=== PATIENT | female | born 1975 | race Hispanic/Latino ===

== ENCOUNTER 2017-01-22 11:58 | Inpatient (IN) | payer MEDICARE ==
[2017-01-22] MEDS ORDERED: ATROVENT IH ONE ×2 (12:15→12:20)
[2017-01-22] MEDS ORDERED: PROVENTIL IH ONE ×2 (12:15→12:20)
[2017-01-22] MEDS ORDERED: MAGNESIUM SULFATE 2GM/50ML 2 GM/50 ML BAG IV ONE ×2 (12:20→17:23)
[2017-01-22] MEDS ORDERED: NACL 0.9% 1000 ML 1,000 ML IV ONE ×3 (12:20→14:39)
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
[2017-01-22] MEDS ORDERED: ADRENALINE P/F SUB-Q ONE (12:29)
[2017-01-22] MEDS ORDERED: VASELINE LIP THERAPY TP PRN (12:47)
[2017-01-22] MEDS ORDERED: ZEMURON IV ONE ×2 (12:47→20:09)
[2017-01-22] MEDS ORDERED: KETALAR IV ONE ×3 (12:47→16:15)
[2017-01-22] MEDS ORDERED: SUBLIMAZE IV ONE (12:47)
[2017-01-22 13:00] LABS: Hematocrit 41.9 % (30.3-42.9); Hemoglobin 13.8 gm/dl (10.1-14.3); Mean Corpuscular HGB Conc 33 % (30-34); Mean Corpuscular Hemoglobin 31 pg (28-32); Mean Corpuscular Volume 93 fl (79-97); Platelet Count 370 K/mm3 (140-440); Red Blood Count 4.51 M/mm3 (3.65-5.03); Red Cell Distribution Width 13.5 % (13.2-15.2); White Blood Count 15.5 K/mm3 (4.5-11.0)
[2017-01-22] MEDS: fentaNYL DRIP Premix 2,000 MCG/100 ML BAG IV SCH ×2 (13:05→21:39)
[2017-01-22 13:09] LABS: INR 0.9 (0.87-1.13)
[2017-01-22] MEDS: DIPRIVAN 10 MG/ML 1,000 MG/100 ML BOTTLE IV SCH ×2 (13:10→23:10)
[2017-01-22 13:17] LABS: Urine Drugs of Abuse Note Disclamer
[2017-01-22 13:26] LABS: Alanine Aminotransferase 20 units/L (7-56); Albumin 4.1 g/dL (3.9-5); Albumin/Globulin Ratio 1.3 %; Alkaline Phosphatase 67 units/L (35-129); Bilirubin,Total < 0.2 mg/dL (0.1-1.2); Total Protein 7.2 g/dL (6.3-8.2)
[2017-01-22 13:26] LABS: Bilirubin,Urine NEG (Negative); Blood,Urine MOD (Negative); Ketones,Urine NEG (Negative); Leukocyte Esterase,Urine NEG (Negative); Nitrite,Urine NEG (Negative); Protein,Urine <15 mg/dL mg/dL (Negative); Urobilinogen,Urine < 2.0 mg/dL (<2.0); WBC,Urine < 1.0 /HPF (0.0-6.0)
[2017-01-22 13:27] LABS: Anion Gap 23 mmol/L; Blood Urea Nitrogen 6 mg/dL (7-17); Calcium 9.2 mg/dL (8.4-10.2); Carbon Dioxide 19 mmol/L (22-30); Chloride 103.8 mmol/L (98-107); Glucose 94 mg/dL (65-100); Potassium 3.3 mmol/L (3.6-5.0); Sodium 142 mmol/L (137-145)
[2017-01-22 13:28] LABS: Bilirubin,Direct < 0.2 mg/dL (0-0.2)
--- NOTE | 2017-01-22 13:59 | XRay Report ---
AP CHEST :01/22/17 12:57 CLINICAL: Post intubation. COMPARISON:None. FINDINGS: An endotracheal tube is in satisfactory position. Normal heart and pulmonary vessels. No pneumothorax. IMPRESSION: Satisfactory position of the endotracheal tube.No CHF or pneumonia.
[2017-01-22] MEDS ORDERED: KCL 10MEQ/100ML 10 MEQ/100 ML BAG IV SCH (14:00)
[2017-01-22 14:30] LABS: ISTAT Base Excess 1; ISTAT HCO3 26.8; ISTAT PCO2 51.4 (35-45); ISTAT PH 7.325 (7.35-7.45); ISTAT PO2 203 (80-105); ISTAT SO2 100; ISTAT TCO2 28
[2017-01-22 14:46] LABS: Basophils % (Manual) 0 % (0.0-1.8); Blastocytes % (Manual) 0 %
[2017-01-22 14:47] LABS: Diff Status Complete; RBC Morphology Normal
--- NOTE | 2017-01-22 14:48 | Admit Criteria Form ---
Admission Criteria Documentation: RESPIRATORY FAILURE GRG Clinical Indications for Admission to Inpatient Care (Place 'X' for any and all applicable criteria): Hospital admission is needed for appropriate care of the patient because of acute respiratory failure or insufficiency as indicated by ANY ONE of the following(1)(2)(3)(4)(5)(6)(7)(8): [ ]I. Mechanical ventilation needed (acute invasive or noninvasive) [X ]II. Severe ventilation deficit as indicated by ANY ONE of the following (9 ) [ ]a) Respiratory acidosis (pH less than 7.32 and partial pressure of carbon dioxide greater than 40 mm Hg (5.3 kPa)) [X ]b) Partial pressure of carbon dioxide greater than 44 mm Hg (5.9 kPa) (new) [ ]c) Airflow measurements less than 25% of predicted (eg, peak expiratory flow rate less than 100 L/minute) [ ]d) Forced vital capacity less than 15 mL/kg of ideal body weight, or 50% decrease in vital capacity from baseline [ ]III. Noncardiac pulmonary edema not resolving with rapid emergency treatment (8) [ ]IV. Severe respiratory distress as indicated by ANY ONE of the following: [ ]a) Severe tachypnea (respiratory rate greater than 30, greater than 45 for 6-month-old, greater than 60 for ) [ ]b) Severe hypoxemia (partial pressure of oxygen less than 50 mm Hg ( 6.7 kPa) on greater than 50% oxygen or partial pressure of oxygen to FIO2 ratio less than 200) [ ]c) Mental status deterioration from respiratory disease [ ]V. Airway obstruction or inadequate protection [A](10)(11) The original [employer] content created by [employer] has been revised. The portions of the content which have been revised are identified through the use of italic text or in bold, and [employer] has neither reviewed nor approved the modified material. All other unmodified content is copyright [employer]. Please see references footnoted in the original [employer] edition 2016 Admission Criteria Met: Yes
[2017-01-22] MEDS ORDERED: XYLOCAINE 1%/ EPI 1:100,000 INFILTRATI ONE (14:49)
[2017-01-22] MEDS ORDERED: LEVOPHED DRIP 4 MG/NS 250 ML 4 MG/250 ML BAG IV ONE (14:55)
[2017-01-22] MEDS ORDERED: XYLOCAINE 1%/ EPI 1:100,000 INFILTRATI NR (15:00)
[2017-01-22] MEDS ORDERED: KETALAR IV STA (15:01)
[2017-01-22] MEDS ORDERED: NACL 0.9% 1000 ML 1,000 ML ONE ×2 (15:54→17:23)
[2017-01-22] MEDS: LEVOPHED DRIP 4 MG/NS 250 ML 4 MG/250 ML BAG IV SCH (16:00)
[2017-01-22] MEDS ORDERED: DULCOLAX PR PRN ×2 (16:39→16:42)
[2017-01-22] MEDS ORDERED: ZOFRAN IV PRN (16:39)
[2017-01-22] MEDS ORDERED: MILK OF MAGNESIA PO PRN ×2 (16:39→16:42)
[2017-01-22] MEDS ORDERED: DILAUDID IV PRN (16:39)
--- NOTE | 2017-01-22 16:39 | History and Physical Report ---
History of Present Illness Date of examination: 01/22/17 Date of admission: 01/22/17 14:57 Chief complaint: Increasing shortness of breath for 1 day. History of present illness: History of present illness: 41-year-old female brought in for increasing shortness of breath. Patient does one lifetime intubation. Patient does history of severe asthma. Has been having wheezing cough shortness of breath and chest pain for 1 day. Was exposed to smoke yesterday. And patient thinks that the smoke initiated her asthma. No fever no chills. Patient feels that she is for 8 months but the test in the ER was negative. On arrival to the emergency room the patient was hypoxic tachycardic tachypneic with severe wheezing and and markedly distressed. No fever no chills. No recent long travel. Past History Past Medical History: other (as well as seizure disorder. Social history) Social history: smoking (former smoker.). denies: alcohol abuse Family history: hypertension Medications and Allergies Allergies Allergy/AdvReac Type Severity Reaction Status Date / Time morphine Allergy Angioedema Verified 08/04/15 15:17 Penicillins Allergy Angioedema Verified 08/04/15 15:17 shellfish derived Allergy Angioedema Verified 08/04/15 15:17 Home Medications Medication Instructions Recorded Confirmed Last Taken Type ALBUTEROL Inhaler [ProAir HFA 2 puff IH QID PRN #1 inhalation 08/24/15 Unknown Rx Inhaler] predniSONE [Deltasone] 40 mg PO QDAY #8 tab 08/24/15 Unknown Rx Active Meds: Active Medications Hydrophilic Ointment (Vaseline Lip Therapy) 1 applic TP Q2HR PRN PRN Reason: Dry Lips Fentanyl Citrate (Fentanyl Drip Premix) 2,000 mcg in 100 mls @ 3.062 mls/hr IV TITR STEFANIE; 1 MCG/KG/HR PRN Reason: Protocol Propofol (Diprivan 10 Mg/Ml) 1,000 mg in 100 mls @ 1.837 mls/hr IV TITR STEFANIE; 5 MCG/KG/MIN PRN Reason: Protocol Potassium Chloride (Kcl 10meq/100ml) 10 meq in 100 mls @ 100 mls/hr IV Q1H STEFANIE Stop: 01/22/17 17:59 Norepinephrine (Levophed Drip 4 Mg/Ns 250 Ml) 4 mg in 250 mls @ 7.5 mls/hr IV TITR STEFANIE; 2 MCG/MIN PRN Reason: Protocol Multi-Ingred Cream/Lotion/Oil/Oint (Artificial Tears Ophth Oint) 1 applic OU Q4HR PRN PRN Reason: Dry Eye(s) Review of Systems All systems: negative Constitutional: other (HEENT no sore throat no postnasal drip. Neck no neck stiffness or neck pain. Respiratory system no severe wheezing tachypnea and tachycardia present. Cough productive of mucoid sputum present. Cardiovascular system mild chest pain present. The increasing wheezing present. No diaphoresis no palpitations. GI no nausea no vomiting or diarrhea. Gentamicin resistant no dysuria no flank pain. Muscular skeletal system no joint pains. This [employer]PER[employer] no syncope no seizures. Skin no rashes. Endocrine no polyuria or polyphagia call or in the heart and heart intolerance. Psychiatric no depression or anxiety. Lymphatic and immunologic no easy bruising or bleeding. The 14 point review of systems on other than severe wheezing and tachypnea review of systems essentially negative.) Respiratory: cough with sputum, shortness of breath, wheezing Exam - Physical Exam Narrative exam: Well-developed well-nourished female intubated in the emergency room - Constitutional Vitals: Temp Pulse Resp BP Pulse Ox 77 16 67/28 98 01/22/17 14:21 01/22/17 13:06 01/22/17 14:21 01/22/17 14:21 General appearance: Present: no acute distress, severe distress, well-nourished - EENT Eyes: Present: PERRL ENT: hearing intact, clear oral mucosa - Neck Neck: Present: supple, normal ROM - Respiratory Respiratory effort: normal Respiratory: bilateral: rhonchi, wheezing - Cardiovascular Heart rate: 80 Rhythm: regular Heart Sounds: Present: S1 & S2. Absent: rub, click - Extremities Extremities: pulses symmetrical, No edema Peripheral Pulses: within normal limits - Abdominal General gastrointestinal: Present: soft, non-tender, non-distended, normal bowel sounds Female genitourinary: Present: normal - Integumentary Integumentary: Present: clear, warm, dry - Musculoskeletal Musculoskeletal: gait normal, strength equal bilaterally - Psychiatric Psychiatric: appropriate mood/affect, intact judgment & insight - Neurologic Neurologic: CNII-XII intact, moves all extremities - Allied Health Allied health notes reviewed: nursing, case management Results - Labs CBC & Chem 7: 01/22/17 12:52 01/22/17 12:52 Labs: Laboratory Last Values WBC 15.5 K/mm3 (4.5-11.0) H 01/22/17 12:52 RBC 4.51 M/mm3 (3.65-5.03) 01/22/17 12:52 Hgb 13.8 gm/dl (10.1-14.3) 01/22/17 12:52 Hct 41.9 % (30.3-42.9) 01/22/17 12:52 MCV 93 fl (79-97) 01/22/17 12:52 MCH 31 pg (28-32) 01/22/17 12:52 MCHC 33 % (30-34) 01/22/17 12:52 RDW 13.5 % (13.2-15.2) 01/22/17 12:52 Plt Count 370 K/mm3 (140-440) 01/22/17 12:52 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 01/22/17 12:52 Add Manual Diff Complete 01/22/17 12:52 Total Counted 100 01/22/17 12:52 Seg Neuts % (Manual) 64.0 % (40.0-70.0) 01/22/17 12:52 Band Neutrophils % 1.0 % 01/22/17 12:52 Lymphocytes % (Manual) 24.0 % (13.4-35.0) 01/22/17 12:52 Reactive Lymphs % (Man) 0 % 01/22/17 12:52 Monocytes % (Manual) 7.0 % (0.0-7.3) 01/22/17 12:52 Eosinophils % (Manual) 4.0 % (0.0-4.3) 01/22/17 12:52 Basophils % (Manual) 0 % (0.0-1.8) 01/22/17 12:52 Metamyelocytes % 0 % 01/22/17 12:52 Myelocytes % 0 % 01/22/17 12:52 Promyelocytes % 0 % 01/22/17 12:52 Blast Cells % 0 % 01/22/17 12:52 Nucleated RBC % Not Reportable 01/22/17 12:52 Seg Neutrophils # Man 9.9 K/mm3 (1.8-7.7) H 01/22/17 12:52 Band Neutrophils # 0.2 K/mm3 01/22/17 12:52 Lymphocytes # (Manual) 3.7 K/mm3 (1.2-5.4) 01/22/17 12:52 Abs React Lymphs (Man) 0.0 K/mm3 01/22/17 12:52 Monocytes # (Manual) 1.1 K/mm3 (0.0-0.8) H 01/22/17 12:52 Eosinophils # (Manual) 0.6 K/mm3 (0.0-0.4) H 01/22/17 12:52 Basophils # (Manual) 0.0 K/mm3 (0.0-0.1) 01/22/17 12:52 Metamyelocytes # 0.0 K/mm3 01/22/17 12:52 Myelocytes # 0.0 K/mm3 01/22/17 12:52 Promyelocytes # 0.0 K/mm3 01/22/17 12:52 Blast Cells # 0.0 K/mm3 01/22/17 12:52 WBC Morphology Not Reportable 01/22/17 12:52 Hypersegmented Neuts Not Reportable 01/22/17 12:52 Hyposegmented Neuts Not Reportable 01/22/17 12:52 Hypogranular Neuts Not Reportable 01/22/17 12:52 Smudge Cells Not Reportable 01/22/17 12:52 Toxic Granulation Not Reportable 01/22/17 12:52 Toxic Vacuolation Not Reportable 01/22/17 12:52 Dohle Bodies Not Reportable 01/22/17 12:52 Pelger-Huet Anomaly Not Reportable 01/22/17 12:52 Roderick Rods Not Reportable 01/22/17 12:52 Platelet Estimate Not Reportable 01/22/17 12:52 Clumped Platelets Not Reportable 01/22/17 12:52 Plt Clumps, EDTA Not Reportable 01/22/17 12:52 Large Platelets Not Reportable 01/22/17 12:52 Giant Platelets Not Reportable 01/22/17 12:52 Platelet Satelliting Not Reportable 01/22/17 12:52 Plt Morphology Comment Not Reportable 01/22/17 12:52 RBC Morphology Normal 01/22/17 12:52 Dimorphic RBCs Not Reportable 01/22/17 12:52 Polychromasia Not Reportable 01/22/17 12:52 Hypochromasia Not Reportable 01/22/17 12:52 Poikilocytosis Not Reportable 01/22/17 12:52 Anisocytosis Not Reportable 01/22/17 12:52 Microcytosis Not Reportable 01/22/17 12:52 Macrocytosis Not Reportable 01/22/17 12:52 Spherocytes Not Reportable 01/22/17 12:52 Pappenheimer Bodies Not Reportable 01/22/17 12:52 Sickle Cells Not Reportable 01/22/17 12:52 Target Cells Not Reportable 01/22/17 12:52 Tear Drop Cells Not Reportable 01/22/17 12:52 Ovalocytes Not Reportable 01/22/17 12:52 Helmet Cells Not Reportable 01/22/17 12:52 Fermin-Marion Bodies Not Reportable 01/22/17 12:52 Ray Rings Not Reportable 01/22/17 12:52 Proctor Cells Not Reportable 01/22/17 12:52 Bite Cells Not Reportable 01/22/17 12:52 Crenated Cell Not Reportable 01/22/17 12:52 Elliptocytes Not Reportable 01/22/17 12:52 Acanthocytes (Spur) Not Reportable 01/22/17 12:52 Rouleaux Not Reportable 01/22/17 12:52 Hemoglobin C Crystals Not Reportable 01/22/17 12:52 Schistocytes Not Reportable 01/22/17 12:52 Malaria parasites Not Reportable 01/22/17 12:52 Ravin Bodies Not Reportable 01/22/17 12:52 Hem Pathologist Commnt No 01/22/17 12:52 PT 12.0 Sec. (12.2-14.9) L 01/22/17 12:52 INR 0.90 (0.87-1.13) 01/22/17 12:52 D-Dimer 162.42 ng/mlDDU (0-234) 01/22/17 12:52 POC ABG pH 7.325 (7.35-7.45) L 01/22/17 13:50 POC ABG pCO2 51.4 (35-45) H 01/22/17 13:50 POC ABG pO2 203 (80-105) H 01/22/17 13:50 POC ABG HCO3 26.8 01/22/17 13:50 POC ABG Total CO2 28 01/22/17 13:50 POC ABG O2 Sat 100 01/22/17 13:50 POC ABG Base Excess 1 01/22/17 13:50 FiO2 60 % 01/22/17 13:50 Sodium 142 mmol/L (137-145) 01/22/17 12:52 Potassium 3.3 mmol/L (3.6-5.0) L 01/22/17 12:52 Chloride 103.8 mmol/L (98-107) 01/22/17 12:52 Carbon Dioxide 19 mmol/L (22-30) L 01/22/17 12:52 Anion Gap 23 mmol/L 01/22/17 12:52 BUN 6 mg/dL (7-17) L 01/22/17 12:52 Creatinine 0.5 mg/dL (0.7-1.2) L 01/22/17 12:52 Estimated GFR > 60 ml/min 01/22/17 12:52 BUN/Creatinine Ratio 12.00 % 01/22/17 12:52 Glucose 94 mg/dL (65-100) 01/22/17 12:52 Calcium 9.2 mg/dL (8.4-10.2) 01/22/17 12:52 Magnesium 1.9 mg/dL (1.7-2.3) 01/22/17 14:40 Total Bilirubin < 0.2 mg/dL (0.1-1.2) 01/22/17 12:52 Direct Bilirubin < 0.2 mg/dL (0-0.2) 01/22/17 12:52 Indirect Bilirubin 0.0 mg/dL 01/22/17 12:52 AST 22 units/L (5-40) 01/22/17 12:52 ALT 20 units/L (7-56) 01/22/17 12:52 Alkaline Phosphatase 67 units/L (35-129) 01/22/17 12:52 Troponin T < 0.010 ng/mL (0.00-0.029) 01/22/17 12:52 NT-Pro-B Natriuret Pep 100.8 pg/mL (0-450) 01/22/17 12:52 Total Protein 7.2 g/dL (6.3-8.2) 01/22/17 12:52 Albumin 4.1 g/dL (3.9-5) 01/22/17 12:52 Albumin/Globulin Ratio 1.3 % 01/22/17 12:52 HCG, Quant < 2 mIU/mL (0-4) 01/22/17 12:52 Urine Color Colorless (Yellow) 01/22/17 Unknown Urine Turbidity Clear (Clear) 01/22/17 Unknown Urine pH 6.0 (5.0-7.0) 01/22/17 Unknown Ur Specific Laverne 1.002 (1.003-1.030) L 01/22/17 Unknown Urine Protein <15 mg/dl mg/dL (Negative) 01/22/17 Unknown Urine Glucose (UA) Neg mg/dL (Negative) 01/22/17 Unknown Urine Ketones Neg mg/dL (Negative) 01/22/17 Unknown Urine Blood Mod (Negative) 01/22/17 Unknown Urine Nitrite Neg (Negative) 01/22/17 Unknown Urine Bilirubin Neg (Negative) 01/22/17 Unknown Urine Urobilinogen < 2.0 mg/dL (<2.0) 01/22/17 Unknown Ur Leukocyte Esterase Neg (Negative) 01/22/17 Unknown Urine WBC (Auto) < 1.0 /HPF (0.0-6.0) 01/22/17 Unknown Urine RBC (Auto) 1.0 /HPF (0.0-6.0) 01/22/17 Unknown U Epithel Cells (Auto) < 1.0 /HPF (0-13.0) 01/22/17 Unknown Urine Opiates Screen Presumptive negative 01/22/17 Unknown Urine Methadone Screen Presumptive negative 01/22/17 Unknown Ur Barbiturates Screen Presumptive negative 01/22/17 Unknown Ur Phencyclidine Scrn Presumptive negative 01/22/17 Unknown Ur Amphetamines Screen Presumptive negative 01/22/17 Unknown U Benzodiazepines Scrn Presumptive negative 01/22/17 Unknown Urine Cocaine Screen Presumptive negative 01/22/17 Unknown U Marijuana (THC) Screen Presumptive negative 01/22/17 Unknown Drugs of Abuse Note Disclamer 01/22/17 Unknown Short CBC 01/22/17 Range/Units 12:52 WBC 15.5 H (4.5-11.0) K/mm3 Hgb 13.8 (10.1-14.3) gm/dl Hct 41.9 (30.3-42.9) % Plt Count 370 (140-440) K/mm3 [facility] 01/22/17 12:52 Sodium 142 Potassium 3.3 L Chloride 103.8 Carbon Dioxide 19 L BUN 6 L Creatinine 0.5 L Glucose 94 Calcium 9.2 Cardiac Enzymes 01/22/17 Range/Units 12:52 Troponin T < 0.010 (0.00-0.029) ng/mL Liver Function 01/22/17 Range/Units 12:52 Total Bilirubin < 0.2 (0.1-1.2) mg/dL Direct Bilirubin < 0.2 (0-0.2) mg/dL AST 22 (5-40) units/L ALT 20 (7-56) units/L Alkaline Phosphatase 67 (35-129) units/L Albumin 4.1 (3.9-5) g/dL Urine 01/22/17 Range/Units Unknown Urine Color Colorless (Yellow) Urine pH 6.0 (5.0-7.0) Ur Specific Laverne 1.002 L (1.003-1.030) Urine Protein <15 mg/dl (Negative) mg/dL Urine Glucose (UA) Neg (Negative) mg/dL Short CBC 01/22/17 Range/Units 12:52 WBC 15.5 H (4.5-11.0) K/mm3 Hgb 13.8 (10.1-14.3) gm/dl Hct 41.9 (30.3-42.9) % Plt Count 370 (140-440) K/mm3 [facility] 01/22/17 12:52 Sodium 142 Potassium 3.3 L Chloride 103.8 Carbon Dioxide 19 L BUN 6 L Creatinine 0.5 L Glucose 94 Calcium 9.2 Cardiac Enzymes 01/22/17 Range/Units 12:52 Troponin T < 0.010 (0.00-0.029) ng/mL Liver Function 01/22/17 Range/Units 12:52 Total Bilirubin < 0.2 (0.1-1.2) mg/dL Direct Bilirubin < 0.2 (0-0.2) mg/dL AST 22 (5-40) units/L ALT 20 (7-56) units/L Alkaline Phosphatase 67 (35-129) units/L Albumin 4.1 (3.9-5) g/dL Urine 01/22/17 Range/Units Unknown Urine Color Colorless (Yellow) Urine pH 6.0 (5.0-7.0) Ur Specific Laverne 1.002 L (1.003-1.030) Urine Protein <15 mg/dl (Negative) mg/dL Urine Glucose (UA) Neg (Negative) mg/dL - Imaging and Cardiology EKG: report reviewed (EKG normal sinus rhythm with no ST-T wave changes.) Chest x-ray: report reviewed (no infiltrates. No acute findings.) Assessment and Plan Assessment and plan: 1.Acute respiratory failure: Patient was hypoxic on arrival to the emergency room. Because of tachypnea and severe hypoxia patient was intubated in the emergency room by Dr. Ivanna mckeon. 2. Acute asthma exacerbation: Patient to be started on albuterol nebulizer treatments every 6 hours [id number] and every 3 when necessary. Patient also started on steroids and IV Levaquin 750 mg every 24. Critical care and pulmonary consult requested by Dr. Gerber 3. Seizure disorder: Patient to be initiated on gabapentin which is her home medicine. #4 4. ruled out. 5. DVT prophylaxis: Lovenox 40 mg subcutaneous daily started. 6. Hypokalemia supplemented. Critical care statement: The high probability of a clinically significant or life-threatening deterioration of the cardiopulmonary system required my full and direct attention, intervention and personal management. This time the aggravated critical care time was 40 minutes. This time is in addition to time spent performing reported procedures but includes the following: Data review and interpretation Patient assessment and monitoring of vital signs Documentation Medication orders and management. Advance Directives: Yes (Full code) VTE prophylaxis?: Chemical Plan of care discussed with patient/family: Yes - Patient Problems (1) Acute respiratory failure Current Visit: Yes Status: Acute Qualifiers: Respiratory failure complication: hypoxia Qualified Code(s): J96.01 - Acute respiratory failure with hypoxia
[2017-01-22] MEDS ORDERED: SODIUM BICARBONATE FEEDTUBE PRN (16:42)
[2017-01-22] MEDS ORDERED: PANCREAZE DR 10,500 UNIT FEEDTUBE PRN (16:42)
[2017-01-22] MEDS ORDERED: SIMPLE SYRUP FEEDTUBE PRN ×2 (16:42)
[2017-01-22] MEDS ORDERED: ALUM-MAG HYDROX-SIMETH 200-200-20MG/5ML PO PRN (16:42)
[2017-01-22] MEDS ORDERED: ADRENALIN ONE (17:23)
[2017-01-22] MEDS ORDERED: NACL 0.9% 1000 ML 2,000 ML ONE (17:30)
[2017-01-22] MEDS ORDERED: DIPRIVAN IV ONE (17:32)
[2017-01-22] MEDS ORDERED: KCL 10MEQ/100ML 10 MEQ/100 ML BAG IV ONE (17:33)
--- NOTE | 2017-01-22 17:52 | Emergency Department Report ---
Blank Doc - Documentation Documentation: PROCEDURE NOTE: DELAYED SEQUENCE INTUBATION Indication: Acute hypoxia and altered mental status. pt was uncooperative, confused and combative at time of assessment Supervising Physician: Dr. Cardona Clinical APC: LANA Sifuentes Witnesses: ED Nursing staff and RT at bedside The patient was lying in the supine position, neck flexed backward with towels underneath neck. Preoxygenation via nasal cannula to max flow, nonrebreather mask and then bag valve mask was provided for aminimum of 3 minutes. The patient had continuous cardiac as well as pulse oximetry monitoring during the procedure. Delayed sequence induction was provided by administration of 300 mg of Ketamine and paralysis was acheived [id number] of Roccuronium. Glidoscope with curved blade laryngoscope used for visualization of voal cords, 7.5mm ET tube tube was visualized advancing between the cords to a level of 23_cm at the lips. The sylette was then removed and discarded. Tube placement was also noted by fogging in the tube, equal and bilateral breath sounds on ausculatation, no sounds over the epigastrium, and end-tidal colorimetric monitoring. The cuff was then inflated with 10ccs of air and the tube secured using a ET tube face moore. A good pulse oximetry wave form was seen on the monitor throughout the procedure, o2 sat 100%. A portable chest x-ray has been ordered for confirmation of placement.
[2017-01-22] MEDS ORDERED: PROVENTIL IH PRN (18:23)
[2017-01-22] MEDS: PROVENTIL IH SCH (19:32)
[2017-01-22] MEDS: KCL 10MEQ/100ML 10 MEQ/100 ML BAG IV SCH ×3 (21:05→23:16)
[2017-01-22] MEDS: PEPCID IV SCH (21:29)
[2017-01-22] MEDS: D5NS 1,000 ML IV SCH (21:57)
[2017-01-23] MEDS: KCL 10MEQ/100ML 10 MEQ/100 ML BAG IV SCH (01:24)
[2017-01-23] MEDS: LEVOPHED DRIP 4 MG/NS 250 ML 4 MG/250 ML BAG IV SCH ×2 (01:25→22:28)
[2017-01-23] MEDS: PROVENTIL IH SCH ×4 (01:38→20:14)
[2017-01-23] MEDS: DIPRIVAN 10 MG/ML 1,000 MG/100 ML BOTTLE IV SCH ×7 (01:59→23:57)
[2017-01-23 03:55] LABS: Hematocrit 35.8 % (30.3-42.9); Hemoglobin 11.8 gm/dl (10.1-14.3); Mean Corpuscular HGB Conc 33 % (30-34); Mean Corpuscular Hemoglobin 31 pg (28-32); Mean Corpuscular Volume 92 fl (79-97); Platelet Count 327 K/mm3 (140-440); Red Blood Count 3.87 M/mm3 (3.65-5.03); Red Cell Distribution Width 13.6 % (13.2-15.2); White Blood Count 16.5 K/mm3 (4.5-11.0)
[2017-01-23 04:13] LABS: ISTAT Base Excess -6; ISTAT HCO3 20.2; ISTAT PCO2 41.8 (35-45); ISTAT PH 7.293 (7.35-7.45); ISTAT PO2 89 (80-105); ISTAT SO2 96; ISTAT TCO2 21
[2017-01-23 04:16] LABS: Alanine Aminotransferase 93 units/L (7-56); Albumin 3.2 g/dL (3.9-5); Albumin/Globulin Ratio 1.2 %; Alkaline Phosphatase 72 units/L (35-129); Anion Gap 18 mmol/L; Bilirubin,Total 0.4 mg/dL (0.1-1.2); Blood Urea Nitrogen 7 mg/dL (7-17); Calcium 7.6 mg/dL (8.4-10.2); Carbon Dioxide 19 mmol/L (22-30); Chloride 108.6 mmol/L (98-107); Glucose 216 mg/dL (65-100); Sodium 141 mmol/L (137-145); Total Protein 5.9 g/dL (6.3-8.2)
[2017-01-23 05:22] LABS: Potassium 4.6 mmol/L (3.6-5.0)
[2017-01-23] MEDS: fentaNYL DRIP Premix 2,000 MCG/100 ML BAG IV SCH ×3 (05:39→23:59)
[2017-01-23 07:15] LABS: Basophils % (Manual) 0 % (0.0-1.8); Blastocytes % (Manual) 0 %; Diff Status Complete; Eosinophils % (Manual) 0 % (0.0-4.3); RBC Morphology Normal
--- NOTE | 2017-01-23 08:30 | Progress Note ---
Assessment and Plan Assessment and plan: --Acute hypoxic respiratory failure Secondary to bronchial asthma exacerbation, continue ventilatory support Nebulizers, IV steroids, IV antibiotics --Acute exacerbation of bronchial asthma Ventilatory support, nebulizers, steroids, IV antibiotics and supportive care Pulmonary following --Hypotension/septic Shock Continue Levophed, IV fluids, IV antibiotics --Hypokalemia Replenish per protocol and monitor levels --Mild hypoalbuminemia/protein calorie malnutrition Nutrition supplements and supportive care --DVT prophylaxis with Lovenox Closely monitor the patient and adjust the management as needed Patient's condition treatment plan discussed in detail with the patient's nurse Consults and recommendations noted Critical care time 31 minutes The high probability of a clinically significant or life-threatening deterioration of the cardiopulmonary system required my full and direct attention, intervention and personal management. This includes Data review and interpretation Patient assessment and monitoring of vital signs Documentation and Medication orders and management. History Interval history: Recent seen and evaluated this morning in ICU medical records reviewed Admitted with acute respiratory failure secondary to bronchial asthma exacerbation,: Intubated on ventilatory support Patient is noncommunicative, sedated not in acute distress No new events reported by the nursing staff Hospitalist Physical - Constitutional Vitals: Temp Pulse Resp BP Pulse Ox 96.8 F L 65 18 137/62 96 01/23/17 03:58 01/23/17 06:00 01/23/17 06:00 01/23/17 06:00 01/23/17 06:00 General appearance: Present: no acute distress, well-nourished, other (orally intubated and on vent) - EENT Eyes: Present: PERRL, EOM intact - Neck Neck: Present: supple, normal ROM - Respiratory Respiratory effort: normal Respiratory: bilateral: diminished, rhonchi ( occasional), wheezing - Cardiovascular Rhythm: regular Heart Sounds: Present: S1 & S2 - Extremities Extremities: no ischemia, pulses intact, pulses symmetrical - Abdominal General gastrointestinal: soft, non-tender, non-distended, normal bowel sounds - Integumentary Integumentary: Present: clear, warm - Psychiatric Psychiatric: other (intubated and sedated) - Neurologic Neurologic: other (intubated and sedated) Results - Labs CBC & Chem 7: 01/23/17 03:40 01/23/17 03:40 Labs: Laboratory Last Values WBC 16.5 K/mm3 (4.5-11.0) H 01/23/17 03:40 RBC 3.87 M/mm3 (3.65-5.03) 01/23/17 03:40 Hgb 11.8 gm/dl (10.1-14.3) 01/23/17 03:40 Hct 35.8 % (30.3-42.9) D 01/23/17 03:40 MCV 92 fl (79-97) 01/23/17 03:40 MCH 31 pg (28-32) 01/23/17 03:40 MCHC 33 % (30-34) 01/23/17 03:40 RDW 13.6 % (13.2-15.2) 01/23/17 03:40 Plt Count 327 K/mm3 (140-440) 01/23/17 03:40 Lymph # Property Inspector 01/22/17 12:52 Add Manual Diff Complete 01/23/17 03:40 Total Counted 100 01/23/17 03:40 Seg Neutrophils % Property Inspector 01/23/17 03:40 Seg Neuts % (Manual) 95.0 % (40.0-70.0) H 01/23/17 03:40 Band Neutrophils % 0 % 01/23/17 03:40 Lymphocytes % (Manual) 4.0 % (13.4-35.0) L 01/23/17 03:40 Reactive Lymphs % (Man) 0 % 01/23/17 03:40 Monocytes % (Manual) 1.0 % (0.0-7.3) 01/23/17 03:40 Eosinophils % (Manual) 0 % (0.0-4.3) 01/23/17 03:40 Basophils % (Manual) 0 % (0.0-1.8) 01/23/17 03:40 Metamyelocytes % 0 % 01/23/17 03:40 Myelocytes % 0 % 01/23/17 03:40 Promyelocytes % 0 % 01/23/17 03:40 Blast Cells % 0 % 01/23/17 03:40 Nucleated RBC % Not Reportable 01/23/17 03:40 Seg Neutrophils # Man 15.7 K/mm3 (1.8-7.7) H 01/23/17 03:40 Band Neutrophils # 0.0 K/mm3 01/23/17 03:40 Lymphocytes # (Manual) 0.7 K/mm3 (1.2-5.4) L 01/23/17 03:40 Abs React Lymphs (Man) 0.0 K/mm3 01/23/17 03:40 Monocytes # (Manual) 0.2 K/mm3 (0.0-0.8) 01/23/17 03:40 Eosinophils # (Manual) 0.0 K/mm3 (0.0-0.4) 01/23/17 03:40 Basophils # (Manual) 0.0 K/mm3 (0.0-0.1) 01/23/17 03:40 Metamyelocytes # 0.0 K/mm3 01/23/17 03:40 Myelocytes # 0.0 K/mm3 01/23/17 03:40 Promyelocytes # 0.0 K/mm3 01/23/17 03:40 Blast Cells # 0.0 K/mm3 01/23/17 03:40 WBC Morphology Not Reportable 01/23/17 03:40 Hypersegmented Neuts Not Reportable 01/23/17 03:40 Hyposegmented Neuts Not Reportable 01/23/17 03:40 Hypogranular Neuts Not Reportable 01/23/17 03:40 Smudge Cells Not Reportable 01/23/17 03:40 Toxic Granulation Not Reportable 01/23/17 03:40 Toxic Vacuolation Not Reportable 01/23/17 03:40 Dohle Bodies Not Reportable 01/23/17 03:40 Pelger-Huet Anomaly Not Reportable 01/23/17 03:40 Roderick Rods Not Reportable 01/23/17 03:40 Platelet Estimate Appears normal 01/23/17 03:40 Clumped Platelets Not Reportable 01/23/17 03:40 Plt Clumps, EDTA Not Reportable 01/23/17 03:40 Large Platelets Not Reportable 01/23/17 03:40 Giant Platelets Not Reportable 01/23/17 03:40 Platelet Satelliting Not Reportable 01/23/17 03:40 Plt Morphology Comment Not Reportable 01/23/17 03:40 RBC Morphology Normal 01/23/17 03:40 Dimorphic RBCs Not Reportable 01/23/17 03:40 Polychromasia Not Reportable 01/23/17 03:40 Hypochromasia Not Reportable 01/23/17 03:40 Poikilocytosis Not Reportable 01/23/17 03:40 Anisocytosis Not Reportable 01/23/17 03:40 Microcytosis Not Reportable 01/23/17 03:40 Macrocytosis Not Reportable 01/23/17 03:40 Spherocytes Not Reportable 01/23/17 03:40 Pappenheimer Bodies Not Reportable 01/23/17 03:40 Sickle Cells Not Reportable 01/23/17 03:40 Target Cells Not Reportable 01/23/17 03:40 Tear Drop Cells Not Reportable 01/23/17 03:40 Ovalocytes Not Reportable 01/23/17 03:40 Helmet Cells Not Reportable 01/23/17 03:40 [place] Bodies Not Reportable 01/23/17 03:40 Dixie Rings Not Reportable 01/23/17 03:40 Juliana Cells Not Reportable 01/23/17 03:40 Bite Cells Not Reportable 01/23/17 03:40 Crenated Cell Not Reportable 01/23/17 03:40 Elliptocytes Not Reportable 01/23/17 03:40 Acanthocytes (Spur) Not Reportable 01/23/17 03:40 Rouleaux Not Reportable 01/23/17 03:40 Hemoglobin C Crystals Not Reportable 01/23/17 03:40 Schistocytes Not Reportable 01/23/17 03:40 Malaria parasites Not Reportable 01/23/17 03:40 Ravin Bodies Not Reportable 01/23/17 03:40 Hem Pathologist Commnt No 01/23/17 03:40 PT 12.0 Sec. (12.2-14.9) L 01/22/17 12:52 INR 0.90 (0.87-1.13) 01/22/17 12:52 D-Dimer 162.42 ng/mlDDU (0-234) 01/22/17 12:52 POC ABG pH 7.293 (7.35-7.45) L 01/23/17 03:32 POC ABG pCO2 41.8 (35-45) 01/23/17 03:32 POC ABG pO2 89 (80-105) 01/23/17 03:32 POC ABG HCO3 20.2 01/23/17 03:32 POC ABG Total CO2 21 01/23/17 03:32 POC ABG O2 Sat 96 01/23/17 03:32 POC ABG Base Excess -6 01/23/17 03:32 FiO2 30 % 01/23/17 03:32 Sodium 141 mmol/L (137-145) 01/23/17 03:40 Potassium 4.6 mmol/L (3.6-5.0) D 01/23/17 03:40 Chloride 108.6 mmol/L (98-107) H 01/23/17 03:40 Carbon Dioxide 19 mmol/L (22-30) L 01/23/17 03:40 Anion Gap 18 mmol/L 01/23/17 03:40 BUN 7 mg/dL (7-17) 01/23/17 03:40 Creatinine 0.5 mg/dL (0.7-1.2) L 01/23/17 03:40 Estimated GFR > 60 ml/min 01/23/17 03:40 BUN/Creatinine Ratio 14.00 % 01/23/17 03:40 Glucose 216 mg/dL (65-100) H 01/23/17 03:40 Calcium 7.6 mg/dL (8.4-10.2) L D 01/23/17 03:40 Magnesium 1.9 mg/dL (1.7-2.3) 01/22/17 14:40 Total Bilirubin 0.4 mg/dL (0.1-1.2) 01/23/17 03:40 Direct Bilirubin < 0.2 mg/dL (0-0.2) 01/22/17 12:52 Indirect Bilirubin 0.0 mg/dL 01/22/17 12:52 AST 98 units/L (5-40) H 01/23/17 03:40 ALT 93 units/L (7-56) H 01/23/17 03:40 Alkaline Phosphatase 72 units/L (35-129) 01/23/17 03:40 Troponin T < 0.010 ng/mL (0.00-0.029) 01/22/17 12:52 NT-Pro-B Natriuret Pep 100.8 pg/mL (0-450) 01/22/17 12:52 Total Protein 5.9 g/dL (6.3-8.2) L 01/23/17 03:40 Albumin 3.2 g/dL (3.9-5) L 01/23/17 03:40 Albumin/Globulin Ratio 1.2 % 01/23/17 03:40 HCG, Quant < 2 mIU/mL (0-4) 01/22/17 12:52 Urine Color Colorless (Yellow) 01/22/17 Unknown Urine Turbidity Clear (Clear) 01/22/17 Unknown Urine pH 6.0 (5.0-7.0) 01/22/17 Unknown Ur Specific [place] 1.002 (1.003-1.030) L 01/22/17 Unknown Urine Protein <15 mg/dl mg/dL (Negative) 01/22/17 Unknown Urine Glucose (UA) Neg mg/dL (Negative) 01/22/17 Unknown Urine Ketones Neg mg/dL (Negative) 01/22/17 Unknown Urine Blood Mod (Negative) 01/22/17 Unknown Urine Nitrite Neg (Negative) 01/22/17 Unknown Urine Bilirubin Neg (Negative) 01/22/17 Unknown Urine Urobilinogen < 2.0 mg/dL (<2.0) 01/22/17 Unknown Ur Leukocyte Esterase Neg (Negative) 01/22/17 Unknown Urine WBC (Auto) < 1.0 /HPF (0.0-6.0) 01/22/17 Unknown Urine RBC (Auto) 1.0 /HPF (0.0-6.0) 01/22/17 Unknown U Epithel Cells (Auto) < 1.0 /HPF (0-13.0) 01/22/17 Unknown Urine Opiates Screen Presumptive negative 01/22/17 Unknown Urine Methadone Screen Presumptive negative 01/22/17 Unknown Ur Barbiturates Screen Presumptive negative 01/22/17 Unknown Ur Phencyclidine Scrn Presumptive negative 01/22/17 Unknown Ur Amphetamines Screen Presumptive negative 01/22/17 Unknown U Benzodiazepines Scrn Presumptive negative 01/22/17 Unknown Urine Cocaine Screen Presumptive negative 01/22/17 Unknown U Marijuana (THC) Screen Presumptive negative 01/22/17 Unknown Drugs of Abuse Note Disclamer 01/22/17 Unknown
--- NOTE | 2017-01-23 08:52 | XRay Report ---
AP chest x-ray. Findings: The heart and lungs reveal no acute findings or interval changes. The endotracheal tube is in satisfactory position. A left jugular central line terminates in the upper SVC, and there is no evidence of pneumothorax. Impression: No acute findings.
--- NOTE | 2017-01-23 08:53 | XRay Report ---
AP chest x-ray. Findings: The heart and lungs with no acute findings or interval changes. The left support tubes are unchanged in position.
[2017-01-23] MEDS: LOVENOX SUB-Q SCH (09:15)
[2017-01-23] MEDS: PEPCID IV SCH ×2 (09:15→22:16)
[2017-01-23] MEDS ORDERED: PANCREAZE DR 10,500 UNIT FEEDTUBE PRN (09:59)
[2017-01-23] MEDS ORDERED: SIMPLE SYRUP FEEDTUBE PRN ×2 (09:59)
[2017-01-23] MEDS ORDERED: SODIUM BICARBONATE FEEDTUBE PRN (09:59)
[2017-01-23] MEDS: D5NS 1,000 ML IV SCH ×2 (11:06→14:17)
--- NOTE | 2017-01-23 11:35 | Consultation ---
History of Present Illness Consult date: 01/23/17 Requesting physician: ELLA DAVIS Reason for consult: other (Acute Hypoxemic Respiratory failure) History of present illness: PULMONARY CONSULT NOTE (Full note dictated [id number]) please see dictated notes for full details Past History Past Medical History: other (as well as seizure disorder. Social history) Social history: smoking (former smoker.). denies: alcohol abuse Family history: hypertension Medications and Allergies Allergies Allergy/AdvReac Type Severity Reaction Status Date / Time morphine Allergy Angioedema Verified 08/04/15 15:17 Penicillins Allergy Angioedema Verified 08/04/15 15:17 shellfish derived Allergy Angioedema Verified 08/04/15 15:17 Home Medications Medication Instructions Recorded Confirmed Last Taken Type ALBUTEROL Inhaler [ProAir HFA 2 puff IH QID PRN #1 inhalation 08/24/15 Unknown Rx Inhaler] predniSONE [Deltasone] 40 mg PO QDAY #8 tab 08/24/15 Unknown Rx Active Meds: Active Medications Acetaminophen (Tylenol) 650 mg PO Q4H PRN PRN Reason: Pain MILD(1-3)/Fever >100.5/ARMENDARIZ Al Hydrox/Mg Hydrox/Simethicone (Alum-Mag Hydrox-Simeth [id number]/5ml) 30 ml PO Q4H PRN PRN Reason: Indigestion Albuterol (Proventil) 2.5 mg IH Q6HRT [facility] Last Admin: 01/23/17 09:15 Dose: 2.5 mg Albuterol (Proventil) 2.5 mg IH Q2H PRN PRN Reason: Shortness Of Breath Lipase/Protease/Amylase ([place]redoug Dickens 10,500 Unit) 1 each FEEDTUBE PRN PRN PRN Reason: For Clogged Feeding Tube Lipase/Protease/Amylase (Grayson Dickens 10,500 Unit) 1 each FEEDTUBE PRN PRN PRN Reason: For Clogged Feeding Tube Bisacodyl (Dulcolax) 10 mg GA QDAY PRN PRN Reason: constipation unrelieved by MOM Enoxaparin Sodium (Lovenox) 40 mg SUB-Q QDAY [facility] Last Admin: 01/23/17 09:15 Dose: 40 mg Famotidine (Pepcid) 20 mg IV BID [facility] Last Admin: 01/23/17 09:15 Dose: 20 mg Hydromorphone HCl (Dilaudid) 0.5 mg IV Q3H PRN PRN Reason: Pain , Severe (7-10) Hydrophilic Ointment (Vaseline Lip Therapy) 1 applic TP Q2HR PRN PRN Reason: Dry Lips Fentanyl Citrate (Fentanyl Drip Premix) 2,000 mcg in 100 mls @ 3.062 mls/hr IV TITR STEFANIE; 1 MCG/KG/HR PRN Reason: Protocol Last Admin: 01/23/17 05:39 Dose: 1 mcg/kg/hr, 3.062 mls/hr Propofol (Diprivan 10 Mg/Ml) 1,000 mg in 100 mls @ 1.837 mls/hr IV TITR STEFANIE; 5 MCG/KG/MIN PRN Reason: Protocol Last Admin: 01/23/17 08:57 Dose: 50 mcg/kg/min, 18.371 mls/hr Norepinephrine (Levophed Drip 4 Mg/Ns 250 Ml) 4 mg in 250 mls @ 7.5 mls/hr IV TITR STEFANIE; 2 MCG/MIN PRN Reason: Protocol Last Admin: 01/23/17 01:25 Dose: 20 mcg/min, 75 mls/hr Dextrose/Sodium Chloride (D5ns) 1,000 mls @ 75 mls/hr IV DIRECT STEFANIE Last Admin: 01/23/17 11:06 Dose: 75 mls/hr Levofloxacin/Dextrose (Levaquin 750mg/150ml) 750 mg in 150 mls @ 100 mls/hr IV Q24H STEFANIE PRN Reason: Protocol Magnesium Hydroxide (Milk Of Magnesia) 30 ml PO Q4H PRN PRN Reason: Constipation Methylprednisolone Sodium Succinate (Solu-Medrol) 60 mg IV Q8HR STEFANIE Last Admin: 01/23/17 06:19 Dose: 60 mg Multi-Ingred Cream/Lotion/Oil/Oint (Artificial Tears Ophth Oint) 1 applic OU Q4HR PRN PRN Reason: Dry Eye(s) Ondansetron HCl (Zofran) 4 mg IV Q8H PRN PRN Reason: N/V unrelieved by Reglan Simple Syrup (Simple Syrup) 15 ml FEEDTUBE PRN PRN PRN Reason: Hypoglycemia Simple Syrup (Simple Syrup) 30 ml FEEDTUBE PRN PRN PRN Reason: Hypoglycemia Simple Syrup (Simple Syrup) 15 ml FEEDTUBE PRN PRN PRN Reason: Hypoglycemia Simple Syrup (Simple Syrup) 30 ml FEEDTUBE PRN PRN PRN Reason: Hypoglycemia Sodium Bicarbonate (Sodium Bicarbonate) 325 mg FEEDTUBE PRN PRN PRN Reason: For Clogged Feeding Tube Sodium Bicarbonate (Sodium Bicarbonate) 325 mg FEEDTUBE PRN PRN PRN Reason: For Clogged Feeding Tube Physical Examination Vital signs: Vital Signs Pulse Resp BP Pulse Ox 124 H 30 H 134/74 93 01/22/17 12:08 01/22/17 12:08 01/22/17 12:08 01/22/17 12:08 Results - Laboratory Findings CBC and BMP: 01/23/17 03:40 01/23/17 03:40 ABG POC ABG pH 7.293 (7.35-7.45) L 01/23/17 03:32 POC ABG pCO2 41.8 (35-45) 01/23/17 03:32 POC ABG pO2 89 (80-105) 01/23/17 03:32 POC ABG HCO3 20.2 01/23/17 03:32 POC ABG Total CO2 21 01/23/17 03:32 POC ABG O2 Sat 96 01/23/17 03:32 PT/INR, D-dimer PT 12.0 Sec. (12.2-14.9) L 01/22/17 12:52 INR 0.90 (0.87-1.13) 01/22/17 12:52 D-Dimer 162.42 ng/mlDDU (0-234) 01/22/17 12:52 Abnormal lab findings: Abnormal Labs 01/22/17 01/23/17 01/23/17 Unknown 03:32 03:40 WBC 16.5 H Seg Neuts % (Manual) 95.0 H Lymphocytes % (Manual) 4.0 L Seg Neutrophils # Man 15.7 H Lymphocytes # (Manual) 0.7 L POC ABG pH 7.293 L Chloride Carbon Dioxide Creatinine Glucose Calcium AST ALT Total Protein Albumin Ur Specific [place] 1.002 L 01/23/17 03:40 WBC Seg Neuts % (Manual) Lymphocytes % (Manual) Seg Neutrophils # Man Lymphocytes # (Manual) POC ABG pH Chloride 108.6 H Carbon Dioxide 19 L Creatinine 0.5 L Glucose 216 H Calcium 7.6 L D AST 98 H ALT 93 H Total Protein 5.9 L Albumin 3.2 L Ur Specific [place]
[2017-01-23] MEDS ORDERED: HALDOL IM PRN (13:54)
[2017-01-23] MEDS: ARTIFICIAL TEARS OPHTH OINT OU PRN (14:25)
[2017-01-23 15:08] LABS: ISTAT Base Excess -2; ISTAT HCO3 23.4; ISTAT PH 7.386 (7.35-7.45); ISTAT PO2 77 (80-105); ISTAT SO2 95; ISTAT TCO2 25
[2017-01-23 15:14] LABS: C-Reactive Protein 0.3 mg/dL (0.00-1.30); Phosphorous 3.4 mg/dL (2.5-4.5)
--- NOTE | 2017-01-23 15:43 | XRay Report ---
SUPINE KUB: History: Nasogastric tube placement. The abdominal gas pattern is unremarkable. No masses or organomegaly is identified and there is no gross evidence of free air or fluid. No significant soft tissue calcifications are noted. The nasogastric tube terminates in the antrum of the stomach. IMPRESSION: Normal study.
[2017-01-23] MEDS: LEVAQUIN 750MG/150ML 750 MG/150 ML BAG IV SCH (22:26)
[2017-01-24] MEDS: D5NS 1,000 ML IV SCH (00:01)
--- NOTE | 2017-01-24 02:16 | Consultation ---
CONSULTING PHYSICIAN: Kip Cardona MD, Emergency Room physician. REASON FOR CONSULTATION: Acute respiratory failure, ventilator weaning, altered mental status. CHIEF COMPLAINT AND HISTORY OF PRESENT ILLNESS: The patient is a 41-year-old female with past medical history according to her significant for diagnosis of asthma as well as seizure disorder. She reported initially that she was about 8 months, although she did no look it in the Emergency Room and had been getting a care at [facility]. She presented to the ER, wheezing with cough and shortness of breath and chest pain. She reported she was at day before the fumes instigated her asthma. In the ER, she was indeed as described. She was also tachycardic and tachypneic with marked distress. She was treated aggressively; however, she did not respond, she was put on BiPAP. She did not respond. She became agitated and combative and a result of that, she was intubated for airway protection. She was sent up to the Critical Care Unit where I stopped by to see her. When I stopped by to see her, she was sedated, during and earlier sedation holiday she became very agitated and had to be put back down again. I do not have any history of emesis or overt aspiration, but there was none since she has been in the hospital with regards to her tobacco use/abuse history, she described herself as a former smoker, unable to quantify. That really is as much of the history of presentation as I have. PAST MEDICAL HISTORY: Asthma and questionable history of seizures. PAST SURGICAL HISTORY: Has had an appendectomy, partial uterine ablation, and right arm surgery x 9 as well as left arm x 1. MEDICATIONS: She was on at the time I stopped by to see her, according to the medication administration record, included the following: She had Tylenol 650 mg p.o. q.4h. p.r.n. All p.o. meds via the feeding tube. Albuterol treatments p.r.n. as well as albuterol schedule 2.5 mg inhaled q. 6h., Lovenox 40 mg subcutaneous daily, Pepcid 20 mg IV b.i.d., fentanyl drip was going at 4 mcg per kilogram per minute. She had Levaquin, going at 750 mg IV daily. Solu-Medrol 60 mg IV q.8h., p.r.n. milk of magnesia, Levophed drip was going about 3 mcg per minute, Zofran 4 mg IV q. 8h. p.r.n., propofol drip was going I think about 10 mcg per kilogram per minute. ALLERGIES: To morphine, to penicillins, to shellfish, to rice product, nature of this allergy is unknown. DIET: Thin lady, acute weight loss or gain history is unknown. FAMILY AND SOCIAL HISTORY: Apparently, lives in the community. She states she is a former smoker. Alcohol, tobacco, or illicit drug use or abuse history, otherwise unknown. REVIEW OF SYSTEMS: Unobtainable secondary to the patient's medical and mental condition since she has been here, no gross hematochezia or melena, no gross hematuria, no witnessed seizures, no hematemesis, no bloody tracheal secretions. PHYSICAL EXAMINATION: VITAL SIGNS: At presentation in the Emergency Room, review of the vital signs shows that she was afebrile, the first temperature I see here was 97.5 with a pulse of 66, respiratory rate of 18, and blood pressure 127/56. Oxygen sats were 98%, inspired oxygen concentration was not recorded. She is currently on the mechanical ventilator, tidal volumes 500, rate of 18, PEEP of 5. HEAD, EYES, EARS, NOSE, AND THROAT: Pupils are about 1-2 mm, sluggishly reactive to light. Extraocular muscle movements could not be assessed. Endotracheal tube is in place, taped at the lips around 23-24 cm. Grossly, there are no palpable lymph nodes in the supraclavicular or submandibular lymph node chains. Left IJ central line is in place. LUNGS: Auscultation of both lung rasheed really unremarkable. Lungs are clear, slightly diminished left lower lobe air entry. HEART: Heart sounds 1 and 2 are heard. They were regular in rate and rhythm at time of my evaluation. ABDOMEN: Soft, flat. Bowel sounds are positive, nontender. EXTREMITIES: Without overt digital clubbing, cyanosis, or pedal edema. NEUROLOGIC: The exam was grossly nonfocal at presentation; however, she is sedated now. LABORATORY DATA: From my review are as follows: White cell count 15,500 at presentation with a hemoglobin of 13.8, hematocrit of 41.9, and platelet count of 370. INR 0.90. D-dimer within normal limits. Arterial blood gas at presentation showed a pH of 7.33, pCO2 of 51, pO2 of 203 at 60% FIO2. Vent settings were not reported. Current ABG this morning showed a pH of 7.29, pCO2 of 42, pO2 of 89. Serum sodium was 142 at admission with potassium of 3.3, chloride was 104, bicarbonate was 19, BUN was 6, creatinine was 0.5, glucose was 94. Cardiac enzymes within normal limits. Liver function test within normal limits. The urine screen was negative. Urinalysis was done, nitrites and leukocyte esterase negative, it was essentially bland. Urine drug screen was negative. Arterial blood gas today shows a pH of 7.29, pCO2 of 42, and a pO2 of 89 and that was on the above-mentioned settings but this is on 30% FiO2. Radiographic studies have been reviewed. I have also reviewed the radiologist's interpretation, I should see the most recent chest x-ray shows the endotracheal tube in place, tip at the level of the aortic knob. Left IJ central line tip appears to be in the SVC/brachiocephalic junction. No gross pneumothorax. No gross bony fracture. No cardiomegaly. ASSESSMENT AND PLAN: We have a young lady in with asthma exacerbation, agitated, intubated, and hopefully we should be able to get her off the mechanical ventilator, I note the arterial blood gas. From a respiratory standpoint, I will go ahead and reduce sedation and repeat the arterial blood gas and see if she can tolerate spontaneous breathing trials at this time. Bronchodilators will be continued as ordered actually. Aspiration precautions and other ventilator bundles will be instituted and hopefully, we can get her to a point where we can begin weaning her and she might be on all or nothing extubation, but I will try and see if she can be sedated with dispersing agent. From a cardiovascular standpoint, acute coronary syndrome workup is unremarkable. Blood pressure is fine. We will follow her clinically. From a GI and nutritional standpoint, enteral nutrition will be the feeding modality of choice. She is appropriately on GI prophylaxis. We will follow clinically. From a renal standpoint, no major electrolyte abnormalities. I note the serum bicarbonate at 19. I will get a lactic acid level now. Again after reviewing the repeat ABG, a decision will be made on whether we should do some bicarbonate supplementation. 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 I will start on some Seroquel and see if we can wean off the sedative medications overall ventilator weaning. Exam was grossly nonfocal. No acute indication for neuro imaging. We will follow her clinically otherwise. From an infectious disease standpoint, cultures no growth to date. We will continue the Levaquin empirically for now, I note the leukocytosis. We will go ahead and also get a CRP level, especially with her being on systemic steroids. Anti-infectives will ultimately be deescalated based on results of clinical and microbiologic data. From a general and hospital healthcare maintenance standpoint, she is on GI and DVT prophylaxis. Flu and pneumonia vaccination will be per protocol. Thank you very much for the consult Dr. Cardona, Dr. Joseph. We will follow along and make further recommendations as picture progresses/becomes clearer. At this point, I have spent about 30-35 minutes of critical care time without overlap and excluding any procedural time that may be necessary. She is critically ill on life-sustaining interventions including mechanical ventilatory support at risk for further deterioration including . JOB# [id number] GRIFFIN/BRIAN
[2017-01-24] MEDS: PROVENTIL IH SCH ×4 (02:26→20:08)
[2017-01-24 05:20] LABS: ISTAT Base Excess -2; ISTAT HCO3 23.2; ISTAT PCO2 38.4 (35-45); ISTAT PH 7.388 (7.35-7.45); ISTAT PO2 106 (80-105); ISTAT SO2 98; ISTAT TCO2 24
[2017-01-24] MEDS: DIPRIVAN 10 MG/ML 1,000 MG/100 ML BOTTLE IV SCH ×4 (05:55→23:43)
[2017-01-24 06:34] LABS: Hematocrit 34.7 % (30.3-42.9); Hemoglobin 11.2 gm/dl (10.1-14.3); Mean Corpuscular HGB Conc 32 % (30-34); Mean Corpuscular Hemoglobin 30 pg (28-32); Mean Corpuscular Volume 93 fl (79-97); Platelet Count 242 K/mm3 (140-440); Red Blood Count 3.73 M/mm3 (3.65-5.03); Red Cell Distribution Width 13.8 % (13.2-15.2)
[2017-01-24 06:40] LABS: White Blood Count 25.7 K/mm3 (4.5-11.0)
[2017-01-24 06:56] LABS: Anion Gap 15 mmol/L; Blood Urea Nitrogen 7 mg/dL (7-17); Calcium 7.9 mg/dL (8.4-10.2); Carbon Dioxide 24 mmol/L (22-30); Chloride 107.5 mmol/L (98-107); Glucose 165 mg/dL (65-100); Magnesium 2.1 mg/dL (1.7-2.3); Potassium 4.1 mmol/L (3.6-5.0); Sodium 142 mmol/L (137-145)
--- NOTE | 2017-01-24 07:44 | Progress Note ---
Assessment and Plan Assessment and plan: --Acute hypoxemic respiratory failure Requiring intubation and mechanical ventilation Continue nebulizers, IV steroids IV antibiotics, inhalation steroids wean as tolerated and extubate Pulmonary following --Acute exacerbation of bronchial asthma Ventilatory support, nebulizers, steroids, antibiotics Supportive care --Leukocytosis Multifactorial Probably secondary to steroid use, acute bronchitis Patient is already getting antibiotics [facility] --Lactic acidosis Secondary to sepsis secondary to acute bronchitis Continue antibiotics supportive care IV fluids --Hypotension/septic shock Requiring Levophed, titrating DC Supportive care with IV fluids --DVT prophylaxis with Lovenox Closely monitor the patient and adjust the management as needed Plan of care discussed with the patient's nurse , try to contact family and discuss with them Medical records reviewed Chest x-ray reviewed Critical care time 31 minutes History Interval history: Patient seen and evaluated medical records reviewed Patient remains intubated on ventilatory support, on Levophed Patient is agitated trying to pull off everything, sedation was adjusted On ventilatory support, not in acute distress Hospitalist Physical - Constitutional Vitals: Temp Pulse Resp BP Pulse Ox 97.4 F L 57 L 18 130/80 100 01/24/17 07:00 01/24/17 07:31 01/24/17 07:30 01/24/17 07:31 01/24/17 07:31 General appearance: Present: no acute distress, well-nourished, other (orally intubated and on vent) - EENT Eyes: Present: PERRL, EOM intact - Neck Neck: Present: supple, normal ROM - Respiratory Respiratory effort: normal Respiratory: bilateral: diminished, negative: rales, rhonchi, wheezing - Cardiovascular Rhythm: regular Heart Sounds: Present: S1 & S2 - Extremities Extremities: no ischemia, pulses intact, pulses symmetrical Peripheral Pulses: within normal limits - Abdominal General gastrointestinal: soft, non-tender, non-distended, normal bowel sounds - Integumentary Integumentary: Present: clear, warm - Psychiatric Psychiatric: other (intubated and sedated) - Neurologic Neurologic: other (intubated and sedated) Results - Labs CBC & Chem 7: 01/24/17 06:00 01/24/17 06:00 Labs: Laboratory Last Values WBC 25.7 K/mm3 (4.5-11.0) H 01/24/17 06:00 RBC 3.73 M/mm3 (3.65-5.03) 01/24/17 06:00 Hgb 11.2 gm/dl (10.1-14.3) 01/24/17 06:00 Hct 34.7 % (30.3-42.9) 01/24/17 06:00 MCV 93 fl (79-97) 01/24/17 06:00 MCH 30 pg (28-32) 01/24/17 06:00 MCHC 32 % (30-34) 01/24/17 06:00 RDW 13.8 % (13.2-15.2) 01/24/17 06:00 Plt Count 242 K/mm3 (140-440) 01/24/17 06:00 Lymph # Keyboard [employer] As[employer]er 01/22/17 12:52 Add Manual Diff Complete 01/23/17 03:40 Total Counted 100 01/23/17 03:40 Seg Neutrophils % [employer] 01/24/17 06:00 Seg Neuts % (Manual) 95.0 % (40.0-70.0) H 01/23/17 03:40 Band Neutrophils % 0 % 01/23/17 03:40 Lymphocytes % (Manual) 4.0 % (13.4-35.0) L 01/23/17 03:40 Reactive Lymphs % (Man) 0 % 01/23/17 03:40 Monocytes % (Manual) 1.0 % (0.0-7.3) 01/23/17 03:40 Eosinophils % (Manual) 0 % (0.0-4.3) 01/23/17 03:40 Basophils % (Manual) 0 % (0.0-1.8) 01/23/17 03:40 Metamyelocytes % 0 % 01/23/17 03:40 Myelocytes % 0 % 01/23/17 03:40 Promyelocytes % 0 % 01/23/17 03:40 Blast Cells % 0 % 01/23/17 03:40 Nucleated RBC % Not Reportable 01/23/17 03:40 Seg Neutrophils # Man 15.7 K/mm3 (1.8-7.7) H 01/23/17 03:40 Band Neutrophils # 0.0 K/mm3 01/23/17 03:40 Lymphocytes # (Manual) 0.7 K/mm3 (1.2-5.4) L 01/23/17 03:40 Abs React Lymphs (Man) 0.0 K/mm3 01/23/17 03:40 Monocytes # (Manual) 0.2 K/mm3 (0.0-0.8) 01/23/17 03:40 Eosinophils # (Manual) 0.0 K/mm3 (0.0-0.4) 01/23/17 03:40 Basophils # (Manual) 0.0 K/mm3 (0.0-0.1) 01/23/17 03:40 Metamyelocytes # 0.0 K/mm3 01/23/17 03:40 Myelocytes # 0.0 K/mm3 01/23/17 03:40 Promyelocytes # 0.0 K/mm3 01/23/17 03:40 Blast Cells # 0.0 K/mm3 01/23/17 03:40 WBC Morphology Not Reportable 01/23/17 03:40 Hypersegmented Neuts Not Reportable 01/23/17 03:40 Hyposegmented Neuts Not Reportable 01/23/17 03:40 Hypogranular Neuts Not Reportable 01/23/17 03:40 Smudge Cells Not Reportable 01/23/17 03:40 Toxic Granulation Not Reportable 01/23/17 03:40 Toxic Vacuolation Not Reportable 01/23/17 03:40 Dohle Bodies Not Reportable 01/23/17 03:40 Pelger-Huet Anomaly Not Reportable 01/23/17 03:40 Roderick Rods Not Reportable 01/23/17 03:40 Platelet Estimate Appears normal 01/23/17 03:40 Clumped Platelets Not Reportable 01/23/17 03:40 Plt Clumps, EDTA Not Reportable 01/23/17 03:40 Large Platelets Not Reportable 01/23/17 03:40 Giant Platelets Not Reportable 01/23/17 03:40 Platelet Satelliting Not Reportable 01/23/17 03:40 Plt Morphology Comment Not Reportable 01/23/17 03:40 RBC Morphology Normal 01/23/17 03:40 Dimorphic RBCs Not Reportable 01/23/17 03:40 Polychromasia Not Reportable 01/23/17 03:40 Hypochromasia Not Reportable 01/23/17 03:40 Poikilocytosis Not Reportable 01/23/17 03:40 Anisocytosis Not Reportable 01/23/17 03:40 Microcytosis Not Reportable 01/23/17 03:40 Macrocytosis Not Reportable 01/23/17 03:40 Spherocytes Not Reportable 01/23/17 03:40 Pappenheimer Bodies Not Reportable 01/23/17 03:40 Sickle Cells Not Reportable 01/23/17 03:40 Target Cells Not Reportable 01/23/17 03:40 Tear Drop Cells Not Reportable 01/23/17 03:40 Ovalocytes Not Reportable 01/23/17 03:40 Helmet Cells Not Reportable 01/23/17 03:40 [place] Bodies Not Reportable 01/23/17 03:40 [place] Rings Not Reportable 01/23/17 03:40 [place] Cells Not Reportable 01/23/17 03:40 Bite Cells Not Reportable 01/23/17 03:40 Crenated Cell Not Reportable 01/23/17 03:40 Elliptocytes Not Reportable 01/23/17 03:40 Acanthocytes (Spur) Not Reportable 01/23/17 03:40 Rouleaux Not Reportable 01/23/17 03:40 Hemoglobin C Crystals Not Reportable 01/23/17 03:40 Schistocytes Not Reportable 01/23/17 03:40 Malaria parasites Not Reportable 01/23/17 03:40 [place] Bodies Not Reportable 01/23/17 03:40 Hem Pathologist Commnt No 01/23/17 03:40 PT 12.0 Sec. (12.2-14.9) L 01/22/17 12:52 INR 0.90 (0.87-1.13) 01/22/17 12:52 D-Dimer 162.42 ng/mlDDU (0-234) 01/22/17 12:52 POC ABG pH 7.388 (7.35-7.45) 01/24/17 04:39 POC ABG pCO2 38.4 (35-45) 01/24/17 04:39 POC ABG pO2 106 (80-105) H 01/24/17 04:39 POC ABG HCO3 23.2 01/24/17 04:39 POC ABG Total CO2 24 01/24/17 04:39 POC ABG O2 Sat 98 01/24/17 04:39 POC ABG Base Excess -2 01/24/17 04:39 FiO2 30 % 01/24/17 04:39 Sodium 142 mmol/L (137-145) 01/24/17 06:00 Potassium 4.1 mmol/L (3.6-5.0) 01/24/17 06:00 Chloride 107.5 mmol/L (98-107) H 01/24/17 06:00 Carbon Dioxide 24 mmol/L (22-30) 01/24/17 06:00 Anion Gap 15 mmol/L 01/24/17 06:00 BUN 7 mg/dL (7-17) 01/24/17 06:00 Creatinine 0.4 mg/dL (0.7-1.2) L 01/24/17 06:00 Estimated GFR > 60 ml/min 01/24/17 06:00 BUN/Creatinine Ratio 17.50 % 01/24/17 06:00 Glucose 165 mg/dL (65-100) H 01/24/17 06:00 POC Glucose 189 (70-105) H 01/24/17 00:07 Lactic Acid 3.3 mmol/L (0.7-2.0) H* 01/23/17 20:48 Calcium 7.9 mg/dL (8.4-10.2) L 01/24/17 06:00 Phosphorus 3.4 mg/dL (2.5-4.5) 01/23/17 03:40 Magnesium 2.1 mg/dL (1.7-2.3) 01/24/17 06:00 Total Bilirubin 0.4 mg/dL (0.1-1.2) 01/23/17 03:40 Direct Bilirubin < 0.2 mg/dL (0-0.2) 01/22/17 12:52 Indirect Bilirubin 0.0 mg/dL 01/22/17 12:52 AST 98 units/L (5-40) H 01/23/17 03:40 ALT 93 units/L (7-56) H 01/23/17 03:40 Alkaline Phosphatase 72 units/L (35-129) 01/23/17 03:40 Troponin T < 0.010 ng/mL (0.00-0.029) 01/22/17 12:52 C-Reactive Protein 0.30 mg/dL (0.00-1.30) 01/23/17 03:40 NT-Pro-B Natriuret Pep 100.8 pg/mL (0-450) 01/22/17 12:52 Total Protein 5.9 g/dL (6.3-8.2) L 01/23/17 03:40 Albumin 3.2 g/dL (3.9-5) L 01/23/17 03:40 Albumin/Globulin Ratio 1.2 % 01/23/17 03:40 HCG, Quant < 2 mIU/mL (0-4) 01/22/17 12:52 Urine Color Colorless (Yellow) 01/22/17 Unknown Urine Turbidity Clear (Clear) 01/22/17 Unknown Urine pH 6.0 (5.0-7.0) 01/22/17 Unknown Ur Specific [place] 1.002 (1.003-1.030) L 01/22/17 Unknown Urine Protein <15 mg/dl mg/dL (Negative) 01/22/17 Unknown Urine Glucose (UA) Neg mg/dL (Negative) 01/22/17 Unknown Urine Ketones Neg mg/dL (Negative) 01/22/17 Unknown Urine Blood Mod (Negative) 01/22/17 Unknown Urine Nitrite Neg (Negative) 01/22/17 Unknown Urine Bilirubin Neg (Negative) 01/22/17 Unknown Urine Urobilinogen < 2.0 mg/dL (<2.0) 01/22/17 Unknown Ur Leukocyte Esterase Neg (Negative) 01/22/17 Unknown Urine WBC (Auto) < 1.0 /HPF (0.0-6.0) 01/22/17 Unknown Urine RBC (Auto) 1.0 /HPF (0.0-6.0) 01/22/17 Unknown U Epithel Cells (Auto) < 1.0 /HPF (0-13.0) 01/22/17 Unknown Urine Opiates Screen Presumptive negative 01/22/17 Unknown Urine Methadone Screen Presumptive negative 01/22/17 Unknown Ur Barbiturates Screen Presumptive negative 01/22/17 Unknown Ur Phencyclidine Scrn Presumptive negative 01/22/17 Unknown Ur Amphetamines Screen Presumptive negative 01/22/17 Unknown U Benzodiazepines Scrn Presumptive negative 01/22/17 Unknown Urine Cocaine Screen Presumptive negative 01/22/17 Unknown U Marijuana (THC) Screen Presumptive negative 01/22/17 Unknown Drugs of Abuse Note Disclamer 01/22/17 Unknown
[2017-01-24 07:58] LABS: Basophils % (Manual) 0 % (0.0-1.8); Blastocytes % (Manual) 0 %; Eosinophils % (Manual) 0 % (0.0-4.3)
[2017-01-24 07:59] LABS: Anisocytosis 1+; Diff Status Complete; Ovalocytes 1+
[2017-01-24] MEDS ORDERED: NACL 0.9% 1000 ML 1,000 ML IV SCH (08:00)
--- NOTE | 2017-01-24 08:59 | XRay Report ---
PORTABLE CHEST INDICATION: Followup respiratory failure. COMPARISON: Yesterday. FINDINGS: Portable, frontal chest radiograph, 2:15 AM, 01/24/2017 demonstrates a new esophagogastric tube extending beyond the GE junction and the inferior radiographic margin. Endotracheal tube tip at or just above the carmina. Stable left IJ catheter tip also projects about the level of the carmina. Various extrinsic artifacts. Normal cardiomediastinal silhouette. Clear lungs. Intact bones. CONCLUSION: No acute chest process with interval Dobbhoff tube placement, as described. Endotracheal tube may be retracted by approximately 2 cm for more optimal placement, if so warranted. Thank you for the opportunity to participate in this patient's care.
--- NOTE | 2017-01-24 10:51 | Progress Note ---
Assessment and Plan - Patient Problems (1) Altered mental status Current Visit: Yes Status: Acute Qualifiers: Altered mental status type: A Coma depth: C Coma timing: C Plan to address problem: - suspect element of withdrawal - added librium - increased seroquel to 300mg bid - rate limiting factor to extubation at this point - non-focal examination so far (2) Acute respiratory failure Current Visit: Yes Status: Acute Qualifiers: Respiratory failure complication: hypoxia Qualified Code(s): J96.01 - Acute respiratory failure with hypoxia Plan to address problem: - continue bronchodilators and pulmonary toilet - continue aspiration precautions / VAP bundles - weaning trials hindered by sedation issues - wean oxygen for sats > 94% at this point (3) Leucocytosis Current Visit: Yes Status: Acute Qualifiers: Leukocytosis type: L Plan to address problem: - suspect steroid leucocytosis - CRP unremarkable - will draw blood cultures but will not escalate AB's yet - repeat AM lactate level - follow clinically (4) Discharge planning issues Current Visit: Yes Status: Acute Plan to address problem: - she remains critically ill on life sustaining interventions including MVS and at risk for further deterioration including ...34' CCT Subjective Date of service: 01/24/17 Principal diagnosis: Acute Hypoxemic Respiratory Failure Interval history: Seen and examined at bedside; 24 hour events reviewed; nursing and respiratory care staff consulted; no adverse overnight events reported to me; remaisn very agitated during sedation vacation and not re-directable; otherwise doing well; no emesis or overt aspiration and no gross bleeding; no seizures Objective Vital Signs - 12hr 01/23/17 01/23/17 01/23/17 22:51 23:00 23:11 Temperature Pulse Rate 71 72 76 Pulse Rate [ Anterior Bilateral Throughout] Pulse Rate [ From Monitor] Respiratory 18 18 18 Rate Respiratory Rate [Anterior Bilateral Throughout] Blood Pressure 107/64 109/64 109/64 O2 Sat by Pulse 97 97 98 Oximetry 01/23/17 01/23/17 01/23/17 23:21 23:30 23:41 Temperature Pulse Rate 76 75 72 Pulse Rate [ Anterior Bilateral Throughout] Pulse Rate [ From Monitor] Respiratory 18 18 18 Rate Respiratory Rate [Anterior Bilateral Throughout] Blood Pressure 107/60 108/63 108/63 O2 Sat by Pulse 97 97 98 Oximetry 01/23/17 01/23/17 01/23/17 23:45 23:51 23:57 Temperature Pulse Rate 70 74 Pulse Rate [ Anterior Bilateral Throughout] Pulse Rate [ From Monitor] Respiratory 18 18 Rate Respiratory Rate [Anterior Bilateral Throughout] Blood Pressure 111/67 111/67 O2 Sat by Pulse 98 98 Oximetry 01/24/17 01/24/17 01/24/17 00:00 00:11 00:21 Temperature 97.5 F L Pulse Rate 68 69 67 Pulse Rate [ Anterior Bilateral Throughout] Pulse Rate [ 67 From Monitor] Respiratory 18 18 18 Rate Respiratory Rate [Anterior Bilateral Throughout] Blood Pressure 111/66 111/66 113/68 O2 Sat by Pulse 98 98 98 Oximetry 01/24/17 01/24/17 01/24/17 00:27 00:30 00:41 Temperature Pulse Rate 67 68 Pulse Rate [ Anterior Bilateral Throughout] Pulse Rate [ From Monitor] Respiratory 18 18 18 Rate Respiratory Rate [Anterior Bilateral Throughout] Blood Pressure 115/69 115/69 O2 Sat by Pulse 98 98 Oximetry 01/24/17 01/24/17 01/24/17 00:51 01:00 01:11 Temperature Pulse Rate 67 65 65 Pulse Rate [ Anterior Bilateral Throughout] Pulse Rate [ From Monitor] Respiratory 18 18 18 Rate Respiratory Rate [Anterior Bilateral Throughout] Blood Pressure 110/70 116/71 116/71 O2 Sat by Pulse 98 98 98 Oximetry 01/24/17 01/24/17 01/24/17 01:14 01:21 01:30 Temperature 97.5 F L Pulse Rate 66 65 Pulse Rate [ Anterior Bilateral Throughout] Pulse Rate [ From Monitor] Respiratory 18 18 Rate Respiratory Rate [Anterior Bilateral Throughout] Blood Pressure 118/69 119/71 O2 Sat by Pulse 98 98 Oximetry 01/24/17 01/24/17 01/24/17 01:41 01:51 02:00 Temperature Pulse Rate 64 64 64 Pulse Rate [ Anterior Bilateral Throughout] Pulse Rate [ From Monitor] Respiratory 18 18 18 Rate Respiratory Rate [Anterior Bilateral Throughout] Blood Pressure 118/69 118/71 121/74 O2 Sat by Pulse 98 98 98 Oximetry 01/24/17 01/24/17 01/24/17 02:11 02:21 02:26 Temperature Pulse Rate 63 63 Pulse Rate [ 62 Anterior Bilateral Throughout] Pulse Rate [ From Monitor] Respiratory 18 18 Rate Respiratory 18 Rate [Anterior Bilateral Throughout] Blood Pressure 121/74 115/83 O2 Sat by Pulse 98 98 Oximetry 01/24/17 01/24/17 01/24/17 02:30 02:37 02:41 Temperature Pulse Rate 63 61 Pulse Rate [ 61 Anterior Bilateral Throughout] Pulse Rate [ From Monitor] Respiratory 18 18 Rate Respiratory 18 Rate [Anterior Bilateral Throughout] Blood Pressure 119/75 119/75 O2 Sat by Pulse 98 98 Oximetry 01/24/17 01/24/17 01/24/17 02:51 03:00 03:11 Temperature Pulse Rate 61 60 74 Pulse Rate [ Anterior Bilateral Throughout] Pulse Rate [ From Monitor] Respiratory 18 16 Rate Respiratory Rate [Anterior Bilateral Throughout] Blood Pressure 115/75 120/79 120/79 O2 Sat by Pulse 98 99 96 Oximetry 01/24/17 01/24/17 01/24/17 03:21 03:30 03:41 Temperature Pulse Rate 55 L 59 L 61 Pulse Rate [ Anterior Bilateral Throughout] Pulse Rate [ From Monitor] Respiratory 18 18 18 Rate Respiratory Rate [Anterior Bilateral Throughout] Blood Pressure 115/74 121/78 121/78 O2 Sat by Pulse 100 100 99 Oximetry 01/24/17 01/24/17 01/24/17 03:51 04:00 04:11 Temperature 97.5 F L Pulse Rate 59 L 59 L 60 Pulse Rate [ Anterior Bilateral Throughout] Pulse Rate [ 58 L From Monitor] Respiratory 18 18 18 Rate Respiratory Rate [Anterior Bilateral Throughout] Blood Pressure 121/76 120/77 120/77 O2 Sat by Pulse 99 99 99 Oximetry 01/24/17 01/24/17 01/24/17 04:21 04:30 04:39 Temperature Pulse Rate 59 L 57 L 60 Pulse Rate [ Anterior Bilateral Throughout] Pulse Rate [ From Monitor] Respiratory 18 18 Rate Respiratory Rate [Anterior Bilateral Throughout] Blood Pressure 121/76 115/72 121/76 O2 Sat by Pulse 99 99 99 Oximetry 01/24/17 01/24/17 01/24/17 04:41 04:50 04:55 Temperature 97.4 F L Pulse Rate 59 L 59 L Pulse Rate [ Anterior Bilateral Throughout] Pulse Rate [ From Monitor] Respiratory 18 18 Rate Respiratory Rate [Anterior Bilateral Throughout] Blood Pressure 122/78 123/76 O2 Sat by Pulse 99 99 Oximetry 01/24/17 01/24/17 01/24/17 05:00 05:10 05:20 Temperature Pulse Rate 58 L 59 L 60 Pulse Rate [ Anterior Bilateral Throughout] Pulse Rate [ From Monitor] Respiratory 18 18 18 Rate Respiratory Rate [Anterior Bilateral Throughout] Blood Pressure 123/76 121/76 O2 Sat by Pulse 99 99 99 Oximetry 01/24/17 01/24/17 01/24/17 05:30 05:40 05:50 Temperature Pulse Rate 59 L 59 L 60 Pulse Rate [ Anterior Bilateral Throughout] Pulse Rate [ From Monitor] Respiratory 18 18 18 Rate Respiratory Rate [Anterior Bilateral Throughout] Blood Pressure 120/78 120/78 123/76 O2 Sat by Pulse 99 99 99 Oximetry 01/24/17 01/24/17 01/24/17 05:55 06:00 06:10 Temperature Pulse Rate 51 L 58 L Pulse Rate [ Anterior Bilateral Throughout] Pulse Rate [ From Monitor] Respiratory 18 18 18 Rate Respiratory Rate [Anterior Bilateral Throughout] Blood Pressure 109/61 109/61 O2 Sat by Pulse 99 100 Oximetry 01/24/17 01/24/17 01/24/17 06:20 06:30 06:40 Temperature Pulse Rate 58 L 58 L 61 Pulse Rate [ Anterior Bilateral Throughout] Pulse Rate [ From Monitor] Respiratory 18 18 18 Rate Respiratory Rate [Anterior Bilateral Throughout] Blood Pressure 120/77 124/77 124/77 O2 Sat by Pulse 100 100 100 Oximetry 01/24/17 01/24/17 01/24/17 06:50 07:00 07:10 Temperature 97.4 F L Pulse Rate 57 L 59 L 57 L Pulse Rate [ Anterior Bilateral Throughout] Pulse Rate [ From Monitor] Respiratory 18 18 18 Rate Respiratory Rate [Anterior Bilateral Throughout] Blood Pressure 117/77 124/80 124/80 O2 Sat by Pulse 100 100 100 Oximetry 01/24/17 01/24/17 01/24/17 07:20 07:30 07:31 Temperature Pulse Rate 58 L 57 L 57 L Pulse Rate [ 57 L Anterior Bilateral Throughout] Pulse Rate [ From Monitor] Respiratory 18 18 Rate Respiratory 18 Rate [Anterior Bilateral Throughout] Blood Pressure 127/80 130/80 130/80 O2 Sat by Pulse 100 100 100 Oximetry 01/24/17 01/24/17 01/24/17 07:40 07:50 08:00 Temperature 97.4 F L Pulse Rate 63 71 66 Pulse Rate [ Anterior Bilateral Throughout] Pulse Rate [ From Monitor] Respiratory 18 17 18 Rate Respiratory Rate [Anterior Bilateral Throughout] Blood Pressure 130/80 115/70 117/70 O2 Sat by Pulse 100 99 99 Oximetry Constitutional: no acute distress, other (sedated) Eyes: non-icteric ENT: oropharynx moist Neck: supple, no lymphadenopathy Effort: mildly labored Ascultation: Bilateral: rales (scant in bases) Cardiovascular: regular rate and rhythm Gastrointestinal: normoactive bowel sounds, soft, non-tender, non-distended Integumentary: normal Extremities: no cyanosis, no edema, pink and warm, pulses normal, no ischemia or petechiae Neurologic: unable to assess, other (sedated) Psychiatric: other (sedated) CBC and BMP: 01/24/17 06:00 01/24/17 06:00 ABG, PT/INR, D-dimer: ABG POC ABG pH 7.388 (7.35-7.45) 01/24/17 04:39 POC ABG pCO2 38.4 (35-45) 01/24/17 04:39 POC ABG pO2 106 (80-105) H 01/24/17 04:39 POC ABG HCO3 23.2 01/24/17 04:39 POC ABG Total CO2 24 01/24/17 04:39 POC ABG O2 Sat 98 01/24/17 04:39 PT/INR, D-dimer PT 12.0 Sec. (12.2-14.9) L 01/22/17 12:52 INR 0.90 (0.87-1.13) 01/22/17 12:52 D-Dimer 162.42 ng/mlDDU (0-234) 01/22/17 12:52 Abnormal lab findings: Abnormal Labs 01/22/17 01/23/17 01/23/17 Unknown 03:32 03:40 WBC 16.5 H Seg Neuts % (Manual) 95.0 H Lymphocytes % (Manual) 4.0 L Seg Neutrophils # Man 15.7 H Lymphocytes # (Manual) 0.7 L POC ABG pH 7.293 L POC ABG pO2 Chloride Carbon Dioxide Creatinine Glucose POC Glucose Lactic Acid Calcium AST ALT Total Protein Albumin Ur Specific [place] 1.002 L 01/23/17 01/23/17 01/23/17 03:40 13:41 20:48 WBC Seg Neuts % (Manual) Lymphocytes % (Manual) Seg Neutrophils # Man Lymphocytes # (Manual) POC ABG pH POC ABG pO2 77 L Chloride 108.6 H Carbon Dioxide 19 L Creatinine 0.5 L Glucose 216 H POC Glucose Lactic Acid 3.3 H* Calcium 7.6 L D AST 98 H ALT 93 H Total Protein 5.9 L Albumin 3.2 L Ur Specific [place] 01/24/17 01/24/17 01/24/17 00:07 04:39 06:00 WBC 25.7 H Seg Neuts % (Manual) 99.0 H Lymphocytes % (Manual) 0 L Seg Neutrophils # Man 25.4 H Lymphocytes # (Manual) 0.0 L POC ABG pH POC ABG pO2 106 H Chloride Carbon Dioxide Creatinine Glucose POC Glucose 189 H Lactic Acid Calcium AST ALT Total Protein Albumin Ur Specific [place] 01/24/17 06:00 WBC Seg Neuts % (Manual) Lymphocytes % (Manual) Seg Neutrophils # Man Lymphocytes # (Manual) POC ABG pH POC ABG pO2 Chloride 107.5 H Carbon Dioxide Creatinine 0.4 L Glucose 165 H POC Glucose Lactic Acid Calcium 7.9 L AST ALT Total Protein Albumin Ur Specific [place]
[2017-01-24] MEDS: PEPCID PO SCH ×2 (11:09→23:41)
[2017-01-24] MEDS: LOVENOX SUB-Q SCH (11:16)
[2017-01-24] MEDS: fentaNYL DRIP Premix 2,000 MCG/100 ML BAG IV SCH ×2 (12:47→22:40)
[2017-01-24] MEDS: LIBRIUM PO SCH ×2 (13:03→23:40)
[2017-01-24 17:08] LABS: ISTAT Base Excess -1; ISTAT HCO3 23.4; ISTAT PCO2 37.2 (35-45); ISTAT PH 7.407 (7.35-7.45); ISTAT PO2 83 (80-105); ISTAT SO2 96; ISTAT TCO2 25
[2017-01-24] MEDS: HALDOL IV PRN (18:07)
[2017-01-24] MEDS: LEVAQUIN 750MG/150ML 750 MG/150 ML BAG IV SCH ×2 (20:42→20:46)
[2017-01-25] MEDS: PROVENTIL IH SCH ×4 (02:53→22:36)
[2017-01-25] MEDS: HALDOL IV PRN (05:15)
[2017-01-25 05:29] LABS: ISTAT Base Excess -3; ISTAT HCO3 22.4; ISTAT PCO2 42.1 (35-45); ISTAT PH 7.333 (7.35-7.45); ISTAT PO2 104 (80-105); ISTAT SO2 98; ISTAT TCO2 24
[2017-01-25] MEDS: LIBRIUM PO SCH ×3 (06:18→22:07)
[2017-01-25 07:10] LABS: Hematocrit TNR % (30.3-42.9); Hemoglobin TNR gm/dl (10.1-14.3); Mean Corpuscular HGB Conc TNR % (30-34); Mean Corpuscular Hemoglobin TNR pg (28-32); Mean Corpuscular Volume TNR fl (79-97); Red Blood Count TNR M/mm3 (3.65-5.03); Red Cell Distribution Width TNR % (13.2-15.2); White Blood Count TNR K/mm3 (4.5-11.0)
[2017-01-25 07:11] LABS: Platelet Count TNR K/mm3 (140-440)
[2017-01-25 07:12] LABS: Diff Status Complete
[2017-01-25 07:13] LABS: Blood Urea Nitrogen 9 mg/dL (7-17); Carbon Dioxide 17 mmol/L (22-30); Chloride 116.5 mmol/L (98-107); Glucose 117 mg/dL (65-100); Magnesium 1.7 mg/dL (1.7-2.3); Phosphorous 1.5 mg/dL (2.5-4.5); Sodium 144 mmol/L (137-145)
[2017-01-25 07:29] LABS: Calcium 5.7 mg/dL (8.4-10.2)
[2017-01-25 07:30] LABS: Anion Gap 13 mmol/L; Potassium 2.8 mmol/L (3.6-5.0)
[2017-01-25 07:55] LABS: Hematocrit 32.1 % (30.3-42.9); Hemoglobin 10.5 gm/dl (10.1-14.3); Mean Corpuscular HGB Conc 33 % (30-34); Mean Corpuscular Hemoglobin 31 pg (28-32); Mean Corpuscular Volume 94 fl (79-97); Platelet Count 244 K/mm3 (140-440); Red Blood Count 3.41 M/mm3 (3.65-5.03)
[2017-01-25 08:00] LABS: White Blood Count 21.2 K/mm3 (4.5-11.0)
[2017-01-25] MEDS ORDERED: MAGNESIUM SULFATE 4GM/100ML 4 GM/100 ML BAG IV ONE (08:00)
[2017-01-25 08:30] LABS: Blood Urea Nitrogen 12 mg/dL (7-17); Calcium 7.9 mg/dL (8.4-10.2); Carbon Dioxide 24 mmol/L (22-30); Chloride 105.8 mmol/L (98-107); Glucose 141 mg/dL (65-100); Potassium 3.5 mmol/L (3.6-5.0); Sodium 139 mmol/L (137-145)
[2017-01-25 08:32] LABS: Anion Gap 13 mmol/L
--- NOTE | 2017-01-25 08:35 | Progress Note ---
Assessment and Plan Assessment and plan: --Acute hypoxemic respiratory failure Continue mechanical ventilation ventilation nebulizers, IV steroids IV antibiotics, inhalation steroids wean as tolerated and extubate Pulmonary following --Acute exacerbation of bronchial asthma Ventilatory support, nebulizers, steroids, antibiotics Supportive care --Hypokalemia /hypophosphatemia /hypocalcemia replace per protocol and monitor levels --Leukocytosis Trending down, secondary to sepsis --Lactic acidosis Secondary to sepsis secondary to acute bronchitis Continue antibiotics supportive care IV fluids, cultures negative to date --Hypotension/septic shock Off Levophed, closely monitor --DVT prophylaxis with Lovenox Wean as tolerated and extubate Pulmonary consultation recommendations noted and appreciated Plan of care discussed with the patient's nurse The high probability of a clinically significant, sudden or life threatening deterioration of the [respiratory, immunologic] system(s) required my full and direct attention, intervention and personal management. The aggregate critical care time was [31] minutes. This time is in addition to time spent performing reported procedures but includes the following: [x] Data Review and interpretation [x] Patient assessment and monitoring of vital signs [x] Documentation [x] Medication orders and management History Interval history: Patient seen and evaluated medical records reviewed No new events reported by the nursing staff Patient remains intubated on ventilatory support Agitated, nurse reported that sedation was decreased Off Levophed, blood pressures in the lower range Hospitalist Physical - Constitutional Vitals: Temp Pulse Resp BP Pulse Ox 94.0 F L 74 18 97/56 96 01/25/17 04:00 01/25/17 07:30 01/25/17 07:30 01/25/17 07:30 01/25/17 07:30 General appearance: Present: no acute distress, well-nourished, other (orally intubated and on vent) - EENT Eyes: Present: PERRL, EOM intact - Neck Neck: Present: supple, normal ROM - Respiratory Respiratory effort: normal Respiratory: bilateral: diminished, rhonchi - Cardiovascular Rhythm: regular Heart Sounds: Present: S1 & S2 - Extremities Extremities: no ischemia, pulses intact, pulses symmetrical Peripheral Pulses: within normal limits - Abdominal General gastrointestinal: soft, non-tender, non-distended, normal bowel sounds - Integumentary Integumentary: Present: clear, warm - Psychiatric Psychiatric: other (intubated and sedated) - Neurologic Neurologic: other (intubated and sedated) Results - Labs CBC & Chem 7: 01/25/17 07:22 01/25/17 07:31 Labs: Laboratory Last Values WBC 21.2 K/mm3 (4.5-11.0) H 01/25/17 07:22 RBC 3.41 M/mm3 (3.65-5.03) L 01/25/17 07:22 Hgb 10.5 gm/dl (10.1-14.3) 01/25/17 07:22 Hct 32.1 % (30.3-42.9) 01/25/17 07:22 MCV 94 fl (79-97) 01/25/17 07:22 MCH 31 pg (28-32) 01/25/17 07:22 MCHC 33 % (30-34) 01/25/17 07:22 RDW 14.0 % (13.2-15.2) 01/25/17 07:22 Plt Count 244 K/mm3 (140-440) 01/25/17 07:22 Lymph # Resistance [place] 01/22/17 12:52 Add Manual Diff Complete 01/25/17 06:48 Total Counted 100 01/24/17 06:00 Seg Neutrophils % Resistance [place] 01/25/17 07:22 Seg Neuts % (Manual) 99.0 % (40.0-70.0) H 01/24/17 06:00 Band Neutrophils % 0 % 01/24/17 06:00 Lymphocytes % (Manual) 0 % (13.4-35.0) L 01/24/17 06:00 Reactive Lymphs % (Man) 0 % 01/24/17 06:00 Monocytes % (Manual) 1.0 % (0.0-7.3) 01/24/17 06:00 Eosinophils % (Manual) 0 % (0.0-4.3) 01/24/17 06:00 Basophils % (Manual) 0 % (0.0-1.8) 01/24/17 06:00 Metamyelocytes % 0 % 01/24/17 06:00 Myelocytes % 0 % 01/24/17 06:00 Promyelocytes % 0 % 01/24/17 06:00 Blast Cells % 0 % 01/24/17 06:00 Nucleated RBC % Not Reportable 01/25/17 06:48 Seg Neutrophils # Man 25.4 K/mm3 (1.8-7.7) H 01/24/17 06:00 Band Neutrophils # 0.0 K/mm3 01/24/17 06:00 Lymphocytes # (Manual) 0.0 K/mm3 (1.2-5.4) L 01/24/17 06:00 Abs React Lymphs (Man) 0.0 K/mm3 01/24/17 06:00 Monocytes # (Manual) 0.3 K/mm3 (0.0-0.8) 01/24/17 06:00 Eosinophils # (Manual) 0.0 K/mm3 (0.0-0.4) 01/24/17 06:00 Basophils # (Manual) 0.0 K/mm3 (0.0-0.1) 01/24/17 06:00 Metamyelocytes # 0.0 K/mm3 01/24/17 06:00 Myelocytes # 0.0 K/mm3 01/24/17 06:00 Promyelocytes # 0.0 K/mm3 01/24/17 06:00 Blast Cells # 0.0 K/mm3 01/24/17 06:00 WBC Morphology Not Reportable 01/25/17 06:48 Hypersegmented Neuts Not Reportable 01/25/17 06:48 Hyposegmented Neuts Not Reportable 01/25/17 06:48 Hypogranular Neuts Not Reportable 01/25/17 06:48 Smudge Cells Not Reportable 01/25/17 06:48 Toxic Granulation Not Reportable 01/25/17 06:48 Toxic Vacuolation Not Reportable 01/25/17 06:48 Dohle Bodies Not Reportable 01/25/17 06:48 Pelger-Huet Anomaly Not Reportable 01/25/17 06:48 Roderick Rods Not Reportable 01/25/17 06:48 Platelet Estimate Not Reportable 01/25/17 06:48 Clumped Platelets Not Reportable 01/25/17 06:48 Plt Clumps, EDTA Not Reportable 01/25/17 06:48 Large Platelets Not Reportable 01/25/17 06:48 Giant Platelets Not Reportable 01/25/17 06:48 Platelet Satelliting Not Reportable 01/25/17 06:48 Plt Morphology Comment Not Reportable 01/25/17 06:48 RBC Morphology Not Reportable 01/25/17 06:48 Dimorphic RBCs Not Reportable 01/25/17 06:48 Polychromasia Not Reportable 01/25/17 06:48 Hypochromasia Not Reportable 01/25/17 06:48 Poikilocytosis Not Reportable 01/25/17 06:48 Anisocytosis Not Reportable 01/25/17 06:48 Microcytosis Not Reportable 01/25/17 06:48 Macrocytosis Not Reportable 01/25/17 06:48 Spherocytes Not Reportable 01/25/17 06:48 Pappenheimer Bodies Not Reportable 01/25/17 06:48 Sickle Cells Not Reportable 01/25/17 06:48 Target Cells Not Reportable 01/25/17 06:48 Tear Drop Cells Not Reportable 01/25/17 06:48 Ovalocytes Not Reportable 01/25/17 06:48 Helmet Cells Not Reportable 01/25/17 06:48 Fermin-Willow Bodies Not Reportable 01/25/17 06:48 Manlius Rings Not Reportable 01/25/17 06:48 Juliana Cells Not Reportable 01/25/17 06:48 Bite Cells Not Reportable 01/25/17 06:48 Crenated Cell Not Reportable 01/25/17 06:48 Elliptocytes Not Reportable 01/25/17 06:48 Acanthocytes (Spur) Not Reportable 01/25/17 06:48 Rouleaux Not Reportable 01/25/17 06:48 Hemoglobin C Crystals Not Reportable 01/25/17 06:48 Schistocytes Not Reportable 01/25/17 06:48 Malaria parasites Not Reportable 01/25/17 06:48 Ravin Bodies Not Reportable 01/25/17 06:48 Hem Pathologist Commnt No 01/25/17 06:48 PT 12.0 Sec. (12.2-14.9) L 01/22/17 12:52 INR 0.90 (0.87-1.13) 01/22/17 12:52 D-Dimer 162.42 ng/mlDDU (0-234) 01/22/17 12:52 POC ABG pH 7.333 (7.35-7.45) L 01/25/17 04:46 POC ABG pCO2 42.1 (35-45) 01/25/17 04:46 POC ABG pO2 104 (80-105) 01/25/17 04:46 POC ABG HCO3 22.4 01/25/17 04:46 POC ABG Total CO2 24 01/25/17 04:46 POC ABG O2 Sat 98 01/25/17 04:46 POC ABG Base Excess -3 01/25/17 04:46 FiO2 30 % 01/25/17 04:46 Sodium 139 mmol/L (137-145) 01/25/17 07:31 Potassium 3.5 mmol/L (3.6-5.0) L D 01/25/17 07:31 Chloride 105.8 mmol/L (98-107) 01/25/17 07:31 Carbon Dioxide 24 mmol/L (22-30) D 01/25/17 07:31 Anion Gap 13 mmol/L 01/25/17 07:31 BUN 12 mg/dL (7-17) 01/25/17 07:31 Creatinine 0.3 mg/dL (0.7-1.2) L 01/25/17 07:31 Estimated GFR > 60 ml/min 01/25/17 07:31 BUN/Creatinine Ratio 40.00 % 01/25/17 07:31 Glucose 141 mg/dL (65-100) H 01/25/17 07:31 POC Glucose 189 (70-105) H 01/24/17 00:07 Lactic Acid 1.8 mmol/L (0.7-2.0) 01/25/17 07:28 Calcium 7.9 mg/dL (8.4-10.2) L D 01/25/17 07:31 Phosphorus 1.5 mg/dL (2.5-4.5) L 01/25/17 06:48 Magnesium 1.7 mg/dL (1.7-2.3) 01/25/17 06:48 Total Bilirubin 0.4 mg/dL (0.1-1.2) 01/23/17 03:40 Direct Bilirubin < 0.2 mg/dL (0-0.2) 01/22/17 12:52 Indirect Bilirubin 0.0 mg/dL 01/22/17 12:52 AST 98 units/L (5-40) H 01/23/17 03:40 ALT 93 units/L (7-56) H 01/23/17 03:40 Alkaline Phosphatase 72 units/L (35-129) 01/23/17 03:40 Troponin T < 0.010 ng/mL (0.00-0.029) 01/22/17 12:52 C-Reactive Protein 0.30 mg/dL (0.00-1.30) 01/23/17 03:40 NT-Pro-B Natriuret Pep 100.8 pg/mL (0-450) 01/22/17 12:52 Total Protein 5.9 g/dL (6.3-8.2) L 01/23/17 03:40 Albumin 3.2 g/dL (3.9-5) L 01/23/17 03:40 Albumin/Globulin Ratio 1.2 % 01/23/17 03:40 HCG, Quant < 2 mIU/mL (0-4) 01/22/17 12:52 Urine Color Colorless (Yellow) 01/22/17 Unknown Urine Turbidity Clear (Clear) 01/22/17 Unknown Urine pH 6.0 (5.0-7.0) 01/22/17 Unknown Ur Specific [place] 1.002 (1.003-1.030) L 01/22/17 Unknown Urine Protein <15 mg/dl mg/dL (Negative) 01/22/17 Unknown Urine Glucose (UA) Neg mg/dL (Negative) 01/22/17 Unknown Urine Ketones Neg mg/dL (Negative) 01/22/17 Unknown Urine Blood Mod (Negative) 01/22/17 Unknown Urine Nitrite Neg (Negative) 01/22/17 Unknown Urine Bilirubin Neg (Negative) 01/22/17 Unknown Urine Urobilinogen < 2.0 mg/dL (<2.0) 01/22/17 Unknown Ur Leukocyte Esterase Neg (Negative) 01/22/17 Unknown Urine WBC (Auto) < 1.0 /HPF (0.0-6.0) 01/22/17 Unknown Urine RBC (Auto) 1.0 /HPF (0.0-6.0) 01/22/17 Unknown U Epithel Cells (Auto) < 1.0 /HPF (0-13.0) 01/22/17 Unknown Urine Opiates Screen Presumptive negative 01/22/17 Unknown Urine Methadone Screen Presumptive negative 01/22/17 Unknown Ur Barbiturates Screen Presumptive negative 01/22/17 Unknown Ur Phencyclidine Scrn Presumptive negative 01/22/17 Unknown Ur Amphetamines Screen Presumptive negative 01/22/17 Unknown U Benzodiazepines Scrn Presumptive negative 01/22/17 Unknown Urine Cocaine Screen Presumptive negative 01/22/17 Unknown U Marijuana (THC) Screen Presumptive negative 01/22/17 Unknown Drugs of Abuse Note Disclamer 01/22/17 Unknown
[2017-01-25 08:36] LABS: Basophils % (Manual) 0 % (0.0-1.8); Blastocytes % (Manual) 0 %; Eosinophils % (Manual) 0 % (0.0-4.3)
[2017-01-25 08:37] LABS: Diff Status Complete; RBC Morphology Normal
--- NOTE | 2017-01-25 09:06 | XRay Report ---
Portable chest: Endotracheal and nasogastric tubes are in good positions. There is a left jugular central venous line with the tip just proximal to the SVC. The lungs are clear. The mediastinal contour is unremarkable. The findings are generally unchanged compared to January 24. Impression: No interval findings.
[2017-01-25] MEDS: fentaNYL DRIP Premix 2,000 MCG/100 ML BAG IV SCH (10:48)
[2017-01-25] MEDS: PEPCID PO SCH ×2 (10:50→22:09)
[2017-01-25] MEDS: KPHOS 30 MMOL in NACL 0.9% 500 ML 500 ML IV SCH ×2 (10:50→14:33)
--- NOTE | 2017-01-25 11:15 | Progress Note ---
Assessment and Plan - Patient Problems (1) Altered mental status Current Visit: Yes Status: Acute Qualifiers: Altered mental status type: A Coma depth: C Coma timing: C Plan to address problem: - still suspect element of withdrawal - uptitrate librium - continue seroquel at 300mg bid - rate limiting factor to extubation at this point - non-focal examination so far (2) Acute respiratory failure Current Visit: Yes Status: Acute Qualifiers: Respiratory failure complication: hypoxia Qualified Code(s): J96.01 - Acute respiratory failure with hypoxia Plan to address problem: - continue bronchodilators and pulmonary toilet - continue aspiration precautions / VAP bundles - weaning trials hindered by sedation issues - wean oxygen for sats > 94% at this point - pull ETT 2cm to 24cm at the lips (3) Leucocytosis Current Visit: Yes Status: Acute Qualifiers: Leukocytosis type: L Plan to address problem: - suspect steroid leucocytosis - CRP unremarkable - will draw blood cultures but will not escalate AB's yet - WBC down - lactate WNL - follow clinically (4) Discharge planning issues Current Visit: Yes Status: Acute Plan to address problem: - she remains critically ill on life sustaining interventions including MVS and at risk for further deterioration including ...32' CCT Subjective Date of service: 01/25/17 Principal diagnosis: Acute Hypoxemic Respiratory Failure Interval history: Seen and examined at bedside; 24 hour events reviewed; nursing and respiratory care staff consulted; no adverse overnight events reported to me; remains on MVS ; requiring significant sedation still; no emesis or overt aspiration but not tolerating sedation vacations Objective Vital Signs - 12hr 01/24/17 01/24/17 01/24/17 23:20 23:30 23:40 Temperature Pulse Rate 68 68 69 Pulse Rate [ Anterior Bilateral Throughout] Pulse Rate [ From Monitor] Respiratory 18 18 18 Rate Respiratory Rate [Anterior Bilateral Throughout] Blood Pressure 99/60 103/65 103/65 O2 Sat by Pulse 99 98 99 Oximetry 01/24/17 01/24/17 01/24/17 23:43 23:50 23:58 Temperature Pulse Rate 57 L 67 Pulse Rate [ Anterior Bilateral Throughout] Pulse Rate [ From Monitor] Respiratory 18 18 18 Rate Respiratory Rate [Anterior Bilateral Throughout] Blood Pressure 103/65 96/55 O2 Sat by Pulse 98 99 Oximetry 01/25/17 01/25/17 01/25/17 00:00 00:04 00:10 Temperature 97.0 F L Pulse Rate 66 65 68 Pulse Rate [ Anterior Bilateral Throughout] Pulse Rate [ 67 From Monitor] Respiratory 18 18 18 Rate Respiratory Rate [Anterior Bilateral Throughout] Blood Pressure 104/64 103/65 104/64 O2 Sat by Pulse 99 99 98 Oximetry 01/25/17 01/25/17 01/25/17 00:20 00:30 00:40 Temperature Pulse Rate 72 72 76 Pulse Rate [ Anterior Bilateral Throughout] Pulse Rate [ From Monitor] Respiratory 18 18 18 Rate Respiratory Rate [Anterior Bilateral Throughout] Blood Pressure 104/64 88/50 88/50 O2 Sat by Pulse 97 96 97 Oximetry 01/25/17 01/25/17 01/25/17 00:50 01:00 01:10 Temperature Pulse Rate 68 67 68 Pulse Rate [ Anterior Bilateral Throughout] Pulse Rate [ From Monitor] Respiratory 18 18 18 Rate Respiratory Rate [Anterior Bilateral Throughout] Blood Pressure 88/50 95/59 95/59 O2 Sat by Pulse 97 94 97 Oximetry 01/25/17 01/25/17 01/25/17 01:20 01:30 01:40 Temperature Pulse Rate 65 65 65 Pulse Rate [ Anterior Bilateral Throughout] Pulse Rate [ From Monitor] Respiratory 18 18 18 Rate Respiratory Rate [Anterior Bilateral Throughout] Blood Pressure 95/59 105/66 105/66 O2 Sat by Pulse 97 95 97 Oximetry 01/25/17 01/25/17 01/25/17 01:50 02:00 02:10 Temperature Pulse Rate 65 57 L 58 L Pulse Rate [ Anterior Bilateral Throughout] Pulse Rate [ From Monitor] Respiratory 18 18 18 Rate Respiratory Rate [Anterior Bilateral Throughout] Blood Pressure 105/66 103/62 103/62 O2 Sat by Pulse 97 97 98 Oximetry 01/25/17 01/25/17 01/25/17 02:20 02:30 02:40 Temperature Pulse Rate 59 L 56 L 61 Pulse Rate [ Anterior Bilateral Throughout] Pulse Rate [ From Monitor] Respiratory 18 18 18 Rate Respiratory Rate [Anterior Bilateral Throughout] Blood Pressure 103/62 113/63 113/63 O2 Sat by Pulse 98 95 98 Oximetry 01/25/17 01/25/17 01/25/17 02:50 02:53 03:00 Temperature Pulse Rate 58 L 68 Pulse Rate [ 60 Anterior Bilateral Throughout] Pulse Rate [ From Monitor] Respiratory 18 18 Rate Respiratory 18 Rate [Anterior Bilateral Throughout] Blood Pressure 113/63 104/65 O2 Sat by Pulse 98 95 Oximetry 01/25/17 01/25/17 01/25/17 03:03 03:10 03:20 Temperature Pulse Rate 68 61 Pulse Rate [ 71 Anterior Bilateral Throughout] Pulse Rate [ From Monitor] Respiratory 18 18 Rate Respiratory 18 Rate [Anterior Bilateral Throughout] Blood Pressure 104/65 104/65 O2 Sat by Pulse 97 97 Oximetry 01/25/17 01/25/17 01/25/17 03:30 03:40 03:50 Temperature Pulse Rate 62 62 59 L Pulse Rate [ Anterior Bilateral Throughout] Pulse Rate [ From Monitor] Respiratory 18 18 18 Rate Respiratory Rate [Anterior Bilateral Throughout] Blood Pressure 116/68 116/68 116/68 O2 Sat by Pulse 95 97 97 Oximetry 01/25/17 01/25/17 01/25/17 04:00 04:10 04:20 Temperature 94.0 F L Pulse Rate 56 L 53 L 94 H Pulse Rate [ Anterior Bilateral Throughout] Pulse Rate [ 69 From Monitor] Respiratory 18 18 21 Rate Respiratory Rate [Anterior Bilateral Throughout] Blood Pressure 116/67 116/67 116/67 O2 Sat by Pulse 96 98 Oximetry 01/25/17 01/25/17 01/25/17 04:30 04:40 04:46 Temperature Pulse Rate 62 62 62 Pulse Rate [ Anterior Bilateral Throughout] Pulse Rate [ From Monitor] Respiratory 18 14 Rate Respiratory Rate [Anterior Bilateral Throughout] Blood Pressure 101/56 101/56 101/56 O2 Sat by Pulse 99 100 99 Oximetry 01/25/17 01/25/17 01/25/17 04:50 05:00 05:10 Temperature Pulse Rate 60 101 H 63 Pulse Rate [ Anterior Bilateral Throughout] Pulse Rate [ From Monitor] Respiratory 17 20 17 Rate Respiratory Rate [Anterior Bilateral Throughout] Blood Pressure 101/56 101/56 121/73 O2 Sat by Pulse 99 95 100 Oximetry 01/25/17 01/25/17 01/25/17 05:20 05:29 05:30 Temperature Pulse Rate 59 L 63 Pulse Rate [ Anterior Bilateral Throughout] Pulse Rate [ From Monitor] Respiratory 16 18 18 Rate Respiratory Rate [Anterior Bilateral Throughout] Blood Pressure 121/73 98/60 O2 Sat by Pulse 99 98 99 Oximetry 01/25/17 01/25/17 01/25/17 05:40 05:50 06:00 Temperature Pulse Rate 62 60 62 Pulse Rate [ Anterior Bilateral Throughout] Pulse Rate [ From Monitor] Respiratory 18 18 18 Rate Respiratory Rate [Anterior Bilateral Throughout] Blood Pressure 98/60 98/60 94/58 O2 Sat by Pulse 98 97 Oximetry 01/25/17 01/25/17 01/25/17 06:10 06:20 06:30 Temperature Pulse Rate 64 61 54 L Pulse Rate [ Anterior Bilateral Throughout] Pulse Rate [ From Monitor] Respiratory 18 18 18 Rate Respiratory Rate [Anterior Bilateral Throughout] Blood Pressure 94/58 94/58 95/56 O2 Sat by Pulse 96 96 96 Oximetry 01/25/17 01/25/17 01/25/17 06:40 06:50 07:00 Temperature Pulse Rate 57 L 64 67 Pulse Rate [ Anterior Bilateral Throughout] Pulse Rate [ From Monitor] Respiratory 18 18 18 Rate Respiratory Rate [Anterior Bilateral Throughout] Blood Pressure 95/56 95/56 101/63 O2 Sat by Pulse 97 98 Oximetry 01/25/17 01/25/17 01/25/17 07:10 07:20 07:30 Temperature Pulse Rate 71 74 74 Pulse Rate [ Anterior Bilateral Throughout] Pulse Rate [ From Monitor] Respiratory 18 18 18 Rate Respiratory Rate [Anterior Bilateral Throughout] Blood Pressure 101/63 101/63 97/56 O2 Sat by Pulse 97 96 96 Oximetry 01/25/17 01/25/17 08:00 09:34 Temperature 98 F Pulse Rate 82 Pulse Rate [ Anterior Bilateral Throughout] Pulse Rate [ From Monitor] Respiratory Rate Respiratory Rate [Anterior Bilateral Throughout] Blood Pressure 94/51 O2 Sat by Pulse 97 Oximetry Constitutional: no acute distress, other (sedated) Eyes: non-icteric ENT: oropharynx moist Neck: supple, no lymphadenopathy Effort: mildly labored Ascultation: Bilateral: rales (scant in bases) Cardiovascular: regular rate and rhythm Gastrointestinal: normoactive bowel sounds, soft, non-tender, non-distended Integumentary: normal Extremities: no cyanosis, no edema, pink and warm, pulses normal, no ischemia or petechiae Neurologic: unable to assess, other (sedated) Psychiatric: other (sedated) CBC and BMP: 01/25/17 07:22 01/25/17 07:31 ABG, PT/INR, D-dimer: ABG POC ABG pH 7.333 (7.35-7.45) L 01/25/17 04:46 POC ABG pCO2 42.1 (35-45) 01/25/17 04:46 POC ABG pO2 104 (80-105) 01/25/17 04:46 POC ABG HCO3 22.4 01/25/17 04:46 POC ABG Total CO2 24 01/25/17 04:46 POC ABG O2 Sat 98 01/25/17 04:46 PT/INR, D-dimer PT 12.0 Sec. (12.2-14.9) L 01/22/17 12:52 INR 0.90 (0.87-1.13) 01/22/17 12:52 D-Dimer 162.42 ng/mlDDU (0-234) 01/22/17 12:52 Abnormal lab findings: Abnormal Labs 01/22/17 01/23/17 01/23/17 Unknown 03:32 03:40 WBC 16.5 H RBC Seg Neuts % (Manual) 95.0 H Lymphocytes % (Manual) 4.0 L Seg Neutrophils # Man 15.7 H Lymphocytes # (Manual) 0.7 L POC ABG pH 7.293 L POC ABG pO2 Potassium Chloride Carbon Dioxide Creatinine Glucose POC Glucose Lactic Acid Calcium Phosphorus AST ALT Total Protein Albumin Ur Specific [place] 1.002 L 01/23/17 01/23/17 01/23/17 03:40 13:41 20:48 WBC RBC Seg Neuts % (Manual) Lymphocytes % (Manual) Seg Neutrophils # Man Lymphocytes # (Manual) POC ABG pH POC ABG pO2 77 L Potassium Chloride 108.6 H Carbon Dioxide 19 L Creatinine 0.5 L Glucose 216 H POC Glucose Lactic Acid 3.3 H* Calcium 7.6 L D Phosphorus AST 98 H ALT 93 H Total Protein 5.9 L Albumin 3.2 L Ur Specific [place] 01/24/17 01/24/17 01/24/17 00:07 04:39 06:00 WBC 25.7 H RBC Seg Neuts % (Manual) 99.0 H Lymphocytes % (Manual) 0 L Seg Neutrophils # Man 25.4 H Lymphocytes # (Manual) 0.0 L POC ABG pH POC ABG pO2 106 H Potassium Chloride Carbon Dioxide Creatinine Glucose POC Glucose 189 H Lactic Acid Calcium Phosphorus AST ALT Total Protein Albumin Ur Specific [place] 01/24/17 01/24/17 01/25/17 06:00 13:22 04:46 WBC RBC Seg Neuts % (Manual) Lymphocytes % (Manual) Seg Neutrophils # Man Lymphocytes # (Manual) POC ABG pH 7.333 L POC ABG pO2 Potassium Chloride 107.5 H Carbon Dioxide Creatinine 0.4 L Glucose 165 H POC Glucose Lactic Acid 2.6 H* Calcium 7.9 L Phosphorus AST ALT Total Protein Albumin Ur Specific [place] 01/25/17 01/25/17 01/25/17 06:48 07:22 07:31 WBC 21.2 H RBC 3.41 L Seg Neuts % (Manual) 84.0 H Lymphocytes % (Manual) 6.0 L Seg Neutrophils # Man 17.8 H Lymphocytes # (Manual) POC ABG pH POC ABG pO2 Potassium 2.8 L* D 3.5 L D Chloride 116.5 H Carbon Dioxide 17 L D Creatinine 0.2 L 0.3 L Glucose 117 H 141 H POC Glucose Lactic Acid Calcium 5.7 L* D 7.9 L D Phosphorus 1.5 L AST ALT Total Protein Albumin Ur Specific [place] Chest x-ray: image reviewed (ETT low)
[2017-01-25] MEDS: LOVENOX SUB-Q SCH (12:15)
[2017-01-25] MEDS: DIPRIVAN 10 MG/ML 1,000 MG/100 ML BOTTLE IV SCH ×2 (16:31→22:32)
[2017-01-26 01:07] LABS: ISTAT Base Excess 0; ISTAT HCO3 23.6; ISTAT PCO2 30.4 (35-45); ISTAT PH 7.499 (7.35-7.45); ISTAT PO2 96 (80-105); ISTAT SO2 98; ISTAT TCO2 25
[2017-01-26] MEDS: PROVENTIL IH SCH ×4 (02:19→19:46)
[2017-01-26 05:06] LABS: Anion Gap 16 mmol/L; Blood Urea Nitrogen 11 mg/dL (7-17); Calcium 7.4 mg/dL (8.4-10.2); Carbon Dioxide 24 mmol/L (22-30); Chloride 106.3 mmol/L (98-107); Glucose 132 mg/dL (65-100); Magnesium 2.3 mg/dL (1.7-2.3); Phosphorous 3.3 mg/dL (2.5-4.5); Sodium 142 mmol/L (137-145)
[2017-01-26 05:07] LABS: Basophils % (Auto) 0.1 % (0.0-1.8); Hematocrit 29.9 % (30.3-42.9); Hemoglobin 9.9 gm/dl (10.1-14.3); Mean Corpuscular HGB Conc 33 % (30-34); Mean Corpuscular Hemoglobin 31 pg (28-32); Mean Corpuscular Volume 93 fl (79-97); Platelet Count 230 K/mm3 (140-440); Red Blood Count 3.23 M/mm3 (3.65-5.03); Red Cell Distribution Width 13.6 % (13.2-15.2); White Blood Count 15.2 K/mm3 (4.5-11.0)
[2017-01-26 05:41] LABS: ISTAT Base Excess 1; ISTAT HCO3 25.1; ISTAT PH 7.464 (7.35-7.45); ISTAT PO2 138 (80-105); ISTAT SO2 99; ISTAT TCO2 26
[2017-01-26] MEDS: LIBRIUM PO SCH ×3 (06:23→22:57)
[2017-01-26] MEDS: ARTIFICIAL TEARS OPHTH OINT OU PRN (06:26)
[2017-01-26] MEDS ORDERED: ATIVAN IV PRN (08:01)
--- NOTE | 2017-01-26 08:01 | Progress Note ---
Assessment and Plan Assessment and plan: --possible alcohol withdrawal Ativan as needed,[facility] protocol add thiamin and folic acid --Acute hypoxemic respiratory failure Continue mechanical ventilation ventilation nebulizers, IV steroids IV antibiotics, inhalation steroids wean as tolerated and extubate Pulmonary following --Acute exacerbation of bronchial asthma Ventilatory support, nebulizers, steroids, antibiotics Supportive care --Hypokalemia /hypophosphatemia /hypocalcemia replace per protocol and monitor levels --Leukocytosis Trending down, secondary to sepsis --Lactic acidosis lactic acid levels within normal limits Secondary to sepsis secondary to acute bronchitis --Hypotension/septic shock Off Levophed, closely monitor --DVT prophylaxis with Lovenox Wean as tolerated and extubate Pulmonary consultation recommendations noted and appreciated Plan of care discussed with the patient's nurse The high probability of a clinically significant, sudden or life threatening deterioration of the [respiratory] system required my full and direct attention , intervention and personal management. The aggregate critical care time was [32 ] minutes. This time is in addition to time spent performing reported procedures but includes the following: [x] Data Review and interpretation [x] Patient assessment and monitoring of vital signs [x] Documentation [x] Medication orders and management History Interval history: Patient seen and evaluated medical records reviewed Nurse reports that patient is agitated at times, possible alcohol withdrawal symptoms And evaluated the patient patient is comfortable orally intubated on ventilatory support and sedated Vital signs reviewed Hospitalist Physical - Constitutional Vitals: Temp Pulse Resp BP Pulse Ox 99.2 F 74 25 H 117/69 98 01/26/17 07:48 01/26/17 07:20 01/26/17 07:20 01/26/17 07:20 01/26/17 07:20 General appearance: Present: no acute distress, well-nourished, other (orally intubated and on vent) - EENT Eyes: Present: PERRL, EOM intact - Neck Neck: Present: supple, normal ROM - Respiratory Respiratory: bilateral: diminished, rhonchi (ocassional) - Cardiovascular Rhythm: regular Heart Sounds: Present: S1 & S2 - Extremities Extremities: no ischemia, pulses intact, pulses symmetrical - Abdominal General gastrointestinal: soft, non-tender, non-distended - Integumentary Integumentary: Present: clear, warm - Psychiatric Psychiatric: other (sedated ,on vent) - Neurologic Neurologic: other (intubated and sedated) Results - Labs CBC & Chem 7: 01/26/17 04:00 01/26/17 04:00 Labs: Laboratory Last Values WBC 15.2 K/mm3 (4.5-11.0) H 01/26/17 04:00 RBC 3.23 M/mm3 (3.65-5.03) L 01/26/17 04:00 Hgb 9.9 gm/dl (10.1-14.3) L 01/26/17 04:00 Hct 29.9 % (30.3-42.9) L 01/26/17 04:00 MCV 93 fl (79-97) 01/26/17 04:00 MCH 31 pg (28-32) 01/26/17 04:00 MCHC 33 % (30-34) 01/26/17 04:00 RDW 13.6 % (13.2-15.2) 01/26/17 04:00 Plt Count 230 K/mm3 (140-440) 01/26/17 04:00 Lymph % (Auto) 4.7 % (13.4-35.0) L 01/26/17 04:00 Desha % (Auto) 5.2 % (0.0-7.3) 01/26/17 04:00 Eos % (Auto) 0.0 % (0.0-4.3) 01/26/17 04:00 Baso % (Auto) 0.1 % (0.0-1.8) 01/26/17 04:00 Lymph # 0.7 K/mm3 (1.2-5.4) L 01/26/17 04:00 Desha # 0.8 K/mm3 (0.0-0.8) 01/26/17 04:00 Eos # 0.0 K/mm3 (0.0-0.4) 01/26/17 04:00 Baso # 0.0 K/mm3 (0.0-0.1) 01/26/17 04:00 Add Manual Diff Complete 01/25/17 07:22 Total Counted 100 01/25/17 07:22 Seg Neutrophils % 90.0 % (40.0-70.0) H 01/26/17 04:00 Seg Neuts % (Manual) 84.0 % (40.0-70.0) H 01/25/17 07:22 Band Neutrophils % 6.0 % 01/25/17 07:22 Lymphocytes % (Manual) 6.0 % (13.4-35.0) L 01/25/17 07:22 Reactive Lymphs % (Man) 0 % 01/25/17 07:22 Monocytes % (Manual) 4.0 % (0.0-7.3) 01/25/17 07:22 Eosinophils % (Manual) 0 % (0.0-4.3) 01/25/17 07:22 Basophils % (Manual) 0 % (0.0-1.8) 01/25/17 07:22 Metamyelocytes % 0 % 01/25/17 07:22 Myelocytes % 0 % 01/25/17 07:22 Promyelocytes % 0 % 01/25/17 07:22 Blast Cells % 0 % 01/25/17 07:22 Nucleated RBC % Not Reportable 01/25/17 07:22 Seg Neutrophils # 13.6 K/mm3 (1.8-7.7) H 01/26/17 04:00 Seg Neutrophils # Man 17.8 K/mm3 (1.8-7.7) H 01/25/17 07:22 Band Neutrophils # 1.3 K/mm3 01/25/17 07:22 Lymphocytes # (Manual) 1.3 K/mm3 (1.2-5.4) 01/25/17 07:22 Abs React Lymphs (Man) 0.0 K/mm3 01/25/17 07:22 Monocytes # (Manual) 0.8 K/mm3 (0.0-0.8) 01/25/17 07:22 Eosinophils # (Manual) 0.0 K/mm3 (0.0-0.4) 01/25/17 07:22 Basophils # (Manual) 0.0 K/mm3 (0.0-0.1) 01/25/17 07:22 Metamyelocytes # 0.0 K/mm3 01/25/17 07:22 Myelocytes # 0.0 K/mm3 01/25/17 07:22 Promyelocytes # 0.0 K/mm3 01/25/17 07:22 Blast Cells # 0.0 K/mm3 01/25/17 07:22 WBC Morphology Not Reportable 01/25/17 07:22 Hypersegmented Neuts Not Reportable 01/25/17 07:22 Hyposegmented Neuts Not Reportable 01/25/17 07:22 Hypogranular Neuts Not Reportable 01/25/17 07:22 Smudge Cells Not Reportable 01/25/17 07:22 Toxic Granulation Not Reportable 01/25/17 07:22 Toxic Vacuolation Not Reportable 01/25/17 07:22 Dohle Bodies Not Reportable 01/25/17 07:22 Pelger-Huet Anomaly Not Reportable 01/25/17 07:22 Roderick Rods Not Reportable 01/25/17 07:22 Platelet Estimate Not Reportable 01/25/17 07:22 Clumped Platelets Not Reportable 01/25/17 07:22 Plt Clumps, EDTA Not Reportable 01/25/17 07:22 Large Platelets Not Reportable 01/25/17 07:22 Giant Platelets Not Reportable 01/25/17 07:22 Platelet Satelliting Not Reportable 01/25/17 07:22 Plt Morphology Comment Not Reportable 01/25/17 07:22 RBC Morphology Normal 01/25/17 07:22 Dimorphic RBCs Not Reportable 01/25/17 07:22 Polychromasia Not Reportable 01/25/17 07:22 Hypochromasia Not Reportable 01/25/17 07:22 Poikilocytosis Not Reportable 01/25/17 07:22 Anisocytosis Not Reportable 01/25/17 07:22 Microcytosis Not Reportable 01/25/17 07:22 Macrocytosis Not Reportable 01/25/17 07:22 Spherocytes Not Reportable 01/25/17 07:22 Pappenheimer Bodies Not Reportable 01/25/17 07:22 Sickle Cells Not Reportable 01/25/17 07:22 Target Cells Not Reportable 01/25/17 07:22 Tear Drop Cells Not Reportable 01/25/17 07:22 Ovalocytes Not Reportable 01/25/17 07:22 Helmet Cells Not Reportable 01/25/17 07:22 [place] Bodies Not Reportable 01/25/17 07:22 [place] Rings Not Reportable 01/25/17 07:22 [place] Cells Not Reportable 01/25/17 07:22 Bite Cells Not Reportable 01/25/17 07:22 Crenated Cell Not Reportable 01/25/17 07:22 Elliptocytes Not Reportable 01/25/17 07:22 Acanthocytes (Spur) Not Reportable 01/25/17 07:22 Rouleaux Not Reportable 01/25/17 07:22 Hemoglobin C Crystals Not Reportable 01/25/17 07:22 Schistocytes Not Reportable 01/25/17 07:22 Malaria parasites Not Reportable 01/25/17 07:22 Ravin Bodies Not Reportable 01/25/17 07:22 Hem Pathologist Commnt No 01/25/17 07:22 PT 12.0 Sec. (12.2-14.9) L 01/22/17 12:52 INR 0.90 (0.87-1.13) 01/22/17 12:52 D-Dimer 162.42 ng/mlDDU (0-234) 01/22/17 12:52 POC ABG pH 7.464 (7.35-7.45) H 01/26/17 05:12 POC ABG pCO2 35.0 (35-45) 01/26/17 05:12 POC ABG pO2 138 (80-105) H 01/26/17 05:12 POC ABG HCO3 25.1 01/26/17 05:12 POC ABG Total CO2 26 01/26/17 05:12 POC ABG O2 Sat 99 01/26/17 05:12 POC ABG Base Excess 1 01/26/17 05:12 FiO2 35 % 01/26/17 05:12 Sodium 142 mmol/L (137-145) 01/26/17 04:00 Potassium 4.0 mmol/L (3.6-5.0) 01/26/17 04:00 Chloride 106.3 mmol/L (98-107) 01/26/17 04:00 Carbon Dioxide 24 mmol/L (22-30) 01/26/17 04:00 Anion Gap 16 mmol/L 01/26/17 04:00 BUN 11 mg/dL (7-17) 01/26/17 04:00 Creatinine 0.4 mg/dL (0.7-1.2) L 01/26/17 04:00 Estimated GFR > 60 ml/min 01/26/17 04:00 BUN/Creatinine Ratio 27.50 % 01/26/17 04:00 Glucose 132 mg/dL (65-100) H 01/26/17 04:00 POC Glucose 189 (70-105) H 01/24/17 00:07 Lactic Acid 1.8 mmol/L (0.7-2.0) 01/25/17 07:28 Calcium 7.4 mg/dL (8.4-10.2) L 01/26/17 04:00 Phosphorus 3.3 mg/dL (2.5-4.5) D 01/26/17 04:00 Magnesium 2.3 mg/dL (1.7-2.3) 01/26/17 04:00 Total Bilirubin 0.4 mg/dL (0.1-1.2) 01/23/17 03:40 Direct Bilirubin < 0.2 mg/dL (0-0.2) 01/22/17 12:52 Indirect Bilirubin 0.0 mg/dL 01/22/17 12:52 AST 98 units/L (5-40) H 01/23/17 03:40 ALT 93 units/L (7-56) H 01/23/17 03:40 Alkaline Phosphatase 72 units/L (35-129) 01/23/17 03:40 Troponin T < 0.010 ng/mL (0.00-0.029) 01/22/17 12:52 C-Reactive Protein 0.30 mg/dL (0.00-1.30) 01/23/17 03:40 NT-Pro-B Natriuret Pep 100.8 pg/mL (0-450) 01/22/17 12:52 Total Protein 5.9 g/dL (6.3-8.2) L 01/23/17 03:40 Albumin 3.2 g/dL (3.9-5) L 01/23/17 03:40 Albumin/Globulin Ratio 1.2 % 01/23/17 03:40 HCG, Quant < 2 mIU/mL (0-4) 01/22/17 12:52 Urine Color Colorless (Yellow) 01/22/17 Unknown Urine Turbidity Clear (Clear) 01/22/17 Unknown Urine pH 6.0 (5.0-7.0) 01/22/17 Unknown Ur Specific [place] 1.002 (1.003-1.030) L 01/22/17 Unknown Urine Protein <15 mg/dl mg/dL (Negative) 01/22/17 Unknown Urine Glucose (UA) Neg mg/dL (Negative) 01/22/17 Unknown Urine Ketones Neg mg/dL (Negative) 01/22/17 Unknown Urine Blood Mod (Negative) 01/22/17 Unknown Urine Nitrite Neg (Negative) 01/22/17 Unknown Urine Bilirubin Neg (Negative) 01/22/17 Unknown Urine Urobilinogen < 2.0 mg/dL (<2.0) 01/22/17 Unknown Ur Leukocyte Esterase Neg (Negative) 01/22/17 Unknown Urine WBC (Auto) < 1.0 /HPF (0.0-6.0) 01/22/17 Unknown Urine RBC (Auto) 1.0 /HPF (0.0-6.0) 01/22/17 Unknown U Epithel Cells (Auto) < 1.0 /HPF (0-13.0) 01/22/17 Unknown Urine Opiates Screen Presumptive negative 01/22/17 Unknown Urine Methadone Screen Presumptive negative 01/22/17 Unknown Ur Barbiturates Screen Presumptive negative 01/22/17 Unknown Ur Phencyclidine Scrn Presumptive negative 01/22/17 Unknown Ur Amphetamines Screen Presumptive negative 01/22/17 Unknown U Benzodiazepines Scrn Presumptive negative 01/22/17 Unknown Urine Cocaine Screen Presumptive negative 01/22/17 Unknown U Marijuana (THC) Screen Presumptive negative 01/22/17 Unknown Drugs of Abuse Note Disclamer 01/22/17 Unknown
--- NOTE | 2017-01-26 08:56 | XRay Report ---
CHEST 1 VIEW INDICATION: Respiratory failure. COMPARISON: Yesterday. FINDINGS: Portable, frontal chest radiograph, 2:05 AM, 01/26/2017 reveals stable cardiomediastinal silhouette, supporting devices, appearance of the lungs and osseous structures, providing for the difference in technique. CONCLUSION: No significant interval change. Thank you for the opportunity to participate in this patient's care.
[2017-01-26] MEDS: LEVAQUIN 750MG/150ML 750 MG/150 ML BAG IV SCH (10:05)
--- NOTE | 2017-01-26 10:05 | Progress Note ---
Assessment and Plan - Patient Problems (1) Altered mental status Current Visit: Yes Status: Acute Qualifiers: Altered mental status type: A Coma depth: C Coma timing: C Plan to address problem: - still suspect element of withdrawal - uptitrate librium further - continue seroquel at 300mg bid - adding neurontin (home med) - rate limiting factor to extubation at this point (2) Acute respiratory failure Current Visit: Yes Status: Acute Qualifiers: Respiratory failure complication: hypoxia Qualified Code(s): J96.01 - Acute respiratory failure with hypoxia Plan to address problem: - continue bronchodilators and pulmonary toilet - continue aspiration precautions / VAP bundles - weaning trials hindered by sedation issues - wean oxygen for sats > 94% at this point - pulled ETT 2cm to 24cm at the lips - as above otherwise (3) Leucocytosis Current Visit: Yes Status: Acute Qualifiers: Leukocytosis type: L Plan to address problem: - resolved - cultures NGTD - following clinically (4) Discharge planning issues Current Visit: Yes Status: Acute Plan to address problem: (4) Discharge planning issues Current Visit: Yes Status: Acute Plan to address problem: - she remains critically ill on life sustaining interventions including MVS and at risk for further deterioration including - care plan discussed with son also at bedside ...34' CCT Subjective Date of service: 01/26/17 Principal diagnosis: Acute Hypoxemic Respiratory Failure Interval history: Seen and examined at bedside; 24 hour events reviewed; nursing and respiratory care staff consulted; no adverse overnight events reported to me; remains very agitated during sedation holidays despite p.o. seroquel and librium; son visited ; no emesis or overt aspiration Objective Vital Signs - 12hr 01/25/17 01/25/17 01/25/17 22:10 22:20 22:30 Temperature Pulse Rate 78 75 76 Pulse Rate [ Anterior Bilateral Throughout] Respiratory 25 H 25 H 25 H Rate Respiratory Rate [Anterior Bilateral Throughout] Blood Pressure 120/63 120/63 105/59 O2 Sat by Pulse 95 94 93 Oximetry 01/25/17 01/25/17 01/25/17 22:32 22:37 22:38 Temperature Pulse Rate 88 Pulse Rate [ 77 Anterior Bilateral Throughout] Respiratory 25 H Rate Respiratory 25 H Rate [Anterior Bilateral Throughout] Blood Pressure 105/59 O2 Sat by Pulse 95 Oximetry 01/25/17 01/25/1701/25/17 22:40 22:50 23:00 Temperature Pulse Rate 95 H 91 H 92 H Pulse Rate [ 90 Anterior Bilateral Throughout] Respiratory 19 25 H 25 H Rate Respiratory 25 H Rate [Anterior Bilateral Throughout] Blood Pressure 105/59 102/57 104/52 O2 Sat by Pulse 91 96 94 Oximetry 01/25/17 01/25/17 01/25/17 23:10 23:20 23:30 Temperature Pulse Rate 90 92 H 93 H Pulse Rate [ Anterior Bilateral Throughout] Respiratory 25 H 25 H 25 H Rate Respiratory Rate [Anterior Bilateral Throughout] Blood Pressure 104/52 98/54 100/60 O2 Sat by Pulse 97 97 96 Oximetry 01/25/17 01/25/17 01/26/17 23:40 23:50 00:00 Temperature 99.6 F Pulse Rate 93 H 92 H 90 Pulse Rate [ Anterior Bilateral Throughout] Respiratory 25 H 25 H 25 H Rate Respiratory Rate [Anterior Bilateral Throughout] Blood Pressure 100/60 118/71 126/72 O2 Sat by Pulse 97 97 96 Oximetry 01/26/17 01/26/17 01/26/17 00:10 00:20 00:30 Temperature Pulse Rate 94 H 92 H 92 H Pulse Rate [ Anterior Bilateral Throughout] Respiratory 25 H 25 H 25 H Rate Respiratory Rate [Anterior Bilateral Throughout] Blood Pressure 126/72 119/67 114/67 O2 Sat by Pulse 98 97 96 Oximetry 01/26/17 01/26/17 01/26/17 00:40 00:50 01:00 Temperature Pulse Rate 98 H 93 H 91 H Pulse Rate [ Anterior Bilateral Throughout] Respiratory 25 H 25 H 25 H Rate Respiratory Rate [Anterior Bilateral Throughout] Blood Pressure 114/67 114/67 114/75 O2 Sat by Pulse 97 97 97 Oximetry 01/26/17 01/26/17 01/26/17 01:10 01:20 01:30 Temperature Pulse Rate 95 H 99 H 97 H Pulse Rate [ Anterior Bilateral Throughout] Respiratory 25 H 25 H 25 H Rate Respiratory Rate [Anterior Bilateral Throughout] Blood Pressure 120/72 132/74 132/73 O2 Sat by Pulse 97 97 95 Oximetry 01/26/17 01/26/17 01/26/17 01:40 01:50 02:00 Temperature Pulse Rate 95 H 95 H 90 Pulse Rate [ Anterior Bilateral Throughout] Respiratory 25 H 25 H 25 H Rate Respiratory Rate [Anterior Bilateral Throughout] Blood Pressure 132/73 126/74 124/70 O2 Sat by Pulse 97 97 95 Oximetry 01/26/17 01/26/17 01/26/17 02:10 02:19 02:20 Temperature Pulse Rate 89 91 H Pulse Rate [ 88 Anterior Bilateral Throughout] Respiratory 25 H 25 H Rate Respiratory 22 Rate [Anterior Bilateral Throughout] Blood Pressure 117/68 135/64 O2 Sat by Pulse 95 97 Oximetry 01/26/17 01/26/17 01/26/17 02:30 02:31 02:40 Temperature Pulse Rate 95 H 98 H Pulse Rate [ 93 H Anterior Bilateral Throughout] Respiratory 25 H 25 H Rate Respiratory 24 Rate [Anterior Bilateral Throughout] Blood Pressure 112/66 112/66 O2 Sat by Pulse 94 97 Oximetry 01/26/17 01/26/17 01/26/17 02:50 03:00 03:10 Temperature Pulse Rate 98 H 96 H 95 H Pulse Rate [ Anterior Bilateral Throughout] Respiratory 23 25 H 25 H Rate Respiratory Rate [Anterior Bilateral Throughout] Blood Pressure 120/60 118/60 118/60 O2 Sat by Pulse 97 93 97 Oximetry 01/26/17 01/26/17 01/26/17 03:20 03:30 03:40 Temperature Pulse Rate 94 H 93 H 95 H Pulse Rate [ Anterior Bilateral Throughout] Respiratory 25 H 25 H 23 Rate Respiratory Rate [Anterior Bilateral Throughout] Blood Pressure 114/61 120/63 120/63 O2 Sat by Pulse 97 94 97 Oximetry 01/26/17 01/26/17 01/26/17 03:50 04:00 04:10 Temperature 99.4 F Pulse Rate 93 H 91 H 89 Pulse Rate [ Anterior Bilateral Throughout] Respiratory 24 23 25 H Rate Respiratory Rate [Anterior Bilateral Throughout] Blood Pressure 113/65 106/65 106/65 O2 Sat by Pulse 97 94 98 Oximetry 01/26/17 01/26/17 01/26/17 04:20 04:27 04:30 Temperature Pulse Rate 92 H 92 H 90 Pulse Rate [ Anterior Bilateral Throughout] Respiratory 23 25 H Rate Respiratory Rate [Anterior Bilateral Throughout] Blood Pressure 119/67 119/67 121/60 O2 Sat by Pulse 98 98 95 Oximetry 01/26/17 01/26/17 01/26/17 04:40 04:50 05:00 Temperature Pulse Rate 92 H 86 87 Pulse Rate [ Anterior Bilateral Throughout] Respiratory 25 H 25 H 25 H Rate Respiratory Rate [Anterior Bilateral Throughout] Blood Pressure 121/60 110/62 115/64 O2 Sat by Pulse 98 98 94 Oximetry 01/26/17 01/26/17 01/26/17 05:10 05:20 05:30 Temperature Pulse Rate 84 84 88 Pulse Rate [ Anterior Bilateral Throughout] Respiratory 25 H 25 H 24 Rate Respiratory Rate [Anterior Bilateral Throughout] Blood Pressure 115/64 124/62 126/85 O2 Sat by Pulse 98 98 96 Oximetry 01/26/17 01/26/17 01/26/17 05:40 05:50 06:00 Temperature Pulse Rate 114 H 91 H 90 Pulse Rate [ Anterior Bilateral Throughout] Respiratory 22 14 25 H Rate Respiratory Rate [Anterior Bilateral Throughout] Blood Pressure 126/85 131/86 120/69 O2 Sat by Pulse 92 97 96 Oximetry 01/26/17 01/26/17 01/26/17 06:10 06:20 06:30 Temperature Pulse Rate 84 118 H 84 Pulse Rate [ Anterior Bilateral Throughout] Respiratory 25 H 19 25 H Rate Respiratory Rate [Anterior Bilateral Throughout] Blood Pressure 120/69 123/66 116/63 O2 Sat by Pulse 98 93 93 Oximetry 01/26/17 01/26/17 01/26/17 06:40 06:50 06:54 Temperature Pulse Rate 79 77 Pulse Rate [ Anterior Bilateral Throughout] Respiratory 25 H 25 H 25 H Rate Respiratory Rate [Anterior Bilateral Throughout] Blood Pressure 116/63 118/62 O2 Sat by Pulse 98 98 99 Oximetry 01/26/17 01/26/17 01/26/17 07:00 07:10 07:20 Temperature Pulse Rate 77 78 74 Pulse Rate [ Anterior Bilateral Throughout] Respiratory 25 H 25 H 25 H Rate Respiratory Rate [Anterior Bilateral Throughout] Blood Pressure 116/64 116/64 117/69 O2 Sat by Pulse 95 98 98 Oximetry 01/26/17 01/26/17 01/26/17 07:30 07:40 07:48 Temperature 99.2 F Pulse Rate 71 71 Pulse Rate [ Anterior Bilateral Throughout] Respiratory 25 H 25 H Rate Respiratory Rate [Anterior Bilateral Throughout] Blood Pressure 119/65 119/65 O2 Sat by Pulse 97 98 97 Oximetry 01/26/17 01/26/17 01/26/17 07:50 08:00 08:10 Temperature Pulse Rate 71 68 70 Pulse Rate [ Anterior Bilateral Throughout] Respiratory 25 H 25 H 25 H Rate Respiratory Rate [Anterior Bilateral Throughout] Blood Pressure 120/72 126/75 126/75 O2 Sat by Pulse 98 97 97 Oximetry 01/26/17 01/26/17 01/26/17 08:20 08:29 08:30 Temperature Pulse Rate 68 69 68 Pulse Rate [ Anterior Bilateral Throughout] Respiratory 25 H 25 H Rate Respiratory Rate [Anterior Bilateral Throughout] Blood Pressure 127/74 127/74 127/75 O2 Sat by Pulse 99 98 98 Oximetry 01/26/17 01/26/17 01/26/17 08:35 08:40 08:43 Temperature Pulse Rate 69 Pulse Rate [ 69 70 Anterior Bilateral Throughout] Respiratory 25 H Rate Respiratory 25 H 25 H Rate [Anterior Bilateral Throughout] Blood Pressure 127/75 O2 Sat by Pulse 97 Oximetry 01/26/17 01/26/17 01/26/17 08:50 09:00 09:10 Temperature Pulse Rate 70 70 68 Pulse Rate [ Anterior Bilateral Throughout] Respiratory 24 25 H 25 H Rate Respiratory Rate [Anterior Bilateral Throughout] Blood Pressure 133/77 134/77 134/77 O2 Sat by Pulse 100 98 99 Oximetry 01/26/17 01/26/17 01/26/17 09:20 09:30 09:40 Temperature Pulse Rate 67 68 88 Pulse Rate [ Anterior Bilateral Throughout] Respiratory 25 H 25 H 12 Rate Respiratory Rate [Anterior Bilateral Throughout] Blood Pressure 128/74 122/75 122/75 O2 Sat by Pulse 99 98 97 Oximetry 01/26/17 09:50 Temperature Pulse Rate 72 Pulse Rate [ Anterior Bilateral Throughout] Respiratory 25 H Rate Respiratory Rate [Anterior Bilateral Throughout] Blood Pressure 117/81 O2 Sat by Pulse 97 Oximetry Constitutional: no acute distress, other (sedated) Eyes: non-icteric ENT: oropharynx moist Neck: supple, no lymphadenopathy Effort: mildly labored Ascultation: Bilateral: rales (scant in bases) Cardiovascular: regular rate and rhythm Gastrointestinal: normoactive bowel sounds, soft, non-tender, non-distended Integumentary: normal Extremities: no cyanosis, no edema, pink and warm, pulses normal, no ischemia or petechiae Neurologic: unable to assess, other (sedated) Psychiatric: other (sedated) CBC and BMP: 01/27/17 04:00 01/27/17 04:00 ABG, PT/INR, D-dimer: ABG POC ABG pH 7.464 (7.35-7.45) H 01/26/17 05:12 POC ABG pCO2 35.0 (35-45) 01/26/17 05:12 POC ABG pO2 138 (80-105) H 01/26/17 05:12 POC ABG HCO3 25.1 01/26/17 05:12 POC ABG Total CO2 26 01/26/17 05:12 POC ABG O2 Sat 99 01/26/17 05:12 PT/INR, D-dimer PT 12.0 Sec. (12.2-14.9) L 01/22/17 12:52 INR 0.90 (0.87-1.13) 01/22/17 12:52 D-Dimer 162.42 ng/mlDDU (0-234) 01/22/17 12:52 Abnormal lab findings: Abnormal Labs 01/22/17 01/23/17 01/23/17 Unknown 03:32 03:40 WBC 16.5 H RBC Hgb Hct Lymph % (Auto) Lymph # Seg Neutrophils % Seg Neuts % (Manual) 95.0 H Lymphocytes % (Manual) 4.0 L Seg Neutrophils # Seg Neutrophils # Man 15.7 H Lymphocytes # (Manual) 0.7 L POC ABG pH 7.293 L POC ABG pCO2 POC ABG pO2 Potassium Chloride Carbon Dioxide Creatinine Glucose POC Glucose Lactic Acid Calcium Phosphorus AST ALT Total Protein Albumin Ur Specific [place] 1.002 L 01/23/17 01/23/17 01/23/17 03:40 13:41 20:48 WBC RBC Hgb Hct Lymph % (Auto) Lymph # Seg Neutrophils % Seg Neuts % (Manual) Lymphocytes % (Manual) Seg Neutrophils # Seg Neutrophils # Man Lymphocytes # (Manual) POC ABG pH POC ABG pCO2 POC ABG pO2 77 L Potassium Chloride 108.6 H Carbon Dioxide 19 L Creatinine 0.5 L Glucose 216 H POC Glucose Lactic Acid 3.3 H* Calcium 7.6 L D Phosphorus AST 98 H ALT 93 H Total Protein 5.9 L Albumin 3.2 L Ur Specific [place] 01/24/17 01/24/17 01/24/17 00:07 04:39 06:00 WBC 25.7 H RBC Hgb Hct Lymph % (Auto) Lymph # Seg Neutrophils % Seg Neuts % (Manual) 99.0 H Lymphocytes % (Manual) 0 L Seg Neutrophils # Seg Neutrophils # Man 25.4 H Lymphocytes # (Manual) 0.0 L POC ABG pH POC ABG pCO2 POC ABG pO2 106 H Potassium Chloride Carbon Dioxide Creatinine Glucose POC Glucose 189 H Lactic Acid Calcium Phosphorus AST ALT Total Protein Albumin Ur Specific [place] 01/24/17 01/24/17 01/25/17 06:00 13:22 04:46 WBC RBC Hgb Hct Lymph % (Auto) Lymph # Seg Neutrophils % Seg Neuts % (Manual) Lymphocytes % (Manual) Seg Neutrophils # Seg Neutrophils # Man Lymphocytes # (Manual) POC ABG pH 7.333 L POC ABG pCO2 POC ABG pO2 Potassium Chloride 107.5 H Carbon Dioxide Creatinine 0.4 L Glucose 165 H POC Glucose Lactic Acid 2.6 H* Calcium 7.9 L Phosphorus AST ALT Total Protein Albumin Ur Specific [place] 01/25/17 01/25/17 01/25/17 06:48 07:22 07:31 WBC 21.2 H RBC 3.41 L Hgb Hct Lymph % (Auto) Lymph # Seg Neutrophils % Seg Neuts % (Manual) 84.0 H Lymphocytes % (Manual) 6.0 L Seg Neutrophils # Seg Neutrophils # Man 17.8 H Lymphocytes # (Manual) POC ABG pH POC ABG pCO2 POC ABG pO2 Potassium 2.8 L* D 3.5 L D Chloride 116.5 H Carbon Dioxide 17 L D Creatinine 0.2 L 0.3 L Glucose 117 H 141 H POC Glucose Lactic Acid Calcium 5.7 L* D 7.9 L D Phosphorus 1.5 L AST ALT Total Protein Albumin Ur Specific [place] 01/26/17 01/26/17 01/26/17 00:23 04:00 04:00 WBC 15.2 H RBC 3.23 L Hgb 9.9 L Hct 29.9 L Lymph % (Auto) 4.7 L Lymph # 0.7 L Seg Neutrophils % 90.0 H Seg Neuts % (Manual) Lymphocytes % (Manual) Seg Neutrophils # 13.6 H Seg Neutrophils # Man Lymphocytes # (Manual) POC ABG pH 7.499 H POC ABG pCO2 30.4 L POC ABG pO2 Potassium Chloride Carbon Dioxide Creatinine 0.4 L Glucose 132 H POC Glucose Lactic Acid Calcium 7.4 L Phosphorus AST ALT Total Protein Albumin Ur Specific [place] 01/26/17 05:12 WBC RBC Hgb Hct Lymph % (Auto) Lymph # Seg Neutrophils % Seg Neuts % (Manual) Lymphocytes % (Manual) Seg Neutrophils # Seg Neutrophils # Man Lymphocytes # (Manual) POC ABG pH 7.464 H POC ABG pCO2 POC ABG pO2 138 H Potassium Chloride Carbon Dioxide Creatinine Glucose POC Glucose Lactic Acid Calcium Phosphorus AST ALT Total Protein Albumin Ur Specific [place] Chest x-ray: image reviewed
[2017-01-26] MEDS ORDERED: TRANSDERM-SCOP TD ONE (12:00)
[2017-01-26] MEDS: DIPRIVAN 10 MG/ML 1,000 MG/100 ML BOTTLE IV SCH ×2 (12:02→22:59)
[2017-01-26] MEDS: FOLVITE PO SCH (12:07)
[2017-01-26] MEDS: PEPCID PO SCH ×2 (12:07→22:58)
[2017-01-26] MEDS: VITAMIN B-1 PO SCH (12:14)
[2017-01-26] MEDS: NEURONTIN PO SCH ×3 (12:14→23:59)
[2017-01-26] MEDS: LOVENOX SUB-Q SCH (12:17)
[2017-01-26] MEDS: ATIVAN IV PRN (14:06)
[2017-01-26] MEDS: HALDOL IV PRN (14:33)
[2017-01-26] MEDS: fentaNYL DRIP Premix 2,000 MCG/100 ML BAG IV SCH (17:00)
[2017-01-26] MEDS: ROBINUL PO SCH ×2 (18:26→23:57)
[2017-01-27] MEDS: PROVENTIL IH SCH ×4 (02:19→19:51)
[2017-01-27 05:02] LABS: Basophils % (Auto) 0.2 % (0.0-1.8); Eosinophils % (Auto) 0.2 % (0.0-4.3); Hematocrit 30.3 % (30.3-42.9); Mean Corpuscular HGB Conc 33 % (30-34); Mean Corpuscular Hemoglobin 30 pg (28-32); Mean Corpuscular Volume 92 fl (79-97); Platelet Count 214 K/mm3 (140-440); Red Cell Distribution Width 13.4 % (13.2-15.2); White Blood Count 9.4 K/mm3 (4.5-11.0)
[2017-01-27 05:15] LABS: Anion Gap 15 mmol/L; BUN/Creatinine Ratio 33.33; Blood Urea Nitrogen 10 mg/dL (7-17); Calcium 7.1 mg/dL (8.4-10.2); Carbon Dioxide 22 mmol/L (22-30); Chloride 107.4 mmol/L (98-107); Glucose 138 mg/dL (65-100); Magnesium 1.8 mg/dL (1.7-2.3); Potassium 3.5 mmol/L (3.6-5.0); Sodium 141 mmol/L (137-145)
[2017-01-27 05:45] LABS: ISTAT Base Excess 2; ISTAT HCO3 26.7; ISTAT PCO2 43.5 (35-45); ISTAT PH 7.397 (7.35-7.45); ISTAT PO2 88 (80-105); ISTAT SO2 97; ISTAT TCO2 28
[2017-01-27] MEDS: LIBRIUM PO SCH ×4 (05:58→22:55)
[2017-01-27] MEDS: DIPRIVAN 10 MG/ML 1,000 MG/100 ML BOTTLE IV SCH ×2 (07:01→18:47)
--- NOTE | 2017-01-27 08:00 | XRay Report ---
Single view chest: Compared to 01/26/17. History: Followup of respiratory failure. Findings: Normal cardiomediastinal silhouette. Trachea is midline. Stable support system. No consolidation, no pleural effusion. Impression: No acute cardiopulmonary findings
[2017-01-27] MEDS: fentaNYL DRIP Premix 2,000 MCG/100 ML BAG IV SCH ×2 (08:17→22:51)
[2017-01-27] MEDS ORDERED: MAGNESIUM SULFATE 2GM/50ML 2 GM/50 ML BAG IV ONE (09:00)
[2017-01-27] MEDS ORDERED: POTASSIUM CHLORIDE FEEDTUBE ONE (09:00)
--- NOTE | 2017-01-27 09:04 | Progress Note ---
Assessment and Plan Assessment and plan: --Acute hypoxemic respiratory failure Continue mechanical ventilation ventilation nebulizers, IV steroids IV antibiotics, inhalation steroids wean as tolerated and extubate Pulmonary following --Acute exacerbation of bronchial asthma Ventilatory support, nebulizers, steroids, antibiotics Supportive care --Hypokalemia /hypophosphatemia /hypocalcemia replace per protocol and monitor levels --Leukocytosis Trending down, secondary to sepsis --Lactic acidosis lactic acid levels within normal limits Secondary to sepsis secondary to acute bronchitis --Hypotension/septic shock Off Levophed, closely monitor --DVT prophylaxis with Lovenox Wean as tolerated and extubate Pulmonary consultation recommendations noted and appreciated Plan of care discussed with the patient's nurse The high probability of a clinically significant, sudden or life threatening deterioration of the [respiratory] system required my full and direct attention , intervention and personal management. The aggregate critical care time was [31 ] minutes. This time is in addition to time spent performing reported procedures but includes the following: [x] Data Review and interpretation [x] Patient assessment and monitoring of vital signs [x] Documentation [x] Medication orders and management History Interval history: patient seen and evaluated Hospitalist Physical - Constitutional Vitals: Temp Pulse Resp BP Pulse Ox 97.7 F 71 18 114/61 98 01/27/17 08:00 01/27/17 08:00 01/27/17 08:00 01/27/17 08:00 01/27/17 08:00 General appearance: Present: no acute distress, well-nourished, other (orally intubated and on vent) - EENT Eyes: Present: PERRL, EOM intact - Neck Neck: Present: supple, normal ROM - Respiratory Respiratory effort: normal Respiratory: bilateral: diminished, rhonchi ( occasional) - Cardiovascular Rhythm: regular Heart Sounds: Present: S1 & S2 - Extremities Extremities: no ischemia, pulses intact, pulses symmetrical - Abdominal General gastrointestinal: soft, non-tender, non-distended, normal bowel sounds - Integumentary Integumentary: Present: clear, warm - Psychiatric Psychiatric: other ( intubated and sedated) - Neurologic Neurologic: other (intubated) Results - Labs CBC & Chem 7: 01/27/17 04:00 01/27/17 04:00 Labs: Laboratory Last Values WBC 9.4 K/mm3 (4.5-11.0) 01/27/17 04:00 RBC 3.30 M/mm3 (3.65-5.03) L 01/27/17 04:00 Hgb 10.0 gm/dl (10.1-14.3) L 01/27/17 04:00 Hct 30.3 % (30.3-42.9) 01/27/17 04:00 MCV 92 fl (79-97) 01/27/17 04:00 MCH 30 pg (28-32) 01/27/17 04:00 MCHC 33 % (30-34) 01/27/17 04:00 RDW 13.4 % (13.2-15.2) 01/27/17 04:00 Plt Count 214 K/mm3 (140-440) 01/27/17 04:00 Lymph % (Auto) 6.0 % (13.4-35.0) L 01/27/17 04:00 [place] % (Auto) 4.2 % (0.0-7.3) 01/27/17 04:00 Eos % (Auto) 0.2 % (0.0-4.3) 01/27/17 04:00 Baso % (Auto) 0.2 % (0.0-1.8) 01/27/17 04:00 Lymph # 0.6 K/mm3 (1.2-5.4) L 01/27/17 04:00 [place] # 0.4 K/mm3 (0.0-0.8) 01/27/17 04:00 Eos # 0.0 K/mm3 (0.0-0.4) 01/27/17 04:00 Baso # 0.0 K/mm3 (0.0-0.1) 01/27/17 04:00 Add Manual Diff Complete 01/25/17 07:22 Total Counted 100 01/25/17 07:22 Seg Neutrophils % 89.4 % (40.0-70.0) H 01/27/17 04:00 Seg Neuts % (Manual) 84.0 % (40.0-70.0) H 01/25/17 07:22 Band Neutrophils % 6.0 % 01/25/17 07:22 Lymphocytes % (Manual) 6.0 % (13.4-35.0) L 01/25/17 07:22 Reactive Lymphs % (Man) 0 % 01/25/17 07:22 Monocytes % (Manual) 4.0 % (0.0-7.3) 01/25/17 07:22 Eosinophils % (Manual) 0 % (0.0-4.3) 01/25/17 07:22 Basophils % (Manual) 0 % (0.0-1.8) 01/25/17 07:22 Metamyelocytes % 0 % 01/25/17 07:22 Myelocytes % 0 % 01/25/17 07:22 Promyelocytes % 0 % 01/25/17 07:22 Blast Cells % 0 % 01/25/17 07:22 Nucleated RBC % Not Reportable 01/25/17 07:22 Seg Neutrophils # 8.4 K/mm3 (1.8-7.7) H 01/27/17 04:00 Seg Neutrophils # Man 17.8 K/mm3 (1.8-7.7) H 01/25/17 07:22 Band Neutrophils # 1.3 K/mm3 01/25/17 07:22 Lymphocytes # (Manual) 1.3 K/mm3 (1.2-5.4) 01/25/17 07:22 Abs React Lymphs (Man) 0.0 K/mm3 01/25/17 07:22 Monocytes # (Manual) 0.8 K/mm3 (0.0-0.8) 01/25/17 07:22 Eosinophils # (Manual) 0.0 K/mm3 (0.0-0.4) 01/25/17 07:22 Basophils # (Manual) 0.0 K/mm3 (0.0-0.1) 01/25/17 07:22 Metamyelocytes # 0.0 K/mm3 01/25/17 07:22 Myelocytes # 0.0 K/mm3 01/25/17 07:22 Promyelocytes # 0.0 K/mm3 01/25/17 07:22 Blast Cells # 0.0 K/mm3 01/25/17 07:22 WBC Morphology Not Reportable 01/25/17 07:22 Hypersegmented Neuts Not Reportable 01/25/17 07:22 Hyposegmented Neuts Not Reportable 01/25/17 07:22 Hypogranular Neuts Not Reportable 01/25/17 07:22 Smudge Cells Not Reportable 01/25/17 07:22 Toxic Granulation Not Reportable 01/25/17 07:22 Toxic Vacuolation Not Reportable 01/25/17 07:22 Dohle Bodies Not Reportable 01/25/17 07:22 Pelger-Huet Anomaly Not Reportable 01/25/17 07:22 Roderick Rods Not Reportable 01/25/17 07:22 Platelet Estimate Not Reportable 01/25/17 07:22 Clumped Platelets Not Reportable 01/25/17 07:22 Plt Clumps, EDTA Not Reportable 01/25/17 07:22 Large Platelets Not Reportable 01/25/17 07:22 Giant Platelets Not Reportable 01/25/17 07:22 Platelet Satelliting Not Reportable 01/25/17 07:22 Plt Morphology Comment Not Reportable 01/25/17 07:22 RBC Morphology Normal 01/25/17 07:22 Dimorphic RBCs Not Reportable 01/25/17 07:22 Polychromasia Not Reportable 01/25/17 07:22 Hypochromasia Not Reportable 01/25/17 07:22 Poikilocytosis Not Reportable 01/25/17 07:22 Anisocytosis Not Reportable 01/25/17 07:22 Microcytosis Not Reportable 01/25/17 07:22 Macrocytosis Not Reportable 01/25/17 07:22 Spherocytes Not Reportable 01/25/17 07:22 Pappenheimer Bodies Not Reportable 01/25/17 07:22 Sickle Cells Not Reportable 01/25/17 07:22 Target Cells Not Reportable 01/25/17 07:22 Tear Drop Cells Not Reportable 01/25/17 07:22 Ovalocytes Not Reportable 01/25/17 07:22 Helmet Cells Not Reportable 01/25/17 07:22 [place] Bodies Not Reportable 01/25/17 07:22 [place] Rings Not Reportable 01/25/17 07:22 [place] Cells Not Reportable 01/25/17 07:22 Bite Cells Not Reportable 01/25/17 07:22 Crenated Cell Not Reportable 01/25/17 07:22 Elliptocytes Not Reportable 01/25/17 07:22 Acanthocytes (Spur) Not Reportable 01/25/17 07:22 Rouleaux Not Reportable 01/25/17 07:22 Hemoglobin C Crystals Not Reportable 01/25/17 07:22 Schistocytes Not Reportable 01/25/17 07:22 Malaria parasites Not Reportable 01/25/17 07:22 [place] Bodies Not Reportable 01/25/17 07:22 Hem Pathologist Commnt No 01/25/17 07:22 PT 12.0 Sec. (12.2-14.9) L 01/22/17 12:52 INR 0.90 (0.87-1.13) 01/22/17 12:52 D-Dimer 162.42 ng/mlDDU (0-234) 01/22/17 12:52 POC ABG pH 7.397 (7.35-7.45) 01/27/17 04:57 POC ABG pCO2 43.5 (35-45) 01/27/17 04:57 POC ABG pO2 88 (80-105) 01/27/17 04:57 POC ABG HCO3 26.7 01/27/17 04:57 POC ABG Total CO2 28 01/27/17 04:57 POC ABG O2 Sat 97 01/27/17 04:57 POC ABG Base Excess 2 01/27/17 04:57 FiO2 30 % 01/27/17 04:57 Sodium 141 mmol/L (137-145) 01/27/17 04:00 Potassium 3.5 mmol/L (3.6-5.0) L 01/27/17 04:00 Chloride 107.4 mmol/L (98-107) H 01/27/17 04:00 Carbon Dioxide 22 mmol/L (22-30) 01/27/17 04:00 Anion Gap 15 mmol/L 01/27/17 04:00 BUN 10 mg/dL (7-17) 01/27/17 04:00 Creatinine 0.3 mg/dL (0.7-1.2) L 01/27/17 04:00 Estimated GFR > 60 ml/min 01/27/17 04:00 BUN/Creatinine Ratio 33.33 % 01/27/17 04:00 Glucose 138 mg/dL (65-100) H 01/27/17 04:00 POC Glucose 189 (70-105) H 01/24/17 00:07 Lactic Acid 1.8 mmol/L (0.7-2.0) 01/25/17 07:28 Calcium 7.1 mg/dL (8.4-10.2) L 01/27/17 04:00 Phosphorus 3.0 mg/dL (2.5-4.5) 01/27/17 04:00 Magnesium 1.8 mg/dL (1.7-2.3) 01/27/17 04:00 Total Bilirubin 0.4 mg/dL (0.1-1.2) 01/23/17 03:40 Direct Bilirubin < 0.2 mg/dL (0-0.2) 01/22/17 12:52 Indirect Bilirubin 0.0 mg/dL 01/22/17 12:52 AST 98 units/L (5-40) H 01/23/17 03:40 ALT 93 units/L (7-56) H 01/23/17 03:40 Alkaline Phosphatase 72 units/L (35-129) 01/23/17 03:40 Troponin T < 0.010 ng/mL (0.00-0.029) 01/22/17 12:52 C-Reactive Protein 0.30 mg/dL (0.00-1.30) 01/23/17 03:40 NT-Pro-B Natriuret Pep 100.8 pg/mL (0-450) 01/22/17 12:52 Total Protein 5.9 g/dL (6.3-8.2) L 01/23/17 03:40 Albumin 3.2 g/dL (3.9-5) L 01/23/17 03:40 Albumin/Globulin Ratio 1.2 % 01/23/17 03:40 HCG, Quant < 2 mIU/mL (0-4) 01/22/17 12:52 Urine Color Colorless (Yellow) 01/22/17 Unknown Urine Turbidity Clear (Clear) 01/22/17 Unknown Urine pH 6.0 (5.0-7.0) 01/22/17 Unknown Ur Specific [place] 1.002 (1.003-1.030) L 01/22/17 Unknown Urine Protein <15 mg/dl mg/dL (Negative) 01/22/17 Unknown Urine Glucose (UA) Neg mg/dL (Negative) 01/22/17 Unknown Urine Ketones Neg mg/dL (Negative) 01/22/17 Unknown Urine Blood Mod (Negative) 01/22/17 Unknown Urine Nitrite Neg (Negative) 01/22/17 Unknown Urine Bilirubin Neg (Negative) 01/22/17 Unknown Urine Urobilinogen < 2.0 mg/dL (<2.0) 01/22/17 Unknown Ur Leukocyte Esterase Neg (Negative) 01/22/17 Unknown Urine WBC (Auto) < 1.0 /HPF (0.0-6.0) 01/22/17 Unknown Urine RBC (Auto) 1.0 /HPF (0.0-6.0) 01/22/17 Unknown U Epithel Cells (Auto) < 1.0 /HPF (0-13.0) 01/22/17 Unknown Urine Opiates Screen Presumptive negative 01/22/17 Unknown Urine Methadone Screen Presumptive negative 01/22/17 Unknown Ur Barbiturates Screen Presumptive negative 01/22/17 Unknown Ur Phencyclidine Scrn Presumptive negative 01/22/17 Unknown Ur Amphetamines Screen Presumptive negative 01/22/17 Unknown U Benzodiazepines Scrn Presumptive negative 01/22/17 Unknown Urine Cocaine Screen Presumptive negative 01/22/17 Unknown U Marijuana (THC) Screen Presumptive negative 01/22/17 Unknown Drugs of Abuse Note Disclamer 01/22/17 Unknown
[2017-01-27] MEDS: LOVENOX SUB-Q SCH (09:27)
[2017-01-27] MEDS: PEPCID PO SCH ×2 (09:28→22:56)
[2017-01-27] MEDS: VITAMIN B-1 PO SCH (09:28)
[2017-01-27] MEDS: FOLVITE PO SCH (09:28)
--- NOTE | 2017-01-27 11:11 | Progress Note ---
Assessment and Plan - Patient Problems (1) Altered mental status Current Visit: Yes Status: Acute Qualifiers: Altered mental status type: A Coma depth: C Coma timing: C Plan to address problem: - still suspect element of withdrawal - uptitrate librium further - continue seroquel at 300mg bid - continue neurontin (home med) - uptitrate fentanyl and wean off propofol so can tolerate PSV trials better - still rate limiting factor to extubation at this point (2) Acute respiratory failure Current Visit: Yes Status: Acute Qualifiers: Respiratory failure complication: hypoxia Qualified Code(s): J96.01 - Acute respiratory failure with hypoxia Plan to address problem: - continuing bronchodilators and pulmonary toilet - continue aspiration precautions / VAP bundles - weaning trials hindered by sedation issues - wean oxygen for sats > 94% at this point - pulled ETT 2cm to 24cm at the lips - as above otherwise (3) Leucocytosis Current Visit: Yes Status: Acute Qualifiers: Leukocytosis type: L Plan to address problem: - resolved - cultures NGTD - following clinically (4) Discharge planning issues Current Visit: Yes Status: Acute Plan to address problem: - she remains critically ill on life sustaining interventions including MVS and at risk for further deterioration including - care plan discussed with son who just walked in, also at bedside ...32' CCT Subjective Date of service: 01/27/17 Principal diagnosis: Acute Hypoxemic Respiratory Failure Interval history: Seen and examined at bedside; 24 hour events reviewed; nursing and respiratory care staff consulted; no adverse overnight events reported to me; still with significant agitation during sedation holiday but able to wean propofol down to 20mics/kg/min so far Objective Vital Signs - 12hr 01/26/17 01/26/17 01/26/17 23:20 23:30 23:40 Temperature Pulse Rate 67 66 67 Pulse Rate [ Anterior Bilateral Throughout] Respiratory 18 18 18 Rate Respiratory Rate [Anterior Bilateral Throughout] Blood Pressure 108/68 107/66 107/66 O2 Sat by Pulse 100 100 100 Oximetry 01/26/17 01/27/17 01/27/17 23:50 00:00 00:10 Temperature 98.2 F Pulse Rate 67 69 64 Pulse Rate [ Anterior Bilateral Throughout] Respiratory 18 18 18 Rate Respiratory Rate [Anterior Bilateral Throughout] Blood Pressure 107/66 99/59 99/59 O2 Sat by Pulse 100 99 Oximetry 01/27/17 01/27/17 01/27/17 00:17 00:20 00:30 Temperature Pulse Rate 65 66 69 Pulse Rate [ Anterior Bilateral Throughout] Respiratory 18 18 Rate Respiratory Rate [Anterior Bilateral Throughout] Blood Pressure 99/59 99/59 99/59 O2 Sat by Pulse 100 99 97 Oximetry 01/27/17 01/27/17 01/27/17 00:40 00:50 01:00 Temperature Pulse Rate 68 69 64 Pulse Rate [ Anterior Bilateral Throughout] Respiratory 18 18 18 Rate Respiratory Rate [Anterior Bilateral Throughout] Blood Pressure 99/59 99/59 99/59 O2 Sat by Pulse 97 96 96 Oximetry 01/27/17 01/27/17 01/27/17 01:10 01:20 01:30 Temperature Pulse Rate 66 63 67 Pulse Rate [ Anterior Bilateral Throughout] Respiratory 18 18 18 Rate Respiratory Rate [Anterior Bilateral Throughout] Blood Pressure 99/59 99/59 99/59 O2 Sat by Pulse 95 96 96 Oximetry 01/27/17 01/27/17 01/27/17 01:40 01:50 02:00 Temperature Pulse Rate 65 71 71 Pulse Rate [ Anterior Bilateral Throughout] Respiratory 18 18 18 Rate Respiratory Rate [Anterior Bilateral Throughout] Blood Pressure 99/59 99/59 99/59 O2 Sat by Pulse 96 97 97 Oximetry 01/27/17 01/27/17 01/27/17 02:10 02:20 02:30 Temperature Pulse Rate 72 67 62 Pulse Rate [ 70 62 Anterior Bilateral Throughout] Respiratory 18 17 18 Rate Respiratory 18 18 Rate [Anterior Bilateral Throughout] Blood Pressure 99/59 99/59 99/59 O2 Sat by Pulse 97 97 98 Oximetry 01/27/17 01/27/17 01/27/17 02:40 02:50 03:00 Temperature Pulse Rate 59 L 60 59 L Pulse Rate [ Anterior Bilateral Throughout] Respiratory 18 18 18 Rate Respiratory Rate [Anterior Bilateral Throughout] Blood Pressure 99/59 99/59 99/59 O2 Sat by Pulse 98 98 98 Oximetry 01/27/17 01/27/17 01/27/17 03:10 03:20 03:30 Temperature Pulse Rate 61 63 65 Pulse Rate [ Anterior Bilateral Throughout] Respiratory 18 18 18 Rate Respiratory Rate [Anterior Bilateral Throughout] Blood Pressure 99/59 99/59 99/59 O2 Sat by Pulse 97 98 97 Oximetry 01/27/17 01/27/17 01/27/17 03:40 03:50 04:00 Temperature 97.5 F L Pulse Rate 64 63 63 Pulse Rate [ Anterior Bilateral Throughout] Respiratory 18 18 18 Rate Respiratory Rate [Anterior Bilateral Throughout] Blood Pressure 99/59 99/59 99/59 O2 Sat by Pulse 97 98 98 Oximetry 01/27/17 01/27/17 01/27/17 04:10 04:20 04:30 Temperature Pulse Rate 61 61 61 Pulse Rate [ Anterior Bilateral Throughout] Respiratory 18 18 18 Rate Respiratory Rate [Anterior Bilateral Throughout] Blood Pressure 99/59 99/59 99/59 O2 Sat by Pulse 98 99 100 Oximetry 01/27/17 01/27/17 01/27/17 04:40 04:47 04:50 Temperature Pulse Rate 60 59 L 67 Pulse Rate [ Anterior Bilateral Throughout] Respiratory 18 18 Rate Respiratory Rate [Anterior Bilateral Throughout] Blood Pressure 99/59 99/59 O2 Sat by Pulse 100 100 100 Oximetry 01/27/17 01/27/17 01/27/17 05:00 05:10 05:20 Temperature Pulse Rate 59 L 55 L 87 Pulse Rate [ Anterior Bilateral Throughout] Respiratory 18 18 19 Rate Respiratory Rate [Anterior Bilateral Throughout] Blood Pressure 99/59 99/59 99/59 O2 Sat by Pulse 99 100 96 Oximetry 01/27/17 01/27/17 01/27/17 05:30 05:40 05:45 Temperature Pulse Rate 62 60 Pulse Rate [ Anterior Bilateral Throughout] Respiratory 18 18 Rate Respiratory Rate [Anterior Bilateral Throughout] Blood Pressure 99/59 99/59 O2 Sat by Pulse 98 99 99 Oximetry 01/27/17 01/27/17 01/27/17 05:50 06:00 06:10 Temperature Pulse Rate 62 72 64 Pulse Rate [ Anterior Bilateral Throughout] Respiratory 18 18 18 Rate Respiratory Rate [Anterior Bilateral Throughout] Blood Pressure 101/63 108/58 108/58 O2 Sat by Pulse 99 100 99 Oximetry 01/27/17 01/27/17 01/27/17 06:20 06:30 06:40 Temperature Pulse Rate 79 Pulse Rate [ Anterior Bilateral Throughout] Respiratory 13 Rate Respiratory Rate [Anterior Bilateral Throughout] Blood Pressure 128/80 161/98 161/98 O2 Sat by Pulse 99 94 99 Oximetry 01/27/17 01/27/17 01/27/17 06:50 07:00 07:01 Temperature Pulse Rate 80 72 Pulse Rate [ Anterior Bilateral Throughout] Respiratory 18 18 18 Rate Respiratory Rate [Anterior Bilateral Throughout] Blood Pressure 106/60 115/65 O2 Sat by Pulse 98 95 Oximetry 01/27/17 01/27/17 01/27/17 07:10 07:20 07:30 Temperature Pulse Rate 66 68 68 Pulse Rate [ Anterior Bilateral Throughout] Respiratory 18 18 18 Rate Respiratory Rate [Anterior Bilateral Throughout] Blood Pressure 115/65 115/65 106/56 O2 Sat by Pulse 98 98 96 Oximetry 01/27/17 01/27/17 01/27/17 07:40 07:50 08:00 Temperature 97.7 F Pulse Rate 64 69 71 Pulse Rate [ Anterior Bilateral Throughout] Respiratory 17 18 18 Rate Respiratory Rate [Anterior Bilateral Throughout] Blood Pressure 106/56 106/56 114/61 O2 Sat by Pulse 98 97 98 Oximetry 01/27/17 01/27/17 01/27/17 08:10 08:20 08:30 Temperature Pulse Rate 63 68 62 Pulse Rate [ Anterior Bilateral Throughout] Respiratory 18 18 18 Rate Respiratory Rate [Anterior Bilateral Throughout] Blood Pressure 106/56 106/56 109/64 O2 Sat by Pulse 98 99 100 Oximetry 01/27/17 01/27/17 01/27/17 08:40 08:50 09:00 Temperature Pulse Rate 63 68 100 H Pulse Rate [ Anterior Bilateral Throughout] Respiratory 18 18 17 Rate Respiratory Rate [Anterior Bilateral Throughout] Blood Pressure 114/61 114/61 115/85 O2 Sat by Pulse 100 99 94 Oximetry 01/27/17 01/27/17 01/27/17 09:10 09:13 09:20 Temperature Pulse Rate 76 80 Pulse Rate [ 74 Anterior Bilateral Throughout] Respiratory 18 18 Rate Respiratory 18 Rate [Anterior Bilateral Throughout] Blood Pressure 115/85 115/85 O2 Sat by Pulse 99 98 Oximetry 01/27/17 09:30 Temperature Pulse Rate 73 Pulse Rate [ 91 H Anterior Bilateral Throughout] Respiratory 18 Rate Respiratory 26 H Rate [Anterior Bilateral Throughout] Blood Pressure 123/68 O2 Sat by Pulse 100 Oximetry Constitutional: no acute distress, other (sedated) Eyes: non-icteric ENT: oropharynx moist Neck: supple, no lymphadenopathy Effort: mildly labored Ascultation: Bilateral: rales (scant in bases) Cardiovascular: regular rate and rhythm Gastrointestinal: normoactive bowel sounds, soft, non-tender, non-distended Integumentary: normal Extremities: no cyanosis, no edema, pink and warm, pulses normal, no ischemia or petechiae Neurologic: unable to assess, other (sedated) Psychiatric: other (sedated) CBC and BMP: 01/27/17 04:00 01/27/17 04:00 ABG, PT/INR, D-dimer: ABG POC ABG pH 7.397 (7.35-7.45) 01/27/17 04:57 POC ABG pCO2 43.5 (35-45) 01/27/17 04:57 POC ABG pO2 88 (80-105) 01/27/17 04:57 POC ABG HCO3 26.7 01/27/17 04:57 POC ABG Total CO2 28 01/27/17 04:57 POC ABG O2 Sat 97 01/27/17 04:57 PT/INR, D-dimer PT 12.0 Sec. (12.2-14.9) L 01/22/17 12:52 INR 0.90 (0.87-1.13) 01/22/17 12:52 D-Dimer 162.42 ng/mlDDU (0-234) 01/22/17 12:52 Abnormal lab findings: Abnormal Labs 01/22/17 01/23/17 01/23/17 Unknown 03:32 03:40 WBC 16.5 H RBC Hgb Hct Lymph % (Auto) Lymph # Seg Neutrophils % Seg Neuts % (Manual) 95.0 H Lymphocytes % (Manual) 4.0 L Seg Neutrophils # Seg Neutrophils # Man 15.7 H Lymphocytes # (Manual) 0.7 L POC ABG pH 7.293 L POC ABG pCO2 POC ABG pO2 Potassium Chloride Carbon Dioxide Creatinine Glucose POC Glucose Lactic Acid Calcium Phosphorus AST ALT Total Protein Albumin Ur Specific [place] 1.002 L 01/23/17 01/23/17 01/23/17 03:40 13:41 20:48 WBC RBC Hgb Hct Lymph % (Auto) Lymph # Seg Neutrophils % Seg Neuts % (Manual) Lymphocytes % (Manual) Seg Neutrophils # Seg Neutrophils # Man Lymphocytes # (Manual) POC ABG pH POC ABG pCO2 POC ABG pO2 77 L Potassium Chloride 108.6 H Carbon Dioxide 19 L Creatinine 0.5 L Glucose 216 H POC Glucose Lactic Acid 3.3 H* Calcium 7.6 L D Phosphorus AST 98 H ALT 93 H Total Protein 5.9 L Albumin 3.2 L Ur Specific [place] 01/24/17 01/24/17 01/24/17 00:07 04:39 06:00 WBC 25.7 H RBC Hgb Hct Lymph % (Auto) Lymph # Seg Neutrophils % Seg Neuts % (Manual) 99.0 H Lymphocytes % (Manual) 0 L Seg Neutrophils # Seg Neutrophils # Man 25.4 H Lymphocytes # (Manual) 0.0 L POC ABG pH POC ABG pCO2 POC ABG pO2 106 H Potassium Chloride Carbon Dioxide Creatinine Glucose POC Glucose 189 H Lactic Acid Calcium Phosphorus AST ALT Total Protein Albumin Ur Specific [place] 01/24/17 01/24/17 01/25/17 06:00 13:22 04:46 WBC RBC Hgb Hct Lymph % (Auto) Lymph # Seg Neutrophils % Seg Neuts % (Manual) Lymphocytes % (Manual) Seg Neutrophils # Seg Neutrophils # Man Lymphocytes # (Manual) POC ABG pH 7.333 L POC ABG pCO2 POC ABG pO2 Potassium Chloride 107.5 H Carbon Dioxide Creatinine 0.4 L Glucose 165 H POC Glucose Lactic Acid 2.6 H* Calcium 7.9 L Phosphorus AST ALT Total Protein Albumin Ur Specific [place] 01/25/17 01/25/17 01/25/17 06:48 07:22 07:31 WBC 21.2 H RBC 3.41 L Hgb Hct Lymph % (Auto) Lymph # Seg Neutrophils % Seg Neuts % (Manual) 84.0 H Lymphocytes % (Manual) 6.0 L Seg Neutrophils # Seg Neutrophils # Man 17.8 H Lymphocytes # (Manual) POC ABG pH POC ABG pCO2 POC ABG pO2 Potassium 2.8 L* D 3.5 L D Chloride 116.5 H Carbon Dioxide 17 L D Creatinine 0.2 L 0.3 L Glucose 117 H 141 H POC Glucose Lactic Acid Calcium 5.7 L* D 7.9 L D Phosphorus 1.5 L AST ALT Total Protein Albumin Ur Specific [place] 01/26/17 01/26/17 01/26/17 00:23 04:00 04:00 WBC 15.2 H RBC 3.23 L Hgb 9.9 L Hct 29.9 L Lymph % (Auto) 4.7 L Lymph # 0.7 L Seg Neutrophils % 90.0 H Seg Neuts % (Manual) Lymphocytes % (Manual) Seg Neutrophils # 13.6 H Seg Neutrophils # Man Lymphocytes # (Manual) POC ABG pH 7.499 H POC ABG pCO2 30.4 L POC ABG pO2 Potassium Chloride Carbon Dioxide Creatinine 0.4 L Glucose 132 H POC Glucose Lactic Acid Calcium 7.4 L Phosphorus AST ALT Total Protein Albumin Ur Specific [place] 01/26/17 01/27/17 01/27/17 05:12 04:00 04:00 WBC RBC 3.30 L Hgb 10.0 L Hct Lymph % (Auto) 6.0 L Lymph # 0.6 L Seg Neutrophils % 89.4 H Seg Neuts % (Manual) Lymphocytes % (Manual) Seg Neutrophils # 8.4 H Seg Neutrophils # Man Lymphocytes # (Manual) POC ABG pH 7.464 H POC ABG pCO2 POC ABG pO2 138 H Potassium 3.5 L Chloride 107.4 H Carbon Dioxide Creatinine 0.3 L Glucose 138 H POC Glucose Lactic Acid Calcium 7.1 L Phosphorus AST ALT Total Protein Albumin Ur Specific [place]
[2017-01-27] MEDS: NEURONTIN PO SCH ×2 (14:02→23:01)
[2017-01-27] MEDS: HALDOL IV PRN (14:42)
[2017-01-27 15:02] LABS: ISTAT Base Excess 3; ISTAT HCO3 27.7; ISTAT PH 7.427 (7.35-7.45); ISTAT PO2 89 (80-105); ISTAT SO2 97; ISTAT TCO2 29
[2017-01-27] MEDS: ATIVAN IV PRN ×2 (15:03→22:57)
[2017-01-27] MEDS: ROBINUL PO SCH ×2 (17:16→22:56)
[2017-01-28] MEDS: PROVENTIL IH SCH ×4 (01:33→20:45)
[2017-01-28 04:58] LABS: ISTAT Base Excess 3; ISTAT HCO3 27.5; ISTAT PH 7.425 (7.35-7.45); ISTAT PO2 105 (80-105); ISTAT SO2 98; ISTAT TCO2 29
[2017-01-28] MEDS: NEURONTIN PO SCH ×4 (06:38→21:28)
[2017-01-28] MEDS: LIBRIUM PO SCH ×3 (06:38→21:29)
[2017-01-28] MEDS: ROBINUL PO SCH ×4 (06:38→22:06)
[2017-01-28 07:07] LABS: Anion Gap TNR mmol/L; BUN/Creatinine Ratio TNR; Blood Urea Nitrogen TNR mg/dL (7-17); Carbon Dioxide TNR mmol/L (22-30); Chloride TNR mmol/L (98-107); Potassium TNR mmol/L (3.6-5.0); Sodium TNR mmol/L (137-145)
[2017-01-28 07:08] LABS: Calcium TNR mg/dL (8.4-10.2); Glucose TNR mg/dL (65-100)
[2017-01-28 08:02] LABS: Hematocrit TNR % (30.3-42.9); Hemoglobin TNR gm/dl (10.1-14.3); Mean Corpuscular Hemoglobin TNR pg (28-32); Mean Corpuscular Volume TNR fl (79-97); Red Blood Count TNR M/mm3 (3.65-5.03); White Blood Count TNR K/mm3 (4.5-11.0)
[2017-01-28 08:03] LABS: Basophils % (Auto) TNR % (0.0-1.8); Diff Status TNR; Eosinophils % (Auto) TNR % (0.0-4.3); Mean Corpuscular HGB Conc TNR % (30-34); Mean Platelet Volume TNR fl (6-12); Platelet Count TNR K/mm3 (140-440); Red Cell Distribution Width TNR % (13.2-15.2)
[2017-01-28 08:35] LABS: Hematocrit 33.2 % (30.3-42.9); Hemoglobin 11.2 gm/dl (10.1-14.3); Mean Corpuscular HGB Conc 34 % (30-34); Mean Corpuscular Hemoglobin 30 pg (28-32); Mean Corpuscular Volume 90 fl (79-97); Platelet Count 268 K/mm3 (140-440); Red Blood Count 3.68 M/mm3 (3.65-5.03); Red Cell Distribution Width 12.9 % (13.2-15.2); White Blood Count 12.3 K/mm3 (4.5-11.0)
[2017-01-28 08:47] LABS: Anion Gap 17 mmol/L; BUN/Creatinine Ratio 43.33; Blood Urea Nitrogen 13 mg/dL (7-17); Calcium 8.6 mg/dL (8.4-10.2); Carbon Dioxide 24 mmol/L (22-30); Chloride 99.4 mmol/L (98-107); Glucose 146 mg/dL (65-100); Potassium 4.5 mmol/L (3.6-5.0); Sodium 136 mmol/L (137-145)
--- NOTE | 2017-01-28 09:34 | XRay Report ---
Single view chest: Compared to 01/27/17. History: Followup of respiratory failure. Findings Normal cardiomediastinal silhouette. Trachea is midline. Stable support system. No acute consolidation, pneumothorax or pleural effusion. Impression: No significant interval change.
[2017-01-28] MEDS: LOVENOX SUB-Q SCH (09:59)
[2017-01-28] MEDS: VITAMIN B-1 PO SCH (10:00)
[2017-01-28] MEDS: FOLVITE PO SCH (10:00)
[2017-01-28] MEDS: PEPCID PO SCH ×2 (10:00→22:06)
[2017-01-28] MEDS: fentaNYL DRIP Premix 2,000 MCG/100 ML BAG IV SCH (10:12)
--- NOTE | 2017-01-28 11:29 | Progress Note ---
Assessment and Plan Assessment and plan: --Acute hypoxemic respiratory failure On vent, wean as tolerated and extubate nebulizers, IV steroids IV antibiotics, inhalation steroids Pulmonary following --Acute exacerbation of bronchial asthma Ventilatory support, nebulizers, steroids, antibiotics Supportive care --Leukocytosis Trending down, secondary to sepsis --Lactic acidosis lactic acid levels within normal limits Secondary to sepsis secondary to acute bronchitis --s/p hypotension, off Levophed --DVT prophylaxis with Lovenox Wean as tolerated and extubate Plan of care discussed with the patient's nurse Consults and recommendations noted and appreciated History Interval history: Patient Seen and evaluated this morning in her room medical records reviewed Remains intubated on ventilatory support and sedated No new events reported by the nursing staff Vital signs reviewed stable Hospitalist Physical - Constitutional Vitals: Temp Pulse Resp BP Pulse Ox 98.8 F 69 18 101/59 100 01/28/17 07:00 01/28/17 10:45 01/28/17 10:30 01/28/17 10:30 01/28/17 10:30 General appearance: Present: no acute distress, well-nourished, other (orally intubated and on vent) - EENT Eyes: Present: PERRL, EOM intact - Neck Neck: Present: supple, normal ROM - Respiratory Respiratory effort: normal Respiratory: bilateral: diminished, negative: rales, rhonchi - Cardiovascular Rhythm: regular Heart Sounds: Present: S1 & S2 - Extremities Extremities: no ischemia, pulses intact, pulses symmetrical - Abdominal General gastrointestinal: soft, non-tender, non-distended, normal bowel sounds - Integumentary Integumentary: Present: clear, warm - Psychiatric Psychiatric: other (sedated) - Neurologic Neurologic: other (sedated) Results - Labs CBC & Chem 7: 01/28/17 07:48 01/28/17 07:48 Labs: Laboratory Last Values WBC 12.3 K/mm3 (4.5-11.0) H 01/28/17 07:48 RBC 3.68 M/mm3 (3.65-5.03) 01/28/17 07:48 Hgb 11.2 gm/dl (10.1-14.3) 01/28/17 07:48 Hct 33.2 % (30.3-42.9) 01/28/17 07:48 MCV 90 fl (79-97) 01/28/17 07:48 MCH 30 pg (28-32) 01/28/17 07:48 MCHC 34 % (30-34) 01/28/17 07:48 RDW 12.9 % (13.2-15.2) L 01/28/17 07:48 Plt Count 268 K/mm3 (140-440) 01/28/17 07:48 Lymph % (Auto) TNR 01/28/17 05:50 [place] % (Auto) TNR 01/28/17 05:50 Eos % (Auto) TNR 01/28/17 05:50 Baso % (Auto) TNR 01/28/17 05:50 Lymph # TNR 01/28/17 05:50 [place] # TNR 01/28/17 05:50 Eos # TNR 01/28/17 05:50 Baso # TNR 01/28/17 05:50 Add Manual Diff TNR 01/28/17 05:50 Total Counted 100 01/25/17 07:22 Seg Neutrophils % TNR 01/28/17 05:50 Seg Neuts % (Manual) 84.0 % (40.0-70.0) H 01/25/17 07:22 Band Neutrophils % 6.0 % 01/25/17 07:22 Lymphocytes % (Manual) 6.0 % (13.4-35.0) L 01/25/17 07:22 Reactive Lymphs % (Man) 0 % 01/25/17 07:22 Monocytes % (Manual) 4.0 % (0.0-7.3) 01/25/17 07:22 Eosinophils % (Manual) 0 % (0.0-4.3) 01/25/17 07:22 Basophils % (Manual) 0 % (0.0-1.8) 01/25/17 07:22 Metamyelocytes % 0 % 01/25/17 07:22 Myelocytes % 0 % 01/25/17 07:22 Promyelocytes % 0 % 01/25/17 07:22 Blast Cells % 0 % 01/25/17 07:22 Nucleated RBC % Not Reportable 01/25/17 07:22 Seg Neutrophils # TNR 01/28/17 05:50 Seg Neutrophils # Man 17.8 K/mm3 (1.8-7.7) H 01/25/17 07:22 Band Neutrophils # 1.3 K/mm3 01/25/17 07:22 Lymphocytes # (Manual) 1.3 K/mm3 (1.2-5.4) 01/25/17 07:22 Abs React Lymphs (Man) 0.0 K/mm3 01/25/17 07:22 Monocytes # (Manual) 0.8 K/mm3 (0.0-0.8) 01/25/17 07:22 Eosinophils # (Manual) 0.0 K/mm3 (0.0-0.4) 01/25/17 07:22 Basophils # (Manual) 0.0 K/mm3 (0.0-0.1) 01/25/17 07:22 Metamyelocytes # 0.0 K/mm3 01/25/17 07:22 Myelocytes # 0.0 K/mm3 01/25/17 07:22 Promyelocytes # 0.0 K/mm3 01/25/17 07:22 Blast Cells # 0.0 K/mm3 01/25/17 07:22 WBC Morphology Not Reportable 01/25/17 07:22 Hypersegmented Neuts Not Reportable 01/25/17 07:22 Hyposegmented Neuts Not Reportable 01/25/17 07:22 Hypogranular Neuts Not Reportable 01/25/17 07:22 Smudge Cells Not Reportable 01/25/17 07:22 Toxic Granulation Not Reportable 01/25/17 07:22 Toxic Vacuolation Not Reportable 01/25/17 07:22 Dohle Bodies Not Reportable 01/25/17 07:22 Pelger-Huet Anomaly Not Reportable 01/25/17 07:22 Roderick Rods Not Reportable 01/25/17 07:22 Platelet Estimate Not Reportable 01/25/17 07:22 Clumped Platelets Not Reportable 01/25/17 07:22 Plt Clumps, EDTA Not Reportable 01/25/17 07:22 Large Platelets Not Reportable 01/25/17 07:22 Giant Platelets Not Reportable 01/25/17 07:22 Platelet Satelliting Not Reportable 01/25/17 07:22 Plt Morphology Comment Not Reportable 01/25/17 07:22 RBC Morphology Normal 01/25/17 07:22 Dimorphic RBCs Not Reportable 01/25/17 07:22 Polychromasia Not Reportable 01/25/17 07:22 Hypochromasia Not Reportable 01/25/17 07:22 Poikilocytosis Not Reportable 01/25/17 07:22 Anisocytosis Not Reportable 01/25/17 07:22 Microcytosis Not Reportable 01/25/17 07:22 Macrocytosis Not Reportable 01/25/17 07:22 Spherocytes Not Reportable 01/25/17 07:22 Pappenheimer Bodies Not Reportable 01/25/17 07:22 Sickle Cells Not Reportable 01/25/17 07:22 Target Cells Not Reportable 01/25/17 07:22 Tear Drop Cells Not Reportable 01/25/17 07:22 Ovalocytes Not Reportable 01/25/17 07:22 Helmet Cells Not Reportable 01/25/17 07:22 [place] Bodies Not Reportable 01/25/17 07:22 [place] Rings Not Reportable 01/25/17 07:22 [place] Cells Not Reportable 01/25/17 07:22 Bite Cells Not Reportable 01/25/17 07:22 Crenated Cell Not Reportable 01/25/17 07:22 Elliptocytes Not Reportable 01/25/17 07:22 Acanthocytes (Spur) Not Reportable 01/25/17 07:22 Rouleaux Not Reportable 01/25/17 07:22 Hemoglobin C Crystals Not Reportable 01/25/17 07:22 Schistocytes Not Reportable 01/25/17 07:22 Malaria parasites Not Reportable 01/25/17 07:22 [place] Bodies Not Reportable 01/25/17 07:22 Hem Pathologist Commnt No 01/25/17 07:22 PT 12.0 Sec. (12.2-14.9) L 01/22/17 12:52 INR 0.90 (0.87-1.13) 01/22/17 12:52 D-Dimer 162.42 ng/mlDDU (0-234) 01/22/17 12:52 POC ABG pH 7.425 (7.35-7.45) 01/28/17 04:28 POC ABG pCO2 42.0 (35-45) 01/28/17 04:28 POC ABG pO2 105 (80-105) 01/28/17 04:28 POC ABG HCO3 27.5 01/28/17 04:28 POC ABG Total CO2 29 01/28/17 04:28 POC ABG O2 Sat 98 01/28/17 04:28 POC ABG Base Excess 3 01/28/17 04:28 FiO2 30 % 01/28/17 04:28 Sodium 136 mmol/L (137-145) L 01/28/17 07:48 Potassium 4.5 mmol/L (3.6-5.0) D 01/28/17 07:48 Chloride 99.4 mmol/L (98-107) 01/28/17 07:48 Carbon Dioxide 24 mmol/L (22-30) 01/28/17 07:48 Anion Gap 17 mmol/L 01/28/17 07:48 BUN 13 mg/dL (7-17) 01/28/17 07:48 Creatinine 0.3 mg/dL (0.7-1.2) L 01/28/17 07:48 Estimated GFR > 60 ml/min 01/28/17 07:48 BUN/Creatinine Ratio 43.33 % 01/28/17 07:48 Glucose 146 mg/dL (65-100) H 01/28/17 07:48 POC Glucose 189 (70-105) H 01/24/17 00:07 Lactic Acid 1.8 mmol/L (0.7-2.0) 01/25/17 07:28 Calcium 8.6 mg/dL (8.4-10.2) D 01/28/17 07:48 Phosphorus 3.0 mg/dL (2.5-4.5) 01/27/17 04:00 Magnesium 1.8 mg/dL (1.7-2.3) 01/27/17 04:00 Total Bilirubin 0.4 mg/dL (0.1-1.2) 01/23/17 03:40 Direct Bilirubin < 0.2 mg/dL (0-0.2) 01/22/17 12:52 Indirect Bilirubin 0.0 mg/dL 01/22/17 12:52 AST 98 units/L (5-40) H 01/23/17 03:40 ALT 93 units/L (7-56) H 01/23/17 03:40 Alkaline Phosphatase 72 units/L (35-129) 01/23/17 03:40 Troponin T < 0.010 ng/mL (0.00-0.029) 01/22/17 12:52 C-Reactive Protein 0.30 mg/dL (0.00-1.30) 01/23/17 03:40 NT-Pro-B Natriuret Pep 100.8 pg/mL (0-450) 01/22/17 12:52 Total Protein 5.9 g/dL (6.3-8.2) L 01/23/17 03:40 Albumin 3.2 g/dL (3.9-5) L 01/23/17 03:40 Albumin/Globulin Ratio 1.2 % 01/23/17 03:40 HCG, Quant < 2 mIU/mL (0-4) 01/22/17 12:52 Urine Color Colorless (Yellow) 01/22/17 Unknown Urine Turbidity Clear (Clear) 01/22/17 Unknown Urine pH 6.0 (5.0-7.0) 01/22/17 Unknown Ur Specific [place] 1.002 (1.003-1.030) L 01/22/17 Unknown Urine Protein <15 mg/dl mg/dL (Negative) 01/22/17 Unknown Urine Glucose (UA) Neg mg/dL (Negative) 01/22/17 Unknown Urine Ketones Neg mg/dL (Negative) 01/22/17 Unknown Urine Blood Mod (Negative) 01/22/17 Unknown Urine Nitrite Neg (Negative) 01/22/17 Unknown Urine Bilirubin Neg (Negative) 01/22/17 Unknown Urine Urobilinogen < 2.0 mg/dL (<2.0) 01/22/17 Unknown Ur Leukocyte Esterase Neg (Negative) 01/22/17 Unknown Urine WBC (Auto) < 1.0 /HPF (0.0-6.0) 01/22/17 Unknown Urine RBC (Auto) 1.0 /HPF (0.0-6.0) 01/22/17 Unknown U Epithel Cells (Auto) < 1.0 /HPF (0-13.0) 01/22/17 Unknown Urine Opiates Screen Presumptive negative 01/22/17 Unknown Urine Methadone Screen Presumptive negative 01/22/17 Unknown Ur Barbiturates Screen Presumptive negative 01/22/17 Unknown Ur Phencyclidine Scrn Presumptive negative 01/22/17 Unknown Ur Amphetamines Screen Presumptive negative 01/22/17 Unknown U Benzodiazepines Scrn Presumptive negative 01/22/17 Unknown Urine Cocaine Screen Presumptive negative 01/22/17 Unknown U Marijuana (THC) Screen Presumptive negative 01/22/17 Unknown Drugs of Abuse Note Disclamer 01/22/17 Unknown
--- NOTE | 2017-01-28 12:40 | Progress Note ---
Assessment and Plan Patient presently sedated.Patient agitating off the sedation. Patient presently on assist control rate 18, tidal volume 450, FIO2 30%,PEEP 5 and O2 satuaration 100%. I spent critical care time of 45 minutes on this patient review the history, Examining the patient, review xray, labwork, talking to the nurses,respiratory therapy and work out plan of treatment. - Patient Problems (1) Acute respiratory failure Current Visit: Yes Status: Acute Qualifiers: Respiratory failure complication: hypoxia Qualified Code(s): J96.01 - Acute respiratory failure with hypoxia Plan to address problem: Patient is on Assist control rate 18, tidal volume 450, FIO2 30%,PEEP 5. Albuterol aerosol treatments q 6 hours. Continue I/V solumedral Continue S/C Lovenox. Continue Famotadine. (2) Altered mental status Current Visit: Yes Status: Acute Qualifiers: Altered mental status type: A Coma depth: C Coma timing: C Plan to address problem: Management as per primary care. Patient sedated at this time. (3) Status asthmaticus Current Visit: Yes Status: Acute Qualifiers: Asthma severity: A Plan to address problem: Patient intubated and placed on mechanical ventilation Albuterol aerosol treatments Continue I/V solumedral. Subjective Date of service: 01/28/17 Principal diagnosis: Acute Hypoxemic Respiratory Failure Interval history: Patient presently sedated.Patient agitating off the sedation. Patient presently on assist control rate 18, tidal volume 450, FIO2 30%,PEEP 5 and O2 satuaration 100%. Objective Vital Signs - 12hr 01/28/17 01/28/17 01/28/17 01:00 01:30 01:33 Temperature Pulse Rate 77 66 Pulse Rate [ 66 Anterior Bilateral Throughout] Pulse Rate [ From Monitor] Respiratory 18 18 Rate Respiratory 18 Rate [Anterior Bilateral Throughout] Blood Pressure 92/43 107/67 O2 Sat by Pulse 98 98 Oximetry 01/28/17 01/28/17 01/28/17 02:00 02:30 02:48 Temperature Pulse Rate 68 69 Pulse Rate [ 68 Anterior Bilateral Throughout] Pulse Rate [ From Monitor] Respiratory 18 18 Rate Respiratory 18 Rate [Anterior Bilateral Throughout] Blood Pressure 106/63 102/62 O2 Sat by Pulse 99 98 Oximetry 01/28/17 01/28/17 01/28/17 03:00 03:30 03:59 Temperature Pulse Rate 62 65 65 Pulse Rate [ Anterior Bilateral Throughout] Pulse Rate [ From Monitor] Respiratory 18 18 Rate Respiratory Rate [Anterior Bilateral Throughout] Blood Pressure 98/64 102/63 102/63 O2 Sat by Pulse 100 100 99 Oximetry 01/28/17 01/28/17 01/28/17 04:00 04:30 05:00 Temperature 97.7 F Pulse Rate 64 67 62 Pulse Rate [ Anterior Bilateral Throughout] Pulse Rate [ From Monitor] Respiratory 18 18 18 Rate Respiratory Rate [Anterior Bilateral Throughout] Blood Pressure 97/59 97/61 98/58 O2 Sat by Pulse 99 98 Oximetry 01/28/17 01/28/17 01/28/17 05:30 06:00 06:30 Temperature Pulse Rate 68 73 64 Pulse Rate [ Anterior Bilateral Throughout] Pulse Rate [ From Monitor] Respiratory 18 18 18 Rate Respiratory Rate [Anterior Bilateral Throughout] Blood Pressure 113/69 120/72 116/70 O2 Sat by Pulse 98 96 97 Oximetry 01/28/17 01/28/17 01/28/17 07:00 07:15 07:30 Temperature 98.8 F Pulse Rate 65 61 Pulse Rate [ Anterior Bilateral Throughout] Pulse Rate [ 61 From Monitor] Respiratory 18 18 18 Rate Respiratory Rate [Anterior Bilateral Throughout] Blood Pressure 110/70 105/64 O2 Sat by Pulse 100 100 Oximetry 01/28/17 01/28/17 01/28/17 08:00 08:10 08:30 Temperature Pulse Rate 64 61 Pulse Rate [ 63 68 Anterior Bilateral Throughout] Pulse Rate [ From Monitor] Respiratory 18 18 Rate Respiratory 18 23 Rate [Anterior Bilateral Throughout] Blood Pressure 102/62 101/59 O2 Sat by Pulse 100 100 Oximetry 01/28/17 01/28/17 01/28/17 09:00 09:30 10:00 Temperature Pulse Rate 70 74 67 Pulse Rate [ Anterior Bilateral Throughout] Pulse Rate [ From Monitor] Respiratory 18 18 18 Rate Respiratory Rate [Anterior Bilateral Throughout] Blood Pressure 98/54 102/54 101/55 O2 Sat by Pulse 100 100 100 Oximetry 01/28/17 01/28/17 10:30 10:45 Temperature Pulse Rate 67 69 Pulse Rate [ Anterior Bilateral Throughout] Pulse Rate [ From Monitor] Respiratory 18 Rate Respiratory Rate [Anterior Bilateral Throughout] Blood Pressure 101/59 O2 Sat by Pulse 100 Oximetry Constitutional: no acute distress, other ( sedated and on mechanical ventilation.) Eyes: non-icteric ENT: oropharynx moist Neck: supple, no lymphadenopathy Effort: mildly labored Ascultation: Bilateral: rales (scant in bases) Cardiovascular: regular rate and rhythm Gastrointestinal: normoactive bowel sounds, soft, non-tender, non-distended Integumentary: normal Extremities: no cyanosis, no edema, pink and warm, pulses normal, no ischemia or petechiae Neurologic: unable to assess, other (sedated) Psychiatric: other (sedated) CBC and BMP: 01/29/17 06:31 01/28/17 07:48 ABG, PT/INR, D-dimer: ABG POC ABG pH 7.425 (7.35-7.45) 01/28/17 04:28 POC ABG pCO2 42.0 (35-45) 01/28/17 04:28 POC ABG pO2 105 (80-105) 01/28/17 04:28 POC ABG HCO3 27.5 01/28/17 04:28 POC ABG Total CO2 29 01/28/17 04:28 POC ABG O2 Sat 98 01/28/17 04:28 PT/INR, D-dimer PT 12.0 Sec. (12.2-14.9) L 01/22/17 12:52 INR 0.90 (0.87-1.13) 01/22/17 12:52 D-Dimer 162.42 ng/mlDDU (0-234) 01/22/17 12:52 Abnormal lab findings: Abnormal Labs 01/22/17 01/23/17 01/23/17 Unknown 03:32 03:40 WBC 16.5 H RBC Hgb Hct RDW Lymph % (Auto) Lymph # Seg Neutrophils % Seg Neuts % (Manual) 95.0 H Lymphocytes % (Manual) 4.0 L Seg Neutrophils # Seg Neutrophils # Man 15.7 H Lymphocytes # (Manual) 0.7 L POC ABG pH 7.293 L POC ABG pCO2 POC ABG pO2 Sodium Potassium Chloride Carbon Dioxide Creatinine Glucose POC Glucose Lactic Acid Calcium Phosphorus AST ALT Total Protein Albumin Ur Specific [place] 1.002 L 01/23/17 01/23/17 01/23/17 03:40 13:41 20:48 WBC RBC Hgb Hct RDW Lymph % (Auto) Lymph # Seg Neutrophils % Seg Neuts % (Manual) Lymphocytes % (Manual) Seg Neutrophils # Seg Neutrophils # Man Lymphocytes # (Manual) POC ABG pH POC ABG pCO2 POC ABG pO2 77 L Sodium Potassium Chloride 108.6 H Carbon Dioxide 19 L Creatinine 0.5 L Glucose 216 H POC Glucose Lactic Acid 3.3 H* Calcium 7.6 L D Phosphorus AST 98 H ALT 93 H Total Protein 5.9 L Albumin 3.2 L Ur Specific [place] 01/24/17 01/24/17 01/24/17 00:07 04:39 06:00 WBC 25.7 H RBC Hgb Hct RDW Lymph % (Auto) Lymph # Seg Neutrophils % Seg Neuts % (Manual) 99.0 H Lymphocytes % (Manual) 0 L Seg Neutrophils # Seg Neutrophils # Man 25.4 H Lymphocytes # (Manual) 0.0 L POC ABG pH POC ABG pCO2 POC ABG pO2 106 H Sodium Potassium Chloride Carbon Dioxide Creatinine Glucose POC Glucose 189 H Lactic Acid Calcium Phosphorus AST ALT Total Protein Albumin Ur Specific [place] 01/24/17 01/24/17 01/25/17 06:00 13:22 04:46 WBC RBC Hgb Hct RDW Lymph % (Auto) Lymph # Seg Neutrophils % Seg Neuts % (Manual) Lymphocytes % (Manual) Seg Neutrophils # Seg Neutrophils # Man Lymphocytes # (Manual) POC ABG pH 7.333 L POC ABG pCO2 POC ABG pO2 Sodium Potassium Chloride 107.5 H Carbon Dioxide Creatinine 0.4 L Glucose 165 H POC Glucose Lactic Acid 2.6 H* Calcium 7.9 L Phosphorus AST ALT Total Protein Albumin Ur Specific [place] 01/25/17 01/25/17 01/25/17 06:48 07:22 07:31 WBC 21.2 H RBC 3.41 L Hgb Hct RDW Lymph % (Auto) Lymph # Seg Neutrophils % Seg Neuts % (Manual) 84.0 H Lymphocytes % (Manual) 6.0 L Seg Neutrophils # Seg Neutrophils # Man 17.8 H Lymphocytes # (Manual) POC ABG pH POC ABG pCO2 POC ABG pO2 Sodium Potassium 2.8 L* D 3.5 L D Chloride 116.5 H Carbon Dioxide 17 L D Creatinine 0.2 L 0.3 L Glucose 117 H 141 H POC Glucose Lactic Acid Calcium 5.7 L* D 7.9 L D Phosphorus 1.5 L AST ALT Total Protein Albumin Ur Specific [place] 01/26/17 01/26/17 01/26/17 00:23 04:00 04:00 WBC 15.2 H RBC 3.23 L Hgb 9.9 L Hct 29.9 L RDW Lymph % (Auto) 4.7 L Lymph # 0.7 L Seg Neutrophils % 90.0 H Seg Neuts % (Manual) Lymphocytes % (Manual) Seg Neutrophils # 13.6 H Seg Neutrophils # Man Lymphocytes # (Manual) POC ABG pH 7.499 H POC ABG pCO2 30.4 L POC ABG pO2 Sodium Potassium Chloride Carbon Dioxide Creatinine 0.4 L Glucose 132 H POC Glucose Lactic Acid Calcium 7.4 L Phosphorus AST ALT Total Protein Albumin Ur Specific [place] 01/26/17 01/27/17 01/27/17 05:12 04:00 04:00 WBC RBC 3.30 L Hgb 10.0 L Hct RDW Lymph % (Auto) 6.0 L Lymph # 0.6 L Seg Neutrophils % 89.4 H Seg Neuts % (Manual) Lymphocytes % (Manual) Seg Neutrophils # 8.4 H Seg Neutrophils # Man Lymphocytes # (Manual) POC ABG pH 7.464 H POC ABG pCO2 POC ABG pO2 138 H Sodium Potassium 3.5 L Chloride 107.4 H Carbon Dioxide Creatinine 0.3 L Glucose 138 H POC Glucose Lactic Acid Calcium 7.1 L Phosphorus AST ALT Total Protein Albumin Ur Specific [place] 01/28/17 01/28/17 07:48 07:48 WBC 12.3 H RBC Hgb Hct RDW 12.9 L Lymph % (Auto) Lymph # Seg Neutrophils % Seg Neuts % (Manual) Lymphocytes % (Manual) Seg Neutrophils # Seg Neutrophils # Man Lymphocytes # (Manual) POC ABG pH POC ABG pCO2 POC ABG pO2 Sodium 136 L Potassium Chloride Carbon Dioxide Creatinine 0.3 L Glucose 146 H POC Glucose Lactic Acid Calcium Phosphorus AST ALT Total Protein Albumin Ur Specific [place] Chest x-ray: report reviewed (No acute infiltrates, ET tube in place.), image reviewed
[2017-01-28] MEDS: ATIVAN IV PRN ×2 (17:02→20:09)
[2017-01-28] MEDS: HALDOL IV PRN (21:33)
[2017-01-29] MEDS: PROVENTIL IH SCH ×4 (01:44→19:30)
[2017-01-29] MEDS: ATIVAN IV PRN (02:24)
[2017-01-29] MEDS: fentaNYL DRIP Premix 2,000 MCG/100 ML BAG IV SCH ×2 (02:37→18:42)
[2017-01-29] MEDS: HALDOL IV PRN (04:16)
[2017-01-29] MEDS: DIPRIVAN 10 MG/ML 1,000 MG/100 ML BOTTLE IV SCH (04:27)
[2017-01-29 05:08] LABS: ISTAT Base Excess 8; ISTAT HCO3 31.3; ISTAT PCO2 43.2 (35-45); ISTAT PH 7.468 (7.35-7.45); ISTAT PO2 124 (80-105); ISTAT SO2 99; ISTAT TCO2 33
[2017-01-29] MEDS: ROBINUL PO SCH ×3 (07:00→22:08)
[2017-01-29] MEDS: LIBRIUM PO SCH ×3 (07:00→21:48)
[2017-01-29] MEDS: NEURONTIN PO SCH ×3 (07:00→21:50)
[2017-01-29 07:13] LABS: Basophils % (Auto) 0.4 % (0.0-1.8); Hematocrit 35.8 % (30.3-42.9); Hemoglobin 11.5 gm/dl (10.1-14.3); Mean Corpuscular HGB Conc 32 % (30-34); Mean Corpuscular Hemoglobin 30 pg (28-32); Mean Corpuscular Volume 92 fl (79-97); Platelet Count 323 K/mm3 (140-440); Red Blood Count 3.89 M/mm3 (3.65-5.03); White Blood Count 18.8 K/mm3 (4.5-11.0)
[2017-01-29] MEDS: FOLVITE PO SCH (09:37)
[2017-01-29] MEDS: LOVENOX SUB-Q SCH (09:37)
[2017-01-29] MEDS: VITAMIN B-1 PO SCH (09:38)
[2017-01-29] MEDS: PEPCID PO SCH ×2 (09:38→21:49)
--- NOTE | 2017-01-29 10:48 | XRay Report ---
Single view chest: Compared to 01/28/17. History: Followup respiratory failure. Findings: Normal cardiomediastinal silhouette. Trachea is midline. Tip of endotracheal tube and NG tube in normal position. Tip of left central line unchanged. No consolidation or pleural effusion. Impression: Stable support system. No acute lung changes.
--- NOTE | 2017-01-29 13:48 | Progress Note ---
Assessment and Plan Patient presently sedated.Patient again agitating off the sedation.Not tolerating weaning from ventilator. Patient presently on assist control rate 18 , tidal volume 450, FIO2 30%,PEEP 5 and O2 satuaration 100%. I spent critical care time of 45 minutes on this patient review the history, Examining the patient, review xray, labwork, talking to the nurses,respiratory therapy and work out plan of treatment. - Patient Problems (1) Acute respiratory failure Current Visit: Yes Status: Acute Qualifiers: Respiratory failure complication: hypoxia Qualified Code(s): J96.01 - Acute respiratory failure with hypoxia Plan to address problem: Patient is on Assist control rate 18, tidal volume 450, FIO2 30%,PEEP 5. Albuterol aerosol treatments q 6 hours. Continue I/V solumedral Continue S/C Lovenox. Continue Famotadine. (2) Altered mental status Current Visit: Yes Status: Acute Qualifiers: Altered mental status type: A Coma depth: C Coma timing: C Plan to address problem: Management as per primary care. Patient sedated at this time. (3) Status asthmaticus Current Visit: Yes Status: Acute Qualifiers: Asthma severity: A Plan to address problem: Patient intubated and placed on mechanical ventilation Albuterol aerosol treatments Continue I/V solumedral. Subjective Date of service: 01/29/17 Principal diagnosis: Acute Hypoxemic Respiratory Failure Interval history: Patient presently sedated.Patient again agitating off the sedation.Not tolerating weaning from ventilator. Patient presently on assist control rate 18 , tidal volume 450, FIO2 30%,PEEP 5 and O2 satuaration 100%. Objective Vital Signs - 12hr 01/29/17 01/29/17 01/29/17 01:45 02:00 02:31 Temperature Pulse Rate 100 H 98 H Pulse Rate [ 108 H 110 H Anterior Bilateral Throughout] Pulse Rate [ From Monitor] Respiratory 18 17 Rate Respiratory 22 22 Rate [Anterior Bilateral Throughout] Respiratory Rate [ Generalized] Blood Pressure 110/62 128/68 O2 Sat by Pulse 96 95 Oximetry 01/29/17 01/29/17 01/29/17 03:00 03:30 03:53 Temperature 98.9 F Pulse Rate 97 H 96 H Pulse Rate [ Anterior Bilateral Throughout] Pulse Rate [ From Monitor] Respiratory 17 18 Rate Respiratory Rate [Anterior Bilateral Throughout] Respiratory Rate [ Generalized] Blood Pressure 107/63 112/67 O2 Sat by Pulse Oximetry 01/29/17 01/29/17 01/29/17 03:56 04:00 04:27 Temperature Pulse Rate 108 H 91 H Pulse Rate [ Anterior Bilateral Throughout] Pulse Rate [ From Monitor] Respiratory 18 18 Rate Respiratory Rate [Anterior Bilateral Throughout] Respiratory Rate [ Generalized] Blood Pressure 112/67 117/65 O2 Sat by Pulse 100 99 Oximetry 01/29/17 01/29/17 01/29/17 04:30 04:41 05:00 Temperature Pulse Rate 88 84 Pulse Rate [ Anterior Bilateral Throughout] Pulse Rate [ 87 From Monitor] Respiratory 18 19 17 Rate Respiratory Rate [Anterior Bilateral Throughout] Respiratory Rate [ Generalized] Blood Pressure 110/65 112/65 O2 Sat by Pulse 98 Oximetry 01/29/17 01/29/17 01/29/17 05:11 05:30 06:01 Temperature Pulse Rate 76 Pulse Rate [ Anterior Bilateral Throughout] Pulse Rate [ From Monitor] Respiratory 18 Rate Respiratory Rate [Anterior Bilateral Throughout] Respiratory 18 Rate [ Generalized] Blood Pressure 103/53 136/92 O2 Sat by Pulse 94 90 Oximetry 01/29/17 01/29/17 01/29/17 06:30 07:00 07:30 Temperature 98.6 F Pulse Rate 92 H 73 79 Pulse Rate [ Anterior Bilateral Throughout] Pulse Rate [ 73 From Monitor] Respiratory 20 18 18 Rate Respiratory Rate [Anterior Bilateral Throughout] Respiratory Rate [ Generalized] Blood Pressure 123/79 106/61 110/68 O2 Sat by Pulse 98 95 98 Oximetry 01/29/17 01/29/17 01/29/17 08:00 08:10 08:30 Temperature Pulse Rate 77 67 Pulse Rate [ 72 75 Anterior Bilateral Throughout] Pulse Rate [ From Monitor] Respiratory 18 17 Rate Respiratory 18 18 Rate [Anterior Bilateral Throughout] Respiratory Rate [ Generalized] Blood Pressure 101/62 102/61 O2 Sat by Pulse 97 Oximetry 01/29/17 01/29/17 01/29/17 09:00 09:30 10:00 Temperature Pulse Rate 68 65 78 Pulse Rate [ Anterior Bilateral Throughout] Pulse Rate [ From Monitor] Respiratory 18 18 18 Rate Respiratory Rate [Anterior Bilateral Throughout] Respiratory Rate [ Generalized] Blood Pressure 94/57 92/54 103/60 O2 Sat by Pulse 98 96 Oximetry 01/29/17 01/29/17 01/29/17 10:30 10:55 11:00 Temperature Pulse Rate 81 81 79 Pulse Rate [ Anterior Bilateral Throughout] Pulse Rate [ From Monitor] Respiratory 18 18 Rate Respiratory Rate [Anterior Bilateral Throughout] Respiratory Rate [ Generalized] Blood Pressure 106/64 110/66 O2 Sat by Pulse Oximetry 01/29/17 01/29/17 11:30 12:05 Temperature 99.4 F Pulse Rate 82 77 Pulse Rate [ Anterior Bilateral Throughout] Pulse Rate [ From Monitor] Respiratory 18 Rate Respiratory Rate [Anterior Bilateral Throughout] Respiratory Rate [ Generalized] Blood Pressure 108/66 112/68 O2 Sat by Pulse 98 Oximetry Constitutional: no acute distress, other ( sedated and on mechanical ventilation.) Eyes: non-icteric ENT: oropharynx moist Neck: supple, no lymphadenopathy Effort: mildly labored Ascultation: Bilateral: rales (scant in bases) Cardiovascular: regular rate and rhythm Gastrointestinal: normoactive bowel sounds, soft, non-tender, non-distended Integumentary: normal Extremities: no cyanosis, no edema, pink and warm, pulses normal, no ischemia or petechiae Neurologic: unable to assess, other (sedated) Psychiatric: other (sedated) CBC and BMP: 01/29/17 06:31 01/28/17 07:48 ABG, PT/INR, D-dimer: ABG POC ABG pH 7.468 (7.35-7.45) H 01/29/17 03:56 POC ABG pCO2 43.2 (35-45) 01/29/17 03:56 POC ABG pO2 124 (80-105) H 01/29/17 03:56 POC ABG HCO3 31.3 01/29/17 03:56 POC ABG Total CO2 33 01/29/17 03:56 POC ABG O2 Sat 99 01/29/17 03:56 PT/INR, D-dimer PT 12.0 Sec. (12.2-14.9) L 01/22/17 12:52 INR 0.90 (0.87-1.13) 01/22/17 12:52 D-Dimer 162.42 ng/mlDDU (0-234) 01/22/17 12:52 Abnormal lab findings: Abnormal Labs 01/22/17 01/23/17 01/23/17 Unknown 03:32 03:40 WBC 16.5 H RBC Hgb Hct RDW Lymph % (Auto) Lymph # [place] # Seg Neutrophils % Seg Neuts % (Manual) 95.0 H Lymphocytes % (Manual) 4.0 L Seg Neutrophils # Seg Neutrophils # Man 15.7 H Lymphocytes # (Manual) 0.7 L POC ABG pH 7.293 L POC ABG pCO2 POC ABG pO2 Sodium Potassium Chloride Carbon Dioxide Creatinine Glucose POC Glucose Lactic Acid Calcium Phosphorus AST ALT Total Protein Albumin Triglycerides Ur Specific [place] 1.002 L 01/23/17 01/23/17 01/23/17 03:40 13:41 20:48 WBC RBC Hgb Hct RDW Lymph % (Auto) Lymph # [place] # Seg Neutrophils % Seg Neuts % (Manual) Lymphocytes % (Manual) Seg Neutrophils # Seg Neutrophils # Man Lymphocytes # (Manual) POC ABG pH POC ABG pCO2 POC ABG pO2 77 L Sodium Potassium Chloride 108.6 H Carbon Dioxide 19 L Creatinine 0.5 L Glucose 216 H POC Glucose Lactic Acid 3.3 H* Calcium 7.6 L D Phosphorus AST 98 H ALT 93 H Total Protein 5.9 L Albumin 3.2 L Triglycerides Ur Specific [place] 01/24/17 01/24/17 01/24/17 00:07 04:39 06:00 WBC 25.7 H RBC Hgb Hct RDW Lymph % (Auto) Lymph # [place] # Seg Neutrophils % Seg Neuts % (Manual) 99.0 H Lymphocytes % (Manual) 0 L Seg Neutrophils # Seg Neutrophils # Man 25.4 H Lymphocytes # (Manual) 0.0 L POC ABG pH POC ABG pCO2 POC ABG pO2 106 H Sodium Potassium Chloride Carbon Dioxide Creatinine Glucose POC Glucose 189 H Lactic Acid Calcium Phosphorus AST ALT Total Protein Albumin Triglycerides Ur Specific [place] 01/24/17 01/24/17 01/25/17 06:00 13:22 04:46 WBC RBC Hgb Hct RDW Lymph % (Auto) Lymph # [place] # Seg Neutrophils % Seg Neuts % (Manual) Lymphocytes % (Manual) Seg Neutrophils # Seg Neutrophils # Man Lymphocytes # (Manual) POC ABG pH 7.333 L POC ABG pCO2 POC ABG pO2 Sodium Potassium Chloride 107.5 H Carbon Dioxide Creatinine 0.4 L Glucose 165 H POC Glucose Lactic Acid 2.6 H* Calcium 7.9 L Phosphorus AST ALT Total Protein Albumin Triglycerides Ur Specific [place] 01/25/17 01/25/17 01/25/17 06:48 07:22 07:31 WBC 21.2 H RBC 3.41 L Hgb Hct RDW Lymph % (Auto) Lymph # [place] # Seg Neutrophils % Seg Neuts % (Manual) 84.0 H Lymphocytes % (Manual) 6.0 L Seg Neutrophils # Seg Neutrophils # Man 17.8 H Lymphocytes # (Manual) POC ABG pH POC ABG pCO2 POC ABG pO2 Sodium Potassium 2.8 L* D 3.5 L D Chloride 116.5 H Carbon Dioxide 17 L D Creatinine 0.2 L 0.3 L Glucose 117 H 141 H POC Glucose Lactic Acid Calcium 5.7 L* D 7.9 L D Phosphorus 1.5 L AST ALT Total Protein Albumin Triglycerides Ur Specific [place] 01/26/17 01/26/17 01/26/17 00:23 04:00 04:00 WBC 15.2 H RBC 3.23 L Hgb 9.9 L Hct 29.9 L RDW Lymph % (Auto) 4.7 L Lymph # 0.7 L [place] # Seg Neutrophils % 90.0 H Seg Neuts % (Manual) Lymphocytes % (Manual) Seg Neutrophils # 13.6 H Seg Neutrophils # Man Lymphocytes # (Manual) POC ABG pH 7.499 H POC ABG pCO2 30.4 L POC ABG pO2 Sodium Potassium Chloride Carbon Dioxide Creatinine 0.4 L Glucose 132 H POC Glucose Lactic Acid Calcium 7.4 L Phosphorus AST ALT Total Protein Albumin Triglycerides Ur Specific [place] 01/26/17 01/27/17 01/27/17 05:12 04:00 04:00 WBC RBC 3.30 L Hgb 10.0 L Hct RDW Lymph % (Auto) 6.0 L Lymph # 0.6 L [place] # Seg Neutrophils % 89.4 H Seg Neuts % (Manual) Lymphocytes % (Manual) Seg Neutrophils # 8.4 H Seg Neutrophils # Man Lymphocytes # (Manual) POC ABG pH 7.464 H POC ABG pCO2 POC ABG pO2 138 H Sodium Potassium 3.5 L Chloride 107.4 H Carbon Dioxide Creatinine 0.3 L Glucose 138 H POC Glucose Lactic Acid Calcium 7.1 L Phosphorus AST ALT Total Protein Albumin Triglycerides Ur Specific [place] 01/28/17 01/28/17 01/29/17 07:48 07:48 03:56 WBC 12.3 H RBC Hgb Hct RDW 12.9 L Lymph % (Auto) Lymph # [place] # Seg Neutrophils % Seg Neuts % (Manual) Lymphocytes % (Manual) Seg Neutrophils # Seg Neutrophils # Man Lymphocytes # (Manual) POC ABG pH 7.468 H POC ABG pCO2 POC ABG pO2 124 H Sodium 136 L Potassium Chloride Carbon Dioxide Creatinine 0.3 L Glucose 146 H POC Glucose Lactic Acid Calcium Phosphorus AST ALT Total Protein Albumin Triglycerides Ur Specific [place] 01/29/17 01/29/17 06:31 06:31 WBC 18.8 H RBC Hgb Hct RDW 13.0 L Lymph % (Auto) 5.1 L Lymph # 1.0 L [place] # 1.2 H Seg Neutrophils % 88.2 H Seg Neuts % (Manual) Lymphocytes % (Manual) Seg Neutrophils # 16.6 H Seg Neutrophils # Man Lymphocytes # (Manual) POC ABG pH POC ABG pCO2 POC ABG pO2 Sodium Potassium Chloride Carbon Dioxide Creatinine Glucose POC Glucose Lactic Acid Calcium Phosphorus AST ALT Total Protein Albumin Triglycerides 164 H Ur Specific [place] Chest x-ray: report reviewed (No acute findings.ET tube in place.), image reviewed
[2017-01-29] MEDS ORDERED: TRANSDERM-SCOP TD SCH (15:00)
--- NOTE | 2017-01-29 17:32 | Progress Note ---
Assessment and Plan Assessment and plan: --Acute hypoxemic respiratory failure On vent, not tolerating weaning parameters nebulizers, IV steroids IV antibiotics, inhalation steroids Pulmonary following --Acute exacerbation of bronchial asthma Ventilatory support, nebulizers, steroids, antibiotics Supportive care --Lactic acidosis lactic acid levels within normal limits Secondary to sepsis secondary to acute bronchitis --DVT prophylaxis with Lovenox Wean as tolerated and extubate Plan of care discussed with the patient's nurse Consults and recommendations noted and appreciated History Interval history: patient seen and evaluated medical records reviewed Remains on intubated on ventilatory support Not tolerating weaning parameters New events reported by the nursing staff, opening eyes upon calling her name Hospitalist Physical - Constitutional Vitals: Temp Pulse Resp BP Pulse Ox 99.4 F 76 18 113/67 100 01/29/17 11:30 01/29/17 16:31 01/29/17 16:31 01/29/17 16:31 01/29/17 16:31 General appearance: Present: no acute distress, well-nourished, other (orally intubated and on vent) - EENT Eyes: Present: PERRL, EOM intact - Neck Neck: Present: supple, normal ROM - Respiratory Respiratory effort: normal Respiratory: bilateral: diminished, negative: rales, rhonchi, wheezing - Cardiovascular Rhythm: regular Heart Sounds: Present: S1 & S2 - Extremities Extremities: no ischemia, pulses intact, pulses symmetrical Peripheral Pulses: within normal limits - Abdominal General gastrointestinal: soft, non-tender, non-distended, normal bowel sounds - Integumentary Integumentary: Present: clear, warm - Psychiatric Psychiatric: other (sedated ) - Neurologic Neurologic: other (sedated) Results - Labs CBC & Chem 7: 01/29/17 06:31 01/28/17 07:48 Labs: Laboratory Last Values WBC 18.8 K/mm3 (4.5-11.0) H 01/29/17 06:31 RBC 3.89 M/mm3 (3.65-5.03) 01/29/17 06:31 Hgb 11.5 gm/dl (10.1-14.3) 01/29/17 06:31 Hct 35.8 % (30.3-42.9) 01/29/17 06:31 MCV 92 fl (79-97) 01/29/17 06:31 MCH 30 pg (28-32) 01/29/17 06:31 MCHC 32 % (30-34) 01/29/17 06:31 RDW 13.0 % (13.2-15.2) L 01/29/17 06:31 Plt Count 323 K/mm3 (140-440) 01/29/17 06:31 Lymph % (Auto) 5.1 % (13.4-35.0) L 01/29/17 06:31 Bell % (Auto) 6.3 % (0.0-7.3) 01/29/17 06:31 Eos % (Auto) 0.0 % (0.0-4.3) 01/29/17 06:31 Baso % (Auto) 0.4 % (0.0-1.8) 01/29/17 06:31 Lymph # 1.0 K/mm3 (1.2-5.4) L 01/29/17 06:31 Bell # 1.2 K/mm3 (0.0-0.8) H 01/29/17 06:31 Eos # 0.0 K/mm3 (0.0-0.4) 01/29/17 06:31 Baso # 0.1 K/mm3 (0.0-0.1) 01/29/17 06:31 Add Manual Diff TNR 01/28/17 05:50 Total Counted 100 01/25/17 07:22 Seg Neutrophils % 88.2 % (40.0-70.0) H 01/29/17 06:31 Seg Neuts % (Manual) 84.0 % (40.0-70.0) H 01/25/17 07:22 Band Neutrophils % 6.0 % 01/25/17 07:22 Lymphocytes % (Manual) 6.0 % (13.4-35.0) L 01/25/17 07:22 Reactive Lymphs % (Man) 0 % 01/25/17 07:22 Monocytes % (Manual) 4.0 % (0.0-7.3) 01/25/17 07:22 Eosinophils % (Manual) 0 % (0.0-4.3) 01/25/17 07:22 Basophils % (Manual) 0 % (0.0-1.8) 01/25/17 07:22 Metamyelocytes % 0 % 01/25/17 07:22 Myelocytes % 0 % 01/25/17 07:22 Promyelocytes % 0 % 01/25/17 07:22 Blast Cells % 0 % 01/25/17 07:22 Nucleated RBC % Not Reportable 01/25/17 07:22 Seg Neutrophils # 16.6 K/mm3 (1.8-7.7) H 01/29/17 06:31 Seg Neutrophils # Man 17.8 K/mm3 (1.8-7.7) H 01/25/17 07:22 Band Neutrophils # 1.3 K/mm3 01/25/17 07:22 Lymphocytes # (Manual) 1.3 K/mm3 (1.2-5.4) 01/25/17 07:22 Abs React Lymphs (Man) 0.0 K/mm3 01/25/17 07:22 Monocytes # (Manual) 0.8 K/mm3 (0.0-0.8) 01/25/17 07:22 Eosinophils # (Manual) 0.0 K/mm3 (0.0-0.4) 01/25/17 07:22 Basophils # (Manual) 0.0 K/mm3 (0.0-0.1) 01/25/17 07:22 Metamyelocytes # 0.0 K/mm3 01/25/17 07:22 Myelocytes # 0.0 K/mm3 01/25/17 07:22 Promyelocytes # 0.0 K/mm3 01/25/17 07:22 Blast Cells # 0.0 K/mm3 01/25/17 07:22 WBC Morphology Not Reportable 01/25/17 07:22 Hypersegmented Neuts Not Reportable 01/25/17 07:22 Hyposegmented Neuts Not Reportable 01/25/17 07:22 Hypogranular Neuts Not Reportable 01/25/17 07:22 Smudge Cells Not Reportable 01/25/17 07:22 Toxic Granulation Not Reportable 01/25/17 07:22 Toxic Vacuolation Not Reportable 01/25/17 07:22 Dohle Bodies Not Reportable 01/25/17 07:22 Pelger-Huet Anomaly Not Reportable 01/25/17 07:22 Roderick Rods Not Reportable 01/25/17 07:22 Platelet Estimate Not Reportable 01/25/17 07:22 Clumped Platelets Not Reportable 01/25/17 07:22 Plt Clumps, EDTA Not Reportable 01/25/17 07:22 Large Platelets Not Reportable 01/25/17 07:22 Giant Platelets Not Reportable 01/25/17 07:22 Platelet Satelliting Not Reportable 01/25/17 07:22 Plt Morphology Comment Not Reportable 01/25/17 07:22 RBC Morphology Normal 01/25/17 07:22 Dimorphic RBCs Not Reportable 01/25/17 07:22 Polychromasia Not Reportable 01/25/17 07:22 Hypochromasia Not Reportable 01/25/17 07:22 Poikilocytosis Not Reportable 01/25/17 07:22 Anisocytosis Not Reportable 01/25/17 07:22 Microcytosis Not Reportable 01/25/17 07:22 Macrocytosis Not Reportable 01/25/17 07:22 Spherocytes Not Reportable 01/25/17 07:22 Pappenheimer Bodies Not Reportable 01/25/17 07:22 Sickle Cells Not Reportable 01/25/17 07:22 Target Cells Not Reportable 01/25/17 07:22 Tear Drop Cells Not Reportable 01/25/17 07:22 Ovalocytes Not Reportable 01/25/17 07:22 Helmet Cells Not Reportable 01/25/17 07:22 [place] Bodies Not Reportable 01/25/17 07:22 [place] Rings Not Reportable 01/25/17 07:22 [place] Cells Not Reportable 01/25/17 07:22 Bite Cells Not Reportable 01/25/17 07:22 Crenated Cell Not Reportable 01/25/17 07:22 Elliptocytes Not Reportable 01/25/17 07:22 Acanthocytes (Spur) Not Reportable 01/25/17 07:22 Rouleaux Not Reportable 01/25/17 07:22 Hemoglobin C Crystals Not Reportable 01/25/17 07:22 Schistocytes Not Reportable 01/25/17 07:22 Malaria parasites Not Reportable 01/25/17 07:22 [place] Bodies Not Reportable 01/25/17 07:22 Hem Pathologist Commnt No 01/25/17 07:22 PT 12.0 Sec. (12.2-14.9) L 01/22/17 12:52 INR 0.90 (0.87-1.13) 01/22/17 12:52 D-Dimer 162.42 ng/mlDDU (0-234) 01/22/17 12:52 POC ABG pH 7.468 (7.35-7.45) H 01/29/17 03:56 POC ABG pCO2 43.2 (35-45) 01/29/17 03:56 POC ABG pO2 124 (80-105) H 01/29/17 03:56 POC ABG HCO3 31.3 01/29/17 03:56 POC ABG Total CO2 33 01/29/17 03:56 POC ABG O2 Sat 99 01/29/17 03:56 POC ABG Base Excess 8 01/29/17 03:56 FiO2 30 % 01/29/17 03:56 Sodium 136 mmol/L (137-145) L 01/28/17 07:48 Potassium 4.5 mmol/L (3.6-5.0) D 01/28/17 07:48 Chloride 99.4 mmol/L (98-107) 01/28/17 07:48 Carbon Dioxide 24 mmol/L (22-30) 01/28/17 07:48 Anion Gap 17 mmol/L 01/28/17 07:48 BUN 13 mg/dL (7-17) 01/28/17 07:48 Creatinine 0.3 mg/dL (0.7-1.2) L 01/28/17 07:48 Estimated GFR > 60 ml/min 01/28/17 07:48 BUN/Creatinine Ratio 43.33 % 01/28/17 07:48 Glucose 146 mg/dL (65-100) H 01/28/17 07:48 POC Glucose 189 (70-105) H 01/24/17 00:07 Lactic Acid 1.8 mmol/L (0.7-2.0) 01/25/17 07:28 Calcium 8.6 mg/dL (8.4-10.2) D 01/28/17 07:48 Phosphorus 3.0 mg/dL (2.5-4.5) 01/27/17 04:00 Magnesium 1.8 mg/dL (1.7-2.3) 01/27/17 04:00 Total Bilirubin 0.4 mg/dL (0.1-1.2) 01/23/17 03:40 Direct Bilirubin < 0.2 mg/dL (0-0.2) 01/22/17 12:52 Indirect Bilirubin 0.0 mg/dL 01/22/17 12:52 AST 98 units/L (5-40) H 01/23/17 03:40 ALT 93 units/L (7-56) H 01/23/17 03:40 Alkaline Phosphatase 72 units/L (35-129) 01/23/17 03:40 Troponin T < 0.010 ng/mL (0.00-0.029) 01/22/17 12:52 C-Reactive Protein 0.30 mg/dL (0.00-1.30) 01/23/17 03:40 NT-Pro-B Natriuret Pep 100.8 pg/mL (0-450) 01/22/17 12:52 Total Protein 5.9 g/dL (6.3-8.2) L 01/23/17 03:40 Albumin 3.2 g/dL (3.9-5) L 01/23/17 03:40 Albumin/Globulin Ratio 1.2 % 01/23/17 03:40 Triglycerides 164 mg/dL (2-149) H 01/29/17 06:31 HCG, Quant < 2 mIU/mL (0-4) 01/22/17 12:52 Urine Color Colorless (Yellow) 01/22/17 Unknown Urine Turbidity Clear (Clear) 01/22/17 Unknown Urine pH 6.0 (5.0-7.0) 01/22/17 Unknown Ur Specific [place] 1.002 (1.003-1.030) L 01/22/17 Unknown Urine Protein <15 mg/dl mg/dL (Negative) 01/22/17 Unknown Urine Glucose (UA) Neg mg/dL (Negative) 01/22/17 Unknown Urine Ketones Neg mg/dL (Negative) 01/22/17 Unknown Urine Blood Mod (Negative) 01/22/17 Unknown Urine Nitrite Neg (Negative) 01/22/17 Unknown Urine Bilirubin Neg (Negative) 01/22/17 Unknown Urine Urobilinogen < 2.0 mg/dL (<2.0) 01/22/17 Unknown Ur Leukocyte Esterase Neg (Negative) 01/22/17 Unknown Urine WBC (Auto) < 1.0 /HPF (0.0-6.0) 01/22/17 Unknown Urine RBC (Auto) 1.0 /HPF (0.0-6.0) 01/22/17 Unknown U Epithel Cells (Auto) < 1.0 /HPF (0-13.0) 01/22/17 Unknown Urine Opiates Screen Presumptive negative 01/22/17 Unknown Urine Methadone Screen Presumptive negative 01/22/17 Unknown Ur Barbiturates Screen Presumptive negative 01/22/17 Unknown Ur Phencyclidine Scrn Presumptive negative 01/22/17 Unknown Ur Amphetamines Screen Presumptive negative 01/22/17 Unknown U Benzodiazepines Scrn Presumptive negative 01/22/17 Unknown Urine Cocaine Screen Presumptive negative 01/22/17 Unknown U Marijuana (THC) Screen Presumptive negative 01/22/17 Unknown Drugs of Abuse Note Disclamer 01/22/17 Unknown
[2017-01-30] MEDS: PROVENTIL IH SCH ×4 (01:50→21:00)
[2017-01-30 04:45] LABS: ISTAT Base Excess 4; ISTAT HCO3 28.6; ISTAT PCO2 42.2 (35-45); ISTAT PH 7.439 (7.35-7.45); ISTAT PO2 107 (80-105); ISTAT SO2 98; ISTAT TCO2 30
[2017-01-30] MEDS: LIBRIUM PO SCH ×3 (05:42→21:21)
[2017-01-30] MEDS: NEURONTIN PO SCH ×3 (05:43→21:34)
[2017-01-30 07:29] LABS: Hematocrit 35.7 % (30.3-42.9); Hemoglobin 11.9 gm/dl (10.1-14.3); Mean Corpuscular HGB Conc 33 % (30-34); Mean Corpuscular Hemoglobin 30 pg (28-32); Mean Corpuscular Volume 90 fl (79-97); Platelet Count 328 K/mm3 (140-440); Red Blood Count 3.98 M/mm3 (3.65-5.03); Red Cell Distribution Width 12.7 % (13.2-15.2); White Blood Count 16.6 K/mm3 (4.5-11.0)
[2017-01-30 07:59] LABS: Anion Gap 18 mmol/L; Carbon Dioxide 27 mmol/L (22-30); Glucose 153 mg/dL (65-100); Magnesium 2.1 mg/dL (1.7-2.3); Phosphorous 3.9 mg/dL (2.5-4.5); Potassium 4.8 mmol/L (3.6-5.0); Sodium 137 mmol/L (137-145)
[2017-01-30 08:56] LABS: Blood Urea Nitrogen 20 mg/dL (7-17)
[2017-01-30 09:11] LABS: Basophils % (Manual) 0 % (0.0-1.8); Blastocytes % (Manual) 0 %; Eosinophils % (Manual) 0 % (0.0-4.3)
[2017-01-30 09:12] LABS: Anisocytosis 1+; Diff Status Complete; Large Platelets Rare; Platelet Estimate Cons
[2017-01-30] MEDS: ROBINUL PO SCH ×4 (09:34→23:31)
[2017-01-30] MEDS: LOVENOX SUB-Q SCH (09:34)
[2017-01-30] MEDS: VITAMIN B-1 PO SCH (09:35)
[2017-01-30] MEDS: PEPCID PO SCH ×2 (09:35→21:22)
[2017-01-30] MEDS: FOLVITE PO SCH (09:35)
[2017-01-30] MEDS: fentaNYL DRIP Premix 2,000 MCG/100 ML BAG IV SCH ×2 (09:41→18:56)
[2017-01-30] MEDS ORDERED: CATHFLO IV ONE (10:00)
--- NOTE | 2017-01-30 10:08 | Progress Note ---
Assessment and Plan - Patient Problems (1) Altered mental status Current Visit: Yes Status: Acute Qualifiers: Altered mental status type: A Coma depth: C Coma timing: C Plan to address problem: - likely substance withdrawal - continue librium at current dose - continue seroquel at 300mg bid - continue neurontin at current dose - will begin PSV trials on current propofol dose with Apnea limit sent at 20-30 seconds - if passes SBT with good 2 hour ABG then we will stop sedation and give a trial of extubation soon after (2) Acute respiratory failure Current Visit: Yes Status: Acute Qualifiers: Respiratory failure complication: hypoxia Qualified Code(s): J96.01 - Acute respiratory failure with hypoxia Plan to address problem: - continuing bronchodilators and pulmonary toilet - continue aspiration precautions / VAP bundles - wean oxygen for sats > 94% at this point - pulled ETT 2cm to 24cm at the lips - as above otherwise (3) Leucocytosis Current Visit: Yes Status: Acute Qualifiers: Leukocytosis type: L Plan to address problem: - taper systemic steroids - cultures NGTD - following clinically off antibiotics (4) Discharge planning issues Current Visit: Yes Status: Acute Plan to address problem: - she remains critically ill on life sustaining interventions including MVS and at risk for further deterioration including - care plan discussed during team rounds ...36' CCT Subjective Date of service: 01/30/17 Principal diagnosis: Acute Hypoxemic Respiratory Failure Interval history: Seen and examined at bedside; 24 hour events reviewed; nursing and respiratory care staff consulted; no adverse overnight events reported to me; still with withdrawal/agitation issues however slowly improving with p.o. meds; she is tolerating weaning the propofol down to 5 mics/kg/min now; no emesis or overt aspiration and no gross bleeding Objective Vital Signs - 12hr 01/29/17 01/29/17 01/29/17 22:30 23:00 23:30 Temperature Pulse Rate 71 70 72 Pulse Rate [ Anterior Bilateral Throughout] Pulse Rate [ From Monitor] Respiratory 18 18 18 Rate Respiratory Rate [Anterior Bilateral Throughout] Blood Pressure 85/45 84/47 85/49 O2 Sat by Pulse 95 98 Oximetry 01/29/17 01/30/17 01/30/17 23:40 00:00 00:30 Temperature Pulse Rate 70 71 71 Pulse Rate [ Anterior Bilateral Throughout] Pulse Rate [ 75 From Monitor] Respiratory 18 18 Rate Respiratory Rate [Anterior Bilateral Throughout] Blood Pressure 84/47 89/49 91/54 O2 Sat by Pulse 95 100 Oximetry 01/30/17 01/30/17 01/30/17 01:00 01:30 01:50 Temperature Pulse Rate 71 76 Pulse Rate [ 74 Anterior Bilateral Throughout] Pulse Rate [ From Monitor] Respiratory 18 18 Rate Respiratory 18 Rate [Anterior Bilateral Throughout] Blood Pressure 96/59 98/60 O2 Sat by Pulse 96 96 Oximetry 01/30/17 01/30/17 01/30/17 02:00 02:05 02:30 Temperature Pulse Rate 71 81 Pulse Rate [ 76 Anterior Bilateral Throughout] Pulse Rate [ From Monitor] Respiratory 18 16 Rate Respiratory 18 Rate [Anterior Bilateral Throughout] Blood Pressure 104/61 119/76 O2 Sat by Pulse 95 93 Oximetry 01/30/17 01/30/17 01/30/17 03:00 03:30 04:00 Temperature Pulse Rate 80 78 77 Pulse Rate [ Anterior Bilateral Throughout] Pulse Rate [ 68 From Monitor] Respiratory 19 18 18 Rate Respiratory Rate [Anterior Bilateral Throughout] Blood Pressure 111/70 111/70 89/47 O2 Sat by Pulse 96 Oximetry 01/30/17 01/30/17 01/30/17 04:18 04:30 05:00 Temperature Pulse Rate 72 77 66 Pulse Rate [ Anterior Bilateral Throughout] Pulse Rate [ From Monitor] Respiratory 18 18 Rate Respiratory Rate [Anterior Bilateral Throughout] Blood Pressure 89/47 91/52 95/53 O2 Sat by Pulse 96 98 Oximetry 01/30/17 01/30/17 01/30/17 05:30 06:00 06:30 Temperature Pulse Rate 69 63 66 Pulse Rate [ Anterior Bilateral Throughout] Pulse Rate [ From Monitor] Respiratory 18 18 18 Rate Respiratory Rate [Anterior Bilateral Throughout] Blood Pressure 90/51 104/59 91/52 O2 Sat by Pulse 97 99 97 Oximetry 01/30/17 01/30/17 01/30/17 07:00 07:30 07:31 Temperature Pulse Rate 76 65 Pulse Rate [ 66 Anterior Bilateral Throughout] Pulse Rate [ From Monitor] Respiratory 25 H 18 Rate Respiratory 16 Rate [Anterior Bilateral Throughout] Blood Pressure 95/47 99/58 O2 Sat by Pulse 95 Oximetry 01/30/17 01/30/17 07:32 08:00 Temperature 98.5 F Pulse Rate 65 73 Pulse Rate [ Anterior Bilateral Throughout] Pulse Rate [ From Monitor] Respiratory 18 Rate Respiratory Rate [Anterior Bilateral Throughout] Blood Pressure 99/58 94/52 O2 Sat by Pulse 100 99 Oximetry Constitutional: no acute distress, other ( sedated and on mechanical ventilation.) Eyes: non-icteric ENT: oropharynx moist Neck: supple, no lymphadenopathy Effort: mildly labored Ascultation: Bilateral: clear Cardiovascular: regular rate and rhythm Gastrointestinal: normoactive bowel sounds, soft, non-tender, non-distended Integumentary: normal Extremities: no cyanosis, no edema, pink and warm, pulses normal, no ischemia or petechiae Neurologic: unable to assess, other (sedated) Psychiatric: other (sedated) CBC and BMP: 01/30/17 07:03 01/30/17 07:03 ABG, PT/INR, D-dimer: ABG POC ABG pH 7.439 (7.35-7.45) 01/30/17 04:20 POC ABG pCO2 42.2 (35-45) 01/30/17 04:20 POC ABG pO2 107 (80-105) H 01/30/17 04:20 POC ABG HCO3 28.6 01/30/17 04:20 POC ABG Total CO2 30 01/30/17 04:20 POC ABG O2 Sat 98 01/30/17 04:20 PT/INR, D-dimer PT 12.0 Sec. (12.2-14.9) L 01/22/17 12:52 INR 0.90 (0.87-1.13) 01/22/17 12:52 D-Dimer 162.42 ng/mlDDU (0-234) 01/22/17 12:52 Abnormal lab findings: Abnormal Labs 01/22/17 01/23/17 01/23/17 Unknown 03:32 03:40 WBC 16.5 H RBC Hgb Hct RDW Lymph % (Auto) Lymph # [place] # Seg Neutrophils % Seg Neuts % (Manual) 95.0 H Lymphocytes % (Manual) 4.0 L Seg Neutrophils # Seg Neutrophils # Man 15.7 H Lymphocytes # (Manual) 0.7 L Monocytes # (Manual) POC ABG pH 7.293 L POC ABG pCO2 POC ABG pO2 Sodium Potassium Chloride Carbon Dioxide BUN Creatinine Glucose POC Glucose Lactic Acid Calcium Phosphorus AST ALT Total Protein Albumin Triglycerides Ur Specific [place] 1.002 L 01/23/17 01/23/17 01/23/17 03:40 13:41 20:48 WBC RBC Hgb Hct RDW Lymph % (Auto) Lymph # [place] # Seg Neutrophils % Seg Neuts % (Manual) Lymphocytes % (Manual) Seg Neutrophils # Seg Neutrophils # Man Lymphocytes # (Manual) Monocytes # (Manual) POC ABG pH POC ABG pCO2 POC ABG pO2 77 L Sodium Potassium Chloride 108.6 H Carbon Dioxide 19 L BUN Creatinine 0.5 L Glucose 216 H POC Glucose Lactic Acid 3.3 H* Calcium 7.6 L D Phosphorus AST 98 H ALT 93 H Total Protein 5.9 L Albumin 3.2 L Triglycerides Ur Specific [place] 01/24/17 01/24/17 01/24/17 00:07 04:39 06:00 WBC 25.7 H RBC Hgb Hct RDW Lymph % (Auto) Lymph # [place] # Seg Neutrophils % Seg Neuts % (Manual) 99.0 H Lymphocytes % (Manual) 0 L Seg Neutrophils # Seg Neutrophils # Man 25.4 H Lymphocytes # (Manual) 0.0 L Monocytes # (Manual) POC ABG pH POC ABG pCO2 POC ABG pO2 106 H Sodium Potassium Chloride Carbon Dioxide BUN Creatinine Glucose POC Glucose 189 H Lactic Acid Calcium Phosphorus AST ALT Total Protein Albumin Triglycerides Ur Specific [place] 01/24/17 01/24/17 01/25/17 06:00 13:22 04:46 WBC RBC Hgb Hct RDW Lymph % (Auto) Lymph # [place] # Seg Neutrophils % Seg Neuts % (Manual) Lymphocytes % (Manual) Seg Neutrophils # Seg Neutrophils # Man Lymphocytes # (Manual) Monocytes # (Manual) POC ABG pH 7.333 L POC ABG pCO2 POC ABG pO2 Sodium Potassium Chloride 107.5 H Carbon Dioxide BUN Creatinine 0.4 L Glucose 165 H POC Glucose Lactic Acid 2.6 H* Calcium 7.9 L Phosphorus AST ALT Total Protein Albumin Triglycerides Ur Specific [place] 01/25/17 01/25/17 01/25/17 06:48 07:22 07:31 WBC 21.2 H RBC 3.41 L Hgb Hct RDW Lymph % (Auto) Lymph # [place] # Seg Neutrophils % Seg Neuts % (Manual) 84.0 H Lymphocytes % (Manual) 6.0 L Seg Neutrophils # Seg Neutrophils # Man 17.8 H Lymphocytes # (Manual) Monocytes # (Manual) POC ABG pH POC ABG pCO2 POC ABG pO2 Sodium Potassium 2.8 L* D 3.5 L D Chloride 116.5 H Carbon Dioxide 17 L D BUN Creatinine 0.2 L 0.3 L Glucose 117 H 141 H POC Glucose Lactic Acid Calcium 5.7 L* D 7.9 L D Phosphorus 1.5 L AST ALT Total Protein Albumin Triglycerides Ur Specific [place] 01/26/17 01/26/17 01/26/17 00:23 04:00 04:00 WBC 15.2 H RBC 3.23 L Hgb 9.9 L Hct 29.9 L RDW Lymph % (Auto) 4.7 L Lymph # 0.7 L [place] # Seg Neutrophils % 90.0 H Seg Neuts % (Manual) Lymphocytes % (Manual) Seg Neutrophils # 13.6 H Seg Neutrophils # Man Lymphocytes # (Manual) Monocytes # (Manual) POC ABG pH 7.499 H POC ABG pCO2 30.4 L POC ABG pO2 Sodium Potassium Chloride Carbon Dioxide BUN Creatinine 0.4 L Glucose 132 H POC Glucose Lactic Acid Calcium 7.4 L Phosphorus AST ALT Total Protein Albumin Triglycerides Ur Specific [place] 01/26/17 01/27/17 01/27/17 05:12 04:00 04:00 WBC RBC 3.30 L Hgb 10.0 L Hct RDW Lymph % (Auto) 6.0 L Lymph # 0.6 L [place] # Seg Neutrophils % 89.4 H Seg Neuts % (Manual) Lymphocytes % (Manual) Seg Neutrophils # 8.4 H Seg Neutrophils # Man Lymphocytes # (Manual) Monocytes # (Manual) POC ABG pH 7.464 H POC ABG pCO2 POC ABG pO2 138 H Sodium Potassium 3.5 L Chloride 107.4 H Carbon Dioxide BUN Creatinine 0.3 L Glucose 138 H POC Glucose Lactic Acid Calcium 7.1 L Phosphorus AST ALT Total Protein Albumin Triglycerides Ur Specific [place] 01/28/17 01/28/17 01/29/17 07:48 07:48 03:56 WBC 12.3 H RBC Hgb Hct RDW 12.9 L Lymph % (Auto) Lymph # [place] # Seg Neutrophils % Seg Neuts % (Manual) Lymphocytes % (Manual) Seg Neutrophils # Seg Neutrophils # Man Lymphocytes # (Manual) Monocytes # (Manual) POC ABG pH 7.468 H POC ABG pCO2 POC ABG pO2 124 H Sodium 136 L Potassium Chloride Carbon Dioxide BUN Creatinine 0.3 L Glucose 146 H POC Glucose Lactic Acid Calcium Phosphorus AST ALT Total Protein Albumin Triglycerides Ur Specific [place] 01/29/17 01/29/17 01/30/17 06:31 06:31 04:20 WBC 18.8 H RBC Hgb Hct RDW 13.0 L Lymph % (Auto) 5.1 L Lymph # 1.0 L [place] # 1.2 H Seg Neutrophils % 88.2 H Seg Neuts % (Manual) Lymphocytes % (Manual) Seg Neutrophils # 16.6 H Seg Neutrophils # Man Lymphocytes # (Manual) Monocytes # (Manual) POC ABG pH POC ABG pCO2 POC ABG pO2 107 H Sodium Potassium Chloride Carbon Dioxide BUN Creatinine Glucose POC Glucose Lactic Acid Calcium Phosphorus AST ALT Total Protein Albumin Triglycerides 164 H Ur Specific [place] 01/30/17 01/30/17 07:03 07:03 WBC 16.6 H RBC Hgb Hct RDW 12.7 L Lymph % (Auto) Lymph # [place] # Seg Neutrophils % Seg Neuts % (Manual) 88.0 H Lymphocytes % (Manual) 3.0 L Seg Neutrophils # Seg Neutrophils # Man 14.6 H Lymphocytes # (Manual) 0.5 L Monocytes # (Manual) 1.2 H POC ABG pH POC ABG pCO2 POC ABG pO2 Sodium Potassium Chloride 97.0 L Carbon Dioxide BUN 20 H Creatinine 0.4 L Glucose 153 H POC Glucose Lactic Acid Calcium Phosphorus AST ALT Total Protein Albumin Triglycerides Ur Specific Bivalve
[2017-01-30] MEDS ORDERED: WATER FOR INJ (PF) 10 ML ONE (11:06)
[2017-01-30] MEDS: SUBLIMAZE IV PRN ×2 (15:09→17:51)
[2017-01-30] MEDS: ATIVAN IV PRN ×3 (15:09→19:23)
--- NOTE | 2017-01-30 15:11 | Progress Note ---
Assessment and Plan Assessment and plan: --Acute hypoxemic respiratory failure On vent, not tolerating weaning trials Continue nebulizers, IV steroids , inhalation steroids Pulmonary following --Acute exacerbation of bronchial asthma Ventilatory support, nebulizers, steroids, Supportive care --Leukocytosis trending down Secondary to IV steroids, cultures negative to date --Lactic acidosis Resolved --DVT prophylaxis with Lovenox Wean as tolerated and extubate Plan of care discussed with the patient's nurse History Interval history: Reason seen and evaluated this morning in ICU medical records reviewed No new events reported by the nursing staff, patient is getting agitated when sedation is decreased Remains intubated on ventilatory support, unable to wean at this point Responding to simple verbal commands by opening eyes Hospitalist Physical - Constitutional Vitals: Temp Pulse Resp BP Pulse Ox 97.7 F 63 16 106/66 98 01/30/17 12:00 01/30/17 14:00 01/30/17 14:00 01/30/17 14:00 01/30/17 14:00 General appearance: Present: no acute distress, well-nourished, other (orally intubated and on vent) - EENT Eyes: Present: PERRL, EOM intact - Neck Neck: Present: supple, normal ROM - Respiratory Respiratory effort: normal Respiratory: bilateral: diminished, rhonchi - Cardiovascular Rhythm: regular Heart Sounds: Present: S1 & S2 - Extremities Extremities: no ischemia, pulses intact, pulses symmetrical Peripheral Pulses: within normal limits - Abdominal General gastrointestinal: soft, non-tender, non-distended, normal bowel sounds - Integumentary Integumentary: Present: clear, warm, erythema - Psychiatric Psychiatric: appropriate mood/affect, cooperative - Neurologic Neurologic: CNII-XII intact, moves all extremities Results - Labs CBC & Chem 7: 01/30/17 07:03 01/30/17 07:03 Labs: Laboratory Last Values WBC 16.6 K/mm3 (4.5-11.0) H 01/30/17 07:03 RBC 3.98 M/mm3 (3.65-5.03) 01/30/17 07:03 Hgb 11.9 gm/dl (10.1-14.3) 01/30/17 07:03 Hct 35.7 % (30.3-42.9) 01/30/17 07:03 MCV 90 fl (79-97) 01/30/17 07:03 MCH 30 pg (28-32) 01/30/17 07:03 MCHC 33 % (30-34) 01/30/17 07:03 RDW 12.7 % (13.2-15.2) L 01/30/17 07:03 Plt Count 328 K/mm3 (140-440) 01/30/17 07:03 Lymph % (Auto) 5.1 % (13.4-35.0) L 01/29/17 06:31 [place] % (Auto) 6.3 % (0.0-7.3) 01/29/17 06:31 Eos % (Auto) 0.0 % (0.0-4.3) 01/29/17 06:31 Baso % (Auto) 0.4 % (0.0-1.8) 01/29/17 06:31 Lymph # 1.0 K/mm3 (1.2-5.4) L 01/29/17 06:31 [place] # 1.2 K/mm3 (0.0-0.8) H 01/29/17 06:31 Eos # 0.0 K/mm3 (0.0-0.4) 01/29/17 06:31 Baso # 0.1 K/mm3 (0.0-0.1) 01/29/17 06:31 Add Manual Diff Complete 01/30/17 07:03 Total Counted 100 01/30/17 07:03 Seg Neutrophils % 88.2 % (40.0-70.0) H 01/29/17 06:31 Seg Neuts % (Manual) 88.0 % (40.0-70.0) H 01/30/17 07:03 Band Neutrophils % 2.0 % 01/30/17 07:03 Lymphocytes % (Manual) 3.0 % (13.4-35.0) L 01/30/17 07:03 Reactive Lymphs % (Man) 0 % 01/30/17 07:03 Monocytes % (Manual) 7.0 % (0.0-7.3) 01/30/17 07:03 Eosinophils % (Manual) 0 % (0.0-4.3) 01/30/17 07:03 Basophils % (Manual) 0 % (0.0-1.8) 01/30/17 07:03 Metamyelocytes % 0 % 01/30/17 07:03 Myelocytes % 0 % 01/30/17 07:03 Promyelocytes % 0 % 01/30/17 07:03 Blast Cells % 0 % 01/30/17 07:03 Nucleated RBC % Not Reportable 01/30/17 07:03 Seg Neutrophils # 16.6 K/mm3 (1.8-7.7) H 01/29/17 06:31 Seg Neutrophils # Man 14.6 K/mm3 (1.8-7.7) H 01/30/17 07:03 Band Neutrophils # 0.3 K/mm3 01/30/17 07:03 Lymphocytes # (Manual) 0.5 K/mm3 (1.2-5.4) L 01/30/17 07:03 Abs React Lymphs (Man) 0.0 K/mm3 01/30/17 07:03 Monocytes # (Manual) 1.2 K/mm3 (0.0-0.8) H 01/30/17 07:03 Eosinophils # (Manual) 0.0 K/mm3 (0.0-0.4) 01/30/17 07:03 Basophils # (Manual) 0.0 K/mm3 (0.0-0.1) 01/30/17 07:03 Metamyelocytes # 0.0 K/mm3 01/30/17 07:03 Myelocytes # 0.0 K/mm3 01/30/17 07:03 Promyelocytes # 0.0 K/mm3 01/30/17 07:03 Blast Cells # 0.0 K/mm3 01/30/17 07:03 WBC Morphology Not Reportable 01/30/17 07:03 Hypersegmented Neuts Not Reportable 01/30/17 07:03 Hyposegmented Neuts Not Reportable 01/30/17 07:03 Hypogranular Neuts Not Reportable 01/30/17 07:03 Smudge Cells Not Reportable 01/30/17 07:03 Toxic Granulation Not Reportable 01/30/17 07:03 Toxic Vacuolation Not Reportable 01/30/17 07:03 Dohle Bodies Not Reportable 01/30/17 07:03 Pelger-Huet Anomaly Not Reportable 01/30/17 07:03 Roderick Rods Not Reportable 01/30/17 07:03 Platelet Estimate Cons 01/30/17 07:03 Clumped Platelets Not Reportable 01/30/17 07:03 Plt Clumps, EDTA Not Reportable 01/30/17 07:03 Large Platelets Rare 01/30/17 07:03 Giant Platelets Not Reportable 01/30/17 07:03 Platelet Satelliting Not Reportable 01/30/17 07:03 Plt Morphology Comment Not Reportable 01/30/17 07:03 RBC Morphology Not Reportable 01/30/17 07:03 Dimorphic RBCs Not Reportable 01/30/17 07:03 Polychromasia Not Reportable 01/30/17 07:03 Hypochromasia Not Reportable 01/30/17 07:03 Poikilocytosis Not Reportable 01/30/17 07:03 Anisocytosis 1+ 01/30/17 07:03 Microcytosis Not Reportable 01/30/17 07:03 Macrocytosis Not Reportable 01/30/17 07:03 Spherocytes Not Reportable 01/30/17 07:03 Pappenheimer Bodies Not Reportable 01/30/17 07:03 Sickle Cells Not Reportable 01/30/17 07:03 Target Cells Not Reportable 01/30/17 07:03 Tear Drop Cells Not Reportable 01/30/17 07:03 Ovalocytes Not Reportable 01/30/17 07:03 Helmet Cells Not Reportable 01/30/17 07:03 [place] Bodies Not Reportable 01/30/17 07:03 Challenge Rings Not Reportable 01/30/17 07:03 Silver Plume Cells Not Reportable 01/30/17 07:03 Bite Cells Not Reportable 01/30/17 07:03 Crenated Cell Not Reportable 01/30/17 07:03 Elliptocytes Not Reportable 01/30/17 07:03 Acanthocytes (Spur) Not Reportable 01/30/17 07:03 Rouleaux Not Reportable 01/30/17 07:03 Hemoglobin C Crystals Not Reportable 01/30/17 07:03 Schistocytes Not Reportable 01/30/17 07:03 Malaria parasites Not Reportable 01/30/17 07:03 [place] Bodies Not Reportable 01/30/17 07:03 Hem Pathologist Commnt No 01/30/17 07:03 PT 12.0 Sec. (12.2-14.9) L 01/22/17 12:52 INR 0.90 (0.87-1.13) 01/22/17 12:52 D-Dimer 162.42 ng/mlDDU (0-234) 01/22/17 12:52 POC ABG pH 7.439 (7.35-7.45) 01/30/17 04:20 POC ABG pCO2 42.2 (35-45) 01/30/17 04:20 POC ABG pO2 107 (80-105) H 01/30/17 04:20 POC ABG HCO3 28.6 01/30/17 04:20 POC ABG Total CO2 30 01/30/17 04:20 POC ABG O2 Sat 98 01/30/17 04:20 POC ABG Base Excess 4 01/30/17 04:20 FiO2 30 % 01/30/17 04:20 Sodium 137 mmol/L (137-145) 01/30/17 07:03 Potassium 4.8 mmol/L (3.6-5.0) 01/30/17 07:03 Chloride 97.0 mmol/L (98-107) L 01/30/17 07:03 Carbon Dioxide 27 mmol/L (22-30) 01/30/17 07:03 Anion Gap 18 mmol/L 01/30/17 07:03 BUN 20 mg/dL (7-17) H 01/30/17 07:03 Creatinine 0.4 mg/dL (0.7-1.2) L 01/30/17 07:03 Estimated GFR > 60 ml/min 01/30/17 07:03 BUN/Creatinine Ratio 50.00 % 01/30/17 07:03 Glucose 153 mg/dL (65-100) H 01/30/17 07:03 POC Glucose 189 (70-105) H 01/24/17 00:07 Lactic Acid 1.8 mmol/L (0.7-2.0) 01/25/17 07:28 Calcium 9.0 mg/dL (8.4-10.2) 01/30/17 07:03 Phosphorus 3.9 mg/dL (2.5-4.5) 01/30/17 07:03 Magnesium 2.1 mg/dL (1.7-2.3) 01/30/17 07:03 Total Bilirubin 0.4 mg/dL (0.1-1.2) 01/23/17 03:40 Direct Bilirubin < 0.2 mg/dL (0-0.2) 01/22/17 12:52 Indirect Bilirubin 0.0 mg/dL 01/22/17 12:52 AST 98 units/L (5-40) H 01/23/17 03:40 ALT 93 units/L (7-56) H 01/23/17 03:40 Alkaline Phosphatase 72 units/L (35-129) 01/23/17 03:40 Troponin T < 0.010 ng/mL (0.00-0.029) 01/22/17 12:52 C-Reactive Protein 0.30 mg/dL (0.00-1.30) 01/23/17 03:40 NT-Pro-B Natriuret Pep 100.8 pg/mL (0-450) 01/22/17 12:52 Total Protein 5.9 g/dL (6.3-8.2) L 01/23/17 03:40 Albumin 3.2 g/dL (3.9-5) L 01/23/17 03:40 Albumin/Globulin Ratio 1.2 % 01/23/17 03:40 Triglycerides 164 mg/dL (2-149) H 01/29/17 06:31 HCG, Quant < 2 mIU/mL (0-4) 01/22/17 12:52 Urine Color Colorless (Yellow) 01/22/17 Unknown Urine Turbidity Clear (Clear) 01/22/17 Unknown Urine pH 6.0 (5.0-7.0) 01/22/17 Unknown Ur Specific [place] 1.002 (1.003-1.030) L 01/22/17 Unknown Urine Protein <15 mg/dl mg/dL (Negative) 01/22/17 Unknown Urine Glucose (UA) Neg mg/dL (Negative) 01/22/17 Unknown Urine Ketones Neg mg/dL (Negative) 01/22/17 Unknown Urine Blood Mod (Negative) 01/22/17 Unknown Urine Nitrite Neg (Negative) 01/22/17 Unknown Urine Bilirubin Neg (Negative) 01/22/17 Unknown Urine Urobilinogen < 2.0 mg/dL (<2.0) 01/22/17 Unknown Ur Leukocyte Esterase Neg (Negative) 01/22/17 Unknown Urine WBC (Auto) < 1.0 /HPF (0.0-6.0) 01/22/17 Unknown Urine RBC (Auto) 1.0 /HPF (0.0-6.0) 01/22/17 Unknown U Epithel Cells (Auto) < 1.0 /HPF (0-13.0) 01/22/17 Unknown Urine Opiates Screen Presumptive negative 01/22/17 Unknown Urine Methadone Screen Presumptive negative 01/22/17 Unknown Ur Barbiturates Screen Presumptive negative 01/22/17 Unknown Ur Phencyclidine Scrn Presumptive negative 01/22/17 Unknown Ur Amphetamines Screen Presumptive negative 01/22/17 Unknown U Benzodiazepines Scrn Presumptive negative 01/22/17 Unknown Urine Cocaine Screen Presumptive negative 01/22/17 Unknown U Marijuana (THC) Screen Presumptive negative 01/22/17 Unknown Drugs of Abuse Note Disclamer 01/22/17 Unknown
[2017-01-30 18:50] LABS: ISTAT Base Excess 6; ISTAT HCO3 30.2; ISTAT PCO2 43.4 (35-45); ISTAT PH 7.451 (7.35-7.45); ISTAT PO2 99 (80-105); ISTAT SO2 98; ISTAT TCO2 32
[2017-01-30] MEDS: DIPRIVAN 10 MG/ML 1,000 MG/100 ML BOTTLE IV SCH (18:53)
[2017-01-31] MEDS: fentaNYL DRIP Premix 2,000 MCG/100 ML BAG IV SCH (01:51)
[2017-01-31] MEDS: PROVENTIL IH SCH ×4 (04:35→21:31)
[2017-01-31] MEDS: LIBRIUM PO SCH ×3 (05:25→15:09)
[2017-01-31] MEDS: NEURONTIN PO SCH ×2 (05:26→15:09)
[2017-01-31] MEDS: ROBINUL PO SCH ×3 (05:27→15:10)
[2017-01-31] MEDS: SUBLIMAZE IV PRN (08:20)
[2017-01-31 08:23] LABS: ISTAT Base Excess 8; ISTAT HCO3 30.7; ISTAT PCO2 35.5 (35-45); ISTAT PH 7.546 (7.35-7.45); ISTAT PO2 113 (80-105); ISTAT SO2 99; ISTAT TCO2 32
[2017-01-31] MEDS: PEPCID PO SCH (09:04)
[2017-01-31] MEDS: FOLVITE PO SCH (09:04)
[2017-01-31] MEDS: LOVENOX SUB-Q SCH (09:04)
[2017-01-31] MEDS: VITAMIN B-1 PO SCH (09:04)
--- NOTE | 2017-01-31 10:36 | Progress Note ---
Assessment and Plan - Patient Problems (1) Altered mental status Current Visit: Yes Status: Acute Qualifiers: Altered mental status type: A Coma depth: C Coma timing: C Plan to address problem: - likely substance withdrawal - continue librium at current dose - continue seroquel at 300mg bid - continue neurontin at current dose - place on CIWA protocol with IV Ativan now - propofol & IV sedation stopped (2) Acute respiratory failure Current Visit: Yes Status: Acute Qualifiers: Respiratory failure complication: hypoxia Qualified Code(s): J96.01 - Acute respiratory failure with hypoxia Plan to address problem: - extubated - continue bronchodilators and pulmonary toilet - continue aspiration precautions - supplemental oxygen to keep O2 Sats >/= 94% (3) Leucocytosis Current Visit: Yes Status: Acute Qualifiers: Leukocytosis type: L Plan to address problem: - continue to taper systemic steroids - cultures NGTD - following clinically off antibiotics (4) Discharge planning issues Current Visit: Yes Status: Acute Plan to address problem: - she remains critically ill on life sustaining interventions including MVS and at risk for further deterioration including - LTAC evaluation - care plan discussed during team rounds ...30' CCT Subjective Date of service: 01/31/17 Principal diagnosis: Acute Hypoxemic Respiratory Failure Interval history: Seen and examined at bedside; 24 hour events reviewed; nursing and respiratory care staff consulted; no adverse overnight events reported to me; power weaned today and extubated ; doing well so far but still delirious; son was present earlier; no emesis or overt aspiration Objective Vital Signs - 12hr 01/30/17 01/30/17 01/30/17 22:50 23:00 23:30 Temperature Pulse Rate 74 74 73 Pulse Rate [ Anterior Bilateral Throughout] Pulse Rate [ From Monitor] Respiratory 18 18 18 Rate Respiratory Rate [Anterior Bilateral Throughout] Respiratory 20 Rate [ Generalized] Blood Pressure 86/44 91/52 O2 Sat by Pulse 98 96 96 Oximetry 01/30/17 01/30/17 01/31/17 23:45 23:57 00:00 Temperature 97.4 F L Pulse Rate 74 71 69 Pulse Rate [ Anterior Bilateral Throughout] Pulse Rate [ From Monitor] Respiratory 18 18 18 Rate Respiratory Rate [Anterior Bilateral Throughout] Respiratory Rate [ Generalized] Blood Pressure 91/52 92/55 O2 Sat by Pulse 98 98 98 Oximetry 01/31/17 01/31/17 01/31/17 00:05 00:30 01:00 Temperature Pulse Rate 67 68 69 Pulse Rate [ Anterior Bilateral Throughout] Pulse Rate [ From Monitor] Respiratory 18 18 18 Rate Respiratory Rate [Anterior Bilateral Throughout] Respiratory 18 Rate [ Generalized] Blood Pressure 94/58 100/62 O2 Sat by Pulse 98 Oximetry 01/31/17 01/31/17 01/31/17 01:30 02:00 02:05 Temperature Pulse Rate 67 67 67 Pulse Rate [ Anterior Bilateral Throughout] Pulse Rate [ From Monitor] Respiratory 18 18 18 Rate Respiratory Rate [Anterior Bilateral Throughout] Respiratory 18 Rate [ Generalized] Blood Pressure 94/59 96/59 O2 Sat by Pulse 98 98 Oximetry 01/31/17 01/31/17 01/31/17 02:30 03:00 03:10 Temperature Pulse Rate 67 64 Pulse Rate [ 73 73 Anterior Bilateral Throughout] Pulse Rate [ From Monitor] Respiratory 18 18 Rate Respiratory 21 20 Rate [Anterior Bilateral Throughout] Respiratory Rate [ Generalized] Blood Pressure 95/54 93/54 O2 Sat by Pulse 96 97 Oximetry 01/31/17 01/31/17 01/31/17 03:30 03:54 04:00 Temperature 97.8 F Pulse Rate 62 62 63 Pulse Rate [ Anterior Bilateral Throughout] Pulse Rate [ From Monitor] Respiratory 18 18 18 Rate Respiratory Rate [Anterior Bilateral Throughout] Respiratory Rate [ Generalized] Blood Pressure 91/55 93/53 O2 Sat by Pulse 98 Oximetry 01/31/17 01/31/17 01/31/17 04:26 04:30 05:00 Temperature Pulse Rate 72 76 77 Pulse Rate [ Anterior Bilateral Throughout] Pulse Rate [ From Monitor] Respiratory 24 25 H Rate Respiratory Rate [Anterior Bilateral Throughout] Respiratory Rate [ Generalized] Blood Pressure 93/53 91/50 92/54 O2 Sat by Pulse 97 Oximetry 01/31/17 01/31/17 01/31/17 05:15 05:30 05:59 Temperature Pulse Rate 77 71 71 Pulse Rate [ Anterior Bilateral Throughout] Pulse Rate [ From Monitor] Respiratory 24 24 Rate Respiratory Rate [Anterior Bilateral Throughout] Respiratory 18 18 Rate [ Generalized] Blood Pressure 95/56 O2 Sat by Pulse 90 91 91 Oximetry 01/31/17 01/31/17 01/31/17 06:00 06:20 06:30 Temperature Pulse Rate 66 62 Pulse Rate [ Anterior Bilateral Throughout] Pulse Rate [ From Monitor] Respiratory 25 H 22 Rate Respiratory Rate [Anterior Bilateral Throughout] Respiratory Rate [ Generalized] Blood Pressure 90/53 101/64 O2 Sat by Pulse 98 Oximetry 01/31/17 01/31/17 01/31/17 07:00 07:31 07:48 Temperature Pulse Rate 66 85 85 Pulse Rate [ Anterior Bilateral Throughout] Pulse Rate [ From Monitor] Respiratory 15 15 Rate Respiratory Rate [Anterior Bilateral Throughout] Respiratory Rate [ Generalized] Blood Pressure 121/72 123/74 145/84 O2 Sat by Pulse 100 100 Oximetry 01/31/17 01/31/17 01/31/17 08:00 08:31 09:00 Temperature 98.3 F Pulse Rate 86 82 84 Pulse Rate [ 87 Anterior Bilateral Throughout] Pulse Rate [ 71 From Monitor] Respiratory 18 16 19 Rate Respiratory 19 Rate [Anterior Bilateral Throughout] Respiratory Rate [ Generalized] Blood Pressure 132/85 128/79 121/82 O2 Sat by Pulse 98 100 100 Oximetry 01/31/17 01/31/17 01/31/17 09:30 09:52 10:00 Temperature Pulse Rate 109 H 95 H Pulse Rate [ Anterior Bilateral Throughout] Pulse Rate [ From Monitor] Respiratory 13 17 Rate Respiratory Rate [Anterior Bilateral Throughout] Respiratory Rate [ Generalized] Blood Pressure 147/91 121/75 O2 Sat by Pulse 94 98 Oximetry Constitutional: no acute distress, other ( sedated) Eyes: non-icteric ENT: oropharynx moist Neck: supple, no lymphadenopathy Effort: mildly labored Ascultation: Bilateral: rales (scant in bases) Cardiovascular: regular rate and rhythm Gastrointestinal: normoactive bowel sounds, soft, non-tender, non-distended Integumentary: normal Extremities: no cyanosis, no edema, pink and warm, pulses normal, no ischemia or petechiae Neurologic: unable to assess, other (sedated) Psychiatric: other (sedated) CBC and BMP: 01/31/17 14:40 01/31/17 14:40 ABG, PT/INR, D-dimer: ABG POC ABG pH 7.546 (7.35-7.45) H 01/31/17 08:14 POC ABG pCO2 35.5 (35-45) 01/31/17 08:14 POC ABG pO2 113 (80-105) H 01/31/17 08:14 POC ABG HCO3 30.7 01/31/17 08:14 POC ABG Total CO2 32 01/31/17 08:14 POC ABG O2 Sat 99 01/31/17 08:14 PT/INR, D-dimer PT 12.0 Sec. (12.2-14.9) L 01/22/17 12:52 INR 0.90 (0.87-1.13) 01/22/17 12:52 D-Dimer 162.42 ng/mlDDU (0-234) 01/22/17 12:52 Abnormal lab findings: Abnormal Labs 01/22/17 01/23/17 01/23/17 Unknown 03:32 03:40 WBC 16.5 H RBC Hgb Hct RDW Lymph % (Auto) Lymph # [place] # Seg Neutrophils % Seg Neuts % (Manual) 95.0 H Lymphocytes % (Manual) 4.0 L Seg Neutrophils # Seg Neutrophils # Man 15.7 H Lymphocytes # (Manual) 0.7 L Monocytes # (Manual) POC ABG pH 7.293 L POC ABG pCO2 POC ABG pO2 Sodium Potassium Chloride Carbon Dioxide BUN Creatinine Glucose POC Glucose Lactic Acid Calcium Phosphorus AST ALT Total Protein Albumin Triglycerides Ur Specific [place] 1.002 L 01/23/17 01/23/17 01/23/17 03:40 13:41 20:48 WBC RBC Hgb Hct RDW Lymph % (Auto) Lymph # [place] # Seg Neutrophils % Seg Neuts % (Manual) Lymphocytes % (Manual) Seg Neutrophils # Seg Neutrophils # Man Lymphocytes # (Manual) Monocytes # (Manual) POC ABG pH POC ABG pCO2 POC ABG pO2 77 L Sodium Potassium Chloride 108.6 H Carbon Dioxide 19 L BUN Creatinine 0.5 L Glucose 216 H POC Glucose Lactic Acid 3.3 H* Calcium 7.6 L D Phosphorus AST 98 H ALT 93 H Total Protein 5.9 L Albumin 3.2 L Triglycerides Ur Specific [place] 01/24/17 01/24/17 01/24/17 00:07 04:39 06:00 WBC 25.7 H RBC Hgb Hct RDW Lymph % (Auto) Lymph # [place] # Seg Neutrophils % Seg Neuts % (Manual) 99.0 H Lymphocytes % (Manual) 0 L Seg Neutrophils # Seg Neutrophils # Man 25.4 H Lymphocytes # (Manual) 0.0 L Monocytes # (Manual) POC ABG pH POC ABG pCO2 POC ABG pO2 106 H Sodium Potassium Chloride Carbon Dioxide BUN Creatinine Glucose POC Glucose 189 H Lactic Acid Calcium Phosphorus AST ALT Total Protein Albumin Triglycerides Ur Specific [place] 01/24/17 01/24/17 01/25/17 06:00 13:22 04:46 WBC RBC Hgb Hct RDW Lymph % (Auto) Lymph # [place] # Seg Neutrophils % Seg Neuts % (Manual) Lymphocytes % (Manual) Seg Neutrophils # Seg Neutrophils # Man Lymphocytes # (Manual) Monocytes # (Manual) POC ABG pH 7.333 L POC ABG pCO2 POC ABG pO2 Sodium Potassium Chloride 107.5 H Carbon Dioxide BUN Creatinine 0.4 L Glucose 165 H POC Glucose Lactic Acid 2.6 H* Calcium 7.9 L Phosphorus AST ALT Total Protein Albumin Triglycerides Ur Specific [place] 01/25/17 01/25/17 01/25/17 06:48 07:22 07:31 WBC 21.2 H RBC 3.41 L Hgb Hct RDW Lymph % (Auto) Lymph # [place] # Seg Neutrophils % Seg Neuts % (Manual) 84.0 H Lymphocytes % (Manual) 6.0 L Seg Neutrophils # Seg Neutrophils # Man 17.8 H Lymphocytes # (Manual) Monocytes # (Manual) POC ABG pH POC ABG pCO2 POC ABG pO2 Sodium Potassium 2.8 L* D 3.5 L D Chloride 116.5 H Carbon Dioxide 17 L D BUN Creatinine 0.2 L 0.3 L Glucose 117 H 141 H POC Glucose Lactic Acid Calcium 5.7 L* D 7.9 L D Phosphorus 1.5 L AST ALT Total Protein Albumin Triglycerides Ur Specific [place] 01/26/17 01/26/17 01/26/17 00:23 04:00 04:00 WBC 15.2 H RBC 3.23 L Hgb 9.9 L Hct 29.9 L RDW Lymph % (Auto) 4.7 L Lymph # 0.7 L [place] # Seg Neutrophils % 90.0 H Seg Neuts % (Manual) Lymphocytes % (Manual) Seg Neutrophils # 13.6 H Seg Neutrophils # Man Lymphocytes # (Manual) Monocytes # (Manual) POC ABG pH 7.499 H POC ABG pCO2 30.4 L POC ABG pO2 Sodium Potassium Chloride Carbon Dioxide BUN Creatinine 0.4 L Glucose 132 H POC Glucose Lactic Acid Calcium 7.4 L Phosphorus AST ALT Total Protein Albumin Triglycerides Ur Specific [place] 01/26/17 01/27/17 01/27/17 05:12 04:00 04:00 WBC RBC 3.30 L Hgb 10.0 L Hct RDW Lymph % (Auto) 6.0 L Lymph # 0.6 L [place] # Seg Neutrophils % 89.4 H Seg Neuts % (Manual) Lymphocytes % (Manual) Seg Neutrophils # 8.4 H Seg Neutrophils # Man Lymphocytes # (Manual) Monocytes # (Manual) POC ABG pH 7.464 H POC ABG pCO2 POC ABG pO2 138 H Sodium Potassium 3.5 L Chloride 107.4 H Carbon Dioxide BUN Creatinine 0.3 L Glucose 138 H POC Glucose Lactic Acid Calcium 7.1 L Phosphorus AST ALT Total Protein Albumin Triglycerides Ur Specific [place] 01/28/17 01/28/17 01/29/17 07:48 07:48 03:56 WBC 12.3 H RBC Hgb Hct RDW 12.9 L Lymph % (Auto) Lymph # [place] # Seg Neutrophils % Seg Neuts % (Manual) Lymphocytes % (Manual) Seg Neutrophils # Seg Neutrophils # Man Lymphocytes # (Manual) Monocytes # (Manual) POC ABG pH 7.468 H POC ABG pCO2 POC ABG pO2 124 H Sodium 136 L Potassium Chloride Carbon Dioxide BUN Creatinine 0.3 L Glucose 146 H POC Glucose Lactic Acid Calcium Phosphorus AST ALT Total Protein Albumin Triglycerides Ur Specific [place] 01/29/17 01/29/17 01/30/17 06:31 06:31 04:20 WBC 18.8 H RBC Hgb Hct RDW 13.0 L Lymph % (Auto) 5.1 L Lymph # 1.0 L [place] # 1.2 H Seg Neutrophils % 88.2 H Seg Neuts % (Manual) Lymphocytes % (Manual) Seg Neutrophils # 16.6 H Seg Neutrophils # Man Lymphocytes # (Manual) Monocytes # (Manual) POC ABG pH POC ABG pCO2 POC ABG pO2 107 H Sodium Potassium Chloride Carbon Dioxide BUN Creatinine Glucose POC Glucose Lactic Acid Calcium Phosphorus AST ALT Total Protein Albumin Triglycerides 164 H Ur Specific [place] 01/30/17 01/30/17 01/30/17 07:03 07:03 14:47 WBC 16.6 H RBC Hgb Hct RDW 12.7 L Lymph % (Auto) Lymph # [place] # Seg Neutrophils % Seg Neuts % (Manual) 88.0 H Lymphocytes % (Manual) 3.0 L Seg Neutrophils # Seg Neutrophils # Man 14.6 H Lymphocytes # (Manual) 0.5 L Monocytes # (Manual) 1.2 H POC ABG pH 7.451 H POC ABG pCO2 POC ABG pO2 Sodium Potassium Chloride 97.0 L Carbon Dioxide BUN 20 H Creatinine 0.4 L Glucose 153 H POC Glucose Lactic Acid Calcium Phosphorus AST ALT Total Protein Albumin Triglycerides Ur Specific [place] 01/31/17 08:14 WBC RBC Hgb Hct RDW Lymph % (Auto) Lymph # [place] # Seg Neutrophils % Seg Neuts % (Manual) Lymphocytes % (Manual) Seg Neutrophils # Seg Neutrophils # Man Lymphocytes # (Manual) Monocytes # (Manual) POC ABG pH 7.546 H POC ABG pCO2 POC ABG pO2 113 H Sodium Potassium Chloride Carbon Dioxide BUN Creatinine Glucose POC Glucose Lactic Acid Calcium Phosphorus AST ALT Total Protein Albumin Triglycerides Ur Specific [place] Chest x-ray: image reviewed
[2017-01-31] MEDS: HALDOL IV PRN (11:22)
[2017-01-31] MEDS: ATIVAN IV PRN ×3 (12:30→18:10)
[2017-01-31] MEDS ORDERED: ATIVAN IV PRN ×2 (14:28)
[2017-01-31 15:01] LABS: Hematocrit 37.5 % (30.3-42.9); Hemoglobin 12.5 gm/dl (10.1-14.3); Mean Corpuscular HGB Conc 33 % (30-34); Mean Corpuscular Hemoglobin 30 pg (28-32); Mean Corpuscular Volume 90 fl (79-97); Platelet Count 347 K/mm3 (140-440); Red Blood Count 4.19 M/mm3 (3.65-5.03); Red Cell Distribution Width 12.9 % (13.2-15.2)
[2017-01-31 15:06] LABS: White Blood Count 22.2 K/mm3 (4.5-11.0)
[2017-01-31 15:14] LABS: Anion Gap 17 mmol/L; BUN/Creatinine Ratio 66.66; Blood Urea Nitrogen 20 mg/dL (7-17); Calcium 9.2 mg/dL (8.4-10.2); Carbon Dioxide 28 mmol/L (22-30); Chloride 96.8 mmol/L (98-107); Glucose 109 mg/dL (65-100); Sodium 138 mmol/L (137-145)
--- NOTE | 2017-01-31 16:00 | Progress Note ---
Assessment and Plan Assessment and plan: --Acute hypoxemic respiratory failure Requiring with intubation and ventilatory support Patient was successfully extubated today Saturating well on nasal cannula oxygen However agitation and combative Requiring restraints and sedation Pulmonary following --Acute exacerbation of bronchial asthma And to new, nebulizers, tapering doses of steroids, Supportive care --Leukocytosis trending down Secondary to IV steroids, cultures negative to date Patient is afebrile and no evidence of infection --Lactic acidosis Resolved --DVT prophylaxis with Lovenox Physical therapy occupational therapy We will observe 24 hours in ICU later transfer to floor If Stable Plan of care discussed with the patient and her nurse History Interval history: Patient seen and evaluated in ICU this morning medical records reviewed Patient was extubated, saturating 95-96% on nasal cannula Patient is severely agitated and combative requiring sedation and restraints No new events reported by the nursing staff Alert and awake and mildly sedated Hospitalist Physical - Constitutional Vitals: Temp Pulse Resp BP Pulse Ox 98.2 F 82 17 114/70 100 01/31/17 12:00 01/31/17 15:19 01/31/17 15:19 01/31/17 15:00 01/31/17 14:00 General appearance: Present: no acute distress, well-nourished, other (restless and agitated) - EENT Eyes: Present: PERRL, EOM intact - Neck Neck: Present: supple, normal ROM - Respiratory Respiratory effort: normal Respiratory: bilateral: diminished, negative: rales, rhonchi, wheezing - Cardiovascular Rhythm: regular Heart Sounds: Present: S1 & S2 - Extremities Extremities: no ischemia, pulses intact, pulses symmetrical Peripheral Pulses: within normal limits - Abdominal General gastrointestinal: soft, non-tender, non-distended, normal bowel sounds - Integumentary Integumentary: Present: clear, warm - Psychiatric Psychiatric: appropriate mood/affect, cooperative - Neurologic Neurologic: CNII-XII intact, moves all extremities Results - Labs CBC & Chem 7: 01/31/17 14:40 01/31/17 14:40 Labs: Laboratory Last Values WBC 22.2 K/mm3 (4.5-11.0) H 01/31/17 14:40 RBC 4.19 M/mm3 (3.65-5.03) 01/31/17 14:40 Hgb 12.5 gm/dl (10.1-14.3) 01/31/17 14:40 Hct 37.5 % (30.3-42.9) 01/31/17 14:40 MCV 90 fl (79-97) 01/31/17 14:40 MCH 30 pg (28-32) 01/31/17 14:40 MCHC 33 % (30-34) 01/31/17 14:40 RDW 12.9 % (13.2-15.2) L 01/31/17 14:40 Plt Count 347 K/mm3 (140-440) 01/31/17 14:40 Lymph % (Auto) 5.1 % (13.4-35.0) L 01/29/17 06:31 [place] % (Auto) 6.3 % (0.0-7.3) 01/29/17 06:31 Eos % (Auto) 0.0 % (0.0-4.3) 01/29/17 06:31 Baso % (Auto) 0.4 % (0.0-1.8) 01/29/17 06:31 Lymph # 1.0 K/mm3 (1.2-5.4) L 01/29/17 06:31 [place] # 1.2 K/mm3 (0.0-0.8) H 01/29/17 06:31 Eos # 0.0 K/mm3 (0.0-0.4) 01/29/17 06:31 Baso # 0.1 K/mm3 (0.0-0.1) 01/29/17 06:31 Add Manual Diff Complete 01/30/17 07:03 Total Counted 100 01/30/17 07:03 Seg Neutrophils % 88.2 % (40.0-70.0) H 01/29/17 06:31 Seg Neuts % (Manual) 88.0 % (40.0-70.0) H 01/30/17 07:03 Band Neutrophils % 2.0 % 01/30/17 07:03 Lymphocytes % (Manual) 3.0 % (13.4-35.0) L 01/30/17 07:03 Reactive Lymphs % (Man) 0 % 01/30/17 07:03 Monocytes % (Manual) 7.0 % (0.0-7.3) 01/30/17 07:03 Eosinophils % (Manual) 0 % (0.0-4.3) 01/30/17 07:03 Basophils % (Manual) 0 % (0.0-1.8) 01/30/17 07:03 Metamyelocytes % 0 % 01/30/17 07:03 Myelocytes % 0 % 01/30/17 07:03 Promyelocytes % 0 % 01/30/17 07:03 Blast Cells % 0 % 01/30/17 07:03 Nucleated RBC % Not Reportable 01/30/17 07:03 Seg Neutrophils # 16.6 K/mm3 (1.8-7.7) H 01/29/17 06:31 Seg Neutrophils # Man 14.6 K/mm3 (1.8-7.7) H 01/30/17 07:03 Band Neutrophils # 0.3 K/mm3 01/30/17 07:03 Lymphocytes # (Manual) 0.5 K/mm3 (1.2-5.4) L 01/30/17 07:03 Abs React Lymphs (Man) 0.0 K/mm3 01/30/17 07:03 Monocytes # (Manual) 1.2 K/mm3 (0.0-0.8) H 01/30/17 07:03 Eosinophils # (Manual) 0.0 K/mm3 (0.0-0.4) 01/30/17 07:03 Basophils # (Manual) 0.0 K/mm3 (0.0-0.1) 01/30/17 07:03 Metamyelocytes # 0.0 K/mm3 01/30/17 07:03 Myelocytes # 0.0 K/mm3 01/30/17 07:03 Promyelocytes # 0.0 K/mm3 01/30/17 07:03 Blast Cells # 0.0 K/mm3 01/30/17 07:03 WBC Morphology Not Reportable 01/30/17 07:03 Hypersegmented Neuts Not Reportable 01/30/17 07:03 Hyposegmented Neuts Not Reportable 01/30/17 07:03 Hypogranular Neuts Not Reportable 01/30/17 07:03 Smudge Cells Not Reportable 01/30/17 07:03 Toxic Granulation Not Reportable 01/30/17 07:03 Toxic Vacuolation Not Reportable 01/30/17 07:03 Dohle Bodies Not Reportable 01/30/17 07:03 Pelger-Huet Anomaly Not Reportable 01/30/17 07:03 Roderick Rods Not Reportable 01/30/17 07:03 Platelet Estimate Cons 01/30/17 07:03 Clumped Platelets Not Reportable 01/30/17 07:03 Plt Clumps, EDTA Not Reportable 01/30/17 07:03 Large Platelets Rare 01/30/17 07:03 Giant Platelets Not Reportable 01/30/17 07:03 Platelet Satelliting Not Reportable 01/30/17 07:03 Plt Morphology Comment Not Reportable 01/30/17 07:03 RBC Morphology Not Reportable 01/30/17 07:03 Dimorphic RBCs Not Reportable 01/30/17 07:03 Polychromasia Not Reportable 01/30/17 07:03 Hypochromasia Not Reportable 01/30/17 07:03 Poikilocytosis Not Reportable 01/30/17 07:03 Anisocytosis 1+ 01/30/17 07:03 Microcytosis Not Reportable 01/30/17 07:03 Macrocytosis Not Reportable 01/30/17 07:03 Spherocytes Not Reportable 01/30/17 07:03 Pappenheimer Bodies Not Reportable 01/30/17 07:03 Sickle Cells Not Reportable 01/30/17 07:03 Target Cells Not Reportable 01/30/17 07:03 Tear Drop Cells Not Reportable 01/30/17 07:03 Ovalocytes Not Reportable 01/30/17 07:03 Helmet Cells Not Reportable 01/30/17 07:03 [place] Bodies Not Reportable 01/30/17 07:03 [place] Rings Not Reportable 01/30/17 07:03 [place] Cells Not Reportable 01/30/17 07:03 Bite Cells Not Reportable 01/30/17 07:03 Crenated Cell Not Reportable 01/30/17 07:03 Elliptocytes Not Reportable 01/30/17 07:03 Acanthocytes (Spur) Not Reportable 01/30/17 07:03 Rouleaux Not Reportable 01/30/17 07:03 Hemoglobin C Crystals Not Reportable 01/30/17 07:03 Schistocytes Not Reportable 01/30/17 07:03 Malaria parasites Not Reportable 01/30/17 07:03 [place] Bodies Not Reportable 01/30/17 07:03 Hem Pathologist Commnt No 01/30/17 07:03 PT 12.0 Sec. (12.2-14.9) L 01/22/17 12:52 INR 0.90 (0.87-1.13) 01/22/17 12:52 D-Dimer 162.42 ng/mlDDU (0-234) 01/22/17 12:52 POC ABG pH 7.546 (7.35-7.45) H 01/31/17 08:14 POC ABG pCO2 35.5 (35-45) 01/31/17 08:14 POC ABG pO2 113 (80-105) H 01/31/17 08:14 POC ABG HCO3 30.7 01/31/17 08:14 POC ABG Total CO2 32 01/31/17 08:14 POC ABG O2 Sat 99 01/31/17 08:14 POC ABG Base Excess 8 01/31/17 08:14 FiO2 30 % 01/31/17 08:14 Sodium 138 mmol/L (137-145) 01/31/17 14:40 Potassium 4.0 mmol/L (3.6-5.0) 01/31/17 14:40 Chloride 96.8 mmol/L (98-107) L 01/31/17 14:40 Carbon Dioxide 28 mmol/L (22-30) 01/31/17 14:40 Anion Gap 17 mmol/L 01/31/17 14:40 BUN 20 mg/dL (7-17) H 01/31/17 14:40 Creatinine 0.3 mg/dL (0.7-1.2) L 01/31/17 14:40 Estimated GFR > 60 ml/min 01/31/17 14:40 BUN/Creatinine Ratio 66.66 % 01/31/17 14:40 Glucose 109 mg/dL (65-100) H 01/31/17 14:40 POC Glucose 189 (70-105) H 01/24/17 00:07 Lactic Acid 1.8 mmol/L (0.7-2.0) 01/25/17 07:28 Calcium 9.2 mg/dL (8.4-10.2) 01/31/17 14:40 Phosphorus 3.9 mg/dL (2.5-4.5) 01/30/17 07:03 Magnesium 2.1 mg/dL (1.7-2.3) 01/30/17 07:03 Total Bilirubin 0.4 mg/dL (0.1-1.2) 01/23/17 03:40 Direct Bilirubin < 0.2 mg/dL (0-0.2) 01/22/17 12:52 Indirect Bilirubin 0.0 mg/dL 01/22/17 12:52 AST 98 units/L (5-40) H 01/23/17 03:40 ALT 93 units/L (7-56) H 01/23/17 03:40 Alkaline Phosphatase 72 units/L (35-129) 01/23/17 03:40 Troponin T < 0.010 ng/mL (0.00-0.029) 01/22/17 12:52 C-Reactive Protein 0.30 mg/dL (0.00-1.30) 01/23/17 03:40 NT-Pro-B Natriuret Pep 100.8 pg/mL (0-450) 01/22/17 12:52 Total Protein 5.9 g/dL (6.3-8.2) L 01/23/17 03:40 Albumin 3.2 g/dL (3.9-5) L 01/23/17 03:40 Albumin/Globulin Ratio 1.2 % 01/23/17 03:40 Triglycerides 164 mg/dL (2-149) H 01/29/17 06:31 HCG, Quant < 2 mIU/mL (0-4) 01/22/17 12:52 Urine Color Colorless (Yellow) 01/22/17 Unknown Urine Turbidity Clear (Clear) 01/22/17 Unknown Urine pH 6.0 (5.0-7.0) 01/22/17 Unknown Ur Specific [place] 1.002 (1.003-1.030) L 01/22/17 Unknown Urine Protein <15 mg/dl mg/dL (Negative) 01/22/17 Unknown Urine Glucose (UA) Neg mg/dL (Negative) 01/22/17 Unknown Urine Ketones Neg mg/dL (Negative) 01/22/17 Unknown Urine Blood Mod (Negative) 01/22/17 Unknown Urine Nitrite Neg (Negative) 01/22/17 Unknown Urine Bilirubin Neg (Negative) 01/22/17 Unknown Urine Urobilinogen < 2.0 mg/dL (<2.0) 01/22/17 Unknown Ur Leukocyte Esterase Neg (Negative) 01/22/17 Unknown Urine WBC (Auto) < 1.0 /HPF (0.0-6.0) 01/22/17 Unknown Urine RBC (Auto) 1.0 /HPF (0.0-6.0) 01/22/17 Unknown U Epithel Cells (Auto) < 1.0 /HPF (0-13.0) 01/22/17 Unknown Urine Opiates Screen Presumptive negative 01/22/17 Unknown Urine Methadone Screen Presumptive negative 01/22/17 Unknown Ur Barbiturates Screen Presumptive negative 01/22/17 Unknown Ur Phencyclidine Scrn Presumptive negative 01/22/17 Unknown Ur Amphetamines Screen Presumptive negative 01/22/17 Unknown U Benzodiazepines Scrn Presumptive negative 01/22/17 Unknown Urine Cocaine Screen Presumptive negative 01/22/17 Unknown U Marijuana (THC) Screen Presumptive negative 01/22/17 Unknown Drugs of Abuse Note Disclamer 01/22/17 Unknown
--- NOTE | 2017-01-31 16:10 | Discharge Summary ---
Providers - Providers Date of Admission: 01/22/17 14:57 Date of discharge: 01/31/17 Attending physician: SIENNA RUSSELL 01/22/17 16:43 Consult to Dietitian/Nutrition [CONS] Routine Physician Instructions: Reason For Exam: Reason for Consult: Write/Manage Tube Feeding 01/31/17 14:05 Speech Therapy Evaluation and Treat [CONS] Stat Reason For Exam: post extubation swallow evaluation Primary care physician: OFFICE SPEC Hospitalization Reason for admission: acute respiratory failure requiring intubation Condition: Critical Disposition: DC/[place] MEDICARE CERT LTCH Core Measure Documentation - Palliative Care Palliative Care/ Comfort Measures: Not Applicable - Core Measures Any of the following diagnoses?: none Exam - Constitutional Vitals: Temp Pulse Resp BP Pulse Ox 98.8 F 81 17 112/62 100 01/31/17 16:00 01/31/17 16:00 01/31/17 16:00 01/31/17 16:00 01/31/17 16:00 General appearance: Present: mild distress, well-nourished, other (sedated) - EENT Eyes: Present: PERRL, EOM intact - Neck Neck: Present: supple, normal ROM - Respiratory Respiratory effort: normal Respiratory: bilateral: diminished, negative: rales, rhonchi, wheezing - Cardiovascular Rhythm: regular Heart Sounds: Present: S1 & S2 - Extremities Extremities: no ischemia, pulses intact, pulses symmetrical Peripheral Pulses: within normal limits - Abdominal General gastrointestinal: Present: soft, non-tender, non-distended, normal bowel sounds - Integumentary Integumentary: Present: clear, warm - Musculoskeletal Musculoskeletal: strength equal bilaterally, generalized weakness - Psychiatric Psychiatric: appropriate mood/affect, agitated, other (verbal and abusive) - Neurologic Neurologic: CNII-XII intact, moves all extremities Plan Activity: advance as tolerated Diet: advance as tolerated Additional Instructions: Care of LTAC Follow up with: PRIMARY MD ORION [Primary Care Provider] - 7 Days
[2017-01-31 16:37] LABS: Basophils % (Manual) 0 % (0.0-1.8); Blastocytes % (Manual) 0 %; Eosinophils % (Manual) 0 % (0.0-4.3)
[2017-01-31 16:38] LABS: RBC Morphology Normal
[2017-01-31 16:39] LABS: Diff Status Complete; Platelet Estimate Consistent w Auto
[2017-02-01] MEDS: NEURONTIN PO SCH ×3 (00:21→21:47)
[2017-02-01] MEDS: PEPCID PO SCH ×3 (00:21→21:27)
[2017-02-01] MEDS: LIBRIUM PO SCH ×4 (00:21→21:27)
[2017-02-01] MEDS: ATIVAN IV PRN ×2 (00:23→11:52)
[2017-02-01] MEDS: PROVENTIL IH SCH ×5 (03:10→20:52)
[2017-02-01 05:15] LABS: Hematocrit 39.7 % (30.3-42.9); Hemoglobin 13.3 gm/dl (10.1-14.3); Mean Corpuscular HGB Conc 33 % (30-34); Mean Corpuscular Hemoglobin 30 pg (28-32); Mean Corpuscular Volume 90 fl (79-97); Platelet Count 367 K/mm3 (140-440); Red Blood Count 4.43 M/mm3 (3.65-5.03); Red Cell Distribution Width 13.1 % (13.2-15.2); White Blood Count 18.8 K/mm3 (4.5-11.0)
[2017-02-01 05:22] LABS: Anion Gap 21 mmol/L; Blood Urea Nitrogen 26 mg/dL (7-17); Calcium 9.3 mg/dL (8.4-10.2); Carbon Dioxide 25 mmol/L (22-30); Chloride 98.4 mmol/L (98-107); Glucose 123 mg/dL (65-100); Magnesium 2.2 mg/dL (1.7-2.3); Potassium 3.9 mmol/L (3.6-5.0); Sodium 140 mmol/L (137-145)
[2017-02-01 06:02] LABS: Basophils % (Manual) 0 % (0.0-1.8); Blastocytes % (Manual) 0 %; Eosinophils % (Manual) 0 % (0.0-4.3)
[2017-02-01 06:03] LABS: Anisocytosis 1+; Diff Status Complete
--- NOTE | 2017-02-01 09:01 | Progress Note ---
Assessment and Plan Assessment and plan: --Acute hypoxemic respiratory failure status post extubation Saturating well on nasal cannula oxygen --Alcohol withdrawal symptoms Continue [facility] protocol --Acute exacerbation of bronchial asthma On nebulizers, tapering doses of steroids, Supportive care --Leukocytosis trending down Secondary to IV steroids, cultures negative to date Patient is afebrile and no evidence of infection --Lactic acidosis Resolved --DVT prophylaxis with Lovenox Physical therapy occupational therapy Patient can be transferred out of ICU to medical floor DC planning 1-2 days stable Care discussed with the patient, nurse as well as a case management History Interval history: Patient seen and evaluated medical records reviewed Patient slightly better, more calm today, responding appropriately No new events reported by nursing staff except for mild agitation requiring restraints Alert awake oriented 3 Vital signs reviewed Hospitalist Physical - Constitutional Vitals: Temp Pulse Resp BP Pulse Ox 98.7 F 101 H 12 132/77 100 02/01/17 04:00 02/01/17 08:30 02/01/17 08:30 02/01/17 08:30 02/01/17 08:30 General appearance: Present: no acute distress, well-nourished, other (mild agitation at times) - EENT Eyes: Present: PERRL, EOM intact - Neck Neck: Present: supple, normal ROM - Respiratory Respiratory effort: normal Respiratory: bilateral: diminished, negative: rales, rhonchi, wheezing - Cardiovascular Rhythm: regular Heart Sounds: Present: S1 & S2 - Extremities Extremities: no ischemia, pulses intact, pulses symmetrical Peripheral Pulses: within normal limits - Abdominal General gastrointestinal: soft, non-tender, non-distended, normal bowel sounds - Integumentary Integumentary: Present: clear, warm - Psychiatric Psychiatric: appropriate mood/affect, cooperative, agitated (at times) - Neurologic Neurologic: moves all extremities Results - Labs CBC & Chem 7: 02/01/17 04:00 02/01/17 04:00 Labs: Laboratory Last Values WBC 18.8 K/mm3 (4.5-11.0) H 02/01/17 04:00 RBC 4.43 M/mm3 (3.65-5.03) 02/01/17 04:00 Hgb 13.3 gm/dl (10.1-14.3) 02/01/17 04:00 Hct 39.7 % (30.3-42.9) 02/01/17 04:00 MCV 90 fl (79-97) 02/01/17 04:00 MCH 30 pg (28-32) 02/01/17 04:00 MCHC 33 % (30-34) 02/01/17 04:00 RDW 13.1 % (13.2-15.2) L 02/01/17 04:00 Plt Count 367 K/mm3 (140-440) 02/01/17 04:00 Lymph % (Auto) 5.1 % (13.4-35.0) L 01/29/17 06:31 [place] % (Auto) 6.3 % (0.0-7.3) 01/29/17 06:31 Eos % (Auto) 0.0 % (0.0-4.3) 01/29/17 06:31 Baso % (Auto) 0.4 % (0.0-1.8) 01/29/17 06:31 Lymph # 1.0 K/mm3 (1.2-5.4) L 01/29/17 06:31 [place] # 1.2 K/mm3 (0.0-0.8) H 01/29/17 06:31 Eos # 0.0 K/mm3 (0.0-0.4) 01/29/17 06:31 Baso # 0.1 K/mm3 (0.0-0.1) 01/29/17 06:31 Add Manual Diff Complete 02/01/17 04:00 Total Counted 100 02/01/17 04:00 Seg Neutrophils % 88.2 % (40.0-70.0) H 01/29/17 06:31 Seg Neuts % (Manual) 88.0 % (40.0-70.0) H 02/01/17 04:00 Band Neutrophils % 0 % 02/01/17 04:00 Lymphocytes % (Manual) 6.0 % (13.4-35.0) L 02/01/17 04:00 Reactive Lymphs % (Man) 0 % 02/01/17 04:00 Monocytes % (Manual) 4.0 % (0.0-7.3) 02/01/17 04:00 Eosinophils % (Manual) 0 % (0.0-4.3) 02/01/17 04:00 Basophils % (Manual) 0 % (0.0-1.8) 02/01/17 04:00 Metamyelocytes % 2.0 % 02/01/17 04:00 Myelocytes % 0 % 02/01/17 04:00 Promyelocytes % 0 % 02/01/17 04:00 Blast Cells % 0 % 02/01/17 04:00 Nucleated RBC % Not Reportable 02/01/17 04:00 Seg Neutrophils # 16.6 K/mm3 (1.8-7.7) H 01/29/17 06:31 Seg Neutrophils # Man 16.5 K/mm3 (1.8-7.7) H 02/01/17 04:00 Band Neutrophils # 0.0 K/mm3 02/01/17 04:00 Lymphocytes # (Manual) 1.1 K/mm3 (1.2-5.4) L 02/01/17 04:00 Abs React Lymphs (Man) 0.0 K/mm3 02/01/17 04:00 Monocytes # (Manual) 0.8 K/mm3 (0.0-0.8) 02/01/17 04:00 Eosinophils # (Manual) 0.0 K/mm3 (0.0-0.4) 02/01/17 04:00 Basophils # (Manual) 0.0 K/mm3 (0.0-0.1) 02/01/17 04:00 Metamyelocytes # 0.4 K/mm3 02/01/17 04:00 Myelocytes # 0.0 K/mm3 02/01/17 04:00 Promyelocytes # 0.0 K/mm3 02/01/17 04:00 Blast Cells # 0.0 K/mm3 02/01/17 04:00 WBC Morphology Not Reportable 02/01/17 04:00 Hypersegmented Neuts Not Reportable 02/01/17 04:00 Hyposegmented Neuts Not Reportable 02/01/17 04:00 Hypogranular Neuts Not Reportable 02/01/17 04:00 Smudge Cells Not Reportable 02/01/17 04:00 Toxic Granulation Not Reportable 02/01/17 04:00 Toxic Vacuolation Not Reportable 02/01/17 04:00 Dohle Bodies Not Reportable 02/01/17 04:00 Pelger-Huet Anomaly Not Reportable 02/01/17 04:00 Roderick Rods Not Reportable 02/01/17 04:00 Platelet Estimate Appears normal 02/01/17 04:00 Clumped Platelets Not Reportable 02/01/17 04:00 Plt Clumps, EDTA Not Reportable 02/01/17 04:00 Large Platelets Not Reportable 02/01/17 04:00 Giant Platelets Not Reportable 02/01/17 04:00 Platelet Satelliting Not Reportable 02/01/17 04:00 Plt Morphology Comment Not Reportable 02/01/17 04:00 RBC Morphology Not Reportable 02/01/17 04:00 Dimorphic RBCs Not Reportable 02/01/17 04:00 Polychromasia Not Reportable 02/01/17 04:00 Hypochromasia Not Reportable 02/01/17 04:00 Poikilocytosis Not Reportable 02/01/17 04:00 Anisocytosis 1+ 02/01/17 04:00 Microcytosis Not Reportable 02/01/17 04:00 Macrocytosis Not Reportable 02/01/17 04:00 Spherocytes Not Reportable 02/01/17 04:00 Pappenheimer Bodies Not Reportable 02/01/17 04:00 Sickle Cells Not Reportable 02/01/17 04:00 Target Cells Not Reportable 02/01/17 04:00 Tear Drop Cells Not Reportable 02/01/17 04:00 Ovalocytes Not Reportable 02/01/17 04:00 Helmet Cells Not Reportable 02/01/17 04:00 [place] Bodies Not Reportable 02/01/17 04:00 [place] Rings Not Reportable 02/01/17 04:00 [place] Cells Not Reportable 02/01/17 04:00 Bite Cells Not Reportable 02/01/17 04:00 Crenated Cell Not Reportable 02/01/17 04:00 Elliptocytes Not Reportable 02/01/17 04:00 Acanthocytes (Spur) Not Reportable 02/01/17 04:00 Rouleaux Not Reportable 02/01/17 04:00 Hemoglobin C Crystals Not Reportable 02/01/17 04:00 Schistocytes Not Reportable 02/01/17 04:00 Malaria parasites Not Reportable 02/01/17 04:00 [place] Bodies Not Reportable 02/01/17 04:00 Hem Pathologist Commnt No 02/01/17 04:00 PT 12.0 Sec. (12.2-14.9) L 01/22/17 12:52 INR 0.90 (0.87-1.13) 01/22/17 12:52 D-Dimer 162.42 ng/mlDDU (0-234) 01/22/17 12:52 POC ABG pH 7.546 (7.35-7.45) H 01/31/17 08:14 POC ABG pCO2 35.5 (35-45) 01/31/17 08:14 POC ABG pO2 113 (80-105) H 01/31/17 08:14 POC ABG HCO3 30.7 01/31/17 08:14 POC ABG Total CO2 32 01/31/17 08:14 POC ABG O2 Sat 99 01/31/17 08:14 POC ABG Base Excess 8 01/31/17 08:14 FiO2 30 % 01/31/17 08:14 Sodium 140 mmol/L (137-145) 02/01/17 04:00 Potassium 3.9 mmol/L (3.6-5.0) 02/01/17 04:00 Chloride 98.4 mmol/L (98-107) 02/01/17 04:00 Carbon Dioxide 25 mmol/L (22-30) 02/01/17 04:00 Anion Gap 21 mmol/L 02/01/17 04:00 BUN 26 mg/dL (7-17) H 02/01/17 04:00 Creatinine 0.5 mg/dL (0.7-1.2) L D 02/01/17 04:00 Estimated GFR > 60 ml/min 02/01/17 04:00 BUN/Creatinine Ratio 52.00 % 02/01/17 04:00 Glucose 123 mg/dL (65-100) H 02/01/17 04:00 POC Glucose 189 (70-105) H 01/24/17 00:07 Lactic Acid 1.8 mmol/L (0.7-2.0) 01/25/17 07:28 Calcium 9.3 mg/dL (8.4-10.2) 02/01/17 04:00 Phosphorus 3.9 mg/dL (2.5-4.5) 01/30/17 07:03 Magnesium 2.2 mg/dL (1.7-2.3) 02/01/17 04:00 Total Bilirubin 0.4 mg/dL (0.1-1.2) 01/23/17 03:40 Direct Bilirubin < 0.2 mg/dL (0-0.2) 01/22/17 12:52 Indirect Bilirubin 0.0 mg/dL 01/22/17 12:52 AST 98 units/L (5-40) H 01/23/17 03:40 ALT 93 units/L (7-56) H 01/23/17 03:40 Alkaline Phosphatase 72 units/L (35-129) 01/23/17 03:40 Troponin T < 0.010 ng/mL (0.00-0.029) 01/22/17 12:52 C-Reactive Protein 0.30 mg/dL (0.00-1.30) 01/23/17 03:40 NT-Pro-B Natriuret Pep 100.8 pg/mL (0-450) 01/22/17 12:52 Total Protein 5.9 g/dL (6.3-8.2) L 01/23/17 03:40 Albumin 3.2 g/dL (3.9-5) L 01/23/17 03:40 Albumin/Globulin Ratio 1.2 % 01/23/17 03:40 Triglycerides 164 mg/dL (2-149) H 01/29/17 06:31 HCG, Quant < 2 mIU/mL (0-4) 01/22/17 12:52 Urine Color Colorless (Yellow) 01/22/17 Unknown Urine Turbidity Clear (Clear) 01/22/17 Unknown Urine pH 6.0 (5.0-7.0) 01/22/17 Unknown Ur Specific [place] 1.002 (1.003-1.030) L 01/22/17 Unknown Urine Protein <15 mg/dl mg/dL (Negative) 01/22/17 Unknown Urine Glucose (UA) Neg mg/dL (Negative) 01/22/17 Unknown Urine Ketones Neg mg/dL (Negative) 01/22/17 Unknown Urine Blood Mod (Negative) 01/22/17 Unknown Urine Nitrite Neg (Negative) 01/22/17 Unknown Urine Bilirubin Neg (Negative) 01/22/17 Unknown Urine Urobilinogen < 2.0 mg/dL (<2.0) 01/22/17 Unknown Ur Leukocyte Esterase Neg (Negative) 01/22/17 Unknown Urine WBC (Auto) < 1.0 /HPF (0.0-6.0) 01/22/17 Unknown Urine RBC (Auto) 1.0 /HPF (0.0-6.0) 01/22/17 Unknown U Epithel Cells (Auto) < 1.0 /HPF (0-13.0) 01/22/17 Unknown Urine Opiates Screen Presumptive negative 01/22/17 Unknown Urine Methadone Screen Presumptive negative 01/22/17 Unknown Ur Barbiturates Screen Presumptive negative 01/22/17 Unknown Ur Phencyclidine Scrn Presumptive negative 01/22/17 Unknown Ur Amphetamines Screen Presumptive negative 01/22/17 Unknown U Benzodiazepines Scrn Presumptive negative 01/22/17 Unknown Urine Cocaine Screen Presumptive negative 01/22/17 Unknown U Marijuana (THC) Screen Presumptive negative 01/22/17 Unknown Drugs of Abuse Note Disclamer 01/22/17 Unknown
[2017-02-01] MEDS: FOLVITE PO SCH (09:17)
[2017-02-01] MEDS: VITAMIN B-1 PO SCH (09:17)
[2017-02-01] MEDS: LOVENOX SUB-Q SCH (09:27)
--- NOTE | 2017-02-01 11:58 | Progress Note ---
Assessment and Plan - Patient Problems (1) Altered mental status Current Visit: Yes Status: Acute Qualifiers: Altered mental status type: A Coma depth: C Coma timing: C Plan to address problem: - likely substance withdrawal - continue librium but taper to 50mg q8h - continue seroquel at 300mg bid - continue neurontin at current dose - continue CIWA protocol with IV Ativan (2) Acute respiratory failure Current Visit: Yes Status: Acute Qualifiers: Respiratory failure complication: hypoxia Qualified Code(s): J96.01 - Acute respiratory failure with hypoxia Plan to address problem: - extubated - continue bronchodilators and pulmonary toilet - continue aspiration precautions - supplemental oxygen to keep O2 Sats >/= 94% (3) Leucocytosis Current Visit: Yes Status: Acute Qualifiers: Leukocytosis type: L Plan to address problem: - continue to taper systemic steroids - cultures NGTD - following clinically off antibiotics (4) Discharge planning issues Current Visit: Yes Status: Acute Plan to address problem: - improved [facility] Date of service: 02/01/17 Principal diagnosis: Acute Hypoxemic Respiratory Failure Interval history: Seen and examined at bedside; 24 hour events reviewed; nursing and respiratory care staff consulted; no adverse overnight events reported to me; resting in bed ; on CIWA protocol but still delirious; no emesis or overt aspiration and no gross bleeding; remains on supplemental oxygen Objective Vital Signs - 12hr 02/01/17 02/01/17 02/01/17 00:00 00:06 00:30 Temperature Pulse Rate 89 80 99 H Pulse Rate [ Anterior Bilateral Throughout] Pulse Rate [ 82 From Monitor] Respiratory 14 13 20 Rate Respiratory Rate [Anterior Bilateral Throughout] Respiratory Rate [ Generalized] Blood Pressure 120/79 120/79 120/76 O2 Sat by Pulse 100 100 100 Oximetry 02/01/17 02/01/17 02/01/17 01:00 01:30 02:00 Temperature Pulse Rate 81 79 86 Pulse Rate [ Anterior Bilateral Throughout] Pulse Rate [ From Monitor] Respiratory 23 14 25 H Rate Respiratory Rate [Anterior Bilateral Throughout] Respiratory 21 Rate [ Generalized] Blood Pressure 114/72 116/72 122/80 O2 Sat by Pulse 100 Oximetry 02/01/17 02/01/17 02/01/17 02:30 03:00 03:10 Temperature Pulse Rate 81 101 H Pulse Rate [ 99 H 95 H Anterior Bilateral Throughout] Pulse Rate [ From Monitor] Respiratory 17 17 Rate Respiratory 18 18 Rate [Anterior Bilateral Throughout] Respiratory Rate [ Generalized] Blood Pressure 125/72 120/74 O2 Sat by Pulse Oximetry 02/01/17 02/01/17 02/01/17 03:30 04:00 04:30 Temperature 98.7 F Pulse Rate 82 87 87 Pulse Rate [ Anterior Bilateral Throughout] Pulse Rate [ 89 From Monitor] Respiratory 17 17 24 Rate Respiratory Rate [Anterior Bilateral Throughout] Respiratory Rate [ Generalized] Blood Pressure 118/70 124/68 123/68 O2 Sat by Pulse 99 Oximetry 02/01/17 02/01/17 02/01/17 05:00 05:30 06:00 Temperature Pulse Rate 89 83 93 H Pulse Rate [ Anterior Bilateral Throughout] Pulse Rate [ From Monitor] Respiratory 20 16 19 Rate Respiratory Rate [Anterior Bilateral Throughout] Respiratory 19 Rate [ Generalized] Blood Pressure 122/71 120/72 120/76 O2 Sat by Pulse 100 Oximetry 02/01/17 02/01/17 02/01/17 06:29 06:30 07:00 Temperature Pulse Rate 87 82 Pulse Rate [ Anterior Bilateral Throughout] Pulse Rate [ 93 H From Monitor] Respiratory 21 21 15 Rate Respiratory Rate [Anterior Bilateral Throughout] Respiratory Rate [ Generalized] Blood Pressure 124/70 112/73 O2 Sat by Pulse 98 99 Oximetry 02/01/17 02/01/17 02/01/17 07:30 07:37 07:38 Temperature Pulse Rate 98 H Pulse Rate [ 98 H Anterior Bilateral Throughout] Pulse Rate [ From Monitor] Respiratory 12 Rate Respiratory 16 Rate [Anterior Bilateral Throughout] Respiratory Rate [ Generalized] Blood Pressure 124/85 O2 Sat by Pulse 100 Oximetry 02/01/17 02/01/17 02/01/17 08:00 08:30 09:00 Temperature 98.5 F Pulse Rate 101 H 95 H Pulse Rate [ Anterior Bilateral Throughout] Pulse Rate [ From Monitor] Respiratory 12 11 L Rate Respiratory Rate [Anterior Bilateral Throughout] Respiratory Rate [ Generalized] Blood Pressure 115/72 132/77 127/77 O2 Sat by Pulse 100 Oximetry 02/01/17 09:30 Temperature Pulse Rate 84 Pulse Rate [ Anterior Bilateral Throughout] Pulse Rate [ From Monitor] Respiratory 20 Rate Respiratory Rate [Anterior Bilateral Throughout] Respiratory Rate [ Generalized] Blood Pressure 122/84 O2 Sat by Pulse 100 Oximetry Constitutional: no acute distress, other ( sedated) Eyes: non-icteric ENT: oropharynx moist Neck: supple, no lymphadenopathy Effort: mildly labored Ascultation: Bilateral: rales (scant in bases) Cardiovascular: regular rate and rhythm Gastrointestinal: normoactive bowel sounds, soft, non-tender, non-distended Integumentary: normal Extremities: no cyanosis, no edema, pink and warm, pulses normal, no ischemia or petechiae Neurologic: unable to assess, other (sedated) Psychiatric: other (sedated) CBC and BMP: 02/02/17 06:09 02/02/17 06:09 ABG, PT/INR, D-dimer: ABG POC ABG pH 7.546 (7.35-7.45) H 01/31/17 08:14 POC ABG pCO2 35.5 (35-45) 01/31/17 08:14 POC ABG pO2 113 (80-105) H 01/31/17 08:14 POC ABG HCO3 30.7 01/31/17 08:14 POC ABG Total CO2 32 01/31/17 08:14 POC ABG O2 Sat 99 01/31/17 08:14 PT/INR, D-dimer PT 12.0 Sec. (12.2-14.9) L 01/22/17 12:52 INR 0.90 (0.87-1.13) 01/22/17 12:52 D-Dimer 162.42 ng/mlDDU (0-234) 01/22/17 12:52 Abnormal lab findings: Abnormal Labs 01/22/17 01/23/17 01/23/17 Unknown 03:32 03:40 WBC 16.5 H RBC Hgb Hct RDW Lymph % (Auto) Lymph # [place] # Seg Neutrophils % Seg Neuts % (Manual) 95.0 H Lymphocytes % (Manual) 4.0 L Monocytes % (Manual) Seg Neutrophils # Seg Neutrophils # Man 15.7 H Lymphocytes # (Manual) 0.7 L Monocytes # (Manual) POC ABG pH 7.293 L POC ABG pCO2 POC ABG pO2 Sodium Potassium Chloride Carbon Dioxide BUN Creatinine Glucose POC Glucose Lactic Acid Calcium Phosphorus AST ALT Total Protein Albumin Triglycerides Ur Specific [place] 1.002 L 01/23/17 01/23/17 01/23/17 03:40 13:41 20:48 WBC RBC Hgb Hct RDW Lymph % (Auto) Lymph # [place] # Seg Neutrophils % Seg Neuts % (Manual) Lymphocytes % (Manual) Monocytes % (Manual) Seg Neutrophils # Seg Neutrophils # Man Lymphocytes # (Manual) Monocytes # (Manual) POC ABG pH POC ABG pCO2 POC ABG pO2 77 L Sodium Potassium Chloride 108.6 H Carbon Dioxide 19 L BUN Creatinine 0.5 L Glucose 216 H POC Glucose Lactic Acid 3.3 H* Calcium 7.6 L D Phosphorus AST 98 H ALT 93 H Total Protein 5.9 L Albumin 3.2 L Triglycerides Ur Specific [place] 01/24/17 01/24/17 01/24/17 00:07 04:39 06:00 WBC 25.7 H RBC Hgb Hct RDW Lymph % (Auto) Lymph # [place] # Seg Neutrophils % Seg Neuts % (Manual) 99.0 H Lymphocytes % (Manual) 0 L Monocytes % (Manual) Seg Neutrophils # Seg Neutrophils # Man 25.4 H Lymphocytes # (Manual) 0.0 L Monocytes # (Manual) POC ABG pH POC ABG pCO2 POC ABG pO2 106 H Sodium Potassium Chloride Carbon Dioxide BUN Creatinine Glucose POC Glucose 189 H Lactic Acid Calcium Phosphorus AST ALT Total Protein Albumin Triglycerides Ur Specific [place] 01/24/17 01/24/17 01/25/17 06:00 13:22 04:46 WBC RBC Hgb Hct RDW Lymph % (Auto) Lymph # [place] # Seg Neutrophils % Seg Neuts % (Manual) Lymphocytes % (Manual) Monocytes % (Manual) Seg Neutrophils # Seg Neutrophils # Man Lymphocytes # (Manual) Monocytes # (Manual) POC ABG pH 7.333 L POC ABG pCO2 POC ABG pO2 Sodium Potassium Chloride 107.5 H Carbon Dioxide BUN Creatinine 0.4 L Glucose 165 H POC Glucose Lactic Acid 2.6 H* Calcium 7.9 L Phosphorus AST ALT Total Protein Albumin Triglycerides Ur Specific [place] 01/25/17 01/25/17 01/25/17 06:48 07:22 07:31 WBC 21.2 H RBC 3.41 L Hgb Hct RDW Lymph % (Auto) Lymph # [place] # Seg Neutrophils % Seg Neuts % (Manual) 84.0 H Lymphocytes % (Manual) 6.0 L Monocytes % (Manual) Seg Neutrophils # Seg Neutrophils # Man 17.8 H Lymphocytes # (Manual) Monocytes # (Manual) POC ABG pH POC ABG pCO2 POC ABG pO2 Sodium Potassium 2.8 L* D 3.5 L D Chloride 116.5 H Carbon Dioxide 17 L D BUN Creatinine 0.2 L 0.3 L Glucose 117 H 141 H POC Glucose Lactic Acid Calcium 5.7 L* D 7.9 L D Phosphorus 1.5 L AST ALT Total Protein Albumin Triglycerides Ur Specific [place] 01/26/17 01/26/17 01/26/17 00:23 04:00 04:00 WBC 15.2 H RBC 3.23 L Hgb 9.9 L Hct 29.9 L RDW Lymph % (Auto) 4.7 L Lymph # 0.7 L [place] # Seg Neutrophils % 90.0 H Seg Neuts % (Manual) Lymphocytes % (Manual) Monocytes % (Manual) Seg Neutrophils # 13.6 H Seg Neutrophils # Man Lymphocytes # (Manual) Monocytes # (Manual) POC ABG pH 7.499 H POC ABG pCO2 30.4 L POC ABG pO2 Sodium Potassium Chloride Carbon Dioxide BUN Creatinine 0.4 L Glucose 132 H POC Glucose Lactic Acid Calcium 7.4 L Phosphorus AST ALT Total Protein Albumin Triglycerides Ur Specific [place] 01/26/17 01/27/17 01/27/17 05:12 04:00 04:00 WBC RBC 3.30 L Hgb 10.0 L Hct RDW Lymph % (Auto) 6.0 L Lymph # 0.6 L [place] # Seg Neutrophils % 89.4 H Seg Neuts % (Manual) Lymphocytes % (Manual) Monocytes % (Manual) Seg Neutrophils # 8.4 H Seg Neutrophils # Man Lymphocytes # (Manual) Monocytes # (Manual) POC ABG pH 7.464 H POC ABG pCO2 POC ABG pO2 138 H Sodium Potassium 3.5 L Chloride 107.4 H Carbon Dioxide BUN Creatinine 0.3 L Glucose 138 H POC Glucose Lactic Acid Calcium 7.1 L Phosphorus AST ALT Total Protein Albumin Triglycerides Ur Specific [place] 01/28/17 01/28/17 01/29/17 07:48 07:48 03:56 WBC 12.3 H RBC Hgb Hct RDW 12.9 L Lymph % (Auto) Lymph # [place] # Seg Neutrophils % Seg Neuts % (Manual) Lymphocytes % (Manual) Monocytes % (Manual) Seg Neutrophils # Seg Neutrophils # Man Lymphocytes # (Manual) Monocytes # (Manual) POC ABG pH 7.468 H POC ABG pCO2 POC ABG pO2 124 H Sodium 136 L Potassium Chloride Carbon Dioxide BUN Creatinine 0.3 L Glucose 146 H POC Glucose Lactic Acid Calcium Phosphorus AST ALT Total Protein Albumin Triglycerides Ur Specific [place] 01/29/17 01/29/17 01/30/17 06:31 06:31 04:20 WBC 18.8 H RBC Hgb Hct RDW 13.0 L Lymph % (Auto) 5.1 L Lymph # 1.0 L [place] # 1.2 H Seg Neutrophils % 88.2 H Seg Neuts % (Manual) Lymphocytes % (Manual) Monocytes % (Manual) Seg Neutrophils # 16.6 H Seg Neutrophils # Man Lymphocytes # (Manual) Monocytes # (Manual) POC ABG pH POC ABG pCO2 POC ABG pO2 107 H Sodium Potassium Chloride Carbon Dioxide BUN Creatinine Glucose POC Glucose Lactic Acid Calcium Phosphorus AST ALT Total Protein Albumin Triglycerides 164 H Ur Specific [place] 01/30/17 01/30/17 01/30/17 07:03 07:03 14:47 WBC 16.6 H RBC Hgb Hct RDW 12.7 L Lymph % (Auto) Lymph # [place] # Seg Neutrophils % Seg Neuts % (Manual) 88.0 H Lymphocytes % (Manual) 3.0 L Monocytes % (Manual) Seg Neutrophils # Seg Neutrophils # Man 14.6 H Lymphocytes # (Manual) 0.5 L Monocytes # (Manual) 1.2 H POC ABG pH 7.451 H POC ABG pCO2 POC ABG pO2 Sodium Potassium Chloride 97.0 L Carbon Dioxide BUN 20 H Creatinine 0.4 L Glucose 153 H POC Glucose Lactic Acid Calcium Phosphorus AST ALT Total Protein Albumin Triglycerides Ur Specific [place] 01/31/17 01/31/17 01/31/17 08:14 14:40 14:40 WBC 22.2 H RBC Hgb Hct RDW 12.9 L Lymph % (Auto) Lymph # [place] # Seg Neutrophils % Seg Neuts % (Manual) 85.0 H Lymphocytes % (Manual) 6.0 L Monocytes % (Manual) 8.0 H Seg Neutrophils # Seg Neutrophils # Man 18.9 H Lymphocytes # (Manual) Monocytes # (Manual) 1.8 H POC ABG pH 7.546 H POC ABG pCO2 POC ABG pO2 113 H Sodium Potassium Chloride 96.8 L Carbon Dioxide BUN 20 H Creatinine 0.3 L Glucose 109 H POC Glucose Lactic Acid Calcium Phosphorus AST ALT Total Protein Albumin Triglycerides Ur Specific [place] 02/01/17 02/01/17 04:00 04:00 WBC 18.8 H RBC Hgb Hct RDW 13.1 L Lymph % (Auto) Lymph # [place] # Seg Neutrophils % Seg Neuts % (Manual) 88.0 H Lymphocytes % (Manual) 6.0 L Monocytes % (Manual) Seg Neutrophils # Seg Neutrophils # Man 16.5 H Lymphocytes # (Manual) 1.1 L Monocytes # (Manual) POC ABG pH POC ABG pCO2 POC ABG pO2 Sodium Potassium Chloride Carbon Dioxide BUN 26 H Creatinine 0.5 L D Glucose 123 H POC Glucose Lactic Acid Calcium Phosphorus AST ALT Total Protein Albumin Triglycerides Ur Specific [place]
[2017-02-01] MEDS ORDERED: FLUARIX QUAD 2016-2017(36 MOS+) IM ONE (12:00)
[2017-02-02] MEDS: PROVENTIL IH SCH ×4 (02:15→20:12)
[2017-02-02] MEDS: LIBRIUM PO SCH ×3 (05:16→22:50)
[2017-02-02] MEDS: NEURONTIN PO SCH ×3 (05:17→22:50)
[2017-02-02 06:33] LABS: Hemoglobin 14.4 gm/dl (10.1-14.3); Mean Corpuscular HGB Conc 33 % (30-34); Mean Corpuscular Hemoglobin 30 pg (28-32); Mean Corpuscular Volume 91 fl (79-97); Platelet Count 405 K/mm3 (140-440); Red Blood Count 4.85 M/mm3 (3.65-5.03); Red Cell Distribution Width 12.9 % (13.2-15.2); White Blood Count 18.4 K/mm3 (4.5-11.0)
[2017-02-02 06:51] LABS: Anion Gap 23 mmol/L; Blood Urea Nitrogen 24 mg/dL (7-17); Calcium 9.6 mg/dL (8.4-10.2); Carbon Dioxide 22 mmol/L (22-30); Chloride 98.3 mmol/L (98-107); Glucose 111 mg/dL (65-100); Potassium 4.1 mmol/L (3.6-5.0); Sodium 139 mmol/L (137-145)
[2017-02-02 07:27] LABS: Basophils % (Manual) 0 % (0.0-1.8); Blastocytes % (Manual) 0 %
[2017-02-02 07:28] LABS: Anisocytosis Few; Diff Status Complete; Platelet Estimate Consistent w Auto
[2017-02-02] MEDS: FOLVITE PO SCH (09:59)
[2017-02-02] MEDS: LOVENOX SUB-Q SCH (09:59)
[2017-02-02] MEDS: PEPCID PO SCH ×2 (09:59→22:50)
[2017-02-02] MEDS: VITAMIN B-1 PO SCH (09:59)
--- NOTE | 2017-02-02 11:07 | Progress Note ---
Assessment and Plan - Patient Problems (1) Altered mental status Current Visit: Yes Status: Acute Qualifiers: Altered mental status type: A Coma depth: C Coma timing: C Plan to address problem: - likely substance withdrawal - continue librium but taper to 50mg q12h - continue seroquel but taper to 200mg bid - continue neurontin at current dose - continue CIWA protocol with IV Ativan (2) Acute respiratory failure Current Visit: Yes Status: Acute Qualifiers: Respiratory failure complication: hypoxia Qualified Code(s): J96.01 - Acute respiratory failure with hypoxia Plan to address problem: - extubated - continue bronchodilators and pulmonary toilet - continue aspiration precautions - supplemental oxygen to keep O2 Sats >/= 94% (3) Leucocytosis Current Visit: Yes Status: Acute Qualifiers: Leukocytosis type: L Plan to address problem: - continue to taper systemic steroids - cultures NGTD - following clinically off antibiotics (4) Discharge planning issues Current Visit: Yes Status: Acute Plan to address problem: - not yet ready Subjective Date of service: 02/02/17 Principal diagnosis: Acute Hypoxemic Respiratory Failure Interval history: Seen and examined at bedside; 24 hour events reviewed; nursing and respiratory care staff consulted; no adverse overnight events reported to me; remains on CIWA but a little more coherent Objective Vital Signs - 12hr 02/02/17 02/02/17 02/02/17 00:00 04:00 05:36 Temperature 98.2 F 98.1 F Pulse Rate 88 Pulse Rate [ Anterior Bilateral Throughout] Pulse Rate [ 83 From Monitor] Pulse Rate [ 87 Right] Respiratory 18 18 Rate Respiratory Rate [Anterior Bilateral Throughout] Blood Pressure 116/69 Blood Pressure 120/75 [Left Arm] O2 Sat by Pulse 98 97 Oximetry 02/02/17 02/02/17 02/02/17 08:00 08:23 08:27 Temperature 98.6 F Pulse Rate Pulse Rate [ 78 Anterior Bilateral Throughout] Pulse Rate [ 82 From Monitor] Pulse Rate [ Right] Respiratory 18 Rate Respiratory 14 Rate [Anterior Bilateral Throughout] Blood Pressure Blood Pressure 124/75 [Left Arm] O2 Sat by Pulse 100 98 Oximetry 02/02/17 08:32 Temperature Pulse Rate Pulse Rate [ 77 Anterior Bilateral Throughout] Pulse Rate [ From Monitor] Pulse Rate [ Right] Respiratory Rate Respiratory 14 Rate [Anterior Bilateral Throughout] Blood Pressure Blood Pressure [Left Arm] O2 Sat by Pulse Oximetry Constitutional: no acute distress, other ( sedated) Eyes: non-icteric ENT: oropharynx moist Neck: supple, no lymphadenopathy Effort: normal Ascultation: Bilateral: clear Cardiovascular: regular rate and rhythm Gastrointestinal: normoactive bowel sounds, soft, non-tender, non-distended Integumentary: normal Extremities: no cyanosis, no edema, pink and warm, pulses normal, no ischemia or petechiae Neurologic: unable to assess, other (sedated) Psychiatric: other (sedated) CBC and BMP: 02/02/17 06:09 02/02/17 06:09 ABG, PT/INR, D-dimer: ABG POC ABG pH 7.546 (7.35-7.45) H 01/31/17 08:14 POC ABG pCO2 35.5 (35-45) 01/31/17 08:14 POC ABG pO2 113 (80-105) H 01/31/17 08:14 POC ABG HCO3 30.7 01/31/17 08:14 POC ABG Total CO2 32 01/31/17 08:14 POC ABG O2 Sat 99 01/31/17 08:14 PT/INR, D-dimer PT 12.0 Sec. (12.2-14.9) L 01/22/17 12:52 INR 0.90 (0.87-1.13) 01/22/17 12:52 D-Dimer 162.42 ng/mlDDU (0-234) 01/22/17 12:52 Abnormal lab findings: Abnormal Labs 01/22/17 01/23/17 01/23/17 Unknown 03:32 03:40 WBC 16.5 H RBC Hgb Hct RDW Lymph % (Auto) Lymph # [place] # Seg Neutrophils % Seg Neuts % (Manual) 95.0 H Lymphocytes % (Manual) 4.0 L Monocytes % (Manual) Seg Neutrophils # Seg Neutrophils # Man 15.7 H Lymphocytes # (Manual) 0.7 L Monocytes # (Manual) POC ABG pH 7.293 L POC ABG pCO2 POC ABG pO2 Sodium Potassium Chloride Carbon Dioxide BUN Creatinine Glucose POC Glucose Lactic Acid Calcium Phosphorus AST ALT Total Protein Albumin Triglycerides Ur Specific [place] 1.002 L 01/23/17 01/23/17 01/23/17 03:40 13:41 20:48 WBC RBC Hgb Hct RDW Lymph % (Auto) Lymph # [place] # Seg Neutrophils % Seg Neuts % (Manual) Lymphocytes % (Manual) Monocytes % (Manual) Seg Neutrophils # Seg Neutrophils # Man Lymphocytes # (Manual) Monocytes # (Manual) POC ABG pH POC ABG pCO2 POC ABG pO2 77 L Sodium Potassium Chloride 108.6 H Carbon Dioxide 19 L BUN Creatinine 0.5 L Glucose 216 H POC Glucose Lactic Acid 3.3 H* Calcium 7.6 L D Phosphorus AST 98 H ALT 93 H Total Protein 5.9 L Albumin 3.2 L Triglycerides Ur Specific [place] 01/24/17 01/24/17 01/24/17 00:07 04:39 06:00 WBC 25.7 H RBC Hgb Hct RDW Lymph % (Auto) Lymph # [place] # Seg Neutrophils % Seg Neuts % (Manual) 99.0 H Lymphocytes % (Manual) 0 L Monocytes % (Manual) Seg Neutrophils # Seg Neutrophils # Man 25.4 H Lymphocytes # (Manual) 0.0 L Monocytes # (Manual) POC ABG pH POC ABG pCO2 POC ABG pO2 106 H Sodium Potassium Chloride Carbon Dioxide BUN Creatinine Glucose POC Glucose 189 H Lactic Acid Calcium Phosphorus AST ALT Total Protein Albumin Triglycerides Ur Specific [place] 01/24/17 01/24/17 01/25/17 06:00 13:22 04:46 WBC RBC Hgb Hct RDW Lymph % (Auto) Lymph # [place] # Seg Neutrophils % Seg Neuts % (Manual) Lymphocytes % (Manual) Monocytes % (Manual) Seg Neutrophils # Seg Neutrophils # Man Lymphocytes # (Manual) Monocytes # (Manual) POC ABG pH 7.333 L POC ABG pCO2 POC ABG pO2 Sodium Potassium Chloride 107.5 H Carbon Dioxide BUN Creatinine 0.4 L Glucose 165 H POC Glucose Lactic Acid 2.6 H* Calcium 7.9 L Phosphorus AST ALT Total Protein Albumin Triglycerides Ur Specific [place] 01/25/17 01/25/17 01/25/17 06:48 07:22 07:31 WBC 21.2 H RBC 3.41 L Hgb Hct RDW Lymph % (Auto) Lymph # [place] # Seg Neutrophils % Seg Neuts % (Manual) 84.0 H Lymphocytes % (Manual) 6.0 L Monocytes % (Manual) Seg Neutrophils # Seg Neutrophils # Man 17.8 H Lymphocytes # (Manual) Monocytes # (Manual) POC ABG pH POC ABG pCO2 POC ABG pO2 Sodium Potassium 2.8 L* D 3.5 L D Chloride 116.5 H Carbon Dioxide 17 L D BUN Creatinine 0.2 L 0.3 L Glucose 117 H 141 H POC Glucose Lactic Acid Calcium 5.7 L* D 7.9 L D Phosphorus 1.5 L AST ALT Total Protein Albumin Triglycerides Ur Specific [place] 01/26/17 01/26/17 01/26/17 00:23 04:00 04:00 WBC 15.2 H RBC 3.23 L Hgb 9.9 L Hct 29.9 L RDW Lymph % (Auto) 4.7 L Lymph # 0.7 L [place] # Seg Neutrophils % 90.0 H Seg Neuts % (Manual) Lymphocytes % (Manual) Monocytes % (Manual) Seg Neutrophils # 13.6 H Seg Neutrophils # Man Lymphocytes # (Manual) Monocytes # (Manual) POC ABG pH 7.499 H POC ABG pCO2 30.4 L POC ABG pO2 Sodium Potassium Chloride Carbon Dioxide BUN Creatinine 0.4 L Glucose 132 H POC Glucose Lactic Acid Calcium 7.4 L Phosphorus AST ALT Total Protein Albumin Triglycerides Ur Specific [place] 01/26/17 01/27/17 01/27/17 05:12 04:00 04:00 WBC RBC 3.30 L Hgb 10.0 L Hct RDW Lymph % (Auto) 6.0 L Lymph # 0.6 L [place] # Seg Neutrophils % 89.4 H Seg Neuts % (Manual) Lymphocytes % (Manual) Monocytes % (Manual) Seg Neutrophils # 8.4 H Seg Neutrophils # Man Lymphocytes # (Manual) Monocytes # (Manual) POC ABG pH 7.464 H POC ABG pCO2 POC ABG pO2 138 H Sodium Potassium 3.5 L Chloride 107.4 H Carbon Dioxide BUN Creatinine 0.3 L Glucose 138 H POC Glucose Lactic Acid Calcium 7.1 L Phosphorus AST ALT Total Protein Albumin Triglycerides Ur Specific [place] 01/28/17 01/28/17 01/29/17 07:48 07:48 03:56 WBC 12.3 H RBC Hgb Hct RDW 12.9 L Lymph % (Auto) Lymph # [place] # Seg Neutrophils % Seg Neuts % (Manual) Lymphocytes % (Manual) Monocytes % (Manual) Seg Neutrophils # Seg Neutrophils # Man Lymphocytes # (Manual) Monocytes # (Manual) POC ABG pH 7.468 H POC ABG pCO2 POC ABG pO2 124 H Sodium 136 L Potassium Chloride Carbon Dioxide BUN Creatinine 0.3 L Glucose 146 H POC Glucose Lactic Acid Calcium Phosphorus AST ALT Total Protein Albumin Triglycerides Ur Specific [place] 01/29/17 01/29/17 01/30/17 06:31 06:31 04:20 WBC 18.8 H RBC Hgb Hct RDW 13.0 L Lymph % (Auto) 5.1 L Lymph # 1.0 L [place] # 1.2 H Seg Neutrophils % 88.2 H Seg Neuts % (Manual) Lymphocytes % (Manual) Monocytes % (Manual) Seg Neutrophils # 16.6 H Seg Neutrophils # Man Lymphocytes # (Manual) Monocytes # (Manual) POC ABG pH POC ABG pCO2 POC ABG pO2 107 H Sodium Potassium Chloride Carbon Dioxide BUN Creatinine Glucose POC Glucose Lactic Acid Calcium Phosphorus AST ALT Total Protein Albumin Triglycerides 164 H Ur Specific [place] 01/30/17 01/30/17 01/30/17 07:03 07:03 14:47 WBC 16.6 H RBC Hgb Hct RDW 12.7 L Lymph % (Auto) Lymph # [place] # Seg Neutrophils % Seg Neuts % (Manual) 88.0 H Lymphocytes % (Manual) 3.0 L Monocytes % (Manual) Seg Neutrophils # Seg Neutrophils # Man 14.6 H Lymphocytes # (Manual) 0.5 L Monocytes # (Manual) 1.2 H POC ABG pH 7.451 H POC ABG pCO2 POC ABG pO2 Sodium Potassium Chloride 97.0 L Carbon Dioxide BUN 20 H Creatinine 0.4 L Glucose 153 H POC Glucose Lactic Acid Calcium Phosphorus AST ALT Total Protein Albumin Triglycerides Ur Specific [place] 01/31/17 01/31/17 01/31/17 08:14 14:40 14:40 WBC 22.2 H RBC Hgb Hct RDW 12.9 L Lymph % (Auto) Lymph # [place] # Seg Neutrophils % Seg Neuts % (Manual) 85.0 H Lymphocytes % (Manual) 6.0 L Monocytes % (Manual) 8.0 H Seg Neutrophils # Seg Neutrophils # Man 18.9 H Lymphocytes # (Manual) Monocytes # (Manual) 1.8 H POC ABG pH 7.546 H POC ABG pCO2 POC ABG pO2 113 H Sodium Potassium Chloride 96.8 L Carbon Dioxide BUN 20 H Creatinine 0.3 L Glucose 109 H POC Glucose Lactic Acid Calcium Phosphorus AST ALT Total Protein Albumin Triglycerides Ur Specific [place] 02/01/17 02/01/17 02/02/17 04:00 04:00 06:09 WBC 18.8 H RBC Hgb Hct RDW 13.1 L Lymph % (Auto) Lymph # [place] # Seg Neutrophils % Seg Neuts % (Manual) 88.0 H Lymphocytes % (Manual) 6.0 L Monocytes % (Manual) Seg Neutrophils # Seg Neutrophils # Man 16.5 H Lymphocytes # (Manual) 1.1 L Monocytes # (Manual) POC ABG pH POC ABG pCO2 POC ABG pO2 Sodium Potassium Chloride Carbon Dioxide BUN 26 H 24 H Creatinine 0.5 L D 0.4 L Glucose 123 H 111 H POC Glucose Lactic Acid Calcium Phosphorus AST ALT Total Protein Albumin Triglycerides Ur Specific [place] 02/02/17 06:09 WBC 18.4 H RBC Hgb 14.4 H Hct 44.0 H RDW 12.9 L Lymph % (Auto) Lymph # [place] # Seg Neutrophils % Seg Neuts % (Manual) 74.0 H Lymphocytes % (Manual) 11.0 L Monocytes % (Manual) 11.0 H Seg Neutrophils # Seg Neutrophils # Man 13.6 H Lymphocytes # (Manual) Monocytes # (Manual) 2.0 H POC ABG pH POC ABG pCO2 POC ABG pO2 Sodium Potassium Chloride Carbon Dioxide BUN Creatinine Glucose POC Glucose Lactic Acid Calcium Phosphorus AST ALT Total Protein Albumin Triglycerides Ur Specific [place]
--- NOTE | 2017-02-02 16:41 | Progress Note ---
Assessment and Plan Assessment and plan: --Alcohol withdrawal symptoms Continue [facility] protocol --Acute hypoxemic respiratory failure status post extubation Stable on nasal cannula oxygen --Acute exacerbation of bronchial asthma On nebulizers, tapering doses of steroids, Supportive care --Leukocytosis trending down Secondary to IV steroids, cultures negative to date Patient is afebrile and no evidence of infection --Lactic acidosis Resolved --DVT prophylaxis with Lovenox Physical therapy occupational therapy Patient can be transferred out of ICU to medical floor DC planning 1-2 days stable Possible home with home health in 1-2 days if stable History Interval history: Patient seen and evaluated in her room this morning medical records reviewed Patient is lethargic, easily awakens responding to simple questions appropriately not in acute distress No new events reported by the nursing staff, on [facility] protocol Hospitalist Physical - Constitutional Vitals: Temp Pulse Resp BP Pulse Ox 97.7 F 89 16 123/80 97 02/02/17 12:00 02/02/17 14:23 02/02/17 14:23 02/02/17 12:00 02/02/17 12:00 General appearance: Present: no acute distress, well-nourished, other (mild agitation at times) - EENT Eyes: Present: PERRL, EOM intact - Neck Neck: Present: supple, normal ROM - Respiratory Respiratory effort: normal Respiratory: bilateral: diminished, negative: rales, rhonchi, wheezing - Cardiovascular Rhythm: regular Heart Sounds: Present: S1 & S2 - Extremities Extremities: no ischemia, pulses intact, pulses symmetrical Peripheral Pulses: within normal limits - Abdominal General gastrointestinal: soft, non-tender, non-distended, normal bowel sounds - Integumentary Integumentary: Present: clear, warm - Psychiatric Psychiatric: appropriate mood/affect, cooperative - Neurologic Neurologic: CNII-XII intact, moves all extremities Results - Labs CBC & Chem 7: 02/02/17 06:09 02/02/17 06:09 Labs: Laboratory Last Values WBC 18.4 K/mm3 (4.5-11.0) H 02/02/17 06:09 RBC 4.85 M/mm3 (3.65-5.03) 02/02/17 06:09 Hgb 14.4 gm/dl (10.1-14.3) H 02/02/17 06:09 Hct 44.0 % (30.3-42.9) H 02/02/17 06:09 MCV 91 fl (79-97) 02/02/17 06:09 MCH 30 pg (28-32) 02/02/17 06:09 MCHC 33 % (30-34) 02/02/17 06:09 RDW 12.9 % (13.2-15.2) L 02/02/17 06:09 Plt Count 405 K/mm3 (140-440) 02/02/17 06:09 Lymph % (Auto) 5.1 % (13.4-35.0) L 01/29/17 06:31 [place] % (Auto) 6.3 % (0.0-7.3) 01/29/17 06:31 Eos % (Auto) 0.0 % (0.0-4.3) 01/29/17 06:31 Baso % (Auto) 0.4 % (0.0-1.8) 01/29/17 06:31 Lymph # 1.0 K/mm3 (1.2-5.4) L 01/29/17 06:31 [place] # 1.2 K/mm3 (0.0-0.8) H 01/29/17 06:31 Eos # 0.0 K/mm3 (0.0-0.4) 01/29/17 06:31 Baso # 0.1 K/mm3 (0.0-0.1) 01/29/17 06:31 Add Manual Diff Complete 02/02/17 06:09 Total Counted 100 02/02/17 06:09 Seg Neutrophils % 88.2 % (40.0-70.0) H 01/29/17 06:31 Seg Neuts % (Manual) 74.0 % (40.0-70.0) H 02/02/17 06:09 Band Neutrophils % 2.0 % 02/02/17 06:09 Lymphocytes % (Manual) 11.0 % (13.4-35.0) L 02/02/17 06:09 Reactive Lymphs % (Man) 0 % 02/02/17 06:09 Monocytes % (Manual) 11.0 % (0.0-7.3) H 02/02/17 06:09 Eosinophils % (Manual) 2.0 % (0.0-4.3) 02/02/17 06:09 Basophils % (Manual) 0 % (0.0-1.8) 02/02/17 06:09 Metamyelocytes % 0 % 02/02/17 06:09 Myelocytes % 0 % 02/02/17 06:09 Promyelocytes % 0 % 02/02/17 06:09 Blast Cells % 0 % 02/02/17 06:09 Nucleated RBC % Not Reportable 02/02/17 06:09 Seg Neutrophils # 16.6 K/mm3 (1.8-7.7) H 01/29/17 06:31 Seg Neutrophils # Man 13.6 K/mm3 (1.8-7.7) H 02/02/17 06:09 Band Neutrophils # 0.4 K/mm3 02/02/17 06:09 Lymphocytes # (Manual) 2.0 K/mm3 (1.2-5.4) 02/02/17 06:09 Abs React Lymphs (Man) 0.0 K/mm3 02/02/17 06:09 Monocytes # (Manual) 2.0 K/mm3 (0.0-0.8) H 02/02/17 06:09 Eosinophils # (Manual) 0.4 K/mm3 (0.0-0.4) 02/02/17 06:09 Basophils # (Manual) 0.0 K/mm3 (0.0-0.1) 02/02/17 06:09 Metamyelocytes # 0.0 K/mm3 02/02/17 06:09 Myelocytes # 0.0 K/mm3 02/02/17 06:09 Promyelocytes # 0.0 K/mm3 02/02/17 06:09 Blast Cells # 0.0 K/mm3 02/02/17 06:09 WBC Morphology Not Reportable 02/02/17 06:09 Hypersegmented Neuts Not Reportable 02/02/17 06:09 Hyposegmented Neuts Not Reportable 02/02/17 06:09 Hypogranular Neuts Not Reportable 02/02/17 06:09 Smudge Cells Not Reportable 02/02/17 06:09 Toxic Granulation Not Reportable 02/02/17 06:09 Toxic Vacuolation Not Reportable 02/02/17 06:09 Dohle Bodies Not Reportable 02/02/17 06:09 Pelger-Huet Anomaly Not Reportable 02/02/17 06:09 Roderick Rods Not Reportable 02/02/17 06:09 Platelet Estimate Consistent w auto 02/02/17 06:09 Clumped Platelets Not Reportable 02/02/17 06:09 Plt Clumps, EDTA Not Reportable 02/02/17 06:09 Large Platelets Not Reportable 02/02/17 06:09 Giant Platelets Not Reportable 02/02/17 06:09 Platelet Satelliting Not Reportable 02/02/17 06:09 Plt Morphology Comment Not Reportable 02/02/17 06:09 RBC Morphology Not Reportable 02/02/17 06:09 Dimorphic RBCs Not Reportable 02/02/17 06:09 Polychromasia Not Reportable 02/02/17 06:09 Hypochromasia Not Reportable 02/02/17 06:09 Poikilocytosis Not Reportable 02/02/17 06:09 Anisocytosis Few 02/02/17 06:09 Microcytosis Not Reportable 02/02/17 06:09 Macrocytosis Not Reportable 02/02/17 06:09 Spherocytes Not Reportable 02/02/17 06:09 Pappenheimer Bodies Not Reportable 02/02/17 06:09 Sickle Cells Not Reportable 02/02/17 06:09 Target Cells Not Reportable 02/02/17 06:09 Tear Drop Cells Not Reportable 02/02/17 06:09 Ovalocytes Not Reportable 02/02/17 06:09 Helmet Cells Not Reportable 02/02/17 06:09 [place] Bodies Not Reportable 02/02/17 06:09 [place] Rings Not Reportable 02/02/17 06:09 [place] Cells Not Reportable 02/02/17 06:09 Bite Cells Not Reportable 02/02/17 06:09 Crenated Cell Not Reportable 02/02/17 06:09 Elliptocytes Not Reportable 02/02/17 06:09 Acanthocytes (Spur) Not Reportable 02/02/17 06:09 Rouleaux Not Reportable 02/02/17 06:09 Hemoglobin C Crystals Not Reportable 02/02/17 06:09 Schistocytes Not Reportable 02/02/17 06:09 Malaria parasites Not Reportable 02/02/17 06:09 [place] Bodies Not Reportable 02/02/17 06:09 Hem Pathologist Commnt No 02/02/17 06:09 PT 12.0 Sec. (12.2-14.9) L 01/22/17 12:52 INR 0.90 (0.87-1.13) 01/22/17 12:52 D-Dimer 162.42 ng/mlDDU (0-234) 01/22/17 12:52 POC ABG pH 7.546 (7.35-7.45) H 01/31/17 08:14 POC ABG pCO2 35.5 (35-45) 01/31/17 08:14 POC ABG pO2 113 (80-105) H 01/31/17 08:14 POC ABG HCO3 30.7 01/31/17 08:14 POC ABG Total CO2 32 01/31/17 08:14 POC ABG O2 Sat 99 01/31/17 08:14 POC ABG Base Excess 8 01/31/17 08:14 FiO2 30 % 01/31/17 08:14 Sodium 139 mmol/L (137-145) 02/02/17 06:09 Potassium 4.1 mmol/L (3.6-5.0) 02/02/17 06:09 Chloride 98.3 mmol/L (98-107) 02/02/17 06:09 Carbon Dioxide 22 mmol/L (22-30) 02/02/17 06:09 Anion Gap 23 mmol/L 02/02/17 06:09 BUN 24 mg/dL (7-17) H 02/02/17 06:09 Creatinine 0.4 mg/dL (0.7-1.2) L 02/02/17 06:09 Estimated GFR > 60 ml/min 02/02/17 06:09 BUN/Creatinine Ratio 60.00 % 02/02/17 06:09 Glucose 111 mg/dL (65-100) H 02/02/17 06:09 POC Glucose 189 (70-105) H 01/24/17 00:07 Lactic Acid 1.8 mmol/L (0.7-2.0) 01/25/17 07:28 Calcium 9.6 mg/dL (8.4-10.2) 02/02/17 06:09 Phosphorus 3.9 mg/dL (2.5-4.5) 01/30/17 07:03 Magnesium 2.2 mg/dL (1.7-2.3) 02/01/17 04:00 Total Bilirubin 0.4 mg/dL (0.1-1.2) 01/23/17 03:40 Direct Bilirubin < 0.2 mg/dL (0-0.2) 01/22/17 12:52 Indirect Bilirubin 0.0 mg/dL 01/22/17 12:52 AST 98 units/L (5-40) H 01/23/17 03:40 ALT 93 units/L (7-56) H 01/23/17 03:40 Alkaline Phosphatase 72 units/L (35-129) 01/23/17 03:40 Troponin T < 0.010 ng/mL (0.00-0.029) 01/22/17 12:52 C-Reactive Protein 0.30 mg/dL (0.00-1.30) 01/23/17 03:40 NT-Pro-B Natriuret Pep 100.8 pg/mL (0-450) 01/22/17 12:52 Total Protein 5.9 g/dL (6.3-8.2) L 01/23/17 03:40 Albumin 3.2 g/dL (3.9-5) L 01/23/17 03:40 Albumin/Globulin Ratio 1.2 % 01/23/17 03:40 Triglycerides 164 mg/dL (2-149) H 01/29/17 06:31 HCG, Quant < 2 mIU/mL (0-4) 01/22/17 12:52 Urine Color Colorless (Yellow) 01/22/17 Unknown Urine Turbidity Clear (Clear) 01/22/17 Unknown Urine pH 6.0 (5.0-7.0) 01/22/17 Unknown Ur Specific [place] 1.002 (1.003-1.030) L 01/22/17 Unknown Urine Protein <15 mg/dl mg/dL (Negative) 01/22/17 Unknown Urine Glucose (UA) Neg mg/dL (Negative) 01/22/17 Unknown Urine Ketones Neg mg/dL (Negative) 01/22/17 Unknown Urine Blood Mod (Negative) 01/22/17 Unknown Urine Nitrite Neg (Negative) 01/22/17 Unknown Urine Bilirubin Neg (Negative) 01/22/17 Unknown Urine Urobilinogen < 2.0 mg/dL (<2.0) 01/22/17 Unknown Ur Leukocyte Esterase Neg (Negative) 01/22/17 Unknown Urine WBC (Auto) < 1.0 /HPF (0.0-6.0) 01/22/17 Unknown Urine RBC (Auto) 1.0 /HPF (0.0-6.0) 01/22/17 Unknown U Epithel Cells (Auto) < 1.0 /HPF (0-13.0) 01/22/17 Unknown Urine Opiates Screen Presumptive negative 01/22/17 Unknown Urine Methadone Screen Presumptive negative 01/22/17 Unknown Ur Barbiturates Screen Presumptive negative 01/22/17 Unknown Ur Phencyclidine Scrn Presumptive negative 01/22/17 Unknown Ur Amphetamines Screen Presumptive negative 01/22/17 Unknown U Benzodiazepines Scrn Presumptive negative 01/22/17 Unknown Urine Cocaine Screen Presumptive negative 01/22/17 Unknown U Marijuana (THC) Screen Presumptive negative 01/22/17 Unknown Drugs of Abuse Note Disclamer 01/22/17 Unknown
[2017-02-03] MEDS: LIBRIUM PO SCH ×3 (06:47→21:50)
[2017-02-03] MEDS: NEURONTIN PO SCH ×3 (06:48→21:48)
[2017-02-03] MEDS: PROVENTIL IH SCH ×3 (07:50→20:25)
--- NOTE | 2017-02-03 11:20 | Progress Note ---
Assessment and Plan - Patient Problems (1) Altered mental status Current Visit: Yes Status: Acute Qualifiers: Altered mental status type: A Coma depth: C Coma timing: C Plan to address problem: - much improved - taper quickly off psychoactive drugs (2) Acute respiratory failure Current Visit: Yes Status: Acute Qualifiers: Respiratory failure complication: hypoxia Qualified Code(s): J96.01 - Acute respiratory failure with hypoxia Plan to address problem: - resolved (3) Leucocytosis Current Visit: Yes Status: Acute Qualifiers: Leukocytosis type: L Plan to address problem: - continue to taper systemic steroids - cultures NGTD - following clinically off antibiotics (4) Discharge planning issues Current Visit: Yes Status: Acute Plan to address problem: - home soon Subjective Date of service: 02/03/17 Principal diagnosis: Acute Hypoxemic Respiratory Failure Interval history: Seen and examined at bedside; 24 hour events reviewed; nursing and respiratory care staff consulted; no adverse overnight events reported to me; resting peacefully in bed; looks much better; denies acute chest pains or increased SOB Objective Vital Signs - 12hr 02/03/17 02/03/17 02/03/17 02:15 07:02 08:00 Temperature 97.5 F L 98.0 F 36.6 F L Pulse Rate [ 94 H 101 H Left Radial] Pulse Rate [ 98 H Right Radial] Respiratory 20 20 18 Rate Blood Pressure 120/81 114/73 [Left Arm] Blood Pressure 122/88 [Right Arm] O2 Sat by Pulse 98 98 99 Oximetry Constitutional: no acute distress, alert Eyes: non-icteric ENT: oropharynx moist Neck: supple, no lymphadenopathy Effort: normal Ascultation: Bilateral: clear Cardiovascular: regular rate and rhythm Gastrointestinal: normoactive bowel sounds, soft, non-tender, non-distended Integumentary: normal Extremities: no cyanosis, no edema, pink and warm, pulses normal, no ischemia or petechiae Neurologic: normal mental status, non-focal exam, pupils equal and round, motor strength normal and Psychiatric: mood appropriate, affect normal CBC and BMP: 02/05/17 05:10 02/02/17 06:09 ABG, PT/INR, D-dimer: ABG POC ABG pH 7.546 (7.35-7.45) H 01/31/17 08:14 POC ABG pCO2 35.5 (35-45) 01/31/17 08:14 POC ABG pO2 113 (80-105) H 01/31/17 08:14 POC ABG HCO3 30.7 01/31/17 08:14 POC ABG Total CO2 32 01/31/17 08:14 POC ABG O2 Sat 99 01/31/17 08:14 PT/INR, D-dimer PT 12.0 Sec. (12.2-14.9) L 01/22/17 12:52 INR 0.90 (0.87-1.13) 01/22/17 12:52 D-Dimer 162.42 ng/mlDDU (0-234) 01/22/17 12:52 Abnormal lab findings: Abnormal Labs 01/22/17 01/23/17 01/23/17 Unknown 03:32 03:40 WBC 16.5 H RBC Hgb Hct RDW Lymph % (Auto) Lymph # Jones # Seg Neutrophils % Seg Neuts % (Manual) 95.0 H Lymphocytes % (Manual) 4.0 L Monocytes % (Manual) Seg Neutrophils # Seg Neutrophils # Man 15.7 H Lymphocytes # (Manual) 0.7 L Monocytes # (Manual) POC ABG pH 7.293 L POC ABG pCO2 POC ABG pO2 Sodium Potassium Chloride Carbon Dioxide BUN Creatinine Glucose POC Glucose Lactic Acid Calcium Phosphorus AST ALT Total Protein Albumin Triglycerides Ur Specific [place] 1.002 L 01/23/17 01/23/17 01/23/17 03:40 13:41 20:48 WBC RBC Hgb Hct RDW Lymph % (Auto) Lymph # Jones # Seg Neutrophils % Seg Neuts % (Manual) Lymphocytes % (Manual) Monocytes % (Manual) Seg Neutrophils # Seg Neutrophils # Man Lymphocytes # (Manual) Monocytes # (Manual) POC ABG pH POC ABG pCO2 POC ABG pO2 77 L Sodium Potassium Chloride 108.6 H Carbon Dioxide 19 L BUN Creatinine 0.5 L Glucose 216 H POC Glucose Lactic Acid 3.3 H* Calcium 7.6 L D Phosphorus AST 98 H ALT 93 H Total Protein 5.9 L Albumin 3.2 L Triglycerides Ur Specific [place] 01/24/17 01/24/17 01/24/17 00:07 04:39 06:00 WBC 25.7 H RBC Hgb Hct RDW Lymph % (Auto) Lymph # Jones # Seg Neutrophils % Seg Neuts % (Manual) 99.0 H Lymphocytes % (Manual) 0 L Monocytes % (Manual) Seg Neutrophils # Seg Neutrophils # Man 25.4 H Lymphocytes # (Manual) 0.0 L Monocytes # (Manual) POC ABG pH POC ABG pCO2 POC ABG pO2 106 H Sodium Potassium Chloride Carbon Dioxide BUN Creatinine Glucose POC Glucose 189 H Lactic Acid Calcium Phosphorus AST ALT Total Protein Albumin Triglycerides Ur Specific [place] 01/24/17 01/24/17 01/25/17 06:00 13:22 04:46 WBC RBC Hgb Hct RDW Lymph % (Auto) Lymph # Jones # Seg Neutrophils % Seg Neuts % (Manual) Lymphocytes % (Manual) Monocytes % (Manual) Seg Neutrophils # Seg Neutrophils # Man Lymphocytes # (Manual) Monocytes # (Manual) POC ABG pH 7.333 L POC ABG pCO2 POC ABG pO2 Sodium Potassium Chloride 107.5 H Carbon Dioxide BUN Creatinine 0.4 L Glucose 165 H POC Glucose Lactic Acid 2.6 H* Calcium 7.9 L Phosphorus AST ALT Total Protein Albumin Triglycerides Ur Specific [place] 01/25/17 01/25/17 01/25/17 06:48 07:22 07:31 WBC 21.2 H RBC 3.41 L Hgb Hct RDW Lymph % (Auto) Lymph # [place] # Seg Neutrophils % Seg Neuts % (Manual) 84.0 H Lymphocytes % (Manual) 6.0 L Monocytes % (Manual) Seg Neutrophils # Seg Neutrophils # Man 17.8 H Lymphocytes # (Manual) Monocytes # (Manual) POC ABG pH POC ABG pCO2 POC ABG pO2 Sodium Potassium 2.8 L* D 3.5 L D Chloride 116.5 H Carbon Dioxide 17 L D BUN Creatinine 0.2 L 0.3 L Glucose 117 H 141 H POC Glucose Lactic Acid Calcium 5.7 L* D 7.9 L D Phosphorus 1.5 L AST ALT Total Protein Albumin Triglycerides Ur Specific [place] 01/26/17 01/26/17 01/26/17 00:23 04:00 04:00 WBC 15.2 H RBC 3.23 L Hgb 9.9 L Hct 29.9 L RDW Lymph % (Auto) 4.7 L Lymph # 0.7 L Jones # Seg Neutrophils % 90.0 H Seg Neuts % (Manual) Lymphocytes % (Manual) Monocytes % (Manual) Seg Neutrophils # 13.6 H Seg Neutrophils # Man Lymphocytes # (Manual) Monocytes # (Manual) POC ABG pH 7.499 H POC ABG pCO2 30.4 L POC ABG pO2 Sodium Potassium Chloride Carbon Dioxide BUN Creatinine 0.4 L Glucose 132 H POC Glucose Lactic Acid Calcium 7.4 L Phosphorus AST ALT Total Protein Albumin Triglycerides Ur Specific [place] 01/26/17 01/27/17 01/27/17 05:12 04:00 04:00 WBC RBC 3.30 L Hgb 10.0 L Hct RDW Lymph % (Auto) 6.0 L Lymph # 0.6 L [place] # Seg Neutrophils % 89.4 H Seg Neuts % (Manual) Lymphocytes % (Manual) Monocytes % (Manual) Seg Neutrophils # 8.4 H Seg Neutrophils # Man Lymphocytes # (Manual) Monocytes # (Manual) POC ABG pH 7.464 H POC ABG pCO2 POC ABG pO2 138 H Sodium Potassium 3.5 L Chloride 107.4 H Carbon Dioxide BUN Creatinine 0.3 L Glucose 138 H POC Glucose Lactic Acid Calcium 7.1 L Phosphorus AST ALT Total Protein Albumin Triglycerides Ur Specific [place] 01/28/17 01/28/17 01/29/17 07:48 07:48 03:56 WBC 12.3 H RBC Hgb Hct RDW 12.9 L Lymph % (Auto) Lymph # [place] # Seg Neutrophils % Seg Neuts % (Manual) Lymphocytes % (Manual) Monocytes % (Manual) Seg Neutrophils # Seg Neutrophils # Man Lymphocytes # (Manual) Monocytes # (Manual) POC ABG pH 7.468 H POC ABG pCO2 POC ABG pO2 124 H Sodium 136 L Potassium Chloride Carbon Dioxide BUN Creatinine 0.3 L Glucose 146 H POC Glucose Lactic Acid Calcium Phosphorus AST ALT Total Protein Albumin Triglycerides Ur Specific [place] 01/29/17 01/29/17 01/30/17 06:31 06:31 04:20 WBC 18.8 H RBC Hgb Hct RDW 13.0 L Lymph % (Auto) 5.1 L Lymph # 1.0 L [place] # 1.2 H Seg Neutrophils % 88.2 H Seg Neuts % (Manual) Lymphocytes % (Manual) Monocytes % (Manual) Seg Neutrophils # 16.6 H Seg Neutrophils # Man Lymphocytes # (Manual) Monocytes # (Manual) POC ABG pH POC ABG pCO2 POC ABG pO2 107 H Sodium Potassium Chloride Carbon Dioxide BUN Creatinine Glucose POC Glucose Lactic Acid Calcium Phosphorus AST ALT Total Protein Albumin Triglycerides 164 H Ur Specific [place] 01/30/17 01/30/17 01/30/17 07:03 07:03 14:47 WBC 16.6 H RBC Hgb Hct RDW 12.7 L Lymph % (Auto) Lymph # [place] # Seg Neutrophils % Seg Neuts % (Manual) 88.0 H Lymphocytes % (Manual) 3.0 L Monocytes % (Manual) Seg Neutrophils # Seg Neutrophils # Man 14.6 H Lymphocytes # (Manual) 0.5 L Monocytes # (Manual) 1.2 H POC ABG pH 7.451 H POC ABG pCO2 POC ABG pO2 Sodium Potassium Chloride 97.0 L Carbon Dioxide BUN 20 H Creatinine 0.4 L Glucose 153 H POC Glucose Lactic Acid Calcium Phosphorus AST ALT Total Protein Albumin Triglycerides Ur Specific [place] 01/31/17 01/31/17 01/31/17 08:14 14:40 14:40 WBC 22.2 H RBC Hgb Hct RDW 12.9 L Lymph % (Auto) Lymph # [place] # Seg Neutrophils % Seg Neuts % (Manual) 85.0 H Lymphocytes % (Manual) 6.0 L Monocytes % (Manual) 8.0 H Seg Neutrophils # Seg Neutrophils # Man 18.9 H Lymphocytes # (Manual) Monocytes # (Manual) 1.8 H POC ABG pH 7.546 H POC ABG pCO2 POC ABG pO2 113 H Sodium Potassium Chloride 96.8 L Carbon Dioxide BUN 20 H Creatinine 0.3 L Glucose 109 H POC Glucose Lactic Acid Calcium Phosphorus AST ALT Total Protein Albumin Triglycerides Ur Specific [place] 02/01/17 02/01/17 02/02/17 04:00 04:00 06:09 WBC 18.8 H RBC Hgb Hct RDW 13.1 L Lymph % (Auto) Lymph # [place] # Seg Neutrophils % Seg Neuts % (Manual) 88.0 H Lymphocytes % (Manual) 6.0 L Monocytes % (Manual) Seg Neutrophils # Seg Neutrophils # Man 16.5 H Lymphocytes # (Manual) 1.1 L Monocytes # (Manual) POC ABG pH POC ABG pCO2 POC ABG pO2 Sodium Potassium Chloride Carbon Dioxide BUN 26 H 24 H Creatinine 0.5 L D 0.4 L Glucose 123 H 111 H POC Glucose Lactic Acid Calcium Phosphorus AST ALT Total Protein Albumin Triglycerides Ur Specific [place] 02/02/17 06:09 WBC 18.4 H RBC Hgb 14.4 H Hct 44.0 H RDW 12.9 L Lymph % (Auto) Lymph # [place] # Seg Neutrophils % Seg Neuts % (Manual) 74.0 H Lymphocytes % (Manual) 11.0 L Monocytes % (Manual) 11.0 H Seg Neutrophils # Seg Neutrophils # Man 13.6 H Lymphocytes # (Manual) Monocytes # (Manual) 2.0 H POC ABG pH POC ABG pCO2 POC ABG pO2 Sodium Potassium Chloride Carbon Dioxide BUN Creatinine Glucose POC Glucose Lactic Acid Calcium Phosphorus AST ALT Total Protein Albumin Triglycerides Ur Specific [place]
--- NOTE | 2017-02-03 12:27 | Progress Note ---
Assessment and Plan Assessment and plan: --Alcohol withdrawal symptoms Resolved, patient is alert awake oriented 3 no agitation or aggression --Acute hypoxemic respiratory failure status post extubation, Saturating well on room air --Acute exacerbation of bronchial asthma On nebulizers, tapering doses of steroids, Supportive care --Leukocytosis trending down Secondary to IV steroids, cultures negative to date Patient is afebrile and no evidence of infection --Lactic acidosis Resolved --DVT prophylaxis with Lovenox Physical therapy occupational therapy Patient can be transferred out of ICU to medical floor DC planning 1-2 days stable Possible home with home health in 1-2 days if stable History Interval history: Patient seen and evaluated medical records reviewed Patient feels better, no new complaints Alert awake oriented 3, no agitation or aggression, vital signs reviewed stable Hospitalist Physical - Constitutional Vitals: Temp Pulse Resp BP Pulse Ox 36.6 F L 98 H 18 122/88 99 02/03/17 08:00 02/03/17 08:00 02/03/17 08:00 02/03/17 08:00 02/03/17 08:00 General appearance: Present: no acute distress, well-nourished - EENT Eyes: Present: PERRL, EOM intact - Neck Neck: Present: supple, normal ROM - Respiratory Respiratory effort: normal Respiratory: bilateral: diminished, negative: rales, rhonchi, wheezing - Cardiovascular Rhythm: regular Heart Sounds: Present: S1 & S2 - Extremities Extremities: no ischemia, pulses intact, pulses symmetrical Peripheral Pulses: within normal limits - Abdominal General gastrointestinal: soft, non-tender, non-distended, normal bowel sounds - Integumentary Integumentary: Present: clear, warm - Psychiatric Psychiatric: appropriate mood/affect, cooperative - Neurologic Neurologic: CNII-XII intact, moves all extremities Results - Labs CBC & Chem 7: 02/02/17 06:09 02/02/17 06:09 Labs: Laboratory Last Values WBC 18.4 K/mm3 (4.5-11.0) H 02/02/17 06:09 RBC 4.85 M/mm3 (3.65-5.03) 02/02/17 06:09 Hgb 14.4 gm/dl (10.1-14.3) H 02/02/17 06:09 Hct 44.0 % (30.3-42.9) H 02/02/17 06:09 MCV 91 fl (79-97) 02/02/17 06:09 MCH 30 pg (28-32) 02/02/17 06:09 MCHC 33 % (30-34) 02/02/17 06:09 RDW 12.9 % (13.2-15.2) L 02/02/17 06:09 Plt Count 405 K/mm3 (140-440) 02/02/17 06:09 Lymph % (Auto) 5.1 % (13.4-35.0) L 01/29/17 06:31 [place] % (Auto) 6.3 % (0.0-7.3) 01/29/17 06:31 Eos % (Auto) 0.0 % (0.0-4.3) 01/29/17 06:31 Baso % (Auto) 0.4 % (0.0-1.8) 01/29/17 06:31 Lymph # 1.0 K/mm3 (1.2-5.4) L 01/29/17 06:31 [place] # 1.2 K/mm3 (0.0-0.8) H 01/29/17 06:31 Eos # 0.0 K/mm3 (0.0-0.4) 01/29/17 06:31 Baso # 0.1 K/mm3 (0.0-0.1) 01/29/17 06:31 Add Manual Diff Complete 02/02/17 06:09 Total Counted 100 02/02/17 06:09 Seg Neutrophils % 88.2 % (40.0-70.0) H 01/29/17 06:31 Seg Neuts % (Manual) 74.0 % (40.0-70.0) H 02/02/17 06:09 Band Neutrophils % 2.0 % 02/02/17 06:09 Lymphocytes % (Manual) 11.0 % (13.4-35.0) L 02/02/17 06:09 Reactive Lymphs % (Man) 0 % 02/02/17 06:09 Monocytes % (Manual) 11.0 % (0.0-7.3) H 02/02/17 06:09 Eosinophils % (Manual) 2.0 % (0.0-4.3) 02/02/17 06:09 Basophils % (Manual) 0 % (0.0-1.8) 02/02/17 06:09 Metamyelocytes % 0 % 02/02/17 06:09 Myelocytes % 0 % 02/02/17 06:09 Promyelocytes % 0 % 02/02/17 06:09 Blast Cells % 0 % 02/02/17 06:09 Nucleated RBC % Not Reportable 02/02/17 06:09 Seg Neutrophils # 16.6 K/mm3 (1.8-7.7) H 01/29/17 06:31 Seg Neutrophils # Man 13.6 K/mm3 (1.8-7.7) H 02/02/17 06:09 Band Neutrophils # 0.4 K/mm3 02/02/17 06:09 Lymphocytes # (Manual) 2.0 K/mm3 (1.2-5.4) 02/02/17 06:09 Abs React Lymphs (Man) 0.0 K/mm3 02/02/17 06:09 Monocytes # (Manual) 2.0 K/mm3 (0.0-0.8) H 02/02/17 06:09 Eosinophils # (Manual) 0.4 K/mm3 (0.0-0.4) 02/02/17 06:09 Basophils # (Manual) 0.0 K/mm3 (0.0-0.1) 02/02/17 06:09 Metamyelocytes # 0.0 K/mm3 02/02/17 06:09 Myelocytes # 0.0 K/mm3 02/02/17 06:09 Promyelocytes # 0.0 K/mm3 02/02/17 06:09 Blast Cells # 0.0 K/mm3 02/02/17 06:09 WBC Morphology Not Reportable 02/02/17 06:09 Hypersegmented Neuts Not Reportable 02/02/17 06:09 Hyposegmented Neuts Not Reportable 02/02/17 06:09 Hypogranular Neuts Not Reportable 02/02/17 06:09 Smudge Cells Not Reportable 02/02/17 06:09 Toxic Granulation Not Reportable 02/02/17 06:09 Toxic Vacuolation Not Reportable 02/02/17 06:09 Dohle Bodies Not Reportable 02/02/17 06:09 Pelger-Huet Anomaly Not Reportable 02/02/17 06:09 Roderick Rods Not Reportable 02/02/17 06:09 Platelet Estimate Consistent w auto 02/02/17 06:09 Clumped Platelets Not Reportable 02/02/17 06:09 Plt Clumps, EDTA Not Reportable 02/02/17 06:09 Large Platelets Not Reportable 02/02/17 06:09 Giant Platelets Not Reportable 02/02/17 06:09 Platelet Satelliting Not Reportable 02/02/17 06:09 Plt Morphology Comment Not Reportable 02/02/17 06:09 RBC Morphology Not Reportable 02/02/17 06:09 Dimorphic RBCs Not Reportable 02/02/17 06:09 Polychromasia Not Reportable 02/02/17 06:09 Hypochromasia Not Reportable 02/02/17 06:09 Poikilocytosis Not Reportable 02/02/17 06:09 Anisocytosis Few 02/02/17 06:09 Microcytosis Not Reportable 02/02/17 06:09 Macrocytosis Not Reportable 02/02/17 06:09 Spherocytes Not Reportable 02/02/17 06:09 Pappenheimer Bodies Not Reportable 02/02/17 06:09 Sickle Cells Not Reportable 02/02/17 06:09 Target Cells Not Reportable 02/02/17 06:09 Tear Drop Cells Not Reportable 02/02/17 06:09 Ovalocytes Not Reportable 02/02/17 06:09 Helmet Cells Not Reportable 02/02/17 06:09 [place] Bodies Not Reportable 02/02/17 06:09 [place] Rings Not Reportable 02/02/17 06:09 [place] Cells Not Reportable 02/02/17 06:09 Bite Cells Not Reportable 02/02/17 06:09 Crenated Cell Not Reportable 02/02/17 06:09 Elliptocytes Not Reportable 02/02/17 06:09 Acanthocytes (Spur) Not Reportable 02/02/17 06:09 Rouleaux Not Reportable 02/02/17 06:09 Hemoglobin C Crystals Not Reportable 02/02/17 06:09 Schistocytes Not Reportable 02/02/17 06:09 Malaria parasites Not Reportable 02/02/17 06:09 [place] Bodies Not Reportable 02/02/17 06:09 Hem Pathologist Commnt No 02/02/17 06:09 PT 12.0 Sec. (12.2-14.9) L 01/22/17 12:52 INR 0.90 (0.87-1.13) 01/22/17 12:52 D-Dimer 162.42 ng/mlDDU (0-234) 01/22/17 12:52 POC ABG pH 7.546 (7.35-7.45) H 01/31/17 08:14 POC ABG pCO2 35.5 (35-45) 01/31/17 08:14 POC ABG pO2 113 (80-105) H 01/31/17 08:14 POC ABG HCO3 30.7 01/31/17 08:14 POC ABG Total CO2 32 01/31/17 08:14 POC ABG O2 Sat 99 01/31/17 08:14 POC ABG Base Excess 8 01/31/17 08:14 FiO2 30 % 01/31/17 08:14 Sodium 139 mmol/L (137-145) 02/02/17 06:09 Potassium 4.1 mmol/L (3.6-5.0) 02/02/17 06:09 Chloride 98.3 mmol/L (98-107) 02/02/17 06:09 Carbon Dioxide 22 mmol/L (22-30) 02/02/17 06:09 Anion Gap 23 mmol/L 02/02/17 06:09 BUN 24 mg/dL (7-17) H 02/02/17 06:09 Creatinine 0.4 mg/dL (0.7-1.2) L 02/02/17 06:09 Estimated GFR > 60 ml/min 02/02/17 06:09 BUN/Creatinine Ratio 60.00 % 02/02/17 06:09 Glucose 111 mg/dL (65-100) H 02/02/17 06:09 POC Glucose 189 (70-105) H 01/24/17 00:07 Lactic Acid 1.8 mmol/L (0.7-2.0) 01/25/17 07:28 Calcium 9.6 mg/dL (8.4-10.2) 02/02/17 06:09 Phosphorus 3.9 mg/dL (2.5-4.5) 01/30/17 07:03 Magnesium 2.2 mg/dL (1.7-2.3) 02/01/17 04:00 Total Bilirubin 0.4 mg/dL (0.1-1.2) 01/23/17 03:40 Direct Bilirubin < 0.2 mg/dL (0-0.2) 01/22/17 12:52 Indirect Bilirubin 0.0 mg/dL 01/22/17 12:52 AST 98 units/L (5-40) H 01/23/17 03:40 ALT 93 units/L (7-56) H 01/23/17 03:40 Alkaline Phosphatase 72 units/L (35-129) 01/23/17 03:40 Troponin T < 0.010 ng/mL (0.00-0.029) 01/22/17 12:52 C-Reactive Protein 0.30 mg/dL (0.00-1.30) 01/23/17 03:40 NT-Pro-B Natriuret Pep 100.8 pg/mL (0-450) 01/22/17 12:52 Total Protein 5.9 g/dL (6.3-8.2) L 01/23/17 03:40 Albumin 3.2 g/dL (3.9-5) L 01/23/17 03:40 Albumin/Globulin Ratio 1.2 % 01/23/17 03:40 Triglycerides 164 mg/dL (2-149) H 01/29/17 06:31 HCG, Quant < 2 mIU/mL (0-4) 01/22/17 12:52 Urine Color Colorless (Yellow) 01/22/17 Unknown Urine Turbidity Clear (Clear) 01/22/17 Unknown Urine pH 6.0 (5.0-7.0) 01/22/17 Unknown Ur Specific [place] 1.002 (1.003-1.030) L 01/22/17 Unknown Urine Protein <15 mg/dl mg/dL (Negative) 01/22/17 Unknown Urine Glucose (UA) Neg mg/dL (Negative) 01/22/17 Unknown Urine Ketones Neg mg/dL (Negative) 01/22/17 Unknown Urine Blood Mod (Negative) 01/22/17 Unknown Urine Nitrite Neg (Negative) 01/22/17 Unknown Urine Bilirubin Neg (Negative) 01/22/17 Unknown Urine Urobilinogen < 2.0 mg/dL (<2.0) 01/22/17 Unknown Ur Leukocyte Esterase Neg (Negative) 01/22/17 Unknown Urine WBC (Auto) < 1.0 /HPF (0.0-6.0) 01/22/17 Unknown Urine RBC (Auto) 1.0 /HPF (0.0-6.0) 01/22/17 Unknown U Epithel Cells (Auto) < 1.0 /HPF (0-13.0) 01/22/17 Unknown Urine Opiates Screen Presumptive negative 01/22/17 Unknown Urine Methadone Screen Presumptive negative 01/22/17 Unknown Ur Barbiturates Screen Presumptive negative 01/22/17 Unknown Ur Phencyclidine Scrn Presumptive negative 01/22/17 Unknown Ur Amphetamines Screen Presumptive negative 01/22/17 Unknown U Benzodiazepines Scrn Presumptive negative 01/22/17 Unknown Urine Cocaine Screen Presumptive negative 01/22/17 Unknown U Marijuana (THC) Screen Presumptive negative 01/22/17 Unknown Drugs of Abuse Note Disclamer 01/22/17 Unknown
[2017-02-03] MEDS: PEPCID PO SCH ×2 (13:46→21:50)
[2017-02-03] MEDS: FOLVITE PO SCH (13:46)
[2017-02-03] MEDS: VITAMIN B-1 PO SCH (13:46)
[2017-02-03] MEDS: LOVENOX SUB-Q SCH (13:48)
[2017-02-04] MEDS: TYLENOL PO PRN ×2 (04:30→20:36)
[2017-02-04] MEDS: NEURONTIN PO SCH ×3 (06:07→21:38)
[2017-02-04] MEDS: LIBRIUM PO SCH ×2 (06:08→14:55)
[2017-02-04 06:40] LABS: Hematocrit 42.7 % (30.3-42.9); Mean Corpuscular HGB Conc 33 % (30-34); Mean Corpuscular Hemoglobin 30 pg (28-32); Mean Corpuscular Volume 92 fl (79-97); Platelet Count 366 K/mm3 (140-440); Red Blood Count 4.66 M/mm3 (3.65-5.03)
[2017-02-04 06:53] LABS: White Blood Count 20.2 K/mm3 (4.5-11.0)
[2017-02-04 07:57] LABS: Basophils % (Manual) 0 % (0.0-1.8); Blastocytes % (Manual) 0 %
[2017-02-04 07:58] LABS: Anisocytosis 1+; Diff Status Complete; Hypochromasia 1+
[2017-02-04] MEDS: PROVENTIL IH SCH ×3 (08:06→20:07)
[2017-02-04] MEDS: LOVENOX SUB-Q SCH (10:31)
[2017-02-04] MEDS: VITAMIN B-1 PO SCH (10:31)
[2017-02-04] MEDS: PEPCID PO SCH ×2 (10:31→21:37)
[2017-02-04] MEDS: FOLVITE PO SCH (10:31)
[2017-02-04] MEDS: DELTASONE PO SCH (10:31)
--- NOTE | 2017-02-04 10:31 | Progress Note ---
Assessment and Plan - Patient Problems (1) Altered mental status Current Visit: Yes Status: Acute Qualifiers: Altered mental status type: A Coma depth: C Coma timing: C Plan to address problem: - much improved - tapering quickly off psychoactive drugs (2) Acute respiratory failure Current Visit: Yes Status: Acute Qualifiers: Respiratory failure complication: hypoxia Qualified Code(s): J96.01 - Acute respiratory failure with hypoxia Plan to address problem: - resolved (3) Leucocytosis Current Visit: Yes Status: Acute Qualifiers: Leukocytosis type: L Plan to address problem: - continue to taper systemic steroids - cultures NGTD - following clinically off antibiotics (4) Discharge planning issues Current Visit: Yes Status: Acute Plan to address problem: - home soon Subjective Date of service: 02/04/17 Principal diagnosis: Acute Hypoxemic Respiratory Failure Interval history: Seen and examined at bedside; 24 hour events reviewed; nursing and respiratory care staff consulted; no adverse overnight events reported to me; resting peacefully in bed; looks so much better; friend visiting and helping her get her hair done; denies acute chest pains or increased SOB Objective Vital Signs - 12hr 02/04/17 02/04/17 02/04/17 00:00 06:47 08:00 Temperature 98.5 F 98.7 F 98.2 F Pulse Rate [ 102 H 100 H 108 H From Monitor] Respiratory 20 20 18 Rate Blood Pressure 102/69 110/69 114/72 [Right Arm] O2 Sat by Pulse 96 97 97 Oximetry Constitutional: no acute distress Eyes: non-icteric ENT: oropharynx moist Neck: supple, no lymphadenopathy Effort: normal Ascultation: Bilateral: clear Cardiovascular: regular rate and rhythm Gastrointestinal: normoactive bowel sounds, soft, non-tender, non-distended Integumentary: normal Extremities: no cyanosis, no edema, pink and warm, pulses normal, no ischemia or petechiae Neurologic: normal mental status, non-focal exam, pupils equal and round, motor strength normal and Psychiatric: mood appropriate, affect normal CBC and BMP: 02/05/17 05:10 02/02/17 06:09 ABG, PT/INR, D-dimer: ABG POC ABG pH 7.546 (7.35-7.45) H 01/31/17 08:14 POC ABG pCO2 35.5 (35-45) 01/31/17 08:14 POC ABG pO2 113 (80-105) H 01/31/17 08:14 POC ABG HCO3 30.7 01/31/17 08:14 POC ABG Total CO2 32 01/31/17 08:14 POC ABG O2 Sat 99 01/31/17 08:14 PT/INR, D-dimer PT 12.0 Sec. (12.2-14.9) L 01/22/17 12:52 INR 0.90 (0.87-1.13) 01/22/17 12:52 D-Dimer 162.42 ng/mlDDU (0-234) 01/22/17 12:52 Abnormal lab findings: Abnormal Labs 01/22/17 01/23/17 01/23/17 Unknown 03:32 03:40 WBC 16.5 H RBC Hgb Hct RDW Lymph % (Auto) Lymph # [place] # Seg Neutrophils % Seg Neuts % (Manual) 95.0 H Lymphocytes % (Manual) 4.0 L Monocytes % (Manual) Seg Neutrophils # Seg Neutrophils # Man 15.7 H Lymphocytes # (Manual) 0.7 L Monocytes # (Manual) Eosinophils # (Manual) POC ABG pH 7.293 L POC ABG pCO2 POC ABG pO2 Sodium Potassium Chloride Carbon Dioxide BUN Creatinine Glucose POC Glucose Lactic Acid Calcium Phosphorus AST ALT Total Protein Albumin Triglycerides Ur Specific [place] 1.002 L 01/23/17 01/23/17 01/23/17 03:40 13:41 20:48 WBC RBC Hgb Hct RDW Lymph % (Auto) Lymph # [place] # Seg Neutrophils % Seg Neuts % (Manual) Lymphocytes % (Manual) Monocytes % (Manual) Seg Neutrophils # Seg Neutrophils # Man Lymphocytes # (Manual) Monocytes # (Manual) Eosinophils # (Manual) POC ABG pH POC ABG pCO2 POC ABG pO2 77 L Sodium Potassium Chloride 108.6 H Carbon Dioxide 19 L BUN Creatinine 0.5 L Glucose 216 H POC Glucose Lactic Acid 3.3 H* Calcium 7.6 L D Phosphorus AST 98 H ALT 93 H Total Protein 5.9 L Albumin 3.2 L Triglycerides Ur Specific [place] 01/24/17 01/24/17 01/24/17 00:07 04:39 06:00 WBC 25.7 H RBC Hgb Hct RDW Lymph % (Auto) Lymph # [place] # Seg Neutrophils % Seg Neuts % (Manual) 99.0 H Lymphocytes % (Manual) 0 L Monocytes % (Manual) Seg Neutrophils # Seg Neutrophils # Man 25.4 H Lymphocytes # (Manual) 0.0 L Monocytes # (Manual) Eosinophils # (Manual) POC ABG pH POC ABG pCO2 POC ABG pO2 106 H Sodium Potassium Chloride Carbon Dioxide BUN Creatinine Glucose POC Glucose 189 H Lactic Acid Calcium Phosphorus AST ALT Total Protein Albumin Triglycerides Ur Specific [place] 01/24/17 01/24/17 01/25/17 06:00 13:22 04:46 WBC RBC Hgb Hct RDW Lymph % (Auto) Lymph # [place] # Seg Neutrophils % Seg Neuts % (Manual) Lymphocytes % (Manual) Monocytes % (Manual) Seg Neutrophils # Seg Neutrophils # Man Lymphocytes # (Manual) Monocytes # (Manual) Eosinophils # (Manual) POC ABG pH 7.333 L POC ABG pCO2 POC ABG pO2 Sodium Potassium Chloride 107.5 H Carbon Dioxide BUN Creatinine 0.4 L Glucose 165 H POC Glucose Lactic Acid 2.6 H* Calcium 7.9 L Phosphorus AST ALT Total Protein Albumin Triglycerides Ur Specific [place] 01/25/17 01/25/17 01/25/17 06:48 07:22 07:31 WBC 21.2 H RBC 3.41 L Hgb Hct RDW Lymph % (Auto) Lymph # [place] # Seg Neutrophils % Seg Neuts % (Manual) 84.0 H Lymphocytes % (Manual) 6.0 L Monocytes % (Manual) Seg Neutrophils # Seg Neutrophils # Man 17.8 H Lymphocytes # (Manual) Monocytes # (Manual) Eosinophils # (Manual) POC ABG pH POC ABG pCO2 POC ABG pO2 Sodium Potassium 2.8 L* D 3.5 L D Chloride 116.5 H Carbon Dioxide 17 L D BUN Creatinine 0.2 L 0.3 L Glucose 117 H 141 H POC Glucose Lactic Acid Calcium 5.7 L* D 7.9 L D Phosphorus 1.5 L AST ALT Total Protein Albumin Triglycerides Ur Specific [place] 01/26/17 01/26/17 01/26/17 00:23 04:00 04:00 WBC 15.2 H RBC 3.23 L Hgb 9.9 L Hct 29.9 L RDW Lymph % (Auto) 4.7 L Lymph # 0.7 L [place] # Seg Neutrophils % 90.0 H Seg Neuts % (Manual) Lymphocytes % (Manual) Monocytes % (Manual) Seg Neutrophils # 13.6 H Seg Neutrophils # Man Lymphocytes # (Manual) Monocytes # (Manual) Eosinophils # (Manual) POC ABG pH 7.499 H POC ABG pCO2 30.4 L POC ABG pO2 Sodium Potassium Chloride Carbon Dioxide BUN Creatinine 0.4 L Glucose 132 H POC Glucose Lactic Acid Calcium 7.4 L Phosphorus AST ALT Total Protein Albumin Triglycerides Ur Specific [place] 01/26/17 01/27/17 01/27/17 05:12 04:00 04:00 WBC RBC 3.30 L Hgb 10.0 L Hct RDW Lymph % (Auto) 6.0 L Lymph # 0.6 L [place] # Seg Neutrophils % 89.4 H Seg Neuts % (Manual) Lymphocytes % (Manual) Monocytes % (Manual) Seg Neutrophils # 8.4 H Seg Neutrophils # Man Lymphocytes # (Manual) Monocytes # (Manual) Eosinophils # (Manual) POC ABG pH 7.464 H POC ABG pCO2 POC ABG pO2 138 H Sodium Potassium 3.5 L Chloride 107.4 H Carbon Dioxide BUN Creatinine 0.3 L Glucose 138 H POC Glucose Lactic Acid Calcium 7.1 L Phosphorus AST ALT Total Protein Albumin Triglycerides Ur Specific [place] 01/28/17 01/28/17 01/29/17 07:48 07:48 03:56 WBC 12.3 H RBC Hgb Hct RDW 12.9 L Lymph % (Auto) Lymph # [place] # Seg Neutrophils % Seg Neuts % (Manual) Lymphocytes % (Manual) Monocytes % (Manual) Seg Neutrophils # Seg Neutrophils # Man Lymphocytes # (Manual) Monocytes # (Manual) Eosinophils # (Manual) POC ABG pH 7.468 H POC ABG pCO2 POC ABG pO2 124 H Sodium 136 L Potassium Chloride Carbon Dioxide BUN Creatinine 0.3 L Glucose 146 H POC Glucose Lactic Acid Calcium Phosphorus AST ALT Total Protein Albumin Triglycerides Ur Specific [place] 01/29/17 01/29/17 01/30/17 06:31 06:31 04:20 WBC 18.8 H RBC Hgb Hct RDW 13.0 L Lymph % (Auto) 5.1 L Lymph # 1.0 L [place] # 1.2 H Seg Neutrophils % 88.2 H Seg Neuts % (Manual) Lymphocytes % (Manual) Monocytes % (Manual) Seg Neutrophils # 16.6 H Seg Neutrophils # Man Lymphocytes # (Manual) Monocytes # (Manual) Eosinophils # (Manual) POC ABG pH POC ABG pCO2 POC ABG pO2 107 H Sodium Potassium Chloride Carbon Dioxide BUN Creatinine Glucose POC Glucose Lactic Acid Calcium Phosphorus AST ALT Total Protein Albumin Triglycerides 164 H Ur Specific [place] 01/30/17 01/30/17 01/30/17 07:03 07:03 14:47 WBC 16.6 H RBC Hgb Hct RDW 12.7 L Lymph % (Auto) Lymph # [place] # Seg Neutrophils % Seg Neuts % (Manual) 88.0 H Lymphocytes % (Manual) 3.0 L Monocytes % (Manual) Seg Neutrophils # Seg Neutrophils # Man 14.6 H Lymphocytes # (Manual) 0.5 L Monocytes # (Manual) 1.2 H Eosinophils # (Manual) POC ABG pH 7.451 H POC ABG pCO2 POC ABG pO2 Sodium Potassium Chloride 97.0 L Carbon Dioxide BUN 20 H Creatinine 0.4 L Glucose 153 H POC Glucose Lactic Acid Calcium Phosphorus AST ALT Total Protein Albumin Triglycerides Ur Specific [place] 01/31/17 01/31/17 01/31/17 08:14 14:40 14:40 WBC 22.2 H RBC Hgb Hct RDW 12.9 L Lymph % (Auto) Lymph # [place] # Seg Neutrophils % Seg Neuts % (Manual) 85.0 H Lymphocytes % (Manual) 6.0 L Monocytes % (Manual) 8.0 H Seg Neutrophils # Seg Neutrophils # Man 18.9 H Lymphocytes # (Manual) Monocytes # (Manual) 1.8 H Eosinophils # (Manual) POC ABG pH 7.546 H POC ABG pCO2 POC ABG pO2 113 H Sodium Potassium Chloride 96.8 L Carbon Dioxide BUN 20 H Creatinine 0.3 L Glucose 109 H POC Glucose Lactic Acid Calcium Phosphorus AST ALT Total Protein Albumin Triglycerides Ur Specific [place] 02/01/17 02/01/17 02/02/17 04:00 04:00 06:09 WBC 18.8 H RBC Hgb Hct RDW 13.1 L Lymph % (Auto) Lymph # [place] # Seg Neutrophils % Seg Neuts % (Manual) 88.0 H Lymphocytes % (Manual) 6.0 L Monocytes % (Manual) Seg Neutrophils # Seg Neutrophils # Man 16.5 H Lymphocytes # (Manual) 1.1 L Monocytes # (Manual) Eosinophils # (Manual) POC ABG pH POC ABG pCO2 POC ABG pO2 Sodium Potassium Chloride Carbon Dioxide BUN 26 H 24 H Creatinine 0.5 L D 0.4 L Glucose 123 H 111 H POC Glucose Lactic Acid Calcium Phosphorus AST ALT Total Protein Albumin Triglycerides Ur Specific [place] 02/02/17 02/04/17 06:09 05:57 WBC 18.4 H 20.2 H RBC Hgb 14.4 H Hct 44.0 H RDW 12.9 L 13.0 L Lymph % (Auto) Lymph # [place] # Seg Neutrophils % Seg Neuts % (Manual) 74.0 H Lymphocytes % (Manual) 11.0 L Monocytes % (Manual) 11.0 H 13.0 H Seg Neutrophils # Seg Neutrophils # Man 13.6 H 11.1 H Lymphocytes # (Manual) Monocytes # (Manual) 2.0 H 2.6 H Eosinophils # (Manual) 0.6 H POC ABG pH POC ABG pCO2 POC ABG pO2 Sodium Potassium Chloride Carbon Dioxide BUN Creatinine Glucose POC Glucose Lactic Acid Calcium Phosphorus AST ALT Total Protein Albumin Triglycerides Ur Specific [place]
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
[2017-02-05] MEDS: NEURONTIN PO SCH ×3 (05:07→22:14)
[2017-02-05 06:01] LABS: Hematocrit 41.3 % (30.3-42.9); Hemoglobin 13.6 gm/dl (10.1-14.3); Mean Corpuscular HGB Conc 33 % (30-34); Mean Corpuscular Hemoglobin 30 pg (28-32); Mean Corpuscular Volume 92 fl (79-97); Platelet Count 373 K/mm3 (140-440); Red Blood Count 4.51 M/mm3 (3.65-5.03); Red Cell Distribution Width 13.1 % (13.2-15.2); White Blood Count 18.3 K/mm3 (4.5-11.0)
[2017-02-05] MEDS: PROVENTIL IH SCH ×3 (08:24→21:25)
[2017-02-05] MEDS: TYLENOL PO PRN (10:11)
[2017-02-05] MEDS: LOVENOX SUB-Q SCH (10:44)
[2017-02-05] MEDS: DELTASONE PO SCH (10:45)
[2017-02-05] MEDS: PEPCID PO SCH ×2 (10:45→22:21)
[2017-02-05] MEDS: VITAMIN B-1 PO SCH (10:45)
[2017-02-05] MEDS: FOLVITE PO SCH (10:45)
[2017-02-05 12:51] LABS: Blastocytes % (Manual) 0 %
[2017-02-05 12:52] LABS: Anisocytosis 1+; Basophils % (Manual) 0 % (0.0-1.8); Diff Status Complete; Platelet Estimate Consistent w Auto
--- NOTE | 2017-02-05 13:35 | Progress Note ---
Assessment and Plan Assessment and plan: --Agitation and restlessness possible Alcohol withdrawal symptoms Resolved, patient is alert awake oriented 3 Discussed therapy and increase ambulation as tolerated --Acute hypoxemic respiratory failure status post extubation, Saturating well on room air Patient reports that her respiratory failure was secondary to smoke --Acute exacerbation of bronchial asthma On nebulizers, changed to oral steroids, --Leukocytosis trending down, WBC today 18 K Secondary to IV steroids, cultures negative to date Patient is afebrile and no evidence of infection --DVT prophylaxis with Lovenox Physical therapy occupational therapy Possible home with home health tomorrow if stable History Interval history: Patient seen and evaluated medical records reviewed Feels slightly better complains of tiredness, walks briefly with walker Alert awake oriented 3 not in acute distress Hospitalist Physical - Constitutional Vitals: Temp Pulse Resp BP Pulse Ox 98.0 F 108 H 20 115/71 96 02/05/17 08:31 02/05/17 08:34 02/05/17 08:34 02/05/17 08:31 02/05/17 08:31 General appearance: Present: no acute distress, well-nourished - EENT Eyes: Present: PERRL, EOM intact - Neck Neck: Present: supple, normal ROM - Respiratory Respiratory effort: normal Respiratory: negative: rales, rhonchi, wheezing - Cardiovascular Rhythm: regular Heart Sounds: Present: S1 & S2 - Extremities Extremities: no ischemia, pulses intact, pulses symmetrical - Abdominal General gastrointestinal: soft, non-tender, non-distended, normal bowel sounds - Integumentary Integumentary: Present: clear, warm - Psychiatric Psychiatric: appropriate mood/affect, cooperative - Neurologic Neurologic: CNII-XII intact, moves all extremities Results - Labs CBC & Chem 7: 02/05/17 05:10 02/02/17 06:09 Labs: Laboratory Last Values WBC 18.3 K/mm3 (4.5-11.0) H 02/05/17 05:10 RBC 4.51 M/mm3 (3.65-5.03) 02/05/17 05:10 Hgb 13.6 gm/dl (10.1-14.3) 02/05/17 05:10 Hct 41.3 % (30.3-42.9) 02/05/17 05:10 MCV 92 fl (79-97) 02/05/17 05:10 MCH 30 pg (28-32) 02/05/17 05:10 MCHC 33 % (30-34) 02/05/17 05:10 RDW 13.1 % (13.2-15.2) L 02/05/17 05:10 Plt Count 373 K/mm3 (140-440) 02/05/17 05:10 Lymph % (Auto) 5.1 % (13.4-35.0) L 01/29/17 06:31 [place] % (Auto) 6.3 % (0.0-7.3) 01/29/17 06:31 Eos % (Auto) 0.0 % (0.0-4.3) 01/29/17 06:31 Baso % (Auto) 0.4 % (0.0-1.8) 01/29/17 06:31 Lymph # 1.0 K/mm3 (1.2-5.4) L 01/29/17 06:31 [place] # 1.2 K/mm3 (0.0-0.8) H 01/29/17 06:31 Eos # 0.0 K/mm3 (0.0-0.4) 01/29/17 06:31 Baso # 0.1 K/mm3 (0.0-0.1) 01/29/17 06:31 Add Manual Diff Complete 02/05/17 05:10 Total Counted 100 02/05/17 05:10 Seg Neutrophils % 88.2 % (40.0-70.0) H 01/29/17 06:31 Seg Neuts % (Manual) 67.0 % (40.0-70.0) 02/05/17 05:10 Band Neutrophils % 0 % 02/05/17 05:10 Lymphocytes % (Manual) 25.0 % (13.4-35.0) 02/05/17 05:10 Reactive Lymphs % (Man) 0 % 02/05/17 05:10 Monocytes % (Manual) 7.0 % (0.0-7.3) 02/05/17 05:10 Eosinophils % (Manual) 1.0 % (0.0-4.3) 02/05/17 05:10 Basophils % (Manual) 0 % (0.0-1.8) 02/05/17 05:10 Metamyelocytes % 0 % 02/05/17 05:10 Myelocytes % 0 % 02/05/17 05:10 Promyelocytes % 0 % 02/05/17 05:10 Blast Cells % 0 % 02/05/17 05:10 Nucleated RBC % Not Reportable 02/05/17 05:10 Seg Neutrophils # 16.6 K/mm3 (1.8-7.7) H 01/29/17 06:31 Seg Neutrophils # Man 12.3 K/mm3 (1.8-7.7) H 02/05/17 05:10 Band Neutrophils # 0.0 K/mm3 02/05/17 05:10 Lymphocytes # (Manual) 4.6 K/mm3 (1.2-5.4) 02/05/17 05:10 Abs React Lymphs (Man) 0.0 K/mm3 02/05/17 05:10 Monocytes # (Manual) 1.3 K/mm3 (0.0-0.8) H 02/05/17 05:10 Eosinophils # (Manual) 0.2 K/mm3 (0.0-0.4) 02/05/17 05:10 Basophils # (Manual) 0.0 K/mm3 (0.0-0.1) 02/05/17 05:10 Metamyelocytes # 0.0 K/mm3 02/05/17 05:10 Myelocytes # 0.0 K/mm3 02/05/17 05:10 Promyelocytes # 0.0 K/mm3 02/05/17 05:10 Blast Cells # 0.0 K/mm3 02/05/17 05:10 WBC Morphology Not Reportable 02/05/17 05:10 Hypersegmented Neuts Not Reportable 02/05/17 05:10 Hyposegmented Neuts Not Reportable 02/05/17 05:10 Hypogranular Neuts Not Reportable 02/05/17 05:10 Smudge Cells Not Reportable 02/05/17 05:10 Toxic Granulation Not Reportable 02/05/17 05:10 Toxic Vacuolation Not Reportable 02/05/17 05:10 Dohle Bodies Not Reportable 02/05/17 05:10 Pelger-Huet Anomaly Not Reportable 02/05/17 05:10 Roderick Rods Not Reportable 02/05/17 05:10 Platelet Estimate Consistent w auto 02/05/17 05:10 Clumped Platelets Not Reportable 02/05/17 05:10 Plt Clumps, EDTA Not Reportable 02/05/17 05:10 Large Platelets Not Reportable 02/05/17 05:10 Giant Platelets Not Reportable 02/05/17 05:10 Platelet Satelliting Not Reportable 02/05/17 05:10 Plt Morphology Comment Not Reportable 02/05/17 05:10 RBC Morphology Not Reportable 02/05/17 05:10 Dimorphic RBCs Not Reportable 02/05/17 05:10 Polychromasia Not Reportable 02/05/17 05:10 Hypochromasia Not Reportable 02/05/17 05:10 Poikilocytosis Not Reportable 02/05/17 05:10 Anisocytosis 1+ 02/05/17 05:10 Microcytosis Not Reportable 02/05/17 05:10 Macrocytosis Not Reportable 02/05/17 05:10 Spherocytes Not Reportable 02/05/17 05:10 Pappenheimer Bodies Not Reportable 02/05/17 05:10 Sickle Cells Not Reportable 02/05/17 05:10 Target Cells Not Reportable 02/05/17 05:10 Tear Drop Cells Not Reportable 02/05/17 05:10 Ovalocytes Not Reportable 02/05/17 05:10 Helmet Cells Not Reportable 02/05/17 05:10 [place] Bodies Not Reportable 02/05/17 05:10 [place] Rings Not Reportable 02/05/17 05:10 Juliana Cells Not Reportable 02/05/17 05:10 Bite Cells Not Reportable 02/05/17 05:10 Crenated Cell Not Reportable 02/05/17 05:10 Elliptocytes Not Reportable 02/05/17 05:10 Acanthocytes (Spur) Not Reportable 02/05/17 05:10 Rouleaux Not Reportable 02/05/17 05:10 Hemoglobin C Crystals Not Reportable 02/05/17 05:10 Schistocytes Not Reportable 02/05/17 05:10 Malaria parasites Not Reportable 02/05/17 05:10 [place] Bodies Not Reportable 02/05/17 05:10 Hem Pathologist Commnt No 02/05/17 05:10 PT 12.0 Sec. (12.2-14.9) L 01/22/17 12:52 INR 0.90 (0.87-1.13) 01/22/17 12:52 D-Dimer 162.42 ng/mlDDU (0-234) 01/22/17 12:52 POC ABG pH 7.546 (7.35-7.45) H 01/31/17 08:14 POC ABG pCO2 35.5 (35-45) 01/31/17 08:14 POC ABG pO2 113 (80-105) H 01/31/17 08:14 POC ABG HCO3 30.7 01/31/17 08:14 POC ABG Total CO2 32 01/31/17 08:14 POC ABG O2 Sat 99 01/31/17 08:14 POC ABG Base Excess 8 01/31/17 08:14 FiO2 30 % 01/31/17 08:14 Sodium 139 mmol/L (137-145) 02/02/17 06:09 Potassium 4.1 mmol/L (3.6-5.0) 02/02/17 06:09 Chloride 98.3 mmol/L (98-107) 02/02/17 06:09 Carbon Dioxide 22 mmol/L (22-30) 02/02/17 06:09 Anion Gap 23 mmol/L 02/02/17 06:09 BUN 24 mg/dL (7-17) H 02/02/17 06:09 Creatinine 0.4 mg/dL (0.7-1.2) L 02/02/17 06:09 Estimated GFR > 60 ml/min 02/02/17 06:09 BUN/Creatinine Ratio 60.00 % 02/02/17 06:09 Glucose 111 mg/dL (65-100) H 02/02/17 06:09 POC Glucose 189 (70-105) H 01/24/17 00:07 Lactic Acid 1.8 mmol/L (0.7-2.0) 01/25/17 07:28 Calcium 9.6 mg/dL (8.4-10.2) 02/02/17 06:09 Phosphorus 3.9 mg/dL (2.5-4.5) 01/30/17 07:03 Magnesium 2.2 mg/dL (1.7-2.3) 02/01/17 04:00 Total Bilirubin 0.4 mg/dL (0.1-1.2) 01/23/17 03:40 Direct Bilirubin < 0.2 mg/dL (0-0.2) 01/22/17 12:52 Indirect Bilirubin 0.0 mg/dL 01/22/17 12:52 AST 98 units/L (5-40) H 01/23/17 03:40 ALT 93 units/L (7-56) H 01/23/17 03:40 Alkaline Phosphatase 72 units/L (35-129) 01/23/17 03:40 Troponin T < 0.010 ng/mL (0.00-0.029) 01/22/17 12:52 C-Reactive Protein 0.30 mg/dL (0.00-1.30) 01/23/17 03:40 NT-Pro-B Natriuret Pep 100.8 pg/mL (0-450) 01/22/17 12:52 Total Protein 5.9 g/dL (6.3-8.2) L 01/23/17 03:40 Albumin 3.2 g/dL (3.9-5) L 01/23/17 03:40 Albumin/Globulin Ratio 1.2 % 01/23/17 03:40 Triglycerides 164 mg/dL (2-149) H 01/29/17 06:31 HCG, Quant < 2 mIU/mL (0-4) 01/22/17 12:52 Urine Color Colorless (Yellow) 01/22/17 Unknown Urine Turbidity Clear (Clear) 01/22/17 Unknown Urine pH 6.0 (5.0-7.0) 01/22/17 Unknown Ur Specific [place] 1.002 (1.003-1.030) L 01/22/17 Unknown Urine Protein <15 mg/dl mg/dL (Negative) 01/22/17 Unknown Urine Glucose (UA) Neg mg/dL (Negative) 01/22/17 Unknown Urine Ketones Neg mg/dL (Negative) 01/22/17 Unknown Urine Blood Mod (Negative) 01/22/17 Unknown Urine Nitrite Neg (Negative) 01/22/17 Unknown Urine Bilirubin Neg (Negative) 01/22/17 Unknown Urine Urobilinogen < 2.0 mg/dL (<2.0) 01/22/17 Unknown Ur Leukocyte Esterase Neg (Negative) 01/22/17 Unknown Urine WBC (Auto) < 1.0 /HPF (0.0-6.0) 01/22/17 Unknown Urine RBC (Auto) 1.0 /HPF (0.0-6.0) 01/22/17 Unknown U Epithel Cells (Auto) < 1.0 /HPF (0-13.0) 01/22/17 Unknown Urine Opiates Screen Presumptive negative 01/22/17 Unknown Urine Methadone Screen Presumptive negative 01/22/17 Unknown Ur Barbiturates Screen Presumptive negative 01/22/17 Unknown Ur Phencyclidine Scrn Presumptive negative 01/22/17 Unknown Ur Amphetamines Screen Presumptive negative 01/22/17 Unknown U Benzodiazepines Scrn Presumptive negative 01/22/17 Unknown Urine Cocaine Screen Presumptive negative 01/22/17 Unknown U Marijuana (THC) Screen Presumptive negative 01/22/17 Unknown Drugs of Abuse Note Disclamer 01/22/17 Unknown
--- NOTE | 2017-02-05 15:28 | Progress Note ---
Assessment and Plan - Patient Problems (1) Altered mental status Current Visit: Yes Status: Acute Qualifiers: Altered mental status type: A Coma depth: C Coma timing: C (2) Acute respiratory failure Current Visit: Yes Status: Acute Qualifiers: Respiratory failure complication: hypoxia Qualified Code(s): J96.01 - Acute respiratory failure with hypoxia (3) Leucocytosis Current Visit: Yes Status: Acute Qualifiers: Leukocytosis type: L (4) Discharge planning issues Current Visit: Yes Status: Acute Subjective Date of service: 02/05/17 Principal diagnosis: Acute Hypoxemic Respiratory Failure Interval history: Seen and examined at bedside; 24 hour events reviewed; nursing and respiratory care staff consulted; no adverse overnight events reported to me; Objective Vital Signs - 12hr 02/05/17 02/05/17 02/05/17 05:22 08:24 08:31 Temperature 98.2 F 98.0 F Pulse Rate [ 103 H Anterior Bilateral Throughout] Pulse Rate [ 64 103 H Apical] Respiratory 18 20 Rate Respiratory 20 Rate [Anterior Bilateral Throughout] Blood Pressure 141/68 115/71 [Right Arm] O2 Sat by Pulse 98 98 96 Oximetry 02/05/17 02/05/17 08:34 12:00 Temperature 98.0 F Pulse Rate [ 108 H Anterior Bilateral Throughout] Pulse Rate [ 111 H Apical] Respiratory 20 Rate Respiratory 20 Rate [Anterior Bilateral Throughout] Blood Pressure 120/76 [Right Arm] O2 Sat by Pulse 98 Oximetry Constitutional: no acute distress, other ( sedated) Eyes: non-icteric ENT: oropharynx moist Neck: supple, no lymphadenopathy Effort: normal Ascultation: Bilateral: clear, rales (scant in bases) Cardiovascular: regular rate and rhythm Gastrointestinal: normoactive bowel sounds, soft, non-tender, non-distended Integumentary: normal Extremities: no cyanosis, no edema, pink and warm, pulses normal, no ischemia or petechiae Neurologic: unable to assess, other (sedated) Psychiatric: other (sedated) CBC and BMP: 02/05/17 05:10 02/02/17 06:09 ABG, PT/INR, D-dimer: ABG POC ABG pH 7.546 (7.35-7.45) H 01/31/17 08:14 POC ABG pCO2 35.5 (35-45) 01/31/17 08:14 POC ABG pO2 113 (80-105) H 01/31/17 08:14 POC ABG HCO3 30.7 01/31/17 08:14 POC ABG Total CO2 32 01/31/17 08:14 POC ABG O2 Sat 99 01/31/17 08:14 PT/INR, D-dimer PT 12.0 Sec. (12.2-14.9) L 01/22/17 12:52 INR 0.90 (0.87-1.13) 01/22/17 12:52 D-Dimer 162.42 ng/mlDDU (0-234) 01/22/17 12:52 Abnormal lab findings: Abnormal Labs 01/22/17 01/23/17 01/23/17 Unknown 03:32 03:40 WBC 16.5 H RBC Hgb Hct RDW Lymph % (Auto) Lymph # [place] # Seg Neutrophils % Seg Neuts % (Manual) 95.0 H Lymphocytes % (Manual) 4.0 L Monocytes % (Manual) Seg Neutrophils # Seg Neutrophils # Man 15.7 H Lymphocytes # (Manual) 0.7 L Monocytes # (Manual) Eosinophils # (Manual) POC ABG pH 7.293 L POC ABG pCO2 POC ABG pO2 Sodium Potassium Chloride Carbon Dioxide BUN Creatinine Glucose POC Glucose Lactic Acid Calcium Phosphorus AST ALT Total Protein Albumin Triglycerides Ur Specific [place] 1.002 L 01/23/17 01/23/17 01/23/17 03:40 13:41 20:48 WBC RBC Hgb Hct RDW Lymph % (Auto) Lymph # [place] # Seg Neutrophils % Seg Neuts % (Manual) Lymphocytes % (Manual) Monocytes % (Manual) Seg Neutrophils # Seg Neutrophils # Man Lymphocytes # (Manual) Monocytes # (Manual) Eosinophils # (Manual) POC ABG pH POC ABG pCO2 POC ABG pO2 77 L Sodium Potassium Chloride 108.6 H Carbon Dioxide 19 L BUN Creatinine 0.5 L Glucose 216 H POC Glucose Lactic Acid 3.3 H* Calcium 7.6 L D Phosphorus AST 98 H ALT 93 H Total Protein 5.9 L Albumin 3.2 L Triglycerides Ur Specific [place] 01/24/17 01/24/17 01/24/17 00:07 04:39 06:00 WBC 25.7 H RBC Hgb Hct RDW Lymph % (Auto) Lymph # [place] # Seg Neutrophils % Seg Neuts % (Manual) 99.0 H Lymphocytes % (Manual) 0 L Monocytes % (Manual) Seg Neutrophils # Seg Neutrophils # Man 25.4 H Lymphocytes # (Manual) 0.0 L Monocytes # (Manual) Eosinophils # (Manual) POC ABG pH POC ABG pCO2 POC ABG pO2 106 H Sodium Potassium Chloride Carbon Dioxide BUN Creatinine Glucose POC Glucose 189 H Lactic Acid Calcium Phosphorus AST ALT Total Protein Albumin Triglycerides Ur Specific [place] 01/24/17 01/24/17 01/25/17 06:00 13:22 04:46 WBC RBC Hgb Hct RDW Lymph % (Auto) Lymph # [place] # Seg Neutrophils % Seg Neuts % (Manual) Lymphocytes % (Manual) Monocytes % (Manual) Seg Neutrophils # Seg Neutrophils # Man Lymphocytes # (Manual) Monocytes # (Manual) Eosinophils # (Manual) POC ABG pH 7.333 L POC ABG pCO2 POC ABG pO2 Sodium Potassium Chloride 107.5 H Carbon Dioxide BUN Creatinine 0.4 L Glucose 165 H POC Glucose Lactic Acid 2.6 H* Calcium 7.9 L Phosphorus AST ALT Total Protein Albumin Triglycerides Ur Specific [place] 01/25/17 01/25/17 01/25/17 06:48 07:22 07:31 WBC 21.2 H RBC 3.41 L Hgb Hct RDW Lymph % (Auto) Lymph # [place] # Seg Neutrophils % Seg Neuts % (Manual) 84.0 H Lymphocytes % (Manual) 6.0 L Monocytes % (Manual) Seg Neutrophils # Seg Neutrophils # Man 17.8 H Lymphocytes # (Manual) Monocytes # (Manual) Eosinophils # (Manual) POC ABG pH POC ABG pCO2 POC ABG pO2 Sodium Potassium 2.8 L* D 3.5 L D Chloride 116.5 H Carbon Dioxide 17 L D BUN Creatinine 0.2 L 0.3 L Glucose 117 H 141 H POC Glucose Lactic Acid Calcium 5.7 L* D 7.9 L D Phosphorus 1.5 L AST ALT Total Protein Albumin Triglycerides Ur Specific [place] 01/26/17 01/26/17 01/26/17 00:23 04:00 04:00 WBC 15.2 H RBC 3.23 L Hgb 9.9 L Hct 29.9 L RDW Lymph % (Auto) 4.7 L Lymph # 0.7 L [place] # Seg Neutrophils % 90.0 H Seg Neuts % (Manual) Lymphocytes % (Manual) Monocytes % (Manual) Seg Neutrophils # 13.6 H Seg Neutrophils # Man Lymphocytes # (Manual) Monocytes # (Manual) Eosinophils # (Manual) POC ABG pH 7.499 H POC ABG pCO2 30.4 L POC ABG pO2 Sodium Potassium Chloride Carbon Dioxide BUN Creatinine 0.4 L Glucose 132 H POC Glucose Lactic Acid Calcium 7.4 L Phosphorus AST ALT Total Protein Albumin Triglycerides Ur Specific [place] 01/26/17 01/27/17 01/27/17 05:12 04:00 04:00 WBC RBC 3.30 L Hgb 10.0 L Hct RDW Lymph % (Auto) 6.0 L Lymph # 0.6 L [place] # Seg Neutrophils % 89.4 H Seg Neuts % (Manual) Lymphocytes % (Manual) Monocytes % (Manual) Seg Neutrophils # 8.4 H Seg Neutrophils # Man Lymphocytes # (Manual) Monocytes # (Manual) Eosinophils # (Manual) POC ABG pH 7.464 H POC ABG pCO2 POC ABG pO2 138 H Sodium Potassium 3.5 L Chloride 107.4 H Carbon Dioxide BUN Creatinine 0.3 L Glucose 138 H POC Glucose Lactic Acid Calcium 7.1 L Phosphorus AST ALT Total Protein Albumin Triglycerides Ur Specific [place] 01/28/17 01/28/17 01/29/17 07:48 07:48 03:56 WBC 12.3 H RBC Hgb Hct RDW 12.9 L Lymph % (Auto) Lymph # [place] # Seg Neutrophils % Seg Neuts % (Manual) Lymphocytes % (Manual) Monocytes % (Manual) Seg Neutrophils # Seg Neutrophils # Man Lymphocytes # (Manual) Monocytes # (Manual) Eosinophils # (Manual) POC ABG pH 7.468 H POC ABG pCO2 POC ABG pO2 124 H Sodium 136 L Potassium Chloride Carbon Dioxide BUN Creatinine 0.3 L Glucose 146 H POC Glucose Lactic Acid Calcium Phosphorus AST ALT Total Protein Albumin Triglycerides Ur Specific [place] 01/29/17 01/29/17 01/30/17 06:31 06:31 04:20 WBC 18.8 H RBC Hgb Hct RDW 13.0 L Lymph % (Auto) 5.1 L Lymph # 1.0 L [place] # 1.2 H Seg Neutrophils % 88.2 H Seg Neuts % (Manual) Lymphocytes % (Manual) Monocytes % (Manual) Seg Neutrophils # 16.6 H Seg Neutrophils # Man Lymphocytes # (Manual) Monocytes # (Manual) Eosinophils # (Manual) POC ABG pH POC ABG pCO2 POC ABG pO2 107 H Sodium Potassium Chloride Carbon Dioxide BUN Creatinine Glucose POC Glucose Lactic Acid Calcium Phosphorus AST ALT Total Protein Albumin Triglycerides 164 H Ur Specific [place] 01/30/17 01/30/17 01/30/17 07:03 07:03 14:47 WBC 16.6 H RBC Hgb Hct RDW 12.7 L Lymph % (Auto) Lymph # [place] # Seg Neutrophils % Seg Neuts % (Manual) 88.0 H Lymphocytes % (Manual) 3.0 L Monocytes % (Manual) Seg Neutrophils # Seg Neutrophils # Man 14.6 H Lymphocytes # (Manual) 0.5 L Monocytes # (Manual) 1.2 H Eosinophils # (Manual) POC ABG pH 7.451 H POC ABG pCO2 POC ABG pO2 Sodium Potassium Chloride 97.0 L Carbon Dioxide BUN 20 H Creatinine 0.4 L Glucose 153 H POC Glucose Lactic Acid Calcium Phosphorus AST ALT Total Protein Albumin Triglycerides Ur Specific [place] 01/31/17 01/31/17 01/31/17 08:14 14:40 14:40 WBC 22.2 H RBC Hgb Hct RDW 12.9 L Lymph % (Auto) Lymph # [place] # Seg Neutrophils % Seg Neuts % (Manual) 85.0 H Lymphocytes % (Manual) 6.0 L Monocytes % (Manual) 8.0 H Seg Neutrophils # Seg Neutrophils # Man 18.9 H Lymphocytes # (Manual) Monocytes # (Manual) 1.8 H Eosinophils # (Manual) POC ABG pH 7.546 H POC ABG pCO2 POC ABG pO2 113 H Sodium Potassium Chloride 96.8 L Carbon Dioxide BUN 20 H Creatinine 0.3 L Glucose 109 H POC Glucose Lactic Acid Calcium Phosphorus AST ALT Total Protein Albumin Triglycerides Ur Specific [place] 02/01/17 02/01/17 02/02/17 04:00 04:00 06:09 WBC 18.8 H RBC Hgb Hct RDW 13.1 L Lymph % (Auto) Lymph # [place] # Seg Neutrophils % Seg Neuts % (Manual) 88.0 H Lymphocytes % (Manual) 6.0 L Monocytes % (Manual) Seg Neutrophils # Seg Neutrophils # Man 16.5 H Lymphocytes # (Manual) 1.1 L Monocytes # (Manual) Eosinophils # (Manual) POC ABG pH POC ABG pCO2 POC ABG pO2 Sodium Potassium Chloride Carbon Dioxide BUN 26 H 24 H Creatinine 0.5 L D 0.4 L Glucose 123 H 111 H POC Glucose Lactic Acid Calcium Phosphorus AST ALT Total Protein Albumin Triglycerides Ur Specific [place] 02/02/17 02/04/17 02/05/17 06:09 05:57 05:10 WBC 18.4 H 20.2 H 18.3 H RBC Hgb 14.4 H Hct 44.0 H RDW 12.9 L 13.0 L 13.1 L Lymph % (Auto) Lymph # [place] # Seg Neutrophils % Seg Neuts % (Manual) 74.0 H Lymphocytes % (Manual) 11.0 L Monocytes % (Manual) 11.0 H 13.0 H Seg Neutrophils # Seg Neutrophils # Man 13.6 H 11.1 H 12.3 H Lymphocytes # (Manual) Monocytes # (Manual) 2.0 H 2.6 H 1.3 H Eosinophils # (Manual) 0.6 H POC ABG pH POC ABG pCO2 POC ABG pO2 Sodium Potassium Chloride Carbon Dioxide BUN Creatinine Glucose POC Glucose Lactic Acid Calcium Phosphorus AST ALT Total Protein Albumin Triglycerides Ur Specific [place]
[2017-02-05] MEDS ORDERED: XANAX PO PRN (15:50)
[2017-02-05] MEDS: ROXICODONE PO PRN ×2 (18:30→22:13)
[2017-02-05] MEDS: PERCOCET 5/325 PO PRN ×2 (18:31→22:12)
[2017-02-06 05:18] VITALS: BP 86/57
[2017-02-06] MEDS: NEURONTIN PO SCH (05:45)
[2017-02-06] MEDS: ROXICODONE PO PRN (08:04)
[2017-02-06] MEDS: PERCOCET 5/325 PO PRN (08:05)
[2017-02-06] MEDS: PROVENTIL IH SCH ×2 (08:46→13:47)
--- NOTE | 2017-02-06 10:58 | Discharge Summary ---
Providers - Providers Date of Admission: 01/22/17 14:57 Date of discharge: 02/06/17 Attending physician: SIENNA RUSSELL 01/22/17 16:43 Consult to Dietitian/Nutrition [CONS] Routine Physician Instructions: Reason For Exam: Reason for Consult: Write/Manage Tube Feeding 01/31/17 14:05 Speech Therapy Evaluation and Treat [CONS] Stat Reason For Exam: post extubation swallow evaluation 02/01/17 07:05 Consult to Wound/ET Nurse [CONS] Routine Reason For Exam: wound eval bilateral heels 02/03/17 12:25 Physical Therapy Evaluation and Treat [CONS] Routine Comment: Reason For Exam: prolong intubation/unsteady gait/weakness 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 Hospitalization Reason for admission: acute respiratory failure Condition: Fair Pertinent studies: Intubation and mechanical ventilation Multiple chest x-rays and abdominal x-rays Hospital course: Final diagnosis; --Acute hypoxemic respiratory failu Requiring intubation and prolonged ventilatory support Successfully weaned and extubated --Agitation and restlessness possible Alcohol withdrawal symptoms Resolved --Chronic encephalopathy --Acute exacerbation of bronchial asthma Improved --Leukocytosis trending down, 41-year-old female patient was admitted through emergency room with acute hypoxic respiratory failure secondary to acute exacerbation of bronchial asthma, requiring intubation and ventilatory support Patient was admitted to ICU subsequently evaluated by pulmonary critical Closely monitored medications were optimized, patient remained vent dependent for prolonged period of time, unable to tolerate weaning parameters Even on the vent patient was agitated and restless requiring CIWA protocol Patient was successfully weaned and extubated stabilized in ICU later transferred to telemetry floor Symptoms gradually but significantly improved, received physical therapy Multiple electrolyte imbalances were corrected Today patient is comfortable in bed alert and awake ambulate reviewed with the help of a walker tolerating oral nutrition Patient is saturating 95-96 his roommate both resting and ambulatory No indication for home oxygen [id number] evaluation physical examination prior to discharge he is unremarkable as detailed below Patient was advised home health however patient refused reporting that he has a lot of support system at home Pulmonary critical followed the patient throughout the hospital stay and advised follow-up with them in the office upon discharge for further evaluation and management Disposition: DISCHARGED TO HOME OR SELFCARE Time spent for discharge: 35 min Core Measure Documentation - Palliative Care Palliative Care/ Comfort Measures: Not Applicable - Core Measures Any of the following diagnoses?: none Exam - Constitutional Vitals: Temp Pulse Resp BP Pulse Ox 97.4 F L 98 H 98 H 86/57 98 02/06/17 04:00 02/06/17 08:46 02/06/17 08:46 02/06/17 04:00 02/06/17 08:47 General appearance: Present: no acute distress, well-nourished - EENT Eyes: Present: PERRL, EOM intact - Neck Neck: Present: supple, normal ROM - Respiratory Respiratory effort: normal Respiratory: bilateral: diminished, negative: rales, rhonchi, wheezing - Extremities Extremities: no ischemia, pulses intact, pulses symmetrical Peripheral Pulses: within normal limits - Abdominal General gastrointestinal: Present: soft, non-tender, non-distended, normal bowel sounds - Integumentary Integumentary: Present: clear, warm - Musculoskeletal Musculoskeletal: strength equal bilaterally, generalized weakness - Psychiatric Psychiatric: appropriate mood/affect, cooperative - Neurologic Neurologic: CNII-XII intact, moves all extremities Plan Activity: advance as tolerated, fall precautions Diet: regular Follow up with: PRIMARY CAREMD [Primary Care Provider] - 7 Days ROBBI LOPEZ MD [Staff Physician] - 7 Days Prescriptions: ALBUTEROL Inhaler [ProAir HFA Inhaler] 2 puff IH QID PRN #1 inhalation PRN Reason: Shortness Of Breath ALPRAZolam [Xanax TAB] 0.25 mg PO Q8H PRN #15 tablet PRN Reason: Anxiety Famotidine [Pepcid] 20 mg PO BID #30 tablet Folic Acid [Folvite] 1 mg PO QDAY #30 tablet oxyCODONE /ACETAMINOPHEN [Percocet 5/325 mg] 1 tab PO Q8H PRN #15 tablet PRN Reason: Pain, Moderate (4-6) predniSONE [Deltasone] 10 mg PO QDAY #10 tablet Thiamine [Vitamin B-1] 100 mg PO QDAY #30 tablet
== END 2017-02-06 13:46 | disposition home or self-care (01) | DRG 870 ==
LOC: ED 11:58 → CC1 14:57 → 4A 02-01 16:35
PROVIDERS: ADMIT Internal Medicine; ATTEND Internal Medicine
PROC: 5A1955Z Respiratory Ventilation, Greater than 96 Consecutive Hours (ICD-10-PCS; principal; 2017-01-22)
PROC: 0BH17EZ Insertion of Endotracheal Airway into Trachea, Via Natural or Artificial Opening (ICD-10-PCS; 2017-01-22)
PROC: 02HV33Z Insertion of Infusion Device into Superior Vena Cava, Percutaneous Approach (ICD-10-PCS; 2017-01-22)
PROC: 4A033R1 Measurement of Arterial Saturation, Peripheral, Percutaneous Approach (ICD-10-PCS; 2017-01-22)
DX: A41.9 Sepsis, unspecified organism (principal); J96.01 Acute respiratory failure with hypoxia; G93.40 Encephalopathy, unspecified; R65.21 Severe sepsis with septic shock; J45.901 Unspecified asthma with (acute) exacerbation; G40.911 Epilepsy, unspecified, intractable, with status epilepticus; F10.239 Alcohol dependence with withdrawal, unspecified; E87.6 Hypokalemia; Z88.0 Allergy status to penicillin; Z88.6 Allergy status to analgesic agent; Z91.013 Allergy to seafood; Z82.49 Family history of ischemic heart disease and other diseases of the circulatory system; Z87.891 Personal history of nicotine dependence; J20.9 Acute bronchitis, unspecified
CPT/HCPCS: 36415; 36600; 71010; 74000; 80048; 80053; 80074; 80307; 81001; 82140; 82803; 82962; 83735; 83880; 84100; 84478; 84484; 84702; 85007; 85025; 85027; 85379; 85610; 86140; 87040; 87070; 87205; 90686; 93005; 93010; 94002; 94003; 94640; 94644; 94760; 96365; 96366; 96367; 96375; G8996-GN; G8997-GN; G8998-GN; J0171; J1630; J1650; J1956; J2060; J2405; J2704; J2920; J2930; J2997; J3010; J3475; J3480; J7030; J7040; J7042; J7512

== ENCOUNTER 2017-02-20 13:13 | Emergency (ER) | payer MEDICARE ==
[2017-02-20 14:18] VITALS: BP 114/83
--- NOTE | 2017-02-20 15:12 | Emergency Department Report ---
HPI - General Chief Complaint: Upper Respiratory Infection Time Seen by Provider: 02/20/17 15:05 - HPI HPI: Patient is a 41-year-old female presents to ED complaining of coughing and choking that began today. Patient states she was admitted here at the hospital on January 22 and was released on February 11 of this year. Patient states she was placed on the respirator. Patient states she went to urgent care earlier today when she started coughing and was told to come to the ED to be evaluated. Patient states yesterday she has some difficulty breathing and had 2 nebulizer albuterol treatments and had one earlier today. Patient denies fevers/chills/shortness of breath/dizziness/chest pain/abdominal pain/headache/blurred vision. ED Past Medical Hx - Past Medical History Previous Medical History?: Yes Hx Seizures: Yes Hx Asthma: Yes Additional medical history: previous intubations, Resp failure - Surgical History Past Surgical History?: Yes Hx Appendectomy: Yes Additional Surgical History: Partial uterine ablation. right arm surgery x 9. left X 1 - Social History Smoking Status: Former Smoker Substance Use Type: Prescribed - Medications Home Medications: Home Medications Medication Instructions Recorded Confirmed Last Taken Type ALPRAZolam [Xanax TAB] 0.25 mg PO Q8H PRN #15 tablet 02/06/17 02/10/17 02/10/17 Rx Famotidine [Pepcid] 20 mg PO BID #30 tablet 02/06/17 02/10/17 02/10/17 Rx Folic Acid [Folvite] 1 mg PO QDAY #30 tablet 02/06/17 02/10/17 02/10/17 Rx Thiamine [Vitamin B-1] 100 mg PO QDAY #30 tablet 02/06/17 02/10/17 02/10/17 Rx oxyCODONE /ACETAMINOPHEN [Percocet 1 tab PO Q8H PRN #15 tablet 02/06/1702/10/17 Rx 5/325 mg] ALBUTEROL Inhaler [ProAir HFA 2 puff IH QID PRN #1 inhalation 02/20/17 Unknown Rx Inhaler] Acetamin/Codeine 120-12Mg/5 ml 5 ml PO TID #60 oral.liqd 02/20/17 Unknown Rx [Tylenol/Codeine 120-12 mg/5 ml] predniSONE [Deltasone] 10 mg PO QDAY #10 tablet 02/20/17 Unknown Rx ED Review of Systems ROS: Stated complaint: COUGHING/CHOKING ON FLUID Other details as noted in HPI Constitutional: denies: chills, fever Eyes: denies: eye pain, eye discharge, vision change ENT: denies: ear pain, throat pain, dental pain, hearing loss, congestion Respiratory: denies: cough, shortness of breath, SOB with exertion, SOB at rest , wheezing Cardiovascular: denies: chest pain, palpitations Endocrine: no symptoms reported Gastrointestinal: denies: abdominal pain, nausea, vomiting, diarrhea, constipation, hematemesis Genitourinary: denies: urgency, dysuria, discharge Musculoskeletal: denies: back pain, joint swelling, arthralgia Skin: denies: rash, lesions Neurological: denies: headache, weakness, paresthesias Psychiatric: denies: anxiety, depression Hematological/Lymphatic: denies: easy bleeding, easy bruising Physical Exam - Physical Exam Vital Signs: Vital Signs 02/20/17 14:13 Temperature 98.4 F Pulse Rate 84 Respiratory 20 Rate Blood Pressure 114/83 O2 Sat by Pulse 100 Oximetry Physical Exam: GENERAL: Alert and oriented x3, no apparent distress, Normal Gait, atraumatic. HEAD: Head is normocephalic and a-traumatic. EYES: Extra ocular muscles are intact. Pupils are equal, round, and reactive to light and accommodation. NOSE: Nose symetrical, Nontender,Nares appeared normal. MOUTH:Mouth is well hydrated and without lesions. Tonsils nonerythematous or swollen, Uvula midline, Tongue not elevated. Mucous membranes are moist. Posterior pharynx clear, no exudate or lesions. Patent airways. NECK: Supple. Non edematous, No carotid bruits. No lymphadenopathy or thyromegaly. No C-spine tenderness LUNGS: Symetrical with respiration, No wheezing, no rales or crackles, CTAB. HEART: S1, S2 present, regular rate and rhythm without murmur, no rubs, no gallops. ABDOMEN: No organomegaly was noted,Positive bowel sounds, soft, and non- distended. . Nontender to palpation on all Quadrants, NO CVA tenderness. EXTREMITIES/MUSCULOSKELETAL: No cyanosis, clubbing, rash, lesions or edema. Full ROM bilaterally. UE Pulses 2+ bilaterally. UE 5+ strength bilaterally, SKIN: Warm and dry, No lesions, No ulceration or induration present. ED Course Vital Signs 02/20/17 14:13 Temperature 98.4 F Pulse Rate 84 Respiratory 20 Rate Blood Pressure 114/83 O2 Sat by Pulse 100 Oximetry ED Medical Decision Making - Medical Decision Making 41-year-old female presents with acute bronchitis ED course: Chest x-ray ordered. Chest x-ray shows no acute cardiopulmonary process. Normal chest x-ray Discussed findings with patient. Patient received 125 mg of Solu-Medrol and 10 mL of Tylenol with codeine in ED Discussed the patient to take medication as prescribed. Discussed with patient his symptoms worsen or new symptoms arise or return to ED. Discussed with patient follow-up with primary care physician as referred. She states she understands and will comply to follow-up. Critical care attestation.: If time is entered above; I have spent that time in minutes in the direct care of this critically ill patient, excluding procedure time. ED Disposition Clinical Impression: Bronchitis Disposition: DISCHARGED TO HOME OR SELFCARE Is pt being admited?: No Does the pt Need Aspirin: No Condition: Stable Instructions: Chronic Bronchitis (ED) Prescriptions: Acetamin/Codeine 120-12Mg/5 ml [Tylenol/Codeine 120-12 mg/5 ml] 5 ml PO TID #60 oral.liqd ALBUTEROL Inhaler [ProAir HFA Inhaler] 2 puff IH QID PRN #1 inhalation PRN Reason: Shortness Of Breath predniSONE [Deltasone] 10 mg PO QDAY #10 tablet Referrals: PRIMARY CARE, [Primary Care Provider] - 3-5 Days MEGHAN AMAYA MD [Referring] - 3-5 Days DREW REAVES MD [Staff Physician] - 3-5 Days [facility] [Outside] - 3-5 Days [facility] [Outside] - 3-5 Days [facility] [Outside] - 3-5 Days Forms: Work/School Release Form(ED) Time of Disposition: 16:02
--- NOTE | 2017-02-20 15:50 | XRay Report ---
ROUTINE CHEST, TWO VIEWS: HISTORY: Difficulty in breathing. The trachea, heart, mediastinal contour, lung rasheed and bony thorax are unremarkable. IMPRESSION: Unremarkable chest x-ray.
[2017-02-20] MEDS ORDERED: TYLENOL/CODEINE PO ONE (16:00)
== END 2017-02-20 16:14 | disposition home or self-care (01) ==
LOC: ED 13:13
DX: J40 Bronchitis, not specified as acute or chronic (principal); J45.909 Unspecified asthma, uncomplicated; Z87.891 Personal history of nicotine dependence
CPT/HCPCS: 71020; 96372; 99283; J2930

== ENCOUNTER 2017-07-08 15:34 | Emergency (ER) | payer MEDICARE ==
[2017-07-08] MEDS ORDERED: DELTASONE PO ONE (17:35)
[2017-07-08] MEDS ORDERED: PROVENTIL IH ONE (17:35)
[2017-07-08] MEDS ORDERED: ATROVENT IH ONE (17:36)
[2017-07-08 17:50] LABS: Bacteria,Urine 4+ /HPF (Negative); Bilirubin,Urine NEG (Negative); Blood,Urine SM (Negative); Ketones,Urine NEG (Negative); Leukocyte Esterase,Urine SM (Negative); Mucus,Urine FEW /HPF; Nitrite,Urine NEG (Negative); Protein,Urine <15 mg/dL mg/dL (Negative); Urobilinogen,Urine < 2.0 mg/dL (<2.0)
--- NOTE | 2017-07-08 17:55 | Emergency Department Report ---
HPI - General Chief Complaint: Dyspnea/Respdistress Time Seen by Provider: 07/08/17 17:26 - HPI HPI: This is a 41-year-old female presents to the emergency department from home with complaint of shortness of breath, wheezing and a mixed dry and productive cough since yesterday afternoon that has worsened starting today. She has a history of asthma and seizures. She tried her albuterol nebulizer and inhaler at home as well as some nebulized steroids without any relief. She denies any fever, chest pain, back pain, nausea, vomiting or diaphoresis. She is a former tobacco smoker and denies any current illicit drug use. No recent travel or sick contacts at home. Her primary care physician is Dr. Des Hedrick. She says that she has been both admitted and intubated for asthma in the past. ED Past Medical Hx - Past Medical History Hx Arthritis: Yes Hx Seizures: Yes Hx Asthma: Yes Additional medical history: previous intubations, Resp failure - Surgical History Hx Appendectomy: Yes Additional Surgical History: Partial uterine ablation. right arm surgery x 9. left X 1 - Social History Smoking Status: Never Smoker Substance Use Type: None - Medications Home Medications: Home Medications Medication Instructions Recorded Confirmed Last Taken Type Ca/D3/Mag Ox/Zinc/Screenplay Writer/Berny/Bor 1 each PO BID 03/20/17 03/20/17 03/19/17 History [Calcium 600+D3 Plus Caplet] Duloxetine HCl [Cymbalta] 60 mg PO DAILY 03/20/17 03/20/17 03/19/17 History Gabapentin [Neurontin] 800 mg PO Q8H 03/20/17 03/20/17 03/19/17 History Oxycodone HCl/Acetaminophen 2 each PO Q4HR PRN 03/20/17 03/20/17 Unknown History [Percocet 7.5/325 mg] Levofloxacin [Levaquin TAB] 750 mg PO Q24H #7 tablet 03/23/17 Unknown Rx ALBUTEROL Inhaler [ProAir HFA 2 puff IH QID PRN #1 inhalation 07/08/17 Unknown Rx Inhaler] ALBUTEROL NEB's [Proventil 0.083% 2.5 mg IH Q4H PRN #1 box 07/08/17 Unknown Rx NEBS] predniSONE [Deltasone] 20 mg PO QDAY #5 tab 07/08/17 Unknown Rx ED Review of Systems ROS: Stated complaint: ANITA Other details as noted in HPI Comment: All other systems reviewed and negative Constitutional: denies: chills, fever Eyes: denies: eye pain, eye discharge, vision change ENT: denies: ear pain, throat pain Respiratory: cough, shortness of breath, wheezing Cardiovascular: denies: chest pain, edema Gastrointestinal: denies: abdominal pain, nausea, diarrhea Genitourinary: denies: urgency, dysuria, discharge Musculoskeletal: denies: back pain, joint swelling, arthralgia Skin: denies: rash, lesions Neurological: denies: headache, weakness, paresthesias Physical Exam - Physical Exam Vital Signs: Vital Signs 07/08/17 16:27 Temperature 98 F Blood Pressure 114/68 O2 Sat by Pulse 98 Oximetry Physical Exam: GENERAL: The patient is well-developed well-nourished. HENT: Normocephalic. Atraumatic. Patient has moist mucous membranes. EYES: Extraocular motions are intact. Pupils equal reactive to light bilaterally. NECK: Supple. Trachea is midline. CHEST/LUNGS: Mild wheezing throughout the chest. There is mild tachypnea but no excessive muscle use. No conversational dyspnea. There is no respiratory distress noted. HEART/CARDIOVASCULAR: Regular. There is no tachycardia. There is no gallop rub or murmur. ABDOMEN: Abdomen is soft, nontender. Patient has normal bowel sounds. There is no abdominal distention. SKIN: Skin is warm and dry. No edema. NEURO: The patient is awake, alert, and oriented. The patient is cooperative. The patient has no focal neurologic deficits. The patient has normal speech. MUSCULOSKELETAL: There is no tenderness or deformity. There is no limitation range of motion. There is no evidence of acute injury. ED Course Vital Signs 07/08/17 16:27 Temperature 98 F Blood Pressure 114/68 O2 Sat by Pulse 98 Oximetry ED Medical Decision Making - Lab Data Result diagrams: 07/08/17 17:56 07/08/17 17:56 - EKG Data -: EKG Interpreted by Me EKG shows normal: sinus rhythm, axis, intervals, QRS complexes, ST-T waves Rate: normal - EKG Data When compared to previous EKG there are: previous EKG unavailable Interpretation: normal EKG - Radiology Data Radiology results: image reviewed interpreted by me: Chest x-ray does not show any acute process. There are no pleural effusions, obvious pneumonia and there is no pneumothorax. - Medical Decision Making 41-year-old female with a history of significant asthma presents with 24-hour history of shortness breath, wheezing and cough. EKG is unremarkable. Chest x- ray does not show any pneumonia, pleural effusions or any acute process. She has mild bronchospasm. Given steroids and breathing treatment and upon reevaluation she is feeling much better and lungs sound improved. Vital signs stable including being afebrile and no hypoxia. Patient asking to go home. She has good follow-up with a primary care physician she plans to see on Monday. Given a refill of her albuterol and a five-day course of steroids. She will return with any worsening of her symptoms or any acute distress. - Differential Diagnosis asthma, bronchitis, pneumonia, URI Critical Care Time: No Critical care attestation.: If time is entered above; I have spent that time in minutes in the direct care of this critically ill patient, excluding procedure time. ED Disposition Clinical Impression: Asthma exacerbation, Bronchospasm Disposition: DC-01 TO HOME OR SELFCARE Is pt being admited?: No Condition: Stable Instructions: Asthma (ED) Additional Instructions: Please follow-up with your primary care physician as soon as possible. Return to the emergency Department with any worsening of your symptoms or any acute distress. Prescriptions: ALBUTEROL Inhaler [ProAir HFA Inhaler] 2 puff IH QID PRN #1 inhalation PRN Reason: Shortness Of Breath ALBUTEROL NEB's [Proventil 0.083% NEBS] 2.5 mg IH Q4H PRN #1 box PRN Reason: Wheezing predniSONE [Deltasone] 20 mg PO QDAY #5 tab Referrals: DES HEDRICK MD [Primary Care Provider] - [facility] Time of Disposition: 18:56
[2017-07-08 18:06] LABS: Basophils % (Auto) 0.5 % (0.0-1.8); Eosinophils % (Auto) 2.8 % (0.0-4.3); Hemoglobin 11.9 gm/dl (10.1-14.3); Mean Corpuscular HGB Conc 33 % (30-34); Mean Corpuscular Hemoglobin 30 pg (28-32); Mean Corpuscular Volume 91 fl (79-97); Platelet Count 347 K/mm3 (140-440); Red Blood Count 3.97 M/mm3 (3.65-5.03); Red Cell Distribution Width 13.1 % (13.2-15.2); White Blood Count 10.3 K/mm3 (4.5-11.0)
[2017-07-08 18:18] LABS: Anion Gap 19 mmol/L; Blood Urea Nitrogen 11 mg/dL (7-17); Carbon Dioxide 24 mmol/L (22-30); Chloride 103.2 mmol/L (98-107); Glucose 107 mg/dL (65-100); Potassium 3.4 mmol/L (3.6-5.0); Sodium 143 mmol/L (137-145)
[2017-07-08 18:19] VITALS: BP 106/68
[2017-07-08 18:24] LABS: Creatine Kinase 44 units/L (30-135)
[2017-07-08 18:26] LABS: Creatine Kinase MB < 1.0 ng/mL (0.0-4.0)
--- NOTE | 2017-07-09 09:15 | XRay Report ---
Single view chest: Compared to 03/19/17. History: Dyspnea. Findings: Normal cardiomediastinal silhouette. Trachea is midline. No consolidation, pneumothorax or pleural effusion. Impression: No acute cardiopulmonary findings.
== END 2017-07-08 19:09 | disposition home or self-care (01) ==
LOC: ED 15:34
DX: J45.901 Unspecified asthma with (acute) exacerbation (principal); J98.01 Acute bronchospasm; M19.90 Unspecified osteoarthritis, unspecified site
CPT/HCPCS: 36415; 71010; 80048; 81001; 82550; 82553; 84484; 85025; 93005; 93010; 94640; 99285; J7512

== ENCOUNTER 2018-12-03 07:37 | Emergency (ER) | payer MEDICARE ==
[2018-12-03 08:13] VITALS: BP 137/80
[2018-12-03] MEDS ORDERED: DECADRON IM ONE (10:31)
--- NOTE | 2018-12-03 10:35 | Emergency Department Report ---
ED Rash HPI - HPI Chief Complaint: Skin Rash Stated Complaint: RASH ALL OVER Time Seen by Provider: 12/03/18 10:29 Duration: 5 Days Location: Other (ALL OVER) Suspected Cause: Insect Rash Symptoms: Yes Itching, No Facial Swelling, No Tongue/Oral Swelling, No Breathing Difficulties, No Choking Sensation, No Wheezing/Dyspnea, No Peeling, No Blistering, No Fever, No Lightheaded, No Malaise, No Myalgias Severity: severe Other History: Patient is a 43-year-old female that comes in today with head to toe insect bites. Her also has the bites. She states that she saw spider in her bed. These are not spider bites. I suspect the home is infested with bed bugs. Patient is itchy. She also states her her animals. ED Review of Systems ROS: Stated complaint: RASH ALL OVER Other details as noted in HPI Comment: All other systems reviewed and negative Constitutional: denies: see HPI Eyes: denies: eye pain ENT: denies: ear pain Respiratory: denies: cough Cardiovascular: denies: palpitations Endocrine: denies: excessive sweating Gastrointestinal: denies: nausea Genitourinary: denies: urgency Musculoskeletal: denies: as per HPI Skin: as per HPI, rash Neurological: denies: headache Psychiatric: denies: anxiety Hematological/Lymphatic: denies: as per HPI ED Past Medical Hx - Past Medical History Hx Arthritis: Yes Hx Seizures: Yes Hx Asthma: Yes Additional medical history: previous intubations, Resp failure - Surgical History Hx Appendectomy: Yes Additional Surgical History: Partial uterine ablation. right arm surgery x 9. left X 1 - Social History Smoking Status: Current Every Day Smoker Substance Use Type: None - Medications Home Medications: Home Medications Medication Instructions Recorded Confirmed Last Taken Type Permethrin [Elimite] 60 gm TP QHS #1 cream..g. 12/03/18 Unknown Rx Rash Exam - Exam General: Vital signs noted. No distress. Alert and acting appropriately. HEENT: No Periorbital Edema, No Conjuctival Injection, No Chemosis, No Perioral Edema, No Tongue Edema, No Uvular Edema, No Compromised Airway, No Drooling Lungs: Yes Good Air Exchange, No Wheezes, No Ronchi, No Stridor, No Cough, No Labored Respirations, No Retractions, No Use of Accessory Muscles, No Other Abnormal Lung Sounds Heart: Yes Regular, No Murmur Skin: Yes Urticarial Rash, Yes Maculopapular Rash, Yes Erythema, No Morbilliform rash, No Bulla(e), No Excoriations, No Weeping, No Tenderness, No Edema, No Encrustations, No Other Other: Positive: Abdomen Normal, Neurologic Normal, Musculoskeletal Normal ED Course Vital Signs 12/03/18 08:11 Temperature 98.1 F Pulse Rate 108 H Respiratory 18 Rate Blood Pressure 137/80 O2 Sat by Pulse 99 Oximetry ED Medical Decision Making - Medical Decision Making Patient has head to toe rash. She is having severe itching. Her has the same rash. She is concerned that her animals do as well. MEDICATED FOR ITCHING EDUCATED ON BEDBUG/SCABIES TREATMENT - Differential Diagnosis simple rash Critical care attestation.: If time is entered above; I have spent that time in minutes in the direct care of this critically ill patient, excluding procedure time. ED Disposition Clinical Impression: Bed bug bite, Infestation by bed bug Disposition: DC- TO HOME OR SELFCARE Is pt being admited?: No Does the pt Need Aspirin: No Condition: Stable Instructions: Scabies (ED) Additional Instructions: CLEAN YOUR ENTIRE HOME USE MED GIVEN TODAY TONIGHT APPLY IT LEAVE ON WHILE YOU CLEAN SHOWER IT OFF IN AM GO BY [facility] FOR CLEANING AGENTS FOR YOUR HOME FOLLOW UP PCP IF PERSISTS REFERRAL BELOW [facility]NADRYL OVER THE COUNTER FOR ITCHING Prescriptions: Permethrin [Elimite] 60 gm TP QHS #1 cream..g. Referrals: VAMSHI LAYTON MD [Primary Care Provider] - 3-5 Days Time of Disposition: 10:31
== END 2018-12-03 10:49 | disposition home or self-care (01) ==
LOC: ED 07:37
DX: B88.9 Infestation, unspecified (principal); M19.90 Unspecified osteoarthritis, unspecified site; J45.909 Unspecified asthma, uncomplicated; F17.200 Nicotine dependence, unspecified, uncomplicated; Z88.6 Allergy status to analgesic agent; Z88.0 Allergy status to penicillin; Z91.013 Allergy to seafood
CPT/HCPCS: 96372; 99282; J1100

== ENCOUNTER 2019-10-05 14:01 | Emergency (ER) | payer MEDICARE ==
[2019-10-05 14:14] VITALS: BP 122/72
--- NOTE | 2019-10-05 14:16 | Event Note ---
ED Screening Note ED Screening Note: states that she fell approximately 3 steps states she has pain in her left hand and left middle finger states she stopped herself with her hand has her fingers ravi taped currently no hitting head no LOC This initial assessment/diagnostic orders/clinical plan/treatment(s) is/are subject to change based on patients health status, clinical progression and re- assessment by fellow clinical providers in the ED. Further treatment and workup at subsequent clinical providers discretion. Patient/guardian urged not to elope from the ED as their condition may be serious if not clinically assessed and managed. Initial orders include: XR of the left hand
[2019-10-05] MEDS ORDERED: IBUPROFEN 800 MG TAB PO ONE (14:45)
--- NOTE | 2019-10-05 14:53 | XRay Report ---
Left hand-3 views INDICATION: MAIN: fall, left hand/left middle finger pain,2ND 34D AND 4TH DIGITS, PATIENT FELL DOWN STAIRS TRYING TO LET HER DOGS OUTSIDE.. COMPARISON: None. IMPRESSION: No acute osseous or soft tissue abnormality. No significant DJD. Signer Name: Kleber Hernandez MD Signed: 10/05/2019 2:48 PM Workstation Name: [id number]
--- NOTE | 2019-10-05 14:56 | Emergency Department Report ---
Upper Extremity - HPI Chief Complaint: Extremity Injury, Upper Stated Complaint: FALL Time Seen by Provider: 10/05/19 14:14 Upper Extremity: Left Forearm, Left Wrist, Left Hand Occurred When: Today Mechanism: Fall, Hyperextension Severity: moderate Symptoms: Yes Pain with Movement, Yes Swelling, Yes Bruising/Ecchymosis, No Deformity, No Limited Range of Movement, No Numbness, No Weakness, No Laceration or Abrasion Other History: Mrs. Starr is a 44 yo female with hx of asthma, seizure disorder who presents s/p fall down steps this morning 3 AM. She tripped and fell down several steps. She twisted and fell onto the steps face foward. Her hand slap against the stair. Her fingers hyperextending. She has bruising on her forearm. She has pain and swelling at the pal region. no other injuries. no head trauma. ED Review of Systems ROS: Stated complaint: FALL Other details as noted in HPI Constitutional: denies: fever, malaise Respiratory: denies: shortness of breath Cardiovascular: denies: chest pain Musculoskeletal: joint swelling, myalgia. denies: arthralgia Neurological: denies: numbness, paresthesias ED Past Medical Hx - Past Medical History Hx Arthritis: Yes Hx Seizures: Yes Hx Asthma: Yes Additional medical history: previous intubations, Resp failure - Surgical History Hx Appendectomy: Yes Additional Surgical History: Partial uterine ablation. right arm surgery x 9. left X 1 - Social History Smoking Status: Current Every Day Smoker - Medications Home Medications: Home Medications Medication Instructions Recorded Confirmed Last Taken Type Permethrin [Elimite] 60 gm TP QHS #1 cream..g. 12/03/18 Unknown Rx Ibuprofen [Motrin 800 MG tab] 800 mg PO TID 4 Days #12 tablet 10/05/19 Unknown Rx Upper Extremity Exam - Exam General: Vital signs noted. No distress. Alert and acting appropriately. Shoulder Exam: Yes Normal Range of Motion in Shoulder, No Shoulder Tenderness, No Clavicle Tenderness, No Shoulder Deformity, No AC Joint Tenderness Arm Exam: No Arm/Humerus Tenderness, No Arm Deformity Elbow: Yes Normal Range of Motion in Elbow, No Elbow Tenderness, No Elbow Deformity Forearm: No Forearm Tenderness, No Forearm Deformity, No Pain with Pronation, No Pain with Supination Wrist: Yes Normal ROM in Wrist, No Wrist Tenderness, No Wrist Deformity, No Snuffbox Tenderness, No Pain with Axial Thumb Compression Hand: Yes Hand Tenderness (mild volar palmar swelling), Yes Normal ROM in Digit(s), No Hand Deformity, No Digit Tenderness, No Digit(s) Deformity, No Tendon Dysfunction CMS Exam: Yes Normal Distal Pulses, Yes Normal Capillary Refill, Yes Normal Distal Sensation, No Broken Skin ED Course Vital Signs 10/05/19 14:13 Temperature 98.0 F Pulse Rate 83 Respiratory 20 Rate Blood Pressure 122/72 O2 Sat by Pulse 99 Oximetry ED Medical Decision Making - Radiology Data Radiology results: report reviewed, image reviewed According to radiologist's impression, left hand radiographs 3 views no acute osseous abnormality or soft tissue abnormality no significant DJD I also personally reviewed the images myself. I agree with the radiologist's impression. - Medical Decision Making Left forearm contusion, left hand sprain. Neurologic intact. No snuffbox tenderness. She was placed in a wrist brace by our medical staff. After placement of the brace, the application had appropriate alignment of the extremity. The extremity was neurologically intact. I have prescribed ibuprofen. Referred to orthopedic surgeon as needed. Critical care attestation.: If time is entered above; I have spent that time in minutes in the direct care of this critically ill patient, excluding procedure time. ED Disposition Clinical Impression: Sprain of left hand, Contusion of left forearm Disposition: DC-01 TO HOME OR SELFCARE Is pt being admited?: No Does the pt Need Aspirin: No Condition: Stable Instructions: Hand Sprain (ED) Prescriptions: Ibuprofen [Motrin 800 MG tab] 800 mg PO TID 4 Days #12 tablet Referrals: ARIANA SHEN MD [Staff Physician] - 3-5 Days
== END 2019-10-05 15:28 | disposition home or self-care (01) ==
LOC: ED 14:01
DX: S63.92XA Sprain of unspecified part of left wrist and hand, initial encounter (principal); S50.12XA Contusion of left forearm, initial encounter; W10.9XXA Fall (on) (from) unspecified stairs and steps, initial encounter; Y93.89 Activity, other specified; Y92.89 Other specified places as the place of occurrence of the external cause; Y99.8 Other external cause status
CPT/HCPCS: 29260; 29540